=== PATIENT | female | born 1955 | race American Indian/Alaskan Native ===

== ENCOUNTER 2016-07-25 14:54 | Emergency (ER) | payer MEDICARE ==
[2016-07-25 15:20] LABS: Basophils % (Auto) 0.9 % (0.0-1.8); Eosinophils % (Auto) 2.1 % (0.0-4.3); Hematocrit 34.1 % (30.3-42.9); Hemoglobin 11.2 gm/dl (10.1-14.3); Mean Corpuscular HGB Conc 33 % (30-34); Mean Corpuscular Hemoglobin 29 pg (28-32); Mean Corpuscular Volume 88 fl (79-97); Platelet Count 244 K/mm3 (140-440); Red Blood Count 3.87 M/mm3 (3.65-5.03); Red Cell Distribution Width 16.8 % (13.2-15.2); White Blood Count 5.7 K/mm3 (4.5-11.0)
[2016-07-25 15:39] LABS: BUN/Creatinine Ratio 6.66; Calcium 10.8 mg/dL (8.4-10.2); Chloride 92.5 mmol/L (98-107)
[2016-07-25 16:36] VITALS: BP 153/79
--- NOTE | 2016-07-26 12:14 | Emergency Department Report ---
Entered by GRAY SEGURA, acting as scribe for ANGELINA CORADO NP. ED Recheck HPI - General Chief Complaint: Recheck/Abnormal Lab/Rx Stated Complaint: ABNORMAL LABS Time Seen by Provider: 07/25/16 15:47 Source: patient Mode of arrival: Ambulatory Limitations: No Limitations - History of Present Illness Initial Comments: 60 year old female with a PMHx of HTN and renal disease presents to ED c/o an elevated potassium level (6.8) that began this afternoon. Patient states that her blood was drawn and showed elevated potassium level at her supervisor bleach [employer]'s appointment for dialysis. Her doctor did not continue with her dialysis and referred her to the ED to get her labs cleared before continuing today. Her blood was drawn in triage and showed that her potassium levels had dropped to 6.0. She states that she "feels fine". Denies shortness of breath, nausea, numbness, tingling, chest pain, and leg cramping/pain. Reports going to dialysis every Monday, Monday, and Monday, but has not gone in two weeks before today. She is currently compliant with her HTN medications. Uses tobacco products daily and consumes EtOH. NKDA. 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 Symptoms Since Prior Visit: no new symptoms Context: other (patient's supervisor ble[employer] wants her blood results cleared to continue dialysis) Associated Symptoms: denies: fever, chills, chest pain, shortness of breath, nasuea, other (leg cramping/pain) - Related Data Allergies Allergy/AdvReac Type Severity Reaction Status Date / Time No Known Allergies Allergy Verified 07/25/16 15:04 ED Review of Systems Comment: All other systems reviewed and negative Constitutional: denies: chills, fever, other (tingling) Eyes: denies: eye pain, eye discharge, vision change ENT: denies: ear pain, throat pain Respiratory: denies: cough, shortness of breath, wheezing Cardiovascular: denies: chest pain, palpitations, dyspnea on exertion, orthopnea Endocrine: no symptoms reported Gastrointestinal: denies: nausea Genitourinary: denies: urgency, dysuria, discharge Musculoskeletal: denies: other (leg cramping/pain) Skin: denies: rash, lesions Neurological: denies: numbness Psychiatric: denies: anxiety, depression ED Past Medical Hx - Past Medical History Previous Medical History?: Yes Hx Hypertension: Yes Hx Renal Disease: Yes - Surgical History Past Surgical History?: Yes Additional Surgical History: - Social History Smoking Status: Current Every Day Smoker Substance Use Type: Alcohol ED Physical Exam - General Limitations: No Limitations General appearance: alert, in no apparent distress - Head Head exam: Present: atraumatic, normocephalic - Eye Eye exam: Present: normal appearance, PERRL, EOMI - ENT ENT exam: Present: normal exam, mucous membranes moist - Neck Neck exam: Present: normal inspection, full ROM. Absent: tenderness - Respiratory Respiratory exam: Present: normal lung sounds bilaterally. Absent: respiratory distress, wheezes, rales, rhonchi, stridor - Cardiovascular Cardiovascular Exam: Present: regular rate, normal rhythm - GI/Abdominal GI/Abdominal exam: Present: soft. Absent: distended - Extremities Exam Extremities exam: Present: normal inspection, full ROM - Back Exam Back exam: Present: normal inspection, full ROM - Neurological Exam Neurological exam: Present: alert, oriented X3 - Psychiatric Psychiatric exam: Present: normal affect, normal mood - Skin Skin exam: Present: warm, dry, intact. Absent: rash ED Course Vital Signs 07/25/16 07/25/16 15:00 16:29 Temperature 97.4 F L Pulse Rate 74 78 Respiratory 16 18 Rate Blood Pressure 158/72 Blood Pressure 153/79 [Right] O2 Sat by Pulse 100 100 Oximetry - Reevaluation(s) Reevaluation #1: 07/25/16 17:07 Patient stated that this feeling fine. Dr. Jj aware of patients labs and EKG. Patient is not seeming in toxic appearance or in any distress. She stated to me that if she did not know anything about her potassium she feels the "perfect". ED Recheck MDM - Medical Decision Making Ed course: This is a 60-year-old female that presents for abnormal lab value. Potassium in dialysis center was 6.8. 1- patient did not seem toxic appearance or in any distress. 2- Dr. Jj aware of the patient and labs. As well as EKG. 3- instruct the patient to continue dialysis. 4- in the time of discharge the patient has no further questions. 5- I instrcuted the patient to follow-up with her primary care doctor in 2-3 days. 6- instruct the patient to return to emergency room if any signs and symptoms of chest pain, shortness of breath, numbness or tingling sensation, calf pain. ED Disposition Clinical Impression: Laboratory examination Disposition: DISCHARGED TO HOME OR SELFCARE Is pt being admited?: No Does the pt Need Aspirin: No Condition: Stable Additional Instructions: Please follow-up with her primary care doctor in 2-3 days. Please continue dialysis. If any symptoms of shortness of breath, chest pain, numbness or tingling, or calf pain, report back to emergency room. Referrals: PRIMARY CARE,MD [Primary Care Provider] - 3-5 Days Forms: Work/School Release Form(ED) This documentation as recorded by the COLTON umaña JASMINE,accurately reflects the service I personally performed and the decisions made by ,ANGELINA CORADO, ENVELOPE STUFFER.
== END 2016-07-25 17:30 | disposition home or self-care (01) ==
LOC: ED 14:54
DX: Z13.89 Encounter for screening for other disorder (principal); I10 Essential (primary) hypertension; F17.200 Nicotine dependence, unspecified, uncomplicated
CPT/HCPCS: 36415; 80048; 85025; 93005; 93010; 99283

== ENCOUNTER 2016-11-04 12:10 | Emergency (ER) | payer MEDICARE ==
--- NOTE | 2016-11-04 13:14 | Emergency Department Report ---
ED Recheck HPI - General Chief Complaint: Recheck/Abnormal Lab/Rx Stated Complaint: LABWORK Time Seen by Provider: 11/04/16 13:07 Source: patient Mode of arrival: Ambulatory Limitations: No Limitations - History of Present Illness Initial Comments: 61-year-old female past medical history hypertension, ESRD on dialysis Monday presents with complaint of missing dialysis for one week. Patient states that due to transportation issues she did not follow-up with dialysis since last Monday approximately one week ago. Patient is awake alert and oriented 3 not in acute distress denies any chest pain palpitations shortness of breath lower extremity swelling. Patient denies any paresthesias or generalized weakness. States that she went to her dialysis center this morning but they sent her to the ER for a potassium and electrolyte check. On exam patient is sitting calmly on stretcher. Blood pressure is elevated systolic is 238 diastolic 100. Patient states that she took her daily losartan and nifedipine this morning. Patient has left sided upper extremity fistula or dialysis MD Complaint: abnormal lab Onset/Timin -: week(s) Description of Abnormal Result: Need for electrolyte check after missing one week of dialysis - Related Data Allergies Allergy/AdvReac Type Severity Reaction Status Date / Time No Known Allergies Allergy Verified 11/04/16 12:52 ED Review of Systems ROS: Stated complaint: LABWORK Other details as noted in HPI Comment: patient on dialysis Monday Constitutional: denies: chills, fever Eyes: denies: eye pain, eye discharge, vision change ENT: denies: ear pain, throat pain Respiratory: denies: cough, shortness of breath, wheezing Cardiovascular: denies: chest pain, palpitations Endocrine: no symptoms reported Gastrointestinal: denies: abdominal pain, nausea, diarrhea Genitourinary: denies: urgency, dysuria, discharge Musculoskeletal: denies: back pain, joint swelling, arthralgia Skin: denies: rash, lesions Neurological: denies: headache, weakness, paresthesias Psychiatric: denies: anxiety, depression Hematological/Lymphatic: denies: easy bleeding, easy bruising ED Past Medical Hx - Past Medical History Hx Hypertension: Yes Hx Renal Disease: Yes (MON-MON-MON) - Surgical History Additional Surgical History: X 3. TUBAL LIGATION. HYSTERECTOMY. PERMA CATH RIGHT CHEST AND REMOVAL. GRAFT LEFT ARM - Social History Smoking Status: Current Every Day Smoker Substance Use Type: None ED Physical Exam - General Limitations: No Limitations General appearance: alert, in no apparent distress - Head Head exam: Present: atraumatic, normocephalic - Eye Eye exam: Present: normal appearance, PERRL, EOMI - ENT ENT exam: Present: mucous membranes moist - Neck Neck exam: Present: normal inspection - Respiratory Respiratory exam: Present: normal lung sounds bilaterally. Absent: respiratory distress - Cardiovascular Cardiovascular Exam: Present: regular rate, normal rhythm. Absent: systolic murmur, diastolic murmur, rubs, gallop - GI/Abdominal GI/Abdominal exam: Present: soft, normal bowel sounds - Extremities Exam Extremities exam: Present: normal inspection - Back Exam Back exam: Present: normal inspection - Neurological Exam Neurological exam: Present: alert, oriented X3 - Psychiatric Psychiatric exam: Present: normal affect, normal mood - Skin Skin exam: Present: warm, dry, intact, normal color. Absent: rash ED Course Vital Signs 11/04/16 11/04/16 11/04/16 12:41 13:02 13:12 Temperature 97.6 F Pulse Rate 81 77 Respiratory 17 23 23 Rate Blood Pressure 228/94 O2 Sat by Pulse 100 100 Oximetry 11/04/16 11/04/16 13:15 13:30 Temperature Pulse Rate 75 79 Respiratory 14 16 Rate Blood Pressure 227/99 213/176 O2 Sat by Pulse Oximetry ED Recheck MDM - Medical Decision Making A/P: Need for hemodialysis 1-case discussed with Dr. Simon extension edger drywall hanger helper, I then reached out to pts outpt HD group, case d/w Dr. Vuong. As pts EKG is WNL, K+ is not markedly elevated and CXR does nto show CHF pt can recive outpt HD today. I informed Dr. Vuong that pts BP was in 220s systolic. As pt has nto recived HD in 1 week this is expected, pt deneis any palps, SOB, CP, blurry vision, nausea or vomiting. I called pts outpt HD center and discussed case w/ tree doctor Zeinab , I informed her that I would DC pt with strict instruction to report to [facility] HD center. Pt agreed she would report there after DC from the ED. 2-Case d/w Dr. Chang before discharge Critical care attestation.: If time is entered above; I have spent that time in minutes in the direct care of this critically ill patient, excluding procedure time. ED Disposition Clinical Impression: ESRD (end stage renal disease) Disposition: DC-01 TO HOME OR SELFCARE Is pt being admited?: No Does the pt Need Aspirin: No Condition: Stable Instructions: Chronic Kidney Disease (ED), End-Stage Kidney Disease (ED) Additional Instructions: Case discussed with Dr. Vuong, patient cleared to receive dialysis in outpatient center. Patient instructed to immediately report to dialysis center , I touched base with tree doctor Zeinab who stated that patient can come over immediately after discharge but must present discharge paperwork. [facility] dialysis center Referrals: PRIMARY CAREMD [Primary Care Provider] - 3-5 Days Time of Disposition: 14:52
[2016-11-04 13:31] LABS: BUN/Creatinine Ratio 6.46; Calcium 9.7 mg/dL (8.4-10.2); Chloride 92.9 mmol/L (98-107); Potassium 5.5 mmol/L (3.6-5.0)
[2016-11-04 13:36] LABS: Magnesium 3.2 mg/dL (1.7-2.3); Phosphorous 7.5 mg/dL (2.5-4.5)
--- NOTE | 2016-11-04 13:54 | XRay Report ---
Portable chest: Endstage renal disease; fluid overload. The lungs are clear. There is no vascular congestion. The heart is normal in size. No bone lesions noted. Impression: No significant pathology identified.
[2016-11-04 15:05] VITALS: BP 197/170
== END 2016-11-04 15:05 | disposition home or self-care (01) ==
LOC: ED 12:10
DX: I12.0 Hypertensive chronic kidney disease with stage 5 chronic kidney disease or end stage renal disease (principal); N18.6 End stage renal disease; F17.200 Nicotine dependence, unspecified, uncomplicated; Z99.2 Dependence on renal dialysis
CPT/HCPCS: 36415; 71010; 80048; 83735; 84100; 93005; 93010

== ENCOUNTER 2016-11-24 12:06 | Inpatient (IN) | payer MEDICARE ==
[2016-11-24 12:59] LABS: Hematocrit 32.6 % (30.3-42.9); Hemoglobin 10.6 gm/dl (10.1-14.3); Mean Corpuscular HGB Conc 33 % (30-34); Mean Corpuscular Hemoglobin 30 pg (28-32); Mean Corpuscular Volume 91 fl (79-97); Platelet Count 247 K/mm3 (140-440); Red Blood Count 3.57 M/mm3 (3.65-5.03); Red Cell Distribution Width 16.2 % (13.2-15.2); White Blood Count 6.8 K/mm3 (4.5-11.0)
[2016-11-24 13:00] LABS: BUN/Creatinine Ratio 8.24; Calcium 9.4 mg/dL (8.4-10.2); Potassium 4.9 mmol/L (3.6-5.0)
[2016-11-24] MEDS ORDERED: BABY ASPIRIN PO ONE (14:33)
--- NOTE | 2016-11-24 14:35 | Emergency Department Report ---
ED Chest Pain HPI - General Chief Complaint: Weakness Stated Complaint: DIALYSIS Time Seen by Provider: 11/24/16 14:06 Source: patient Mode of arrival: Ambulatory Limitations: No Limitations - History of Present Illness Initial Comments: This is a 61-year-old Afro-[place] female presents to the emergency department with multiple complaints under the umbrella of "I feel bad" after the patient has missed 4-5 sessions of dialysis. The patient usually goes on Monday/ Monday/Monday and has not been there for about 10 days because of personal issues at home. However now the patient complains of chest pain that radiates across her chest from right to left, chills, generalized weakness. She also has a history of hypertension. She has a surgical history of 3, tubal ligation, hysterectomy. She has not taken anything for symptoms prior to presentation. No recent travel or sick contacts at home. Her handmade tile artist is Dr. Ellis. - Related Data Home Medications Medication Instructions Recorded Confirmed Last Taken Aspirin [Adult Low Dose Aspirin EC] 81 mg PO DAILY 11/24/16 11/24/16 11/24/16 Carvedilol [Coreg] 12.5 mg PO BID 11/24/16 11/24/16 11/24/16 Losartan [Cozaar] 50 mg PO QDAY 11/24/16 11/24/16 11/21/16 NIFEdipine [Nifedipine ER] 60 mg PO DAILY 11/24/16 11/24/16 11/24/16 Vit B Cplx #11/FA/C/Biot/Zn Ox 1 each PO DAILY 11/24/16 11/24/16 11/21/16 [Dialyvite with Zinc Tablet] Allergies Allergy/AdvReac Type Severity Reaction Status Date / Time No Known Allergies Allergy Verified 11/04/16 12:52 Heart Score - HEART Score History: Slightly suspicious EKG: Non-specific Age: 45-65 Risk factors: 1-2 risk factors Troponin: < normal limit HEART Score: 3 - Critical Actions Critical Actions: 0-3 pts:0.9-1.7%risk of adverse cardiac event.Candidate for discharge ED Review of Systems ROS: Stated complaint: DIALYSIS Other details as noted in HPI Comment: All other systems reviewed and negative Constitutional: chills, weakness. denies: fever Eyes: denies: eye pain, eye discharge, vision change ENT: denies: ear pain, throat pain Respiratory: denies: cough, wheezing Cardiovascular: chest pain. denies: edema Gastrointestinal: nausea. denies: vomiting Genitourinary: denies: urgency, dysuria, discharge Musculoskeletal: denies: back pain, joint swelling Skin: denies: rash, lesions Neurological: denies: headache, numbness ED Past Medical Hx - Past Medical History Previous Medical History?: Yes Hx Hypertension: Yes Hx Renal Disease: Yes (MON-WED-MON) - Surgical History Past Surgical History?: Yes Additional Surgical History: X 3. TUBAL LIGATION. HYSTERECTOMY. PERMA CATH RIGHT CHEST AND REMOVAL. GRAFT LEFT ARM - Social History Smoking Status: Current Every Day Smoker Substance Use Type: Alcohol - Medications Home Medications: Home Medications Medication Instructions Recorded Confirmed Last Taken Type Aspirin [Adult Low Dose Aspirin EC] 81 mg PO DAILY 11/24/16 11/24/16 11/24/16 History Carvedilol [Coreg] 12.5 mg PO BID 11/24/16 11/24/16 11/24/16 History Losartan [Cozaar] 50 mg PO QDAY 11/24/16 11/24/16 11/21/16 History NIFEdipine [Nifedipine ER] 60 mg PO DAILY 11/24/16 11/24/16 11/24/16 History Vit B Cplx #11/FA/C/Biot/Zn Ox 1 each PO DAILY 11/24/16 11/24/16 11/21/16 History [Dialyvite with Zinc Tablet] ED Physical Exam - General Limitations: No Limitations - Other Other exam information: GENERAL: The patient is well-developed well-nourished. HEENT: Normocephalic. Atraumatic. Extraocular motions are intact. Patient has moist mucous membranes. Pupils equal reactive to light bilaterally. NECK: Supple. Trachea is midline. CHEST/LUNGS: Coarse breath sounds. No tachypnea or accessory muscle use. There is no respiratory distress noted. HEART/CARDIOVASCULAR: Regular. There is no tachycardia. There is no gallop rub or murmur. ABDOMEN: Abdomen is soft, nontender. Patient has normal bowel sounds. There is no abdominal distention. SKIN: Skin is warm and dry. NEURO: The patient is awake, alert, and oriented. The patient is cooperative. The patient has no focal neurologic deficits. The patient has normal speech. MUSCULOSKELETAL: There is no tenderness or deformity. There is no limitation range of motion. There is no evidence of acute injury. ED Course Vital Signs 11/24/16 11/24/16 11/24/16 12:07 14:13 14:14 Temperature 97.6 F Pulse Rate 88 83 79 Respiratory 18 25 H 16 Rate Blood Pressure 160/79 Blood Pressure [Right] O2 Sat by Pulse 100 Oximetry 11/24/16 11/24/16 11/24/16 14:16 14:18 14:20 Temperature 97.9 F Pulse Rate 77 83 84 Respiratory 16 16 17 Rate Blood Pressure Blood Pressure 180/72 [Right] O2 Sat by Pulse 100 Oximetry 11/24/16 11/24/16 11/24/16 14:22 14:24 14:26 Temperature Pulse Rate 74 79 83 Respiratory 15 12 15 Rate Blood Pressure 180/72 180/72 180/72 Blood Pressure [Right] O2 Sat by Pulse 100 100 100 Oximetry 11/24/16 11/24/16 11/24/16 14:28 14:30 14:32 Temperature Pulse Rate 79 80 88 Respiratory 12 17 20 Rate Blood Pressure 180/72 180/72 180/72 Blood Pressure [Right] O2 Sat by Pulse 100 100 100 Oximetry 11/24/16 11/24/16 11/24/16 14:34 14:36 14:38 Temperature Pulse Rate 81 83 80 Respiratory 16 13 15 Rate Blood Pressure 180/72 180/72 180/72 Blood Pressure [Right] O2 Sat by Pulse 100 100 100 Oximetry 11/24/16 11/24/16 11/24/16 14:40 14:42 14:44 Temperature Pulse Rate 79 84 79 Respiratory 15 15 10 L Rate Blood Pressure 180/72 180/72 180/72 Blood Pressure [Right] O2 Sat by Pulse 100 100 100 Oximetry 11/24/16 11/24/16 11/24/16 14:46 14:48 14:50 Temperature Pulse Rate 87 77 84 Respiratory 13 13 20 Rate Blood Pressure 180/72 180/72 180/72 Blood Pressure [Right] O2 Sat by Pulse 100 100 100 Oximetry 11/24/16 11/24/16 11/24/16 14:52 14:54 14:56 Temperature Pulse Rate 77 84 77 Respiratory 22 18 15 Rate Blood Pressure 180/72 180/72 180/72 Blood Pressure [Right] O2 Sat by Pulse 100 100 100 Oximetry 11/24/16 11/24/16 11/24/16 14:58 15:00 15:02 Temperature Pulse Rate 77 81 73 Respiratory 20 16 16 Rate Blood Pressure 180/72 169/73 169/73 Blood Pressure [Right] O2 Sat by Pulse 100 100 100 Oximetry 11/24/16 11/24/16 11/24/16 15:04 15:06 15:08 Temperature Pulse Rate 82 80 82 Respiratory 21 20 19 Rate Blood Pressure 169/73 169/73 169/73 Blood Pressure [Right] O2 Sat by Pulse 100 100 100 Oximetry 11/24/16 11/24/16 11/24/16 15:10 15:12 15:14 Temperature Pulse Rate 71 80 77 Respiratory 15 19 18 Rate Blood Pressure 169/73 169/73 169/73 Blood Pressure [Right] O2 Sat by Pulse 100 100 100 Oximetry 11/24/16 11/24/16 11/24/16 15:16 15:18 15:20 Temperature Pulse Rate 82 77 83 Respiratory 20 17 20 Rate Blood Pressure 169/73 169/73 169/73 Blood Pressure [Right] O2 Sat by Pulse 100 100 100 Oximetry 11/24/16 11/24/16 11/24/16 15:22 15:24 15:26 Temperature Pulse Rate 83 79 83 Respiratory 13 15 15 Rate Blood Pressure 169/73 169/73 169/73 Blood Pressure [Right] O2 Sat by Pulse 100 100 100 Oximetry 11/24/16 11/24/16 11/24/16 15:28 15:30 15:32 Temperature Pulse Rate 82 82 88 Respiratory 15 14 16 Rate Blood Pressure 169/73 169/73 169/73 Blood Pressure [Right] O2 Sat by Pulse 100 100 100 Oximetry 11/24/16 11/24/16 11/24/16 15:34 15:36 15:38 Temperature Pulse Rate 89 86 85 Respiratory 15 13 12 Rate Blood Pressure 169/73 169/73 169/73 Blood Pressure [Right] O2 Sat by Pulse 100 100 100 Oximetry 11/24/16 11/24/16 11/24/16 15:40 15:42 15:44 Temperature Pulse Rate 86 86 81 Respiratory 11 L 17 15 Rate Blood Pressure 169/73 169/73 169/73 Blood Pressure [Right] O2 Sat by Pulse 100 100 100 Oximetry 08/10/17 08/10/17 08/10/17 15:46 15:48 15:50 Temperature Pulse Rate 81 90 84 Respiratory 16 16 17 Rate Blood Pressure 169/73 169/73 169/73 Blood Pressure [Right] O2 Sat by Pulse 100 100 100 Oximetry 11/24/16 11/24/16 11/24/16 15:52 15:54 15:56 Temperature Pulse Rate 84 86 83 Respiratory 14 15 10 L Rate Blood Pressure 169/73 169/73 169/73 Blood Pressure [Right] O2 Sat by Pulse 100 100 100 Oximetry 11/24/16 11/24/16 11/24/16 15:58 16:00 16:02 Temperature Pulse Rate 83 84 85 Respiratory 17 16 14 Rate Blood Pressure 169/73 180/81 180/81 Blood Pressure [Right] O2 Sat by Pulse 100 99 100 Oximetry 11/24/16 11/24/16 11/24/16 16:04 16:06 16:08 Temperature Pulse Rate 86 80 83 Respiratory 16 19 12 Rate Blood Pressure 180/81 180/81 180/81 Blood Pressure [Right] O2 Sat by Pulse 100 100 100 Oximetry 11/24/16 11/24/16 11/24/16 16:10 16:12 16:14 Temperature Pulse Rate 86 87 87 Respiratory 18 13 12 Rate Blood Pressure 180/81 180/81 180/81 Blood Pressure [Right] O2 Sat by Pulse 100 100 Oximetry 11/24/16 11/24/16 16:28 16:31 Temperature 98.1 F Pulse Rate 76 80 Respiratory 16 Rate Blood Pressure 181/80 Blood Pressure 180/81 [Right] O2 Sat by Pulse 97 Oximetry - Consultations Consultation #1: 11/24/16 18:[address] Dowling, and she is aware of the patient's admission and lack of dialysis for the past 10 days and they're happy see the patient as a consult regarding dialysis. MUKUND score - Mukund Score Age > 65: (0) No Aspirin use within the Past 7 Days: (0) No 3 or more CAD Risk Factors: (0) No 2 or more Angina events in past 24 hrs: (1) Yes Known CAD with more than 50% Stenosis: (0) No Elevated Cardiac Markers: (0) No ST Deviation Greater than 0.5mm: (0) No MUKUND Score: 1 ED Medical Decision Making - Lab Data Result diagrams: 11/24/16 12:26 11/24/16 12:26 - EKG Data -: EKG Interpreted by Me EKG shows normal: sinus rhythm, axis, intervals, QRS complexes (LVH, Q waves in septal leads), ST-T waves Rate: normal - EKG Data When compared to previous EKG there are: previous EKG unavailable Interpretation: other (sinus rhythm, LVH, Q waves to the septal leads) - Radiology Data Radiology results: image reviewed interpreted by me: Chest x-ray does not show any obvious pneumonia or pleural effusion. - Medical Decision Making 61-year-old female who has not had dialysis in about 10 days presents with multiple different complaints including chest pain. EKG does not show any signs of ST elevation [place]. Chest x-ray is unremarkable thus far. First troponin negative. She'll be admitted to the hospital for further evaluation and possible dialysis. She has been accepted for admission by the hospitalist, Dr. Arambula. - Differential Diagnosis [place], pneumonia, CHF Critical Care Time: No Critical care attestation.: If time is entered above; I have spent that time in minutes in the direct care of this critically ill patient, excluding procedure time. ED Disposition Clinical Impression: ESRD on hemodialysis Chest pain Qualifiers: Chest pain type: unspecified Qualified Code(s): R07.9 - Chest pain, unspecified Hypertension Qualifiers: Hypertension type: renovascular hypertension Qualified Code(s): I15.0 - Renovascular hypertension Disposition: OP ADMIT IP TO THIS HOSP Is pt being admited?: Yes Condition: Stable Time of Disposition: 16:18
--- NOTE | 2016-11-24 14:57 | XRay Report ---
Single view chest: Compared to 11/04/16. History: Chest pain. Findings: Borderline cardiomegaly. Trachea is midline. No consolidation, pneumothorax or pleural effusion. Impression: No acute cardiopulmonary findings.
[2016-11-24] MEDS ORDERED: NORMODYNE IV ONE (16:19)
[2016-11-24] MEDS ORDERED: MORPHINE ONE (18:10)
[2016-11-24] MEDS ORDERED: MORPHINE IV ONE (18:16)
[2016-11-24] MEDS ORDERED: APRESOLINE IV ONE (19:22)
[2016-11-24] MEDS ORDERED: ZOFRAN ONE (20:22)
--- NOTE | 2016-11-24 20:52 | History and Physical Report ---
History of Present Illness Date of examination: 11/24/16 Date of admission: 11/24/16 16:18 Chief complaint: L sided chest pain for 1 day Missed HD for 10 days History of present illness: - History of Present Illness Initial Comments: Patient complains of chest pain that radiates across her chest from right to left, and generalized weakness. She also has a history of hypertension. She has a surgical history of 3, tubal ligation, hysterectomy. She has not taken anything for symptoms prior to presentation. No recent travel or sick contacts at home. Her nurse ob is Dr. Ellis. This is a 61-year-old Afro-[place]ij[place] female presents to the emergency department with multiple complaints .Has missed 4-5 sessions of dialysis. The patient usually goes on Monday/Monday/Monday and has not been there for about 10 days because of personal issues at home. Past Medical History Hx Hypertension: Yes Hx Renal Disease: Yes (MON-MON-MON) - Surgical History Past Surgical History?: Yes Additional Surgical History: X 3. TUBAL LIGATION. HYSTERECTOMY. PERMA CATH RIGHT CHEST AND REMOVAL. GRAFT LEFT ARM - Social History Smoking Status: Current Every Day Smoker Substance Use Type: Alcohol Fam HX Htn - Medications Home Medications: Home Medications Medication Instructions Recorded Confirmed Last Taken Type Aspirin [Adult Low Dose Aspirin EC] 81 mg PO DAILY 11/24/16 11/24/16 11/24/16 History Carvedilol [Coreg] 12.5 mg PO BID 11/24/16 11/24/16 11/24/16 History Losartan [Cozaar] 50 mg PO QDAY 11/24/16 11/24/16 11/21/16 History NIFEdipine [Nifedipine ER] 60 mg PO DAILY 11/24/16 11/24/16 11/24/16 History Vit B Cplx #11/FA/C/Biot/Zn Ox 1 each PO DAILY 11/24/16 11/24/16 11/21/16 History [Dialyvite with Zinc Tablet] - Related Data Home Medications Medication Instructions Recorded Confirmed Last Taken Aspirin [Adult Low Dose Aspirin EC] 81 mg PO DAILY 11/24/16 11/24/16 11/24/16 Carvedilol [Coreg] 12.5 mg PO BID 11/24/16 11/24/16 11/24/16 Losartan [Cozaar] 50 mg PO QDAY 11/24/16 11/24/16 11/21/16 NIFEdipine [Nifedipine ER] 60 mg PO DAILY 11/24/16 11/24/16 11/24/16 Vit B Cplx #11/FA/C/Biot/Zn Ox 1 each PO DAILY 11/24/16 11/24/16 11/21/16 [Dialyvite with Zinc Tablet] Allergies Allergy/AdvReac Type Severity Reaction Status Date / Time No Known Allergies Allergy Verified 11/04/16 12:52 ROS: Stated complaint: DIALYSIS Other details as noted in HPI Comment: All other systems reviewed and negative Constitutional: chills, weakness. denies: fever Eyes: denies: eye pain, eye discharge, vision change ENT: denies: ear pain, throat pain Respiratory: denies: cough, wheezing Cardiovascular: chest pain. denies: edema Gastrointestinal: nausea. denies: vomiting Genitourinary: denies: urgency, dysuria, discharge Musculoskeletal: denies: back pain, joint swelling Skin: denies: rash, lesions Neurological: denies: headache, numbness Medications and Allergies Allergies Allergy/AdvReac Type Severity Reaction Status Date / Time No Known Allergies Allergy Verified 11/04/16 12:52 Home Medications Medication Instructions Recorded Confirmed Last Taken Type Aspirin [Adult Low Dose Aspirin EC] 81 mg PO DAILY 11/24/16 11/24/16 11/24/16 History Carvedilol [Coreg] 12.5 mg PO BID 11/24/16 11/24/16 11/24/16 History Losartan [Cozaar] 50 mg PO QDAY 11/24/16 11/24/16 11/21/16 History NIFEdipine [Nifedipine ER] 60 mg PO DAILY 11/24/16 11/24/16 11/24/16 History Vit B Cplx #11/FA/C/Biot/Zn Ox 1 each PO DAILY 11/24/16 11/24/16 11/21/16 History [Dialyvite with Zinc Tablet] Active Meds: Active Medications Heparin Sodium (Porcine) (Heparin) 5,000 unit SUB-Q Q8HR FROY Exam - Constitutional Vitals: Temp Pulse Resp BP Pulse Ox 98.1 F 89 19 170/88 100 11/24/16 16:28 11/24/16 20:39 11/24/16 18:42 11/24/16 20:39 11/24/16 20:39 General appearance: Present: no acute distress, well-nourished - EENT Eyes: Present: PERRL ENT: hearing intact, clear oral mucosa - Neck Neck: Present: supple, normal ROM - Respiratory Respiratory effort: normal Respiratory: bilateral: CTA - Cardiovascular Heart Sounds: Present: S1 & S2. Absent: rub, click - Extremities Extremities: pulses symmetrical, No edema Peripheral Pulses: within normal limits - Abdominal General gastrointestinal: Present: soft, non-tender, non-distended, normal bowel sounds Female genitourinary: Present: normal - Integumentary Integumentary: Present: clear, warm, dry - Musculoskeletal Musculoskeletal: gait normal, strength equal bilaterally - Psychiatric Psychiatric: appropriate mood/affect, intact judgment & insight - Neurologic Neurologic: CNII-XII intact, moves all extremities Results - Labs CBC & Chem 7: 11/24/16 12:26 11/25/16 03:55 Labs: Laboratory Last Values WBC 6.8 K/mm3 (4.5-11.0) 11/24/16 12:26 RBC 3.57 M/mm3 (3.65-5.03) L 11/24/16 12:26 Hgb 10.6 gm/dl (10.1-14.3) 11/24/16 12:26 Hct 32.6 % (30.3-42.9) 11/24/16 12:26 MCV 91 fl (79-97) 11/24/16 12:26 MCH 30 pg (28-32) 11/24/16 12:26 MCHC 33 % (30-34) 11/24/16 12:26 RDW 16.2 % (13.2-15.2) H 11/24/16 12:26 Plt Count 247 K/mm3 (140-440) 11/24/16 12:26 Sodium 132 mmol/L (137-145) L 11/24/16 12:26 Potassium 4.9 mmol/L (3.6-5.0) 11/24/16 12:26 Chloride 90.0 mmol/L (98-107) L 11/24/16 12:26 Carbon Dioxide 18 mmol/L (22-30) L 11/24/16 12:26 Anion Gap 29 mmol/L 11/24/16 12:26 BUN 108 mg/dL (7-17) H 11/24/16 12:26 Creatinine 13.1 mg/dL (0.7-1.2) H 11/24/16 12:26 Estimated GFR 4 ml/min 11/24/16 12:26 BUN/Creatinine Ratio 8.24 % 11/24/16 12:26 Glucose 170 mg/dL (65-100) H 11/24/16 12:26 Calcium 9.4 mg/dL (8.4-10.2) 11/24/16 12:26 Troponin T 0.018 ng/mL (0.00-0.029) 11/24/16 20:00 Short CBC 11/24/16 Range/Units 12:26 WBC 6.8 (4.5-11.0) K/mm3 Hgb 10.6 (10.1-14.3) gm/dl Hct 32.6 (30.3-42.9) % Plt Count 247 (140-440) K/mm3 BMP 11/24/16 11/25/16 12:26 03:55 Sodium 132 L 138 Potassium 4.9 4.9 Chloride 90.0 L 95.7 L Carbon Dioxide 18 L 19 L BUN 108 H 118 H Creatinine 13.1 H 13.8 H Glucose 170 H 113 H Calcium 9.4 9.3 Cardiac Enzymes 11/24/16 11/24/16 11/24/16 Range/Units 12:26 17:55 20:00 Total Creatine Kinase (30-135) units/L CK-MB (CK-2) (0.0-4.0) ng/mL Troponin T 0.018 0.017 0.018 (0.00-0.029) ng/mL 11/24/16 11/25/16 Range/Units 21:16 03:55 Total Creatine Kinase 152 H 139 H (30-135) units/L CK-MB (CK-2) 2.3 2.2 (0.0-4.0) ng/mL Troponin T 0.022 0.021 (0.00-0.029) ng/mL Liver Function 11/25/16 Range/Units 03:55 Total Bilirubin 0.30 (0.1-1.2) mg/dL AST 9 (5-40) units/L ALT 10 (7-56) units/L Alkaline Phosphatase 46 (35-129) units/L Albumin 4.0 (3.9-5) g/dL - Imaging and Cardiology EKG: report reviewed Assessment and Plan Advance Directives: Yes (Full code) VTE prophylaxis?: Chemical Plan of care discussed with patient/family: Yes - Patient Problems (1) Chest pain Current Visit: Yes Status: Acute Qualifiers: Chest pain type: unspecified Ischemic chest pain type: I Qualified Code(s ): R07.9 - Chest pain, unspecified Plan to address problem: Chest pain r/o MIprotocol.Probably sec to volume overload.Serial CE's and Lexiscan (2) Hypertension Current Visit: Yes Status: Chronic Qualifiers: Hypertension type: essential hypertension Qualified Code(s): I10 - Essential (primary) hypertension Plan to address problem: Cont Losartan Nifedipine and Coreg (3) ESRD on hemodialysis Current Visit: Yes Status: Chronic Plan to address problem: Needs HD. Renal Dr Dowling consulted (4) Non-compliance with renal dialysis Current Visit: Yes Status: Chronic Plan to address problem: Patient counselled about dangers of missing HD (5) DVT prophylaxis Current Visit: Yes Status: Acute (6) DVT prophylaxis Current Visit: Yes Status: Acute Plan to address problem: On Heparin
[2016-11-24] MEDS ORDERED: MILK OF MAGNESIA PO PRN (20:54)
[2016-11-24] MEDS ORDERED: TYLENOL PO PRN (20:54)
[2016-11-24] MEDS ORDERED: DULCOLAX PR PRN (20:54)
[2016-11-24] MEDS ORDERED: DILAUDID IV PRN (20:54)
[2016-11-24] MEDS ORDERED: ZOFRAN IV PRN (20:54)
[2016-11-24] MEDS ORDERED: COZAAR PO SCH (21:00)
[2016-11-24 21:52] LABS: Creatine Kinase MB 2.3 ng/mL (0.0-4.0)
[2016-11-24] MEDS: COREG PO SCH (23:17)
[2016-11-24] MEDS: PROCARDIA XL PO SCH (23:17)
[2016-11-24] MEDS: PEPCID PO SCH (23:17)
[2016-11-24] MEDS: HEPARIN SUB-Q SCH (23:18)
[2016-11-25 04:37] LABS: Albumin/Globulin Ratio 1.2 %; Bilirubin,Total 0.3 mg/dL (0.1-1.2); Calcium 9.3 mg/dL (8.4-10.2); Chloride 95.7 mmol/L (98-107); Potassium 4.9 mmol/L (3.6-5.0); Total Protein 7.4 g/dL (6.3-8.2)
[2016-11-25 04:38] LABS: Creatine Kinase MB 2.2 ng/mL (0.0-4.0)
[2016-11-25 04:48] LABS: BUN/Creatinine Ratio 8.55
[2016-11-25] MEDS: HEPARIN SUB-Q SCH ×2 (06:36→16:02)
[2016-11-25] MEDS ORDERED: NACL 0.9% 100 ML IV PRN (08:27)
--- NOTE | 2016-11-25 08:27 | Consultation ---
History of Present Illness - Reason for Consult Consult date: 11/25/16 end stage renal disease - History of Present Illness The patient is a 61-year-old AAF with medical history significant for Hypertension and ESRD on hemodialysis (MWF) presented to the emergency department with multiple complaints including generalized bodyache, not feeling well and generalized weakness. Her Emergency Room Technician is Dr. Ellis. She missed the past 2 sessions of hemodialysis due to social issues. She was also complaining of chest pain that radiates across her chest from right to left. Past History Past Medical History: dialysis, ESRD, hypertension Medications and Allergies Allergies Allergy/AdvReac Type Severity Reaction Status Date / Time No Known Allergies Allergy Verified 11/04/16 12:52 Home Medications Medication Instructions Recorded Confirmed Last Taken Type Aspirin [Adult Low Dose Aspirin EC] 81 mg PO DAILY 11/24/16 11/24/16 11/24/16 History Carvedilol [Coreg] 12.5 mg PO BID 11/24/16 11/24/16 11/24/16 History Losartan [Cozaar] 50 mg PO QDAY 11/24/16 11/24/16 11/21/16 History NIFEdipine [Nifedipine ER] 60 mg PO DAILY 11/24/16 11/24/16 11/24/16 History Vit B Cplx #11/FA/C/Biot/Zn Ox 1 each PO DAILY 11/24/16 11/24/16 11/21/16 History [Dialyvite with Zinc Tablet] Active Meds: Active Medications Acetaminophen (Tylenol) 650 mg PO Q4H PRN PRN Reason: Pain MILD(1-3)/Fever >100.5/NOVAK Aspirin (Halfprin Ec) 81 mg PO DAILY FROY Bisacodyl (Dulcolax) 10 mg NC QDAY PRN PRN Reason: Constipation unrelieved by MOM Carvedilol (Coreg) 12.5 mg PO BID [facility] Last Admin: 11/24/16 23:17 Dose: 12.5 mg Famotidine (Pepcid) 10 mg PO DAILY [facility] Last Admin: 11/24/16 23:17 Dose: 10 mg Heparin Sodium (Porcine) (Heparin) 5,000 unit SUB-Q Q8HR [facility] Last Admin: 11/25/16 06:36 Dose: 5,000 unit Hydromorphone HCl (Dilaudid) 0.5 mg IV Q3H PRN PRN Reason: Pain , Severe (7-10) Losartan Potassium (Cozaar) 50 mg PO QDAY [facility] Last Admin: 11/24/16 23:17 Dose: 50 mg Magnesium Hydroxide (Milk Of Magnesia) 30 ml PO Q4H PRN PRN Reason: Constipation Nifedipine (Procardia Xl) 60 mg PO DAILY [facility] Last Admin: 11/24/16 23:17 Dose: 60 mg Ondansetron HCl (Zofran) 4 mg IV Q8H PRN PRN Reason: N/V unrelieved by Reglan Last Admin: 11/24/16 21:01 Dose: 4 mg Review of Systems Constitutional: chills, fatigue, weakness, malaise, no weight loss, no weight gain, no fever, no anorexia, no chronic pain Ears, nose, mouth and throat: no sinus pain, no epistaxis Breasts: deferred Cardiovascular: chest pain, high blood pressure, no orthopnea, no palpitations, no edema, no syncope, no lightheadedness, no shortness of breath, no dyspnea on exertion, no leg edema Respiratory: no cough, no home oxygen Gastrointestinal: no abdominal pain, no nausea, no vomiting, no diarrhea, no melena Genitourinary Female: no dysuria, no hematuria Rectal: no bleeding Musculoskeletal: muscle weakness, no hot joints Integumentary: no rash, no wounds Neurological: weakness, no paralysis, no seizures, no syncope, no convulsions, no change in mentation, no paralysis Psychiatric: no disorientation Hematologic/Lymphatic: no easy bleeding Exam - Vital Signs Vital signs: Vital Signs Temp Pulse Resp BP Pulse Ox 97.6 F 88 18 160/79 100 11/24/16 12:07 11/24/16 12:07 11/24/16 12:07 11/24/16 12:07 11/24/16 12:07 - General Appearance General appearance: well-developed, well-nourished, appears stated age, other ( no distress) EENT: ATNC, PERRL, mucous membranes moist, hearing intact, vision intact Neck: Present: neck supple Respiratory: Clear to Ascultation Heart: regular, S1S2, no murmurs Gastrointestinal: Present: normoactive bowel sounds. Absent: tenderness, distended Integumentary: no rash Neurologic: no focal deficit, no asterixis, alert and oriented x3, CN 3-12 intact Musculoskeletal: Present: other (left arm AVF, no edema) Psychiatric: mood/affect appropriate, cooperative Results - Lab Results 11/24/16 12:26 11/25/16 03:55 Most recent lab results Calcium 9.3 mg/dL (8.4-10.2) 11/25/16 03:55 Assessment and Plan - Patient Problems (1) ESRD on hemodialysis Status: Chronic Plan to address problem: Patient missed the past 2 sessions of hemodialysis. Hemodialysis today. (2) Hypertension Status: Chronic Qualifiers: Hypertension type: essential hypertension Qualified Code(s): I10 - Essential (primary) hypertension Plan to address problem: BP controlled. (3) Anemia of renal disease Status: Chronic Plan to address problem: Epogen.
--- NOTE | 2016-11-25 08:45 | Discharge Summary ---
Providers - Providers Date of Admission: 11/24/16 16:18 Attending physician: NI SEYMOUR MD 11/24/16 20:57 Consult to Physician [CONS] Routine Consulting Provider: VIDHYA DOWLING I Reason For Exam: ESRD on HD Primary care physician: ICE SKATER Hospitalization Condition: Stable Hospital course: Patient complains of chest pain that radiates across her chest from right to left, and generalized weakness. She also has a history of hypertension. She has a surgical history of 3, tubal ligation, hysterectomy. She has not taken anything for symptoms prior to presentation. No recent travel or sick contacts at home. Her branch coordinator is Dr. Ellis. This is a 61-year-old Afro-[place] female presents to the emergency department with multiple complaints .Has missed 4-5 sessions of dialysis. The patient usually goes on Monday/Monday/Monday and has not been there for about 10 days because of personal issues at home. (1) Chest pain Current Visit: Yes Status: Acute Qualifiers: Chest pain type: unspecified Ischemic chest pain type: I Qualified Code(s ): R07.9 - Chest pain, unspecified Plan to address problem: Chest pain r/o MIprotocol.Probably sec to volume overload.Serial CE's and Lexiscan (2) Hypertension Current Visit: Yes Status: Chronic Qualifiers: Hypertension type: essential hypertension Qualified Code(s): I10 - Essential (primary) hypertension Plan to address problem: Cont Losartan Nifedipine and Coreg (3) ESRD on hemodialysis Current Visit: Yes Status: Chronic Plan to address problem: Needs HD. Renal Dr Dowling consulted (4) Non-compliance with renal dialysis Current Visit: Yes Status: Chronic Plan to address problem: Patient counselled about dangers of missing HD (6) DVT prophylaxis Current Visit: Yes Status: Acute Plan to address problem: On Heparin Disposition: DC-01 TO HOME OR SELFCARE Time spent for discharge: 32 minutes Core Measure Documentation - Palliative Care Palliative Care/ Comfort Measures: Not Applicable - Core Measures Any of the following diagnoses?: none Exam - Constitutional Vitals: Temp Pulse Resp BP Pulse Ox 98.2 F 77 20 139/76 96 11/25/16 05:10 11/25/16 05:10 11/25/16 05:10 11/25/16 05:10 11/25/16 05:10 General appearance: Present: no acute distress, well-nourished - EENT Eyes: Present: PERRL ENT: hearing intact, clear oral mucosa - Neck Neck: Present: supple, normal ROM - Respiratory Respiratory effort: normal Respiratory: bilateral: CTA - Cardiovascular Heart Sounds: Present: S1 & S2. Absent: rub, click - Extremities Extremities: pulses symmetrical, No edema Peripheral Pulses: within normal limits - Abdominal General gastrointestinal: Present: soft, non-tender, non-distended, normal bowel sounds Female genitourinary: Present: normal - Integumentary Integumentary: Present: clear, warm, dry - Musculoskeletal Musculoskeletal: gait normal, strength equal bilaterally - Psychiatric Psychiatric: appropriate mood/affect, intact judgment & insight - Neurologic Neurologic: CNII-XII intact, moves all extremities Plan Follow up with: PRIMARY CARE, [Primary Care Provider] - 3-5 Days
[2016-11-25] MEDS ORDERED: LEXISCAN IV ONE ×2 (09:02→09:04)
[2016-11-25] MEDS ORDERED: HALFPRIN EC PO SCH (10:00)
[2016-11-25] MEDS ORDERED: NACL 0.9 (PRIMING MACHINE ONLY DIALYSIS) MC ONE (12:37)
--- NOTE | 2016-11-25 15:55 | Admit Criteria Form ---
Admission Criteria Documentation: CHEST PAIN Clinical Indications for Admission to Inpatient Care ([place]/check or initial the applicable condition/criteria) Admission is indicated for chest pain and ANY ONE of the following (1)(2)(3)(4)( 5)(6)(7): [ ]I. Angina with acute coronary syndrome (Also use Myocardial Infarction or Angina guideline) [ ]II. Hemodynamic instability [X]III. Angina needing acute intervention as indicated by ALL of the following( 11)(12): [ ]a) Unstable angina is present as indicated by angina that is ANY ONE of the following: [ ]i) New onset [ ]ii) Nocturnal [ ]iii) Prolonged at rest [ ]iv) Progressive [X]b) Angina warrants acute intervention as indicated by ANY ONE of the following: [ ]i) Recurrent angina (e.g, not responding as previously to treatment) [ ]ii) Angina at rest or with low-level activities despite initial medical therapy [ ]iii) New or presumably new ST-segment depression on ECG [ ]iv) Signs or symptoms of heart failure (eg, dyspnea, pulmonary edema) [ ]v) New or worsening mitral regurgitation [ ]vi) Hemodynamic instability [ ]vii) Dangerous arrhythmia (eg, sustained ventricular tachycardia) [ ]viii) History of percutaneous coronary intervention within 6 months [ ]ix) History of coronary artery bypass graft surgery []x) MUKUND risk score of 2 or greater[A] [ ]xi) History of Diabetes(14) [ ]xii) High-risk cardiac ischemia findings on noninvasive testing (e.g, echocardiogram, treadmill testing, nuclear scan) [X]xiii) Chronic renal insufficiency (ie, estimated GFR less than 60 mL/min/1.732m) [ ]xiv) Left ventricular ejection fraction less than 40% [ ]IV. Evidence of AL (eg, cardiac biomarkers positive, ST-segment elevation on ECG) also use Myocardial Infarction Criteria Form. [ ]V. Pulmonary edema [ ]III. Respiratory distress [ ]IV. Chest pain indicative of serious diagnosis other than coronary artery disease (e.g., aorticdissection) Extended stay beyond goal length of stay may be needed for(3)(4)(10)(45)(48) [ ]a) Unstable angina [ ]b) Continued suspicion of acute coronary syndrome with inability to complete needed cardiac evaluation (eg, patient clinically unable to undergo stress testing) [ ]c) Myocardial infarction [ ]d) Specific condition diagnosed after evaluation (eg, pulmonary embolism, aortic dissection)(49)(50)(51) The original [facility] content created by [facility] [employer] has been revised. The portions of the content which have been revised are identified through the use of italic text or in bold, and [facility] [employer] has neither reviewed nor approved the modified material. All other unmodified content is copyright [facility] [employer]. Please see references footnoted in the original [facility] [employer] edition 2017 Admission Criteria Met: Yes
[2016-11-25] MEDS: PEPCID PO SCH (16:03)
[2016-11-25] MEDS: PROCARDIA XL PO SCH (16:03)
[2016-11-25] MEDS: COREG PO SCH (16:03)
[2016-11-25 16:58] VITALS: BP 158/83
--- NOTE | 2016-11-25 22:53 | Treadmill Report ---
THALLIUM REPORT REASON FOR STUDY: Chest pain. IMAGING PROTOCOL: The patient received TC99m Tetrofosmin for rest and stress imaging. Imaging for all procedures was completed 30-90 minutes following the initial injection of Technetium 99m Tetrofosmin. SPECT imaging in the 180 degree arc was performed in the right anterior oblique projection. Computerized reconstruction of the images was performed for analysis. NUCLEAR IMAGING RESULTS: Normal left ventricular cavity size with no change from stress to rest. Distribution of radionuclide within the left ventricle revealed normal myocardial photon uptake with stress and rest imaging. Gated SPECT imaging revealed normal global LV systolic function with no significant wall motion abnormalities. The calculated left ventricular ejection fraction is 63%. IMPRESSION: Normal stress and rest myocardial perfusion imaging. Normal global left ventricular systolic function with no significant wall motion abnormalities. Ejection fraction 63%. No evidence of significant stress-induced ischemia or prior infarction. JOB# [id number] HAYDEE/HARSHAD PALMER
== END 2016-11-25 17:31 | disposition home or self-care (01) | DRG 640 ==
LOC: ED 12:06 → 4A 16:18
PROVIDERS: ADMIT Internal Medicine; ATTEND Internal Medicine
PROC: 5A1D60Z (ICD-10-PCS; principal; 2016-11-25)
DX: E87.70 Fluid overload, unspecified (principal); N18.6 End stage renal disease; I12.0 Hypertensive chronic kidney disease with stage 5 chronic kidney disease or end stage renal disease; F17.210 Nicotine dependence, cigarettes, uncomplicated; D63.1 Anemia in chronic kidney disease; Z98.51 Tubal ligation status; Z90.710 Acquired absence of both cervix and uterus; Z79.82 Long term (current) use of aspirin; Z79.899 Other long term (current) drug therapy; Z99.2 Dependence on renal dialysis; Z91.15 Patient's noncompliance with renal dialysis; Z71.89 Other specified counseling
CPT/HCPCS: 36415; 71010; 78452; 80048; 80053; 82550; 82553; 83036; 84484; 85027; 93005; 93010; 93017; 96374; 96375; A9502; J0360; J1170; J1644; J2270; J2405; J2785; J7030

== ENCOUNTER 2017-06-14 15:00 | Emergency (ER) | payer MEDICARE ==
[2017-06-14 15:08] VITALS: BP 156/75
[2017-06-14 15:42] LABS: BUN/Creatinine Ratio 5; Blood Urea Nitrogen 73 mg/dL (7-17); Calcium 8.7 mg/dL (8.4-10.2); Hemolysis Index 6
--- NOTE | 2017-06-14 16:24 | Emergency Department Report ---
ED General Adult HPI - General Chief complaint: Medical Clearance Stated complaint: MISSED DIALYSIS TX Time Seen by Provider: 06/14/17 15:48 Source: patient Mode of arrival: Ambulatory Limitations: No Limitations - History of Present Illness Initial comments: Patient is a 61-year-old female who is presenting for lab work. Patient states she missed dialysis 2 days ago and her last dialysis was one week ago today. Patient states she feels fine she missed her last dialysis because she just didn't feel like going. Patient denies any shortness of breath fevers chills nausea vomiting diarrhea chest pain at this time. - Related Data Home Medications Medication Instructions Recorded Confirmed Last Taken Aspirin [Adult Low Dose Aspirin EC] 81 mg PO DAILY 11/24/16 11/24/16 11/24/16 B Complex 11/Folic/C/Biot/Zinc 1 each PO DAILY 11/24/16 11/24/16 11/21/16 [Dialyvite with Zinc Tablet] Carvedilol [Coreg] 12.5 mg PO BID 11/24/16 11/24/16 11/24/16 Losartan [Cozaar] 50 mg PO QDAY 11/24/16 11/24/16 11/21/16 NIFEdipine [Nifedipine ER] 60 mg PO DAILY 11/24/16 11/24/16 11/24/16 Allergies Allergy/AdvReac Type Severity Reaction Status Date / Time No Known Allergies Allergy Verified 11/04/16 12:52 ED Review of Systems ROS: Stated complaint: MISSED DIALYSIS TX Other details as noted in HPI Comment: All other systems reviewed and negative ED Past Medical Hx - Past Medical History Hx Hypertension: Yes Hx Congestive Heart Failure: No Hx Diabetes: No Hx Renal Disease: Yes (MON-MON-MON) Hx Asthma: No Hx COPD: No - Surgical History Additional Surgical History: X 3. TUBAL LIGATION. HYSTERECTOMY. PERMA CATH RIGHT CHEST AND REMOVAL. GRAFT LEFT ARM - Social History Smoking Status: Current Every Day Smoker Substance Use Type: None - Medications Home Medications: Home Medications Medication Instructions Recorded Confirmed Last Taken Type Aspirin [Adult Low Dose Aspirin EC] 81 mg PO DAILY 11/24/16 11/24/16 11/24/16 History B Complex 11/Folic/C/Biot/Zinc 1 each PO DAILY 11/24/16 11/24/16 11/21/16 History [Dialyvite with Zinc Tablet] Carvedilol [Coreg] 12.5 mg PO BID 11/24/16 11/24/16 11/24/16 History Losartan [Cozaar] 50 mg PO QDAY 11/24/16 11/24/16 11/21/16 History NIFEdipine [Nifedipine ER] 60 mg PO DAILY 11/24/16 11/24/16 11/24/16 History ED Physical Exam - General Limitations: No Limitations General appearance: alert, in no apparent distress - Head Head exam: Present: atraumatic, normocephalic - Eye Eye exam: Present: normal appearance - ENT ENT exam: Present: mucous membranes moist - Neck Neck exam: Present: normal inspection - Respiratory Respiratory exam: Present: normal lung sounds bilaterally. Absent: respiratory distress - Cardiovascular Cardiovascular Exam: Present: regular rate, normal rhythm. Absent: systolic murmur, diastolic murmur, rubs, gallop - GI/Abdominal GI/Abdominal exam: Present: soft, normal bowel sounds - Extremities Exam Extremities exam: Present: normal inspection - Back Exam Back exam: Present: normal inspection - Neurological Exam Neurological exam: Present: alert, oriented X3 - Psychiatric Psychiatric exam: Present: normal affect, normal mood - Skin Skin exam: Present: warm, dry, intact, normal color. Absent: rash ED Course Vital Signs 06/14/17 15:05 Temperature 98.5 F Pulse Rate 83 Respiratory 16 Rate Blood Pressure 156/75 O2 Sat by Pulse 100 Oximetry ED Medical Decision Making - Lab Data Result diagrams: 06/14/17 15:17 - Medical Decision Making Patient's despite looking very well and stable does have abnormal labs. Her potassium is elevated she was technically acidotic as well. Patient has had end -stage renal disease for quite some time. I did speak with the patient's back line cook Dr. Whitlock and we discussed her lab findings. We both agree that the patient will receive Kayexalate can be discharged home for dialysis first thing in the morning. Critical care attestation.: If time is entered above; I have spent that time in minutes in the direct care of this critically ill patient, excluding procedure time. ED Disposition Clinical Impression: Missed dialysis, Hyperkalemia Disposition: DC-01 TO HOME OR SELFCARE Is pt being admited?: No Does the pt Need Aspirin: No Condition: Stable Referrals: PRIMARY CARE, [Primary Care Provider] - 3-5 Days
[2017-06-14] MEDS ORDERED: KIONEX PO ONE (16:26)
== END 2017-06-14 16:54 | disposition home or self-care (01) ==
LOC: ED 15:00
DX: E87.5 Hyperkalemia (principal); I12.0 Hypertensive chronic kidney disease with stage 5 chronic kidney disease or end stage renal disease; N18.6 End stage renal disease; F17.200 Nicotine dependence, unspecified, uncomplicated; Z99.2 Dependence on renal dialysis; Z91.15 Patient's noncompliance with renal dialysis; Z90.710 Acquired absence of both cervix and uterus; Z98.51 Tubal ligation status
CPT/HCPCS: 36415; 80048; 99283

== ENCOUNTER 2017-08-25 14:04 | Emergency (ER) | payer MEDICARE ==
[2017-08-25 14:12] VITALS: BP 170/83
[2017-08-25 14:53] LABS: Hematocrit 35.4 % (30.3-42.9); Hemoglobin 11.5 gm/dl (10.1-14.3); Mean Corpuscular HGB Conc 33 % (30-34); Mean Corpuscular Hemoglobin 30 pg (28-32); Mean Corpuscular Volume 93 fl (79-97); Platelet Count 247 K/mm3 (140-440); Red Blood Count 3.81 M/mm3 (3.65-5.03); Red Cell Distribution Width 17.7 % (13.2-15.2)
[2017-08-25 15:10] LABS: Calcium 9.4 mg/dL (8.4-10.2)
== END 2017-08-25 14:50 | disposition left against medical advice (07) ==
LOC: ED 14:04
DX: N18.6 End stage renal disease (principal); Z53.21 Procedure and treatment not carried out due to patient leaving prior to being seen by health care provider
CPT/HCPCS: 36415; 80053; 85027

== ENCOUNTER 2017-10-23 14:32 | Emergency (ER) | payer MEDICARE ==
[2017-10-23 15:45] LABS: Basophils % (Auto) 0.8 % (0.0-1.8); Eosinophils # (Auto) 0.2 K/mm3 (0.0-0.4); Eosinophils % (Auto) 3.6 % (0.0-4.3); Hematocrit 35.7 % (30.3-42.9); Hemoglobin 11.6 gm/dl (10.1-14.3); Lymphocytes # (Auto) 1.3 K/mm3 (1.2-5.4); Lymphocytes % (Auto) 24.9 % (13.4-35.0); Mean Corpuscular HGB Conc 33 % (30-34); Mean Corpuscular Hemoglobin 30 pg (28-32); Mean Corpuscular Volume 93 fl (79-97); Monocytes # (Auto) 0.3 K/mm3 (0.0-0.8); Monocytes % (Auto) 5.2 % (0.0-7.3); Platelet Count 251 K/mm3 (140-440); Red Blood Count 3.82 M/mm3 (3.65-5.03); Red Cell Distribution Width 15.1 % (13.2-15.2)
[2017-10-23 16:11] LABS: Calcium 9.8 mg/dL (8.4-10.2)
[2017-10-23] MEDS ORDERED: NORVASC PO ONE (21:48)
[2017-10-23] MEDS ORDERED: COZAAR PO ONE (21:48)
[2017-10-23] MEDS ORDERED: COREG PO ONE (21:48)
[2017-10-23] MEDS ORDERED: ATIVAN ONE (21:57)
[2017-10-23] MEDS ORDERED: ATIVAN PO ONE (21:58)
--- NOTE | 2017-10-23 22:12 | Emergency Department Report ---
ED Medical Clearance HPI - General Chief complaint: Medical Clearance Stated complaint: dialysis blood test Time Seen by Provider: 10/23/17 19:51 Source: patient Mode of arrival: Ambulatory - History of Present Illness Initial comments: Patient missed her last 3 dialysis sessions. This was due to life events that prevented her from going. She went to her dialysis center today and they would not dialyze her until she had screening blood work done. So, she came to the ER for evaluation. Denies chest pain, shortness of breath, fevers, belly pain. Patient has been compliant with her home medications. Home medications: Home Medications Medication Instructions Recorded Confirmed Last Taken Aspirin [Adult Low Dose Aspirin EC] 81 mg PO DAILY 11/24/16 11/24/16 11/24/16 B Complex 11/Folic/C/Biot/Zinc 1 each PO DAILY 11/24/16 11/24/16 11/21/16 [Dialyvite with Zinc Tablet] Carvedilol [Coreg] 12.5 mg PO BID 11/24/16 11/24/16 11/24/16 Losartan [Cozaar] 50 mg PO QDAY 11/24/16 11/24/16 11/21/16 NIFEdipine [Nifedipine ER] 60 mg PO DAILY 11/24/16 11/24/16 11/24/16 Allergies/Adverse reactions: Allergies Allergy/AdvReac Type Severity Reaction Status Date / Time No Known Allergies Allergy Verified 11/04/16 12:52 ED Review of Systems ROS: Stated complaint: dialysis blood test Other details as noted in HPI Comment: All other systems reviewed and negative ED Past Medical Hx - Past Medical History Hx Hypertension: Yes Hx Congestive Heart Failure: No Hx Diabetes: No Hx Renal Disease: Yes (MON-MON-MON) Hx Asthma: No Hx COPD: No - Surgical History Additional Surgical History: X 3. TUBAL LIGATION. HYSTERECTOMY. PERMA CATH RIGHT CHEST AND REMOVAL. GRAFT LEFT ARM - Social History Smoking Status: Current Every Day Smoker Substance Use Type: None - Medications Home Medications: Home Medications Medication Instructions Recorded Confirmed Last Taken Type Aspirin [Adult Low Dose Aspirin EC] 81 mg PO DAILY 11/24/16 11/24/16 11/24/16 History B Complex 11/Folic/C/Biot/Zinc 1 each PO DAILY 11/24/16 11/24/16 11/21/16 History [Dialyvite with Zinc Tablet] Carvedilol [Coreg] 12.5 mg PO BID 11/24/16 11/24/16 11/24/16 History Losartan [Cozaar] 50 mg PO QDAY 11/24/16 11/24/16 11/21/16 History NIFEdipine [Nifedipine ER] 60 mg PO DAILY 11/24/16 11/24/16 11/24/16 History ED Physical Exam - General Limitations: No Limitations General appearance: alert, in no apparent distress - Head Head exam: Present: atraumatic, normocephalic - Eye Eye exam: Present: normal appearance - ENT ENT exam: Present: mucous membranes moist - Neck Neck exam: Present: normal inspection - Respiratory Respiratory exam: Present: normal lung sounds bilaterally. Absent: respiratory distress - Cardiovascular Cardiovascular Exam: Present: regular rate, normal rhythm, other (LUE AVF with palpable thrill). Absent: systolic murmur, diastolic murmur, rubs, gallop - GI/Abdominal GI/Abdominal exam: Present: soft, normal bowel sounds. Absent: tenderness - Extremities Exam Extremities exam: Present: normal inspection - Back Exam Back exam: Present: normal inspection - Neurological Exam Neurological exam: Present: alert, oriented X3 - Psychiatric Psychiatric exam: Present: normal affect, normal mood - Skin Skin exam: Present: warm, dry, intact, normal color. Absent: rash ED Course Vital Signs 10/23/17 10/23/17 10/23/17 14:35 21:14 21:16 Temperature 98.4 F Pulse Rate 82 Respiratory 16 Rate Blood Pressure 196/94 227/109 227/109 Blood Pressure [Right] O2 Sat by Pulse 100 100 Oximetry 10/23/17 10/23/17 10/23/17 21:24 21:49 21:55 Temperature 98.4 F Pulse Rate 85 84 Respiratory 16 Rate Blood Pressure 238/110 238/110 Blood Pressure 227/109 [Right] O2 Sat by Pulse 100 Oximetry 10/23/17 10/23/17 22:00 22:30 Temperature Pulse Rate Respiratory Rate Blood Pressure 245/103 178/78 Blood Pressure [Right] O2 Sat by Pulse Oximetry ED Medical Decision Making - Lab Data Result diagrams: 10/23/17 15:10 10/23/17 15:10 - EKG Data -: EKG Interpreted by Id EKG shows normal: sinus rhythm, axis, intervals, QRS complexes, ST-T waves Rate: normal - EKG Data When compared to previous EKG there are: no significant change, previous EKG unavailable Interpretation: no acute changes - Medical Decision Making 62-year-old female with past medical history of hypertension, ESRD with dialysis Monday/Monday/Monday presents to the ER for medical clearance. Vital signs significant for hypertension with a systolic blood pressure in the low 200s. Screening lab work is unremarkable. Patient has a potassium of 5.2 and a creatinine of 16. This is consistent with the patient that needs dialysis , urgently but not emergently. I offered the patient admission to the hospital , but she felt comfortable going home and following up tomorrow at the dialysis center to get her dialysis. Given that her EKG shows no changes of hyperkalemia. I felt that this is appropriate. I gave the patient extra dose of her home blood pressure medication for her asymptomatic hypertension. Patient is cleared for discharge. - Differential Diagnosis electrolyte abnormality, hypertensive emergency ED Disposition Clinical Impression: Hypertension, ESRD on hemodialysis, Non-compliance with renal dialysis, Hyperkalemia Disposition: DC-01 TO HOME OR SELFCARE Is pt being admited?: No Does the pt Need Aspirin: No Condition: Stable Instructions: Chronic Kidney Disease (ED), Hypertension (ED) Additional Instructions: Your creatinine today is 16, potassium is 5.2 w/o EKG changes, Bicarb is 17. You are medically cleared to gets her dialysis tomorrow. Please do not miss the session. If anything should happen that concerns you, please return to the ER for reevaluation. Referrals: PRIMARY CARE, [Primary Care Provider] - 3-5 Days
[2017-10-23] MEDS ORDERED: APRESOLINE IV ONE (22:26)
[2017-10-23 22:54] VITALS: BP 178/78
== END 2017-10-23 23:02 | disposition home or self-care (01) ==
LOC: ED 14:32
DX: I12.0 Hypertensive chronic kidney disease with stage 5 chronic kidney disease or end stage renal disease (principal); N18.6 End stage renal disease; E87.5 Hyperkalemia; F17.200 Nicotine dependence, unspecified, uncomplicated; Z79.82 Long term (current) use of aspirin; Z91.15 Patient's noncompliance with renal dialysis; Z99.2 Dependence on renal dialysis
CPT/HCPCS: 36415; 80048; 85025; 93005; 93010; 99283

== ENCOUNTER 2018-12-24 15:20 | Emergency (ER) | payer MEDICARE ==
--- NOTE | 2018-12-24 15:46 | Emergency Department Report ---
Blank Doc - Documentation Documentation: 63-year-old female that missed 2 dialysis. Denies any symptoms. Was sent to ED for medical clearned to return to dialysis center. This initial assessment/diagnostic orders/clinical plan/treatment(s) is/are subject to change based on patient's health status, clinical progression and re- assessment by fellow clinical providers in the ED. Further treatment and workup at subsequent clinical providers discretion. Patient/guardians urged not to elope from the ED as their condition may be serious if not clinically assessed and managed. Initial orders include: 1- Patient sent to MAIN for further evaluation and treatment 2- labs
[2018-12-24 16:43] LABS: Calcium 9.9 mg/dL (8.4-10.2)
[2018-12-24 17:06] LABS: Basophils % (Auto) 0.9 % (0.0-1.8); Eosinophils # (Auto) 0.1 K/mm3 (0.0-0.4); Eosinophils % (Auto) 1.9 % (0.0-4.3); Hematocrit 39.4 % (30.3-42.9); Hemoglobin 12.9 gm/dl (10.1-14.3); Lymphocytes # (Auto) 0.8 K/mm3 (1.2-5.4); Lymphocytes % (Auto) 18.4 % (13.4-35.0); Mean Corpuscular HGB Conc 33 % (30-34); Mean Corpuscular Volume 93 fl (79-97); Monocytes # (Auto) 0.3 K/mm3 (0.0-0.8); Monocytes % (Auto) 6.4 % (0.0-7.3); Platelet Count 233 K/mm3 (140-440); Red Blood Count 4.26 M/mm3 (3.65-5.03); Red Cell Distribution Width 16.6 % (13.2-15.2)
--- NOTE | 2018-12-24 19:54 | Emergency Department Report ---
ED General Adult HPI - General Chief complaint: Medical Clearance Stated complaint: DIAYLSIS PATIENT/CHECK POTASSIUM Time Seen by Provider: 12/24/18 15:45 Source: patient Mode of arrival: Ambulatory Limitations: No Limitations - History of Present Illness Initial comments: Mrs. Zayas is a 63-year-old female with history of hypertension, end-stage renal disease on hemodialysis Monday who presents with need for dialysis. She needs her potassium checked in order to return to the [facility]. She missed Monday and Monday treatments. She had an family emergency. Her mother is elderly and required hospitalization. She has generalized malaise without localized pain. She "just doesn't feel good". . She was sent by dialysis staff to have potassium check. 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 Burnette -: Gradual Quality: other (generalized malaise) Consistency: constant Improves with: none Worsens with: none Associated Symptoms: denies other symptoms - Related Data Home Medications Medication Instructions Recorded Confirmed Last Taken Aspirin [Adult Low Dose Aspirin EC] 81 mg PO DAILY 11/24/16 08/21/18 11/24/16 NIFEdipine [Nifedipine ER] 60 mg PO BID 11/24/16 08/21/18 11/24/16 Carvedilol [Coreg] 25 mg PO BID 08/21/18 08/21/18 Unknown Cinacalcet HCl [Sensipar] 60 mg PO DAILY 08/21/18 08/21/18 Unknown Dialyvite Chewable Probiotic 3,000 mg PO DAILY 08/21/18 08/21/18 Unknown hydrALAZINE [Apresoline TAB] 100 mg PO TID 08/21/18 08/21/18 Unknown Previous Rx's Medication Instructions Recorded Last Taken Type levoFLOXacin [Levaquin] 250 mg PO QDAY #5 tablet 08/23/18 Unknown Rx Allergies Allergy/AdvReac Type Severity Reaction Status Date / Time No Known Allergies Allergy Verified 08/21/18 15:07 ED Review of Systems ROS: Stated complaint: DIAYLSIS PATIENT/CHECK POTASSIUM Other details as noted in HPI Comment: All other systems reviewed and negative Constitutional: malaise Cardiovascular: denies: chest pain Gastrointestinal: denies: abdominal pain, nausea Neurological: denies: headache ED Past Medical Hx - Past Medical History Previous Medical History?: Yes Hx Hypertension: Yes Hx Congestive Heart Failure: No Hx Diabetes: No Hx Renal Disease: Yes (MON-MON-MON) Hx Asthma: No Hx COPD: No - Surgical History Past Surgical History?: Yes Additional Surgical History: X 3. TUBAL LIGATION. HYSTERECTOMY. PERMA CATH RIGHT CHEST AND REMOVAL. GRAFT LEFT ARM - Social History Smoking Status: Current Every Day Smoker Substance Use Type: Alcohol, Marijuana - Medications Home Medications: Home Medications Medication Instructions Recorded Confirmed Last Taken Type Aspirin [Adult Low Dose Aspirin EC] 81 mg PO DAILY 11/24/16 08/21/18 11/24/16 History NIFEdipine [Nifedipine ER] 60 mg PO BID 11/24/16 08/21/18 11/24/16 History Carvedilol [Coreg] 25 mg PO BID 08/21/18 08/21/18 Unknown History Cinacalcet HCl [Sensipar] 60 mg PO DAILY 08/21/18 08/21/18 Unknown History Dialyvite Chewable Probiotic 3,000 mg PO DAILY 08/21/18 08/21/18 Unknown History hydrALAZINE [Apresoline TAB] 100 mg PO TID 08/21/18 08/21/18 Unknown History levoFLOXacin [Levaquin] 250 mg PO QDAY #5 tablet 08/23/18 Unknown Rx ED Physical Exam - General Limitations: No Limitations General appearance: alert, in no apparent distress - Head Head exam: Present: atraumatic, normocephalic - Eye Eye exam: Present: normal appearance - ENT ENT exam: Present: mucous membranes moist - Neck Neck exam: Present: normal inspection, full ROM - Respiratory Respiratory exam: Present: normal lung sounds bilaterally. Absent: respiratory distress, wheezes, rales, rhonchi - Cardiovascular Cardiovascular Exam: Present: regular rate, normal rhythm, normal heart sounds. Absent: systolic murmur, diastolic murmur, rubs, gallop - GI/Abdominal GI/Abdominal exam: Present: soft, normal bowel sounds. Absent: distended, tenderness, guarding, rebound - Extremities Exam Extremities exam: Present: normal inspection - Back Exam Back exam: Present: normal inspection - Neurological Exam Neurological exam: Present: alert, oriented X3 - Psychiatric Psychiatric exam: Present: normal affect, normal mood - Skin Skin exam: Present: warm, dry, intact, normal color. Absent: rash ED Course Vital Signs 12/24/18 16:29 Temperature 97.8 F Pulse Rate 71 Respiratory 18 Rate Blood Pressure 136/64 O2 Sat by Pulse 99 Oximetry ED Medical Decision Making - Lab Data Result diagrams: 12/24/18 15:51 12/24/18 15:51 - Medical Decision Making Ms. Zayas presents with need for dialysis. Potassium is normal. Mild metabolic acidosis due to missed dialysis which would explain generalized malaise. She does not have an acute emergent condition at this time which needs further evaluation or stabilization. She is discharged to have dialysis today or tomorrow. Critical care attestation.: If time is entered above; I have spent that time in minutes in the direct care of this critically ill patient, excluding procedure time. ED Disposition Clinical Impression: End stage renal disease on dialysis, Metabolic acidosis Disposition: DC-01 TO HOME OR SELFCARE Is pt being admited?: No Does the pt Need Aspirin: No Condition: Stable Additional Instructions: Your Potassium level is 4.7. You are cleared to have dialysis at your local center.
[2018-12-24 20:10] VITALS: BP 169/65
== END 2018-12-24 20:05 | disposition home or self-care (01) ==
LOC: ED 15:20
DX: E87.2 Acidosis (principal); F17.200 Nicotine dependence, unspecified, uncomplicated; F12.10 Cannabis abuse, uncomplicated; I12.0 Hypertensive chronic kidney disease with stage 5 chronic kidney disease or end stage renal disease; N18.6 End stage renal disease; Z99.2 Dependence on renal dialysis; Z98.51 Tubal ligation status; Z90.710 Acquired absence of both cervix and uterus; Z79.82 Long term (current) use of aspirin; Z79.899 Other long term (current) drug therapy
CPT/HCPCS: 36415; 80048; 85025

== ENCOUNTER 2019-05-08 16:17 | Observation (INO) | payer MEDICARE ==
--- NOTE | 2019-05-08 18:04 | Event Note ---
ED Screening Note Date of service: 05/08/19 Time: 17:48 ED Screening Note: 63 y o female presents with sob x 1 week PMH: renal failure, HTN PD at home This initial assessment/diagnostic orders/clinical plan/treatment(s) is/are subject to change based on patients health status, clinical progression and re- assessment by fellow clinical providers in the ED. Further treatment and workup at subsequent clinical providers discretion. Patient/guardian urged not to elope from the ED as their condition may be serious if not clinically assessed and managed. Initial orders include: labs, cxr
[2019-05-08 18:28] LABS: Eosinophils # (Auto) 0.1 K/mm3 (0.0-0.4); Eosinophils % (Auto) 1.9 % (0.0-4.3); Hematocrit 25.5 % (30.3-42.9); Hemoglobin 8.2 gm/dl (10.1-14.3); Lymphocytes # (Auto) 0.7 K/mm3 (1.2-5.4); Lymphocytes % (Auto) 14.9 % (13.4-35.0); Mean Corpuscular HGB Conc 32 % (30-34); Mean Corpuscular Volume 94 fl (79-97); Monocytes # (Auto) 0.4 K/mm3 (0.0-0.8); Monocytes % (Auto) 7.6 % (0.0-7.3); Platelet Count 220 K/mm3 (140-440); Red Blood Count 2.71 M/mm3 (3.65-5.03); Red Cell Distribution Width 16.4 % (13.2-15.2)
[2019-05-08 18:37] LABS: INR 1.2 (0.87-1.13)
[2019-05-08 18:38] LABS: Partial Thromboplastin Time 45.6 Sec. (24.2-36.6)
--- NOTE | 2019-05-08 18:38 | XRay Report ---
CHEST 2 VIEWS INDICATION / CLINICAL INFORMATION: Dyspnea. COMPARISON: 03/13/2018. FINDINGS: SUPPORT DEVICES: None. HEART / MEDIASTINUM: Moderately severe enlargement of the cardiopericardial silhouette is a new findi ng. Pulmonary vasculature is probably normal. LUNGS / PLEURA: There is minimal right basilar subsegmental atelectasis. No pneumothorax. ADDITIONAL FINDINGS: No significant additional findings. IMPRESSION: Interval development of moderately severe enlargement of the cardiopericardial silhouette . Differential diagnosis includes cardiomyopathy and pericardial effusion. Signer Name: Nelson Torres MD Signed: 05/08/2019 6:34 PM Workstation Name: [id number]
[2019-05-08 18:45] LABS: Creatine Kinase MB 3.3 ng/mL (0.0-4.0)
[2019-05-08 18:47] LABS: Calcium 9.2 mg/dL (8.4-10.2)
[2019-05-08 19:18] LABS: Chol/HDL Ratio 2.49 %
--- NOTE | 2019-05-08 23:10 | Emergency Department Report ---
HPI - General Chief Complaint: Fall Time Seen by Provider: 05/08/19 21:07 - HPI HPI: Hallway 25 The patient is a 63-year-old female presenting with chief complaint of shortness of breath and bilateral foot pain. The patient states for approximately 1.5 weeks is constant shortness of breath and wheezing. Patient missed a cough that is occasionally productive of yellow sputum. 2 days ago the patient states all walking her feet, portal and she fell hyperextending the toes on both of her feet. Patient complains of pain in her feet bilaterally since the fall. She went to an urgent care facility yesterday when x-ray was performed and they were concerned about a fracture of the second toe on the right foot. Patient states he never got confirmation there was a fracture there by the radiologist so they also came to the ED today to have that evaluated. Location: [See above] Duration: [See above] Quality: [See above] Severity: [See above] Timing: [See above] Context: [See above] Modifying factors: [See above] Associated signs and symptoms: [see above] ED Past Medical Hx - Past Medical History Previous Medical History?: Yes Hx Hypertension: Yes Hx Renal Disease: Yes (peritoneal dialysis) - Surgical History Past Surgical History?: Yes Additional Surgical History: X 3. TUBAL LIGATION. HYSTERECTOMY. PERMA CATH RIGHT CHEST AND REMOVAL. GRAFT LEFT ARM - Family History Family history: no significant - Social History Smoking Status: Current Every Day Smoker (1/2 pack per day) Substance Use Type: None (denies illicit drug use) - Medications Home Medications: Home Medications Medication Instructions Recorded Confirmed Last Taken Type Aspirin [Adult Low Dose Aspirin EC] 81 mg PO DAILY 11/24/16 08/21/18 11/24/16 History NIFEdipine [Nifedipine ER] 60 mg PO BID 11/24/16 08/21/18 11/24/16 History Cinacalcet HCl [Sensipar] 60 mg PO DAILY 08/21/18 08/21/18 Unknown History Dialyvite Chewable Probiotic 3,000 mg PO DAILY 08/21/18 08/21/18 Unknown History carvediloL [Coreg] 25 mg PO BID 08/21/18 08/21/18 Unknown History hydrALAZINE [Apresoline TAB] 100 mg PO TID 08/21/18 08/21/18 Unknown History levoFLOXacin [Levaquin] 250 mg PO QDAY #5 tablet 08/23/18 Unknown Rx ED Review of Systems ROS: Stated complaint: SOB, POSSIBLE BROKEN TOE Other details as noted in HPI Constitutional: no symptoms reported Eyes: denies: eye pain ENT: denies: throat pain Respiratory: cough, shortness of breath Cardiovascular: denies: chest pain Endocrine: no symptoms reported Gastrointestinal: denies: abdominal pain Genitourinary: denies: dysuria Musculoskeletal: arthralgia Physical Exam - Physical Exam Vital Signs: Vital Signs 05/08/19 05/08/19 16:38 22:57 Temperature 99.4 F Pulse Rate 88 80 Respiratory 16 18 Rate Blood Pressure 156/70 [Right] O2 Sat by Pulse 98 97 Oximetry Physical Exam: GENERAL: The patient is well-developed well-nourished female sitting on stretcher not appearing to be in acute distress HEENT: Normocephalic. Atraumatic. Extraocular motions are intact. Patient has moist mucous membranes. NECK: Supple. Trachea midline CHEST/LUNGS: Occasional faint expiratory wheeze. There is no respiratory distress noted. HEART/CARDIOVASCULAR: Regular. There is no tachycardia. Normal heart sounds. There is no gallop rub or murmur. ABDOMEN: Abdomen is soft, nontender. Patient has normal bowel sounds. There is no abdominal distention. SKIN: There is no rash. There is trace pitting edema left lower extremity . There is no diaphoresis. NEURO: The patient is awake, alert, and oriented. The patient is cooperative. The patient has normal speech MUSCULOSKELETAL: There is tenderness to palpation across the MTP joints of bilateral feet. Tenderness is greatest at the second toe of the right foot. ED Course Vital Signs 05/08/19 05/08/19 16:38 22:57 Temperature 99.4 F Pulse Rate 88 80 Respiratory 16 18 Rate Blood Pressure 156/70 [Right] O2 Sat by Pulse 98 97 Oximetry ED Medical Decision Making - Lab Data Result diagrams: 05/08/19 18:10 05/08/19 18:10 Laboratory Tests 05/08/19 05/08/19 05/08/19 18:10 18:10 18:10 WBC 4.8 RBC 2.71 L Hgb 8.2 L Hct 25.5 L MCV 94 MCH 30 MCHC 32 RDW 16.4 H Plt Count 220 Lymph % (Auto) 14.9 [place] % (Auto) 7.6 H Eos % (Auto) 1.9 Baso % (Auto) 1.0 Lymph # 0.7 L [place] # 0.4 Eos # 0.1 Baso # 0.0 Seg Neutrophils % 74.6 H Seg Neutrophils # 3.6 PT 15.4 H INR 1.20 H APTT 45.6 H VBG pH Sodium 134 L Potassium 5.0 Chloride 99.4 Carbon Dioxide 14 L Anion Gap 26 BUN 83 H Creatinine 12.0 H Estimated GFR 4 BUN/Creatinine Ratio 7 Glucose 172 H Calcium 9.2 Total Creatine Kinase 115 CK-MB (CK-2) 3.3 CK-MB (CK-2) Rel Index 2.8 Troponin T 0.042 H Triglycerides 72 Cholesterol 127 LDL Cholesterol Direct 65 HDL Cholesterol 51 Cholesterol/HDL Ratio 2.49 05/09/19 00:01 WBC RBC Hgb Hct MCV MCH MCHC RDW Plt Count Lymph % (Auto) [place] % (Auto) Eos % (Auto) Baso % (Auto) Lymph # [place] # Eos # Baso # Seg Neutrophils % Seg Neutrophils # PT INR APTT VBG pH 7.291 L Sodium Potassium Chloride Carbon Dioxide Anion Gap BUN Creatinine Estimated GFR BUN/Creatinine Ratio Glucose Calcium Total Creatine Kinase CK-MB (CK-2) CK-MB (CK-2) Rel Index Troponin T Triglycerides Cholesterol LDL Cholesterol Direct HDL Cholesterol Cholesterol/HDL Ratio - Radiology Data Radiology results: report reviewed (bilateral foot x-ray), image reviewed (bilateral foot x-ray) interpreted by me: Right foot [id number] lucency through the distal portion of second toe. Left foot x-ray-no acute fracture seen [facility] [address] [place] [address] XRay Report Signed Patient: RAMIRO MEREDITH MR#: [id number] : 1955 Acct:[id number] Age/Sex: 63 / F ADM Date: 05/08/19 Loc: ED Attending Dr: Ordering Physician: ELIER NUNES MD Date of Service: 05/08/19 Procedure(s): XR foot BILAT 2V Accession Number(s): [id number] cc: ELIER NUNES MD Fluoro Time In Minutes: AP AND LATERAL VIEWS OF THE FEET INDICATION: MCP pain after hyperextension of toes bilat. COMPARISON: No relevant prior imaging study available. FINDINGS: Right foot: No acute fracture or dislocation is seen. There is dorsal soft tissue swelling at the level of the metatarsals. Mild osteoarthrosis changes are noted. Left foot: No acute, displaced fracture or dislocation is seen. There are mild degenerative changes. There is mild dorsal soft tissue swelling in the forefoot. IMPRESSION: 1. No acute fracture or dislocation is seen. Signer Name: Leonides Torres MD Signed: 05/08/2019 11:27 PM Workstation Name: [id number] Transcribed By: DESEAN Dictated By: Leonides Torres MD Electronically Authenticated By: Leonides Torres MD Signed Date/Time: 05/08/192326 DD/ 25 TD/TT: - Differential Diagnosis bronchitis, toe fracture, foot contusion Critical care attestation.: If time is entered above; I have spent that time in minutes in the direct care of this critically ill patient, excluding procedure time. ED Disposition Clinical Impression: Shortness of breath, Cardiomegaly, Metabolic acidosis, Right foot strain, Strain of left foot Disposition: -09 OP ADMIT IP TO THIS HOSP Is pt being admited?: Yes Does the pt Need Aspirin: No Condition: Fair Referrals: CATHERINE CAMP MD [Primary Care Provider] - 3-5 Days Time of Disposition: 00:22 (hospitalist paged (Dr Bajwa))
--- NOTE | 2019-05-08 23:32 | XRay Report ---
AP AND LATERAL VIEWS OF THE FEET INDICATION: MCP pain after hyperextension of toes bilat. COMPARISON: No relevant prior imaging study available. FINDINGS: Right foot: No acute fracture or dislocation is seen. There is dorsal soft tissue swelling at the lev el of the metatarsals. Mild osteoarthrosis changes are noted. Left foot: No acute, displaced fracture or dislocation is seen. There are mild degenerative changes. There is mild dorsal soft tissue swelling in the forefoot. IMPRESSION: 1. No acute fracture or dislocation is seen. Signer Name: Leonides Torres MD Signed: 05/08/2019 11:27 PM Workstation Name: [id number]
[2019-05-09] MEDS ORDERED: SODIUM BICARB 8.4% 50 MEQ/50 ML SYRINGE IV ONE (00:35)
[2019-05-09] MEDS ORDERED: ACETAMINOPHEN 325 MG TAB PO PRN (01:08)
[2019-05-09] MEDS ORDERED: MAGNESIUM HYDROXIDE (MOM) ORAL LIQD UDC PO PRN (01:08)
[2019-05-09] MEDS ORDERED: ONDANSETRON 4 MG/2 ML INJ IV PRN (01:08)
--- NOTE | 2019-05-09 01:28 | History and Physical Report ---
History of Present Illness Date of examination: 05/09/19 Date of admission: 05/09/2019 Chief complaint: Cough and shortness of breath History of present illness: 53-year-old -[place] female with known history of end-stage renal disease on peritoneal dialysis presenting to the emergency room today complaining of cough and wheezing. Cough has been occasionally productive of some yellowish sputum . She denies any chest pain, no nausea vomiting, no headache or dizziness. Patient indicates that she fell a few days ago injuring her feet and was subsequently seen at an urgent care during which time there were concerns for possible fracture. She presents to the emergency room today to have of feet evaluated. Upon evaluation today x-ray did not reveal any obvious fractures however laboratory tests indicates she is in metabolic acidosis. Patient indicates that she has not been quite compliant with her peritoneal dialysis in the past few days secondary to a recent fall. Past History Past Medical History: COPD, ESRD (On peritoneal dialysis), hypertension Past Surgical History: , hysterectomy, Other (Permacath placement on right chest wall, left arm graft placement and removal) Social history: smoking (Smokes half a pack of cigarette daily) Family history: hypertension Medications and Allergies Allergies Allergy/AdvReac Type Severity Reaction Status Date / Time No Known Allergies Allergy Verified 08/21/18 15:07 Home Medications Medication Instructions Recorded Confirmed Last Taken Type Aspirin [Adult Low Dose Aspirin EC] 81 mg PO DAILY 11/24/16 08/21/18 11/24/16 History NIFEdipine [Nifedipine ER] 60 mg PO BID 11/24/16 08/21/18 11/24/16 History Cinacalcet HCl [Sensipar] 60 mg PO DAILY 08/21/18 08/21/18 Unknown History Dialyvite Chewable Probiotic 3,000 mg PO DAILY 08/21/18 08/21/18 Unknown History carvediloL [Coreg] 25 mg PO BID 08/21/18 08/21/18 Unknown History hydrALAZINE [Apresoline TAB] 100 mg PO TID 08/21/18 08/21/18 Unknown History Active Meds: Active Medications Acetaminophen (Tylenol) 650 mg PO Q4H PRN PRN Reason: Pain MILD(1-3)/Fever >100.5/NOVAK Albuterol/Ipratropium (Duoneb *Not For Prn Use*) 1 ampul IH Q6HRT [facility] Levofloxacin/Dextrose (Levaquin 750mg/150ml) 750 mg in 150 mls @ 100 mls/hr IV Q24HR [facility]; Protocol Magnesium Hydroxide (Milk Of Magnesia) 30 ml PO Q4H PRN PRN Reason: Constipation Morphine Sulfate (Morphine) 2 mg IV Q4H PRN PRN Reason: Pain, Moderate (4-6) Ondansetron HCl (Zofran) 4 mg IV Q8H PRN PRN Reason: Nausea And Vomiting Sodium Chloride (Sodium Chloride Flush Syringe 10 Ml) 10 ml IV BID FROY Sodium Chloride (Sodium Chloride Flush Syringe 10 Ml) 10 ml IV PRN PRN PRN Reason: LINE FLUSH Review of Systems Constitutional: no weight loss, no weight gain, no fever, no chills Cardiovascular: no chest pain, no palpitations Respiratory: shortness of breath, wheezing Gastrointestinal: no abdominal pain, no nausea, no vomiting Integumentary: no rash, no pruritis Neurological: no headaches, no change in mentation Exam - Constitutional Vitals: Temp Pulse Resp BP Pulse Ox 99.4 F 80 18 156/70 97 05/08/19 16:38 05/08/19 22:57 05/08/19 22:57 05/08/19 22:57 05/08/19 22:57 General appearance: Present: no acute distress - EENT Eyes: Present: PERRL, EOM intact ENT: hearing intact, clear oral mucosa, dentition normal - Neck Neck: Present: supple, normal ROM - Respiratory Respiratory effort: normal Respiratory: bilateral: wheezing - Cardiovascular Rhythm: regular Heart Sounds: Present: S1 & S2 - Extremities Extremities: no ischemia, pulses intact, No edema, Full ROM, abnormal (Right f oot dressing/soft cast in place) Peripheral Pulses: within normal limits - Abdominal General gastrointestinal: Present: soft, non-tender, non-distended - Integumentary Integumentary: Present: clear, warm, dry - Musculoskeletal Musculoskeletal: strength equal bilaterally - Psychiatric Psychiatric: appropriate mood/affect, intact judgment & insight - Neurologic Neurologic: CNII-XII intact, moves all extremities Results - Labs CBC & Chem 7: 05/08/19 18:10 05/08/19 18:10 Labs: Abnormal lab results 01/22/20 01/22/20 01/22/20 Range/Units 18:10 18:10 18:10 RBC 2.71 L (3.65-5.03) M/mm3 Hgb 8.2 L (10.1-14.3) gm/dl Hct 25.5 L (30.3-42.9) % RDW 16.4 H (13.2-15.2) % [place] % (Auto) 7.6 H (0.0-7.3) % Lymph # 0.7 L (1.2-5.4) K/mm3 Seg Neutrophils % 74.6 H (40.0-70.0) % PT 15.4 H (12.2-14.9) Sec. INR 1.20 H (0.87-1.13) APTT 45.6 H (24.2-36.6) Sec. VBG pH (7.320-7.420) Sodium 134 L (137-145) mmol/L Carbon Dioxide 14 L (22-30) mmol/L BUN 83 H (7-17) mg/dL Creatinine 12.0 H (0.7-1.2) mg/dL Glucose 172 H (65-100) mg/dL Troponin T 0.042 H (0.00-0.029) ng/mL 05/09/19 Range/Units 00:01 RBC (3.65-5.03) M/mm3 Hgb (10.1-14.3) gm/dl Hct (30.3-42.9) % RDW (13.2-15.2) % [place] % (Auto) (0.0-7.3) % Lymph # (1.2-5.4) K/mm3 Seg Neutrophils % (40.0-70.0) % PT (12.2-14.9) Sec. INR (0.87-1.13) APTT (24.2-36.6) Sec. VBG pH 7.291 L (7.320-7.420) Sodium (137-145) mmol/L Carbon Dioxide (22-30) mmol/L BUN (7-17) mg/dL Creatinine (0.7-1.2) mg/dL Glucose (65-100) mg/dL Troponin T (0.00-0.029) ng/mL Assessment and Plan - Patient Problems (1) Right foot strain Current Visit: Yes Status: Acute Plan to address problem: Patient placed on analgesic medication for pain relief. X-ray did not reveal any obvious fractures. (2) Metabolic acidosis Current Visit: Yes Status: Chronic Plan to address problem: Patient has not been able to do peritoneal dialysis promptly secondary to a recent fall and associated pain. (3) Anemia Current Visit: No Status: Acute Plan to address problem: Probably chronic we will monitor CBC. (4) ESRD on dialysis Current Visit: No Status: Chronic Plan to address problem: Patient on peritoneal dialysis. Will place consult to nephrology for evaluation and recommendation. (5) Hypertension Current Visit: No Status: Chronic Qualifiers: Hypertension type: essential hypertension Qualified Code(s): I10 - Essential (primary) hypertension Plan to address problem: Blood pressure stable. We will continue routine home medications once reconciled. (6) Bronchitis Current Visit: Yes Status: Acute Plan to address problem: Patient placed on empiric IV antibiotics. (7) DVT prophylaxis Current Visit: No Status: Acute Plan to address problem: Patient placed on subcutaneous heparin. (8) Full code status Current Visit: Yes Status: Acute
[2019-05-09] MEDS: MORPHINE 2 MG/1 ML INJ IV PRN ×4 (04:01→22:17)
[2019-05-09] MEDS ORDERED: ONDANSETRON 4 MG/2 ML INJ ONE (04:01)
[2019-05-09] MEDS ORDERED: MORPHINE 2 MG/1 ML INJ ONE (04:01)
[2019-05-09] MEDS: IPRATROPIUM/ALBUTEROL SULFATE 3 ML AMPUL.NEB IH SCH ×4 (05:18→20:37)
[2019-05-09] MEDS ORDERED: hydrALAZINE 20 MG/1 ML INJ IV PRN (05:41)
[2019-05-09] MEDS ORDERED: FUROSEMIDE 40 MG/4 ML INJ IV ONE (11:35)
--- NOTE | 2019-05-09 11:41 | Consultation ---
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 of breath following a recent fall reports has not been compliant with dialysis in the past few days reports good urine output appears of cough productive of phlegm denies any sick contacts reports significant history of cigarette smoking admits to wheezing denies any fevers at home prescription is 1.5 L of 2.5% dextrose with 4 exchanges daily is currently on [facility] peritoneal dialysis she began peritoneal dialysis in February Past History Past Medical History: COPD, ESRD (On peritoneal dialysis), hypertension Past Surgical History: , hysterectomy, Other (Permacath placement on right chest wall, left arm graft placement and removal) Social history: smoking (Smokes half a pack of cigarette daily) Family history: hypertension Medications and Allergies Allergies Allergy/AdvReac Type Severity Reaction Status Date / Time No Known Allergies Allergy Verified 08/21/18 15:07 Home Medications Medication Instructions Recorded Confirmed Last Taken Type Aspirin [Adult Low Dose Aspirin EC] 81 mg PO DAILY 11/24/16 05/09/19 05/08/19 History NIFEdipine [Nifedipine ER] 60 mg PO BID 11/24/16 05/09/19 05/08/19 History Cinacalcet HCl [Sensipar] 60 mg PO DAILY 08/21/18 05/09/19 05/08/19 History Dialyvite Chewable Probiotic 3,000 mg PO DAILY 08/21/18 05/09/19 05/08/19 History carvediloL [Coreg] 25 mg PO BID 08/21/18 05/09/19 05/08/19 History hydrALAZINE [Apresoline TAB] 100 mg PO TID 08/21/18 05/09/19 05/08/19 History Active Meds: Active Medications Acetaminophen (Tylenol) 650 mg PO Q4H PRN PRN Reason: Pain MILD(1-3)/Fever >100.5/[place]OVAK Albuterol/Ipratropium (Duoneb *Not For Prn Use*) 1 ampul IH Q6HRT [facility] Last Admin: 05/09/19 07:50 Dose: 1 ampul Documented by: Furosemide (Lasix) 80 mg IV QDAY [facility] Furosemide (Lasix) 60 mg IV ONCE ONE Stop: 05/09/19 11:36 Hydralazine HCl (Apresoline) 10 mg IV Q4HR PRN PRN Reason: Hypertension Last Admin: 05/09/19 06:18 Dose: 10 mg Documented by: Levofloxacin/Dextrose (Levaquin 250mg/50ml) 250 mg in 50 mls @ 50 mls/hr IV Q48HR [facility]; Protocol Stop: 05/18/19 10:59 Magnesium Hydroxide (Milk Of Magnesia) 30 ml PO Q4H PRN PRN Reason: Constipation Morphine Sulfate (Morphine) 2 mg IV Q4H PRN PRN Reason: Pain, Moderate (4-6) Last Admin: 05/09/19 10:05 Dose: 2 mg Documented by: Nicotine (Habitrol) 14 mg TD QDAY [facility] Ondansetron HCl (Zofran) 4 mg IV Q8H PRN PRN Reason: Nausea And Vomiting Last Admin: 05/09/19 04:01 Dose: 4 mg Documented by: Peritoneal Dialysis Solution (Dianeal Low Calcium W/2.5% Dextrose) 1,800 ml IP Q4HR [facility] Sodium Bicarbonate (Sodium Bicarbonate) 1,300 mg PO BID FROY Sodium Chloride (Sodium Chloride Flush Syringe 10 Ml) 10 ml IV BID FROY Sodium Chloride (Sodium Chloride Flush Syringe 10 Ml) 10 ml IV PRN PRN PRN Reason: LINE FLUSH Review of Systems Constitutional: no weight loss, no weight gain Ears, nose, mouth and throat: no deferred, no ear pain, no ear discharge Cardiovascular: no chest pain, no orthopnea, no palpitations Respiratory: cough with sputum Gastrointestinal: no abdominal pain, no nausea, no vomiting Musculoskeletal: no neck stiffness, no neck pain Integumentary: no deferred, no rash, no pruritis Neurological: no head injury, no transient paralysis Psychiatric: no anxiety, no memory loss Hematologic/Lymphatic: no easy bruising, no easy bleeding Exam - Vital Signs Vital signs: Vital Signs Temp Pulse Resp Pulse Ox 99.4 F 88 16 98 05/08/19 16:38 05/08/19 16:38 05/08/19 16:38 05/08/19 16:38 - General Appearance General appearance: well-developed, well-nourished EENT: ATNC, PERRL Neck: Present: neck supple Respiratory: Ronchi, Wheezes Heart: regular, S1S2 Gastrointestinal: Present: normal, normoactive bowel sounds, other (PERITOneal exit site is clean.) Integumentary: no rash Neurologic: alert and oriented x3, CN 3-12 intact Psychiatric: mood/affect appropriate Results - Lab Results 05/08/19 18:10 05/08/19 18:10 Most recent lab results Calcium 9.2 mg/dL (8.4-10.2) 05/08/19 18:10 Assessment and Plan - Patient Problems (1) Volume overload Current Visit: No Status: Acute Qualifiers: Hypervolemia type: unspecified Qualified Code(s): E87.70 - Fluid overload, unspecified Plan to address problem: volume overload secondary to missed dialysis We'll initiate peritoneal dialysis also will give diuretics (2) Anemia of renal disease Current Visit: No Status: Chronic Plan to address problem: Moderate anemia Hemoglobin is 8.2 g per DL We'll give epogen Etiologies secondary renal failure (3) ESRD on dialysis Current Visit: No Status: Chronic Plan to address problem: End-stage renal disease on peritoneal dialysis We'll initiate speaking weight is 1.8 L fill volume is 2.5% bags and cycles every 4 hours We'll also add diuretics (4) Metabolic acidosis Current Visit: Yes Status: Chronic Plan to address problem: Metabolic acidosis will initiate peritoneal dialysis Add sodium bicarbonate (5) Hypertension Current Visit: No Status: Chronic Qualifiers: Hypertension type: essential hypertension Qualified Code(s): I10 - Essential (primary) hypertension Plan to address problem: Hypertension uncontrolled We'll initiate medications
[2019-05-09] MEDS ORDERED: FUROSEMIDE 100 MG/10 ML INJ IV ONE (12:00)
[2019-05-09] MEDS: DIALYSATE LO CAL 2.5% SOLN 2000 ML IP SCH ×4 (12:00→22:09)
[2019-05-09] MEDS: NICOTINE 14 MG/24 HR PATCH TD SCH (13:53)
--- NOTE | 2019-05-09 16:33 | Consultation ---
History of Present Illness Consult date: 05/09/19 Requesting physician: LEONOR DEJESUS Reason for consult: dyspnea, cough History of present illness: 53-year-old -[place] female with known history of end-stage renal disease on peritoneal dialysis presenting to the emergency room today complaining of cough and wheezing. Cough has been occasionally productive of some yellowish sputum . She denies any chest pain, no nausea vomiting, no headache or dizziness. She smokes about 1/2 PPD. Has smoked for over 30 years Patient indicates that she fell a few days ago injuring her feet and was subsequently seen at an urgent care during which time there were concerns for possible fracture. She presents to the emergency room today to have of feet evaluated. Upon evaluation today x-ray did not reveal any obvious fractures however laboratory tests indicates she is in metabolic acidosis. Patient indicates that she has not been quite compliant with her peritoneal dialysis in the past few days secondary to a recent fall. I have been consulted for dyspnea and cough. Thank you fro the consult. Patient was seen and examined. Vitals, labs, medications, chart and imaging reviewed. She endorses a worsening shortness of breath with wheezing that has progressively been getting worse. She does not have a formal diagnosis of COPD and has never been evaluated for c hronic lung disease. 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 Review of Systems Constitutional: no weight loss, no weight gain Ears, nose, mouth and throat: no deferred, no ear pain, no ear discharge Cardiovascular: no chest pain, no orthopnea, no palpitations Respiratory: cough with sputum, wheezing Gastrointestinal: no abdominal pain, no nausea, no vomiting Musculoskeletal: no neck stiffness, no neck pain Integumentary: no deferred, no rash, no pruritis Neurological: no head injury, no transient paralysis Psychiatric: no anxiety, no memory loss Hematologic/Lymphatic: no easy bruising, no easy bleeding Past History Past Medical History: COPD, ESRD (On peritoneal dialysis), hypertension Past Surgical History: , hysterectomy, Other (Permacath placement on right chest wall, left arm graft placement and removal) Social history: smoking (Smokes half a pack of cigarette daily) Family history: hypertension Medications and Allergies Allergies Allergy/AdvReac Type Severity Reaction Status Date / Time No Known Allergies Allergy Verified 08/21/18 15:07 Home Medications Medication Instructions Recorded Confirmed Last Taken Type Aspirin [Adult Low Dose Aspirin EC] 81 mg PO DAILY 11/24/16 05/09/19 05/08/19 History NIFEdipine [Nifedipine ER] 60 mg PO BID 11/24/16 05/09/19 05/08/19 History Cinacalcet HCl [Sensipar] 60 mg PO DAILY 08/21/18 05/09/19 05/08/19 History Dialyvite Chewable Probiotic 3,000 mg PO DAILY 08/21/18 05/09/19 05/08/19 History carvediloL [Coreg] 25 mg PO BID 08/21/18 05/09/19 05/08/19 History hydrALAZINE [Apresoline TAB] 100 mg PO TID 08/21/18 05/09/19 05/08/19 History Active Meds: Active Medications Acetaminophen (Tylenol) 650 mg PO Q4H PRN PRN Reason: Pain MILD(1-3)/Fever >100.5/[place]OVAK Albuterol/Ipratropium (Duoneb *Not For Prn Use*) 1 ampul IH Q6HRT [facility] Last Admin: 05/09/19 13:58 Dose: 1 ampul Documented by: Furosemide (Lasix) 80 mg IV DAILY@0600 [facility] Hydralazine HCl (Apresoline) 10 mg IV Q4HR PRN PRN Reason: Hypertension Last Admin: 05/09/19 06:18 Dose: 10 mg Documented by: Levofloxacin/Dextrose (Levaquin 250mg/50ml) 250 mg in 50 mls @ 50 mls/hr IV Q48HR [facility]; Protocol Stop: 05/18/19 10:59 Magnesium Hydroxide (Milk Of Magnesia) 30 ml PO Q4H PRN PRN Reason: Constipation Morphine Sulfate (Morphine) 2 mg IV Q4H PRN PRN Reason: Pain, Moderate (4-6) Last Admin: 05/09/19 16:05 Dose: 2 mg Documented by: Nicotine (Habitrol) 14 mg TD QDAY [facility] Last Admin: 05/09/19 13:53 Dose: 14 mg Documented by: Ondansetron HCl (Zofran) 4 mg IV Q8H PRN PRN Reason: Nausea And Vomiting Last Admin: 05/09/19 04:01 Dose: 4 mg Documented by: Peritoneal Dialysis Solution (Dianeal Low Calcium W/2.5% Dextrose) 2,000 ml IP Q4HR [facility] Last Admin: 05/09/19 14:07 Dose: Not Given Documented by: Sodium Bicarbonate (Sodium Bicarbonate) 1,300 mg PO BID [facility] Sodium Chloride (Sodium Chloride Flush Syringe 10 Ml) 10 ml IV BID [facility]OY Sodium Chloride (Sodium Chloride Flush Syringe 10 Ml) 10 ml IV PRN PRN PRN Reason: LINE FLUSH Physical Examination Vital signs: Vital Signs Temp Pulse Resp Pulse Ox 99.4 F 88 16 98 05/08/19 16:38 05/08/19 16:38 05/08/19 16:38 05/08/19 16:38 Vitals reviewed General appearance: Present: no acute distress - EENT Eyes: Present: PERRL, EOM intact ENT: hearing intact, clear oral mucosa, dentition normal - Neck Neck: Present: supple, normal ROM - Respiratory Respiratory effort: normal, decreased AE bilaterally Respiratory: bilateral: wheezing - Cardiovascular Rhythm: regular Heart Sounds: Present: S1 & S2 - Extremities Extremities: no ischemia, pulses intact, No edema, Full ROM, abnormal (Right foot dressing/soft cast in place) Peripheral Pulses: within normal limits - Abdominal General gastrointestinal: Present: soft, non-tender, non-distended PD catheter in place - Integumentary Integumentary: Present: clear, warm, dry, LUExt graft site - Musculoskeletal Musculoskeletal: strength equal bilaterally - Psychiatric Psychiatric: appropriate mood/affect, intact judgment & insight - Neurologic Neurologic: CNII-XII intact, moves all extremities Results - Laboratory Findings CBC and BMP: 05/08/19 18:10 05/08/19 18:10 PT/INR, D-dimer PT 15.4 Sec. (12.2-14.9) H 05/08/19 18:10 INR 1.20 (0.87-1.13) H 05/08/19 18:10 Abnormal lab findings: Abnormal Labs 05/08/19 05/08/19 05/08/19 18:10 18:10 18:10 RBC 2.71 L Hgb 8.2 L Hct 25.5 L RDW 16.4 H [place] % (Auto) 7.6 H Lymph # 0.7 L Seg Neutrophils % 74.6 H PT 15.4 H INR 1.20 H APTT 45.6 H VBG pH Sodium 134 L Carbon Dioxide 14 L BUN 83 H Creatinine 12.0 H Glucose 172 H Troponin T 0.042 H 05/09/19 00:01 RBC Hgb Hct RDW [place] % (Auto) Lymph # Seg Neutrophils % PT INR APTT VBG pH 7.291 L Sodium Carbon Dioxide BUN Creatinine Glucose Troponin T - Diagnostic Findings Chest x-ray: image reviewed (Large cardiac sihlouette-globular , right basilar atelectasis) Assessment and Plan -Dyspnea- probable COPD -Tobacco use disorder/Nicotine dependence -Possible pericardial effusion/Cardiomyopathy- on CXR -ESRD on PD -Hyponatremia -Metaboic acidosis -ABG -Supplemental oxygen to keep O2 sats>90% -Transthoracic echocardiography r/o pericardial effusion/evaluate for pulmonary HTN -Smoking cessation counselling done at the bedside for 7 mins. Behavioral therapy counselling -Nicotine withdrawal precautions -Bronchodilators -VTE prophylaxis -Will need outpatient pulmonary follow up to evaluate pulmonary physiology with PFTs -Renal consult for PD -Analgesia CODE STATUS-FULL CODE Discussed care plan with the patient. Thank you for the consult. Please do not hesitate to call with any questions or concerns
[2019-05-09] MEDS ORDERED: SODIUM BICARBONATE 650 MG TAB PO SCH (22:00)
[2019-05-10] MEDS: DIALYSATE LO CAL 2.5% SOLN 2000 ML IP SCH ×4 (01:26→15:41)
[2019-05-10] MEDS: IPRATROPIUM/ALBUTEROL SULFATE 3 ML AMPUL.NEB IH SCH ×3 (02:55→14:10)
[2019-05-10] MEDS: MORPHINE 2 MG/1 ML INJ IV PRN ×2 (03:10→09:42)
[2019-05-10 06:00] LABS: Basophils % (Auto) 0.5 % (0.0-1.8); Eosinophils # (Auto) 0.1 K/mm3 (0.0-0.4); Eosinophils % (Auto) 2.2 % (0.0-4.3); Hematocrit 23.4 % (30.3-42.9); Hemoglobin 7.5 gm/dl (10.1-14.3); Lymphocytes # (Auto) 0.7 K/mm3 (1.2-5.4); Lymphocytes % (Auto) 13.1 % (13.4-35.0); Mean Corpuscular HGB Conc 32 % (30-34); Mean Corpuscular Volume 92 fl (79-97); Monocytes # (Auto) 0.4 K/mm3 (0.0-0.8); Platelet Count 200 K/mm3 (140-440); Red Blood Count 2.54 M/mm3 (3.65-5.03); Red Cell Distribution Width 15.6 % (13.2-15.2)
[2019-05-10] MEDS ORDERED: FUROSEMIDE 100 MG/10 ML INJ IV SCH (06:00)
[2019-05-10 06:02] LABS: INR 1.16 (0.87-1.13)
[2019-05-10 06:04] LABS: Partial Thromboplastin Time 44.7 Sec. (24.2-36.6)
[2019-05-10 06:18] LABS: Calcium 8.7 mg/dL (8.4-10.2)
[2019-05-10] MEDS: SODIUM BICARBONATE 650 MG TAB PO SCH ×2 (07:14→15:42)
--- NOTE | 2019-05-10 08:56 | Progress Note ---
Assessment and Plan Assessment and plan: 63-year-old woman with end-stage renal disease on peritoneal dialysis who presents to the hospital cough Reductive of yellow sputumand wheezing. She also reports falling a few days prior, and injuring her feet. X-ray of bilateral feet; no acute fracture or dislocation Chest x-ray; severe enlargement of cardio/she-cardio silhouettes Acute bronchitis steroids, antibiotics, nebs, pulmonology consults, aggressive chest PT -Repeat x-ray today Tobacco abuse/dependence Smoking cessation counseling performed for 10 minutes, nicotine patches when necessary Right foot strain X-ray negative for fractures. Pain medications as needed. ESRD on PD Continue PD, nephrology input appreciated Hypertension; continue BP meds DVT prophylaxis; heparin Hospitalist Physical - Constitutional Vitals: Temp Pulse Resp BP Pulse Ox 98.1 F 84 18 198/77 100 05/10/19 07:55 05/10/19 08:40 05/10/19 07:55 05/10/19 07:55 05/10/19 05:21 General appearance: Present: no acute distress MUKUND score - Mukund Score Age > 65: (0) No Aspirin use within the Past 7 Days: (0) No 3 or more CAD Risk Factors: (0) No 2 or more Angina events in past 24 hrs: (1) Yes Known CAD with more than 50% Stenosis: (0) No Elevated Cardiac Markers: (0) No ST Deviation Greater than 0.5mm: (0) No MUKUND Score: 1 Results - Labs CBC & Chem 7: 05/10/19 05:12 05/10/19 05:12 Labs: Laboratory Last Values WBC 5.4 K/mm3 (4.5-11.0) 05/10/19 05:12 RBC 2.54 M/mm3 (3.65-5.03) L 05/10/19 05:12 Hgb 7.5 gm/dl (10.1-14.3) L 05/10/19 05:12 Hct 23.4 % (30.3-42.9) L 05/10/19 05:12 MCV 92 fl (79-97) 05/10/19 05:12 MCH 29 pg (28-32) 05/10/19 05:12 MCHC 32 % (30-34) 05/10/19 05:12 RDW 15.6 % (13.2-15.2) H 05/10/19 05:12 Plt Count 200 K/mm3 (140-440) 05/10/19 05:12 Lymph % (Auto) 13.1 % (13.4-35.0) L 05/10/19 05:12 [place] % (Auto) 8.0 % (0.0-7.3) H 05/10/19 05:12 Eos % (Auto) 2.2 % (0.0-4.3) 05/10/19 05:12 Baso % (Auto) 0.5 % (0.0-1.8) 05/10/19 05:12 Lymph # 0.7 K/mm3 (1.2-5.4) L 05/10/19 05:12 [place] # 0.4 K/mm3 (0.0-0.8) 05/10/19 05:12 Eos # 0.1 K/mm3 (0.0-0.4) 05/10/19 05:12 Baso # 0.0 K/mm3 (0.0-0.1) 05/10/19 05:12 Seg Neutrophils % 76.2 % (40.0-70.0) H 05/10/19 05:12 Seg Neutrophils # 4.1 K/mm3 (1.8-7.7) 05/10/19 05:12 PT 15.0 Sec. (12.2-14.9) H 05/10/19 05:12 INR 1.16 (0.87-1.13) H 05/10/19 05:12 APTT 44.7 Sec. (24.2-36.6) H 05/10/19 05:12 VBG pH 7.291 (7.320-7.420) L 05/09/19 00:01 Sodium 136 mmol/L (137-145) L 05/10/19 05:12 Potassium 4.9 mmol/L (3.6-5.0) 05/10/19 05:12 Chloride 101.0 mmol/L (98-107) 05/10/19 05:12 Carbon Dioxide 16 mmol/L (22-30) L 05/10/19 05:12 Anion Gap 24 mmol/L 05/10/19 05:12 BUN 77 mg/dL (7-17) H 05/10/19 05:12 Creatinine 10.9 mg/dL (0.7-1.2) H 05/10/19 05:12 Estimated GFR 4 ml/min 05/10/19 05:12 BUN/Creatinine Ratio 7 % 05/10/19 05:12 Glucose 80 mg/dL (65-100) 05/10/19 05:12 Calcium 8.7 mg/dL (8.4-10.2) 05/10/19 05:12 Total Creatine Kinase 115 units/L (30-135) 05/08/19 18:10 CK-MB (CK-2) 3.3 ng/mL (0.0-4.0) 05/08/19 18:10 CK-MB (CK-2) Rel Index 2.8 (0-4) 05/08/19 18:10 Troponin T 0.042 ng/mL (0.00-0.029) H 05/08/19 18:10 Triglycerides 72 mg/dL (2-149) 05/08/19 18:10 Cholesterol 127 mg/dL (50-199) 05/08/19 18:10 LDL Cholesterol Direct 65 mg/dL (50-130) 05/08/19 18:10 HDL Cholesterol 51 mg/dL (40-59) 05/08/19 18:10 Cholesterol/HDL Ratio 2.49 % 05/08/19 18:10 Active Medications - Current Medications Current Medications: Generic Name Dose Route Start Last Admin Trade Name Freq PRN Reason Stop Dose Admin Acetaminophen 650 mg 05/09/19 01:08 05/10/19 03:11 Tylenol PO 650 mg Q4H PRN Administration Pain MILD(1-3)/Fever >100.5/NOVAK Albuterol/Ipratropium 1 ampul 05/09/19 02:00 05/10/19 02:55 Duoneb *Not For Prn Use* IH 1 ampul Q6HRT FROY Administration Furosemide 80 mg 05/10/19 06:00 05/10/19 07:14 Lasix IV 80 mg DAILY@0600 FROY Administration Hydralazine HCl 10 mg 05/09/19 05:41 05/09/19 06:18 Apresoline IV 10 mg Q4HR PRN Administration Hypertension Levofloxacin/Dextrose 250 mg in 50 mls @ 50 mls/hr 05/10/19 10:00 Levaquin 250mg/50ml IV 05/18/19 10:59 Q48HR [facility] Protocol Magnesium Hydroxide 30 ml 05/09/19 01:08 Milk Of Magnesia PO Q4H PRN Constipation Morphine Sulfate 2 mg 05/09/19 01:08 05/10/19 03:10 Morphine IV 2 mg Q4H PRN Administration Pain, Moderate (4-6) Nicotine 14 mg 05/09/19 12:00 05/09/19 13:53 Habitrol TD 14 mg QDAY FROY Administration Ondansetron HCl 4 mg 05/09/19 01:08 05/09/19 04:01 Zofran IV 4 mg Q8H PRN Administration Nausea And Vomiting Peritoneal Dialysis Solution 2,000 ml 05/09/19 11:30 05/10/19 07:15 Dianeal Low Calcium W/2.5% Dextrose IP 2,000 ml Q4HR FROY Administration Sodium Bicarbonate 1,300 mg 05/10/19 08:00 05/10/19 07:14 Sodium Bicarbonate PO 1,300 mg TID FROY Administration Sodium Chloride 10 ml 05/09/19 10:00 05/10/19 01:24 Sodium Chloride Flush Syringe 10 Ml IV Not Given BID FROY Sodium Chloride 10 ml 05/09/19 01:08 Sodium Chloride Flush Syringe 10 Ml IV PRN PRN LINE FLUSH Nutrition/Malnutrition Assess - Dietary Evaluation Nutrition/Malnutrition Findings: Nutrition Notes Start: 05/09/19 13:51 Freq: Status: Active Protocol: Document 05/09/19 13:51 (Rec: 05/09/19 14:10 [id number]) Co-Sign 05/09/19 13:51 Nutrition Notes Need for Assessment generated from: Low BMI Initial or Follow up Assessment Current Diagnosis CKD (stage V CKD),COPD, Hypertension Other Pertinent Diagnosis ESRD on PD Current Diet Renal Labs/Tests BUN 83 Cr 12 Na 134 Pertinent Medications Reviewed Height 5 ft 5 in Weight 47.627 kg Usual Body Weight 84 kg [place] Body Weight (kg) 56.81 BMI 17.4 Intake Prior to Admission Poor Weight change and time frame 43% weight loss in 1.5 years Weight Status Underweight Subjective/Other Information Screen for low BMI. Pt reports wt loss since ESRD diagnosis 1.5 years ago. Pt reports eating 25% of meals due to not liking hospital food. Pt reports fluxuating appetite. Burn Absent Trauma Absent GI Symptoms None Current % PO Poor (25-49%) Minimum of two criteria No Energy Intake (non-severe) <75% Estimated Energy Requirement >7 days #1 Nutrition Diagnosis Inadequate oral intake Etiology Decreased appetite As Evidenced by Signs and Symptoms Consuming 25% of meals and 43% weight loss in 1.5 years Is patient on ventilator? No Is Patient Ambulatory and/or Out of Bed Yes REE-([place]-[facility]. or-ambulatory/OOB) [ 1341.795 NUTR.MSJOOB] Kcal/Kg value to use for calculation 35 Approximate Energy Requirements Using 1667 kcal/Kg Calculation Used for Recommendations Kcal/kg Additional Notes Pro: 57-62 (1.2-1.3 g/kg) Nutrition Intervention Change Diet Order: Continue current Add Supplement/Snack (indicate name/kcal Nerpro Mixed Henry /protein ) Provides kCal: 425 Provides Protein (gm) 19 Goal #1 Meet at least 80% of needs via PO and ONS intakes Anticipated Discharge Needs: Renal, ONS PRN Follow-Up By: 05/13/19 Additional Comments FU for intakes
--- NOTE | 2019-05-10 09:27 | Discharge Summary ---
Providers - Providers Date of Admission: 05/09/19 03:18 Attending physician: NI SYEMOUR MD 05/09/19 01:17 Consult to Physician [CONS] Routine Comment: Consulting Provider: MARVA ROMAN Physician Instructions: Reason For Exam: ESRD ON PERITONEAL DIALYSIS,METABOLIC ACIDOSIS 05/09/19 10:55 Consult to Physician [CONS] Routine Comment: Consulting Provider: ROSEANNA MUIR Physician Instructions: Reason For Exam: bronchitis Primary care physician: CATHERINE CAMP MD Hospitalization Condition: Fair Hospital course: 63-year-old woman with end-stage renal disease on peritoneal dialysis who presents to the hospital cough Reductive of yellow sputumand wheezing. She also reports falling a few days prior, and injuring her feet. X-ray of bilateral feet; no acute fracture or dislocation Chest x-ray; severe enlargement of cardio/she-cardio silhouettes Acute bronchitis steroids, antibiotics, nebs, pulmonology consults, aggressive chest PT Patient improved. Outpatient pulmonology follow-up. She may have chronic bronchitis given many years of tobacco abuse. Tobacco abuse/dependence Smoking cessation counseling performed for 10 minutes, nicotine patches when necessary -Preventative health counseling performed for 17 minutes Right foot strain X-ray negative for fractures. Pain medications as needed. ESRD on PD Continue PD, nephrology input appreciated Hypertension; continue BP meds DVT prophylaxis; heparin Disposition: TO HOME OR SELFCARE Time spent for discharge: 35 minutes Core Measure Documentation - Palliative Care Palliative Care/ Comfort Measures: Not Applicable - Core Measures Any of the following diagnoses?: none Exam - Constitutional Vitals: Temp Pulse Resp BP Pulse Ox 98.1 F 84 18 198/77 100 05/10/19 07:55 05/10/19 08:40 05/10/19 07:55 05/10/19 07:55 05/10/19 05:21 Plan Follow up with: CATHERINE CAMP MD [Primary Care Provider] - 3-5 Days ROSEANNA MUIR MD [Staff Physician] - 7 Days Prescriptions: Cefdinir 300 mg PO BID #6 capsule Nicotine [Habitrol] 14 mg TD QDAY #30 patch Prednisone [predniSONE 10 mg (6-Day Pack, 21 Tabs)] 10 mg PO .TAPER #1 tab.ds.pk Albuterol INH(or & Nicu Only) [ProAir HFA Inhaler] 2 puff IH QID PRN #8.5 gram PRN Reason: Shortness Of Breath
[2019-05-10] MEDS: NICOTINE 14 MG/24 HR PATCH TD SCH (09:40)
[2019-05-10] MEDS ORDERED: NON-FORMULARY EACH (Cinacalcet Hcl [Sensipar] 60 MG) PO SCH (10:00)
[2019-05-10] MEDS ORDERED: methylPREDNISolone Sod Succinate 40 MG/1 ML INJ IV SCH (10:00)
[2019-05-10] MEDS ORDERED: FUROSEMIDE 20 MG/2 ML INJ IV SCH (10:00)
[2019-05-10] MEDS ORDERED: [UNRECOGNIZED DRUG - OTHER] PO SCH (10:00)
[2019-05-10] MEDS ORDERED: ASPIRIN EC 81 MG TAB PO SCH (12:00)
[2019-05-10] MEDS ORDERED: NIFEdipine XL 60 MG TAB PO SCH (12:00)
[2019-05-10] MEDS ORDERED: hydrALAZINE 100 MG TAB PO SCH (12:00)
[2019-05-10] MEDS ORDERED: carvediloL 25 MG TAB PO SCH (12:00)
[2019-05-10] MEDS ORDERED: CINACALCET 30 MG TAB PO SCH (12:00)
--- NOTE | 2019-05-10 14:47 | Progress Note ---
Assessment and Plan - Patient Problems (1) Volume overload Current Visit: No Status: Acute Qualifiers: Hypervolemia type: unspecified Qualified Code(s): E87.70 - Fluid overload, unspecified Plan to address problem: volume overload secondary to missed dialysis We'll initiate peritoneal dialysis also will give diuretics (2) Anemia of renal disease Current Visit: No Status: Chronic Plan to address problem: Moderate anemia Hemoglobin is 8.2 g per DL We'll give epogen Etiologies secondary renal failure (3) ESRD on dialysis Current Visit: No Status: Chronic Plan to address problem: End-stage renal disease on peritoneal dialysis We'll initiate speaking weight is 1.8 L fill volume is 2.5% bags and cycles every 4 hours We'll also add diuretics (4) Metabolic acidosis Current Visit: Yes Status: Chronic Plan to address problem: Metabolic acidosis will initiate peritoneal dialysis Add sodium bicarbonate (5) Hypertension Current Visit: No Status: Chronic Qualifiers: Hypertension type: essential hypertension Qualified Code(s): I10 - Essential (primary) hypertension Plan to address problem: Hypertension uncontrolled We'll initiate medications Add Losartan 50mg daily. Subjective Interval history: 53-year-old -[place] female with known history of end-stage renal disease on peritoneal dialysis presenting to the emergency room today complaining of cough and wheezing. Cough has been occasionally productive of some yellowish sputum . She denies any chest pain, no nausea vomiting, no headache or dizziness. She smokes about 1/2 PPD. Has smoked for over 30 years Patient indicates that she fell a few days ago injuring her feet and was subsequently seen at an urgent care during which time there were concerns for possible fracture. She presents to the emergency room today to have of feet ev aluated. Upon evaluation today x-ray did not reveal any obvious fractures however laboratory tests indicates she is in metabolic acidosis. Patient indicates that she has not been quite compliant with her peritoneal dialysis in the past few days secondary to a recent fall. Patient seen today Denies any orthopnea or PND. still with wheezing HAD PD overnight. Objective - Vital Signs Vital signs: Vital Signs - 12hr 05/10/19 05/10/19 05/10/19 03:05 05:21 07:55 Temperature 98.4 F 98.1 F Pulse Rate 90 Pulse Rate [ 91 H Anterior Bilateral Throughout] Respiratory 18 18 Rate Respiratory 20 Rate [Anterior Bilateral Throughout] Respiratory Rate [Back] Blood Pressure 182/85 198/77 O2 Sat by Pulse 100 Oximetry 05/10/19 05/10/19 05/10/19 08:40 09:42 09:48 Temperature Pulse Rate 84 Pulse Rate [ 91 H Anterior Bilateral Throughout] Respiratory 20 Rate Respiratory 20 Rate [Anterior Bilateral Throughout] Respiratory Rate [Back] Blood Pressure O2 Sat by Pulse Oximetry 05/10/19 05/10/19 05/10/19 10:00 10:12 11:59 Temperature Pulse Rate 90 Pulse Rate [ Anterior Bilateral Throughout] Respiratory 20 Rate Respiratory Rate [Anterior Bilateral Throughout] Respiratory 20 Rate [Back] Blood Pressure 186/86 O2 Sat by Pulse Oximetry 05/10/19 14:10 Temperature Pulse Rate Pulse Rate [ 84 Anterior Bilateral Throughout] Respiratory Rate Respiratory 18 Rate [Anterior Bilateral Throughout] Respiratory Rate [Back] Blood Pressure O2 Sat by Pulse Oximetry - General Appearance General appearance: well-developed, well-nourished EENT: ATNC, PERRL Neck: no JVD Respiratory: Present: Clear to Ascultation Cardiology: regular, S1S2 Gastrointestinal: normal, normoactive bowel sounds Integumentary: no rash Neurologic: alert and oriented x3, CN 3-12 intact Musculoskeletal: deferred Psychiatric: mood/affect appropriate - Lab 05/10/19 05:12 05/10/19 05:12 Most recent lab results Calcium 8.7 mg/dL (8.4-10.2) 05/10/19 05:12 - Imaging Chest x-ray: image reviewed (cxr with hyperinflated lung asher. ) Medications & Allergies - Medications Allergies/Adverse Reactions: Allergies No Known Allergies Allergy (Verified 08/21/18 15:07) Home Medications: Home Medications Medication Instructions Recorded Confirmed Last Taken Type Aspirin [Adult Low Dose Aspirin EC] 81 mg PO DAILY 11/24/16 05/09/19 05/08/19 History NIFEdipine [Nifedipine ER] 60 mg PO BID 11/24/16 05/09/19 05/08/19 History Cinacalcet HCl [Sensipar] 60 mg PO DAILY 08/21/18 05/09/19 05/08/19 History Dialyvite Chewable Probiotic 3,000 mg PO DAILY 08/21/18 05/09/19 05/08/19 History carvediloL [Coreg] 25 mg PO BID 08/21/18 05/09/19 05/08/19 History hydrALAZINE [Apresoline TAB] 100 mg PO TID 08/21/18 05/09/19 05/08/19 History Albuterol INH(or & Nicu Only) 2 puff IH QID PRN #8.5 gram 05/10/19 Unknown Rx [ProAir HFA Inhaler] Cefdinir 300 mg PO BID #6 capsule 05/10/19 Unknown Rx Nicotine [Habitrol] 14 mg TD QDAY #30 patch 05/10/19 Unknown Rx Prednisone [predniSONE 10 mg 10 mg PO .TAPER #1 tab.ds.pk 05/10/19 Unknown Rx (6-Day Pack, 21 Tabs)] Active Medications: Generic Name Dose Route Start Last Admin Trade Name Freq PRN Reason Stop Dose Admin Acetaminophen 650 mg 05/09/19 01:08 05/10/19 03:11 Tylenol PO 650 mg Q4H PRN Administration Pain MILD(1-3)/Fever >100.5/NOVAK Albuterol/Ipratropium 1 ampul 05/09/19 02:00 05/10/19 14:10 Duoneb *Not For Prn Use* IH 1 ampul Q6HRT FROY Administration Aspirin 81 mg 05/10/19 12:00 05/10/19 11:57 Halfprin Ec PO 81 mg DAILY FROY Administration Carvedilol 25 mg 05/10/19 12:00 05/10/19 11:59 Coreg PO 25 mg BID FROY Administration Cinacalcet 60 mg 05/10/19 12:00 05/10/19 11:58 Sensipar PO 60 mg QDAY FROY Administration Furosemide 80 mg 05/10/19 06:00 05/10/19 07:14 Lasix IV 80 mg DAILY@0600 FROY Administration Hydralazine HCl 10 mg 05/09/19 05:41 05/09/19 06:18 Apresoline IV 10 mg Q4HR PRN Administration Hypertension Hydralazine HCl 100 mg 05/10/19 12:00 05/10/19 11:59 Apresoline PO 100 mg TID FROY Administration Levofloxacin/Dextrose 250 mg in 50 mls @ 50 mls/hr 05/10/19 10:00 05/10/19 09:40 Levaquin 250mg/50ml IV 05/18/19 10:59 50 mls/hr Q48HR FROY Administration Protocol Magnesium Hydroxide 30 ml 05/09/19 01:08 Milk Of Magnesia PO Q4H PRN Constipation Methylprednisolone Sodium Succinate 40 mg 05/10/19 10:00 05/10/19 09:40 Solu-Medrol IV 40 mg Q12HR FROY Administration Morphine Sulfate 2 mg 05/09/19 01:08 05/10/19 09:42 Morphine IV 2 mg Q4H PRN Administration Pain, Moderate (4-6) Multivit/Ca Carb/B Cmplx/FA/Prenat 1 cap 05/11/19 10:00 Renal Caps PO QDAY FROY Nicotine 14 mg 05/09/19 12:00 05/10/19 09:40 Habitrol TD 14 mg QDAY FROY Administration Nifedipine 60 mg 05/10/19 12:00 05/10/19 11:58 Procardia Xl PO 60 mg BID FROY Administration Ondansetron HCl 4 mg 05/09/19 01:08 05/09/19 04:01 Zofran IV 4 mg Q8H PRN Administration Nausea And Vomiting Peritoneal Dialysis Solution 2,000 ml 05/09/19 11:30 05/10/19 10:00 Dianeal Low Calcium W/2.5% Dextrose IP 2,000 ml Q4HR FROY Administration Sodium Bicarbonate 1,300 mg 05/10/19 08:00 05/10/19 07:14 Sodium Bicarbonate PO 1,300 mg TID FROY Administration Sodium Chloride 10 ml 05/09/19 10:00 05/10/19 09:41 Sodium Chloride Flush Syringe 10 Ml IV 10 ml BID FROY Administration Sodium Chloride 10 ml 05/09/19 01:08 Sodium Chloride Flush Syringe 10 Ml IV PRN PRN LINE FLUSH
[2019-05-10] MEDS ORDERED: EPOETIN ALFA 10,000 UNIT/1 ML INJ SUB-Q SCH ×2 (15:00→18:00)
[2019-05-10] MEDS ORDERED: LOSARTAN 50 MG TAB PO SCH (16:00)
[2019-05-10 16:30] VITALS: BP 144/82
--- NOTE | 2019-05-10 17:49 | Event Note ---
Date: 05/10/19 called the patients daughter of Miss Les Melton, les Bo, following a call I received from boiler fitter about Ms Les Thorne echo showing pericardial effusion. She will reach her mother to return to the hospital Attending physician has also set up admit orders for direct admit Ms bo appreciative of the call and understands that his is Emergent.
[2019-05-11] MEDS ORDERED: FOLIC ACID/VIT B COMP W-C 1 MG (RENAL CAPS) PO SCH (10:00)
== END 2019-05-10 16:25 | disposition home or self-care (01) ==
LOC: ED 16:17 → INTOOBSV 05-09 03:18 → 4A 05-09 03:18
PROVIDERS: ADMIT Internal Medicine Geriatric Medicine; ATTEND Internal Medicine
DX: J44.1 Chronic obstructive pulmonary disease with (acute) exacerbation (principal); J20.9 Acute bronchitis, unspecified; J44.0 Chronic obstructive pulmonary disease with (acute) lower respiratory infection; S96.911A Strain of unspecified muscle and tendon at ankle and foot level, right foot, initial encounter; S96.912A Strain of unspecified muscle and tendon at ankle and foot level, left foot, initial encounter; E87.2 Acidosis; I12.0 Hypertensive chronic kidney disease with stage 5 chronic kidney disease or end stage renal disease; N18.6 End stage renal disease; D63.1 Anemia in chronic kidney disease; F17.210 Nicotine dependence, cigarettes, uncomplicated; I51.7 Cardiomegaly; E87.70 Fluid overload, unspecified; E87.1 Hypo-osmolality and hyponatremia; W19.XXXA Unspecified fall, initial encounter; Y93.89 Activity, other specified; Y92.89 Other specified places as the place of occurrence of the external cause; Z99.2 Dependence on renal dialysis; Z79.899 Other long term (current) drug therapy
CPT/HCPCS: 36415; 71046; 73620; 80048; 80061; 82550; 82553; 82805; 84484; 85025; 85610; 85730; 93306; 94640; 96365; 96366; 96375; 96376; 99284; 99285; 99406; G0378; J0360; J1940; J1956; J2270; J2405; J2920

== ENCOUNTER 2019-05-10 17:43 | Inpatient (IN) | payer MEDICARE ==
[2019-05-10] MEDS ORDERED: MORPHINE 2 MG/1 ML INJ IV PRN (17:57)
[2019-05-10] MEDS ORDERED: ONDANSETRON 4 MG/2 ML INJ IV PRN (17:57)
[2019-05-10] MEDS ORDERED: ACETAMINOPHEN 325 MG TAB PO PRN (17:57)
[2019-05-10] MEDS: CINACALCET 30 MG TAB PO SCH (21:17)
[2019-05-10] MEDS: IPRATROPIUM/ALBUTEROL SULFATE 3 ML AMPUL.NEB IH SCH (21:33)
[2019-05-10] MEDS: BUDESONIDE 0.5 MG/2 ML NEBU IH SCH (21:33)
[2019-05-10] MEDS: HEPARIN 5,000 UNIT/1 ML VIAL SUB-Q SCH (22:29)
[2019-05-10] MEDS: methylPREDNISolone Sod Succinate 40 MG/1 ML INJ IV SCH (22:29)
[2019-05-10] MEDS: NIFEdipine XL 60 MG TAB PO SCH (22:30)
[2019-05-10] MEDS: carvediloL 25 MG TAB PO SCH (22:30)
[2019-05-10] MEDS: hydrALAZINE 100 MG TAB PO SCH (22:31)
[2019-05-10] MEDS: oxyCODONE /ACETAMINOPHEN 5-325MG TAB PO PRN (23:29)
[2019-05-11] MEDS: IPRATROPIUM/ALBUTEROL SULFATE 3 ML AMPUL.NEB IH SCH ×4 (02:47→20:14)
[2019-05-11 05:29] LABS: Hematocrit 26.7 % (30.3-42.9); Hemoglobin 8.6 gm/dl (10.1-14.3); Mean Corpuscular HGB Conc 32 % (30-34); Mean Corpuscular Volume 93 fl (79-97); Platelet Count 219 K/mm3 (140-440); Red Blood Count 2.86 M/mm3 (3.65-5.03); Red Cell Distribution Width 16.3 % (13.2-15.2)
[2019-05-11 05:41] LABS: Calcium 8.6 mg/dL (8.4-10.2)
--- NOTE | 2019-05-11 06:47 | Event Note ---
Date: 05/10/19 Informed by outgoing hospitalist that patient was recalled at home to return to the hospital after being discharged for further evaluation. Patient was admitted a few days ago for possible bronchitis, sprain on the foot after a fall. Echocardiogram done today reveals pericardial effusion patient has been recalled for further evaluation. Patient was seen in her room lying comfortably in bed without any complaints. Vital signs were reviewed and stable. General appearance: Present: no acute distress - EENT Eyes: Present: PERRL, EOM intact ENT: hearing intact, clear oral mucosa, dentition normal - Neck Neck: Present: supple, normal ROM - Respiratory Respiratory effort: normal Respiratory: Decreased breath sounds in the bases - Cardiovascular Rhythm: regular Heart Sounds: Present: S1 & S2 - Extremities Extremities: no ischemia, pulses intact, No edema, Full ROM Peripheral Pulses: within normal limits - Abdominal General gastrointestinal: Present: soft, non-tender, non-distended - Integumentary Integumentary: Present: clear, warm, dry - Musculoskeletal Musculoskeletal: strength equal bilaterally - Psychiatric Psychiatric: appropriate mood/affect, intact judgment & insight - Neurologic Neurologic: CNII-XII intact, moves all extremities Assessment and plan 1. Pericardial effusion Patient will be evaluated by inverter and clipper and vascular surgeon 2. End-stage renal disease Patient on peritoneal dialysis 3. We will resume other routine home medications 4. Patient is full code
[2019-05-11] MEDS: HEPARIN 5,000 UNIT/1 ML VIAL SUB-Q SCH ×3 (06:59→21:11)
[2019-05-11 08:06] LABS: Monocytes % (Manual) 0 % (0.0-7.3); Total Cells Counted 100
[2019-05-11 08:07] LABS: Anisocytosis 1+; Basophils % (Manual) 0 % (0.0-1.8); Eosinophils % (Manual) 0 % (0.0-4.3); Platelet Estimate Consistent w Auto
[2019-05-11] MEDS: BUDESONIDE 0.5 MG/2 ML NEBU IH SCH ×2 (09:14→20:14)
[2019-05-11] MEDS ORDERED: [UNRECOGNIZED DRUG - OTHER] PO SCH (10:00)
--- NOTE | 2019-05-11 10:02 | Consultation ---
History of Present Illness Consult date: 05/11/19 Consult reason: shortness of breath History of present illness: 63-year-old woman with end-stage renal disease on peritoneal dialysis who presents to the hospital cough Reductive of yellow sputumand wheezing. She also reports falling a few days prior, and injuring her feet. She has been diagnosed with bronchitis. Echocardiogram revealed large circuferential pericardial effusion without tamponade physiology. Past History Past Medical History: COPD, hypertension, renal failure Past Surgical History: , hysterectomy Social history: no significant social history Family history: denies: CAD Medications and Allergies Allergies Allergy/AdvReac Type Severity Reaction Status Date / Time No Known Allergies Allergy Verified 08/21/18 15:07 Home Medications Medication Instructions Recorded Confirmed Last Taken Type Aspirin [Adult Low Dose Aspirin EC] 81 mg PO DAILY 11/24/16 05/10/19 05/08/19 History NIFEdipine [Nifedipine ER] 60 mg PO BID 11/24/16 05/10/19 05/08/19 History Cinacalcet HCl [Sensipar] 60 mg PO DAILY 08/21/18 05/10/19 05/08/19 History Dialyvite Chewable Probiotic 3,000 mg PO DAILY 08/21/18 05/10/19 05/08/19 Hi story carvediloL [Coreg] 25 mg PO BID 08/21/18 05/10/19 05/08/19 History hydrALAZINE [Apresoline TAB] 100 mg PO TID 08/21/18 05/10/19 05/08/19 History Acetaminophen/Codeine [Tylenol 1 tab PO Q6H PRN #14 tab 05/10/19 05/10/19 Unknown Rx /Codeine # 3 tab] Albuterol INH(or & Nicu Only) 2 puff IH QID PRN #8.5 gram 05/10/19 05/10/19 Unknown Rx [ProAir HFA Inhaler] Cefdinir 300 mg PO BID #6 capsule 05/10/19 05/10/19 Unknown Rx Nicotine [Habitrol] 14 mg TD QDAY #30 patch 05/10/19 05/10/19 Unknown Rx Prednisone [predniSONE 10 mg 10 mg PO .TAPER #1 tab.ds.pk 05/10/19 05/10/19 Unknown Rx (6-Day Pack, 21 Tabs)] Active Meds: Active Medications Acetaminophen (Tylenol) 650 mg PO Q4H PRN PRN Reason: Pain MILD(1-3)/Fever >100.5/NOVAK Albuterol/Ipratropium (Duoneb *Not For Prn Use*) 1 ampul IH Q6HRT [facility] Last Admin: 05/11/19 09:14 Dose: 1 ampul Documented by: Aspirin (Halfprin Ec) 81 mg PO DAILY [facility] Budesonide (Pulmicort) 0.5 mg IH Q12HRT [facility] Last Admin: 05/11/19 09:14 Dose: 0.5 mg Documented by: Carvedilol (Coreg) 25 mg PO BID@0800,1700 [facility] Last Admin: 05/10/19 22:30 Dose: 25 mg Documented by: Cinacalcet (Sensipar) 60 mg PO QDAY [facility] Last Admin: 05/10/19 21:17 Dose: Not Given Documented by: Heparin Sodium (Porcine) (Heparin) 5,000 unit SUB-Q Q8HR [facility] Last Admin: 05/11/19 06:59 Dose: 5,000 unit Documented by: Hydralazine HCl (Apresoline) 100 mg PO TID [facility] Last Admin: 05/10/19 22:31 Dose: 100 mg Documented by: Methylprednisolone Sodium Succinate (Solu-Medrol) 40 mg IV Q12HR [facility] Last Admin: 05/10/19 22:29 Dose: 40 mg Documented by: Miscellaneous Medication (Cefdinir [Cefdinir]) 300 mg PO BID [facility] Miscellaneous Medication (Dialyvite Chewable Probiotic) 3,000 mg PO DAILY [facility] Morphine Sulfate (Morphine) 2 mg IV Q4H PRN PRN Reason: Pain, Moderate (4-6) Nicotine (Habitrol) 14 mg TD QDAY [facility] Nifedipine (Procardia Xl) 60 mg PO BID [facility] Last Admin: 05/10/19 22:30 Dose: 60 mg Documented by: Ondansetron HCl (Zofran) 4 mg IV Q8H PRN PRN Reason: Nausea And Vomiting Oxycodone/Acetaminophen (Percocet 5/325) 1 tab PO Q6H PRN PRN Reason: Pain, Moderate (4-6) Last Admin: 05/10/19 23:29 Dose: 1 tab Documented by: Sodium Chloride (Sodium Chloride Flush Syringe 10 Ml) 10 ml IV BID [facility] Last Admin: 05/10/19 22:31 Dose: 10 ml Documented by: Sodium Chloride (Sodium Chloride Flush Syringe 10 Ml) 10 ml IV PRN PRN PRN Reason: LINE FLUSH Review of Systems All systems: negative (per hpi) Physical Examination Vital Signs Pulse Ox 100 05/10/19 20:30 General appearance: no acute distress Cardiac: Positive: Reg Rate and Rhythm Lungs: Positive: clear to auscultation Abdomen: Positive: Soft, Active Bowel Sounds Extremities: Present: +1 Edema Results 05/11/19 04:28 05/11/19 04:28 CBC 05/11/19 Range/Units 04:28 WBC 3.6 L (4.5-11.0) K/mm3 RBC 2.86 L (3.65-5.03) M/mm3 Hgb 8.6 L (10.1-14.3) gm/dl Hct 26.7 L (30.3-42.9) % Plt Count 219 (140-440) K/mm3 Comprehensive Metabolic Panel 05/11/19 Range/Units 04:28 Sodium 133 L (137-145) mmol/L Potassium 5.2 H (3.6-5.0) mmol/L Chloride 94.1 L (98-107) mmol/L Carbon Dioxide 18 L (22-30) mmol/L BUN 77 H (7-17) mg/dL Creatinine 10.6 H (0.7-1.2) mg/dL Glucose 167 H (65-100) mg/dL Calcium 8.6 (8.4-10.2) mg/dL Assessment and Plan 1. Large pericardial effusion without tamponade 2. ESRD on PD 3. Htn Recommend: 1. Continue to closely monitor. Will plan for pericardiocentesis on monday.
[2019-05-11] MEDS: carvediloL 25 MG TAB PO SCH ×2 (10:08→18:37)
[2019-05-11] MEDS: hydrALAZINE 100 MG TAB PO SCH ×3 (10:08→21:10)
[2019-05-11] MEDS: NIFEdipine XL 60 MG TAB PO SCH ×2 (10:09→21:10)
[2019-05-11] MEDS: ASPIRIN EC 81 MG TAB PO SCH (10:09)
[2019-05-11] MEDS: methylPREDNISolone Sod Succinate 40 MG/1 ML INJ IV SCH ×2 (10:09→21:11)
[2019-05-11] MEDS: CINACALCET 30 MG TAB PO SCH (10:09)
[2019-05-11] MEDS: NICOTINE 14 MG/24 HR PATCH TD SCH (10:09)
[2019-05-11] MEDS: FUROSEMIDE 40 MG/4 ML INJ IV SCH ×2 (11:40→18:38)
--- NOTE | 2019-05-11 13:08 | Event Note ---
Date: 05/11/19 Vascular surgery and VIR does not provide recommendations on pericardial issues/effusions. Pericardial issues/effusions/tamponade is managed by cardiology and when appropriate, cardiothoracic surgery. If there is a consult for an issues that vascular surgery and/or VIR can assist with, please contact us again.
--- NOTE | 2019-05-11 14:24 | History and Physical Report ---
History of Present Illness Date of admission: 05/10/19 20:29 Chief complaint: Was asked to return to hospital. History of present illness: 63-year-old woman who was recently in the hospital for acute bronchitis. She was discharged and asked to return to the hospital for abnormal echocardiogram. She states that the cough and shortness of breath is improving. She actually feels better, denies chest pain, denies orthopnea, denies pleurisy. Past History Past Medical History: COPD, hypertension, renal failure Past Surgical History: , hysterectomy Social history: no significant social history Family history: denies: CAD Medications and Allergies Allergies Allergy/AdvReac Type Severity Reaction Status Date / Time No Known Allergies Allergy Verified 08/21/18 15:07 Home Medications Medication Instructions Recorded Confirmed Last Taken Type Aspirin [Adult Low Dose Aspirin EC] 81 mg PO DAILY 11/24/16 05/10/19 05/08/19 History NIFEdipine [Nifedipine ER] 60 mg PO BID 11/24/16 05/10/19 05/08/19 History Cinacalcet HCl [Sensipar] 60 mg PO DAILY 08/21/18 05/10/19 05/08/19 History Dialyvite Chewable Probiotic 3,000 mg PO DAILY 08/21/18 05/10/19 05/08/19 History carvediloL [Coreg] 25 mg PO BID 08/21/18 05/10/19 05/08/19 History hydrALAZINE [Apresoline TAB] 100 mg PO TID 08/21/18 05/10/19 05/08/19 History Acetaminophen/Codeine [Tylenol 1 tab PO Q6H PRN #14 tab 05/10/19 05/10/19 Unknown Rx /Codeine # 3 tab] Albuterol INH(or & Nicu Only) 2 puff IH QID PRN #8.5 gram 05/10/19 05/10/19 Unknown Rx [ProAir HFA Inhaler] Cefdinir 300 mg PO BID #6 capsule 05/10/19 05/10/19 Unknown Rx Nicotine [Habitrol] 14 mg TD QDAY #30 patch 05/10/19 05/10/19 Unknown Rx Prednisone [predniSONE 10 mg 10 mg PO .TAPER #1 tab.ds.pk 05/10/19 05/10/19 Unknown Rx (6-Day Pack, 21 Tabs)] Active Meds: Active Medications Acetaminophen (Tylenol) 650 mg PO Q4H PRN PRN Reason: Pain MILD(1-3)/Fever >100.5/NOVAK Albuterol/Ipratropium (Duoneb *Not For Prn Use*) 1 ampul IH Q6HRT [facility] Last Admin: 05/11/19 13:41 Dose: 1 ampul Documented by: Aspirin (Halfprin Ec) 81 mg PO DAILY [facility] Last Admin: 05/11/19 10:09 Dose: 81 mg Documented by: Budesonide (Pulmicort) 0.5 mg IH Q12HRT [facility] Last Admin: 05/11/19 09:14 Dose: 0.5 mg Documented by: Carvedilol (Coreg) 25 mg PO BID@0800,1700 [facility] Last Admin: 05/11/19 10:08 Dose: 25 mg Documented by: Cinacalcet (Sensipar) 60 mg PO QDAY [facility] Last Admin: 05/11/19 10:09 Dose: 60 mg Documented by: Furosemide (Lasix) 80 mg IV 0600,1800 [facility] Last Admin: 05/11/19 11:40 Dose: 80 mg Documented by: Heparin Sodium (Porcine) (Heparin) 5,000 unit SUB-Q Q8HR [facility] Last Admin: 05/11/19 06:59 Dose: 5,000 unit Documented by: Hydralazine HCl (Apresoline) 100 mg PO TID [facility] Last Admin: 05/11/19 10:08 Dose: 100 mg Documented by: Methylprednisolone Sodium Succinate (Solu-Medrol) 40 mg IV Q12HR [facility] Last Admin: 05/11/19 10:09 Dose: 40 mg Documented by: Miscellaneous Medication (Cefdinir [Cefdinir]) 300 mg PO BID [facility] Miscellaneous Medication (Dialyvite Chewable Probiotic) 3,000 mg PO DAILY [facility] Morphine Sulfate (Morphine) 2 mg IV Q4H PRN PRN Reason: Pain, Moderate (4-6) Nicotine (Habitrol) 14 mg TD QDAY [facility] Last Admin: 05/11/19 10:09 Dose: 14 mg Documented by: Nifedipine (Procardia Xl) 60 mg PO BID [facility] Last Admin: 05/11/19 10:09 Dose: 60 mg Documented by: Ondansetron HCl (Zofran) 4 mg IV Q8H PRN PRN Reason: Nausea And Vomiting Oxycodone/Acetaminophen (Percocet 5/325) 1 tab PO Q6H PRN PRN Reason: Pain, Moderate (4-6) Last Admin: 05/10/19 23:29 Dose: 1 tab Documented by: Sodium Chloride (Sodium Chloride Flush Syringe 10 Ml) 10 ml IV BID [facility] Last Admin: 05/11/19 10:08 Dose: 10 ml Documented by: Sodium Chloride (Sodium Chloride Flush Syringe 10 Ml) 10 ml IV PRN PRN PRN Reason: LINE FLUSH Review of Systems All systems: negative Constitutional: no weight loss Ears, nose, mouth and throat: no ear pain Cardiovascular: no chest pain Respiratory: cough Gastrointestinal: no abdominal pain Rectal: no pain Musculoskeletal: no neck stiffness Integumentary: no rash Neurological: no head injury Psychiatric: no anxiety Endocrine: no cold intolerance Hematologic/Lymphatic: no easy bruising Allergic/Immunologic: no urticaria Exam - Constitutional Vitals: Temp Pulse Resp BP Pulse Ox 97.9 F 86 16 146/70 97 05/11/19 08:00 05/11/19 13:45 05/11/19 13:45 05/11/19 11:00 05/11/19 11:00 General appearance: Present: no acute distress, well-nourished - EENT Eyes: Present: PERRL ENT: hearing intact, clear oral mucosa - Neck Neck: Present: supple, normal ROM - Respiratory Respiratory effort: normal Respiratory: bilateral: CTA - Cardiovascular Heart Sounds: Present: S1 & S2. Absent: rub, click - Extremities Extremities: pulses symmetrical, No edema Peripheral Pulses: within normal limits - Abdominal General gastrointestinal: Present: soft, non-tender, non-distended, normal bowel sounds Female genitourinary: Present: normal - Integumentary Integumentary: Present: clear, warm, dry - Musculoskeletal Musculoskeletal: gait normal, strength equal bilaterally - Psychiatric Psychiatric: appropriate mood/affect, intact judgment & insight - Neurologic Neurologic: CNII-XII intact, moves all extremities PANCHO score - Pancho Score Age > 65: (0) No Aspirin use within the Past 7 Days: (0) No 3 or more CAD Risk Factors: (0) No 2 or more Angina events in past 24 hrs: (1) Yes Known CAD with more than 50% Stenosis: (0) No Elevated Cardiac Markers: (0) No ST Deviation Greater than 0.5mm: (0) No PANCHO Score: 1 Results - Labs CBC & Chem 7: 05/11/19 04:28 05/11/19 04:28 Labs: Laboratory Last Values WBC 3.6 K/mm3 (4.5-11.0) L 05/11/19 04:28 RBC 2.86 M/mm3 (3.65-5.03) L 05/11/19 04:28 Hgb 8.6 gm/dl (10.1-14.3) L 05/11/19 04:28 Hct 26.7 % (30.3-42.9) L 05/11/19 04:28 MCV 93 fl (79-97) 05/11/19 04:28 MCH 30 pg (28-32) 05/11/19 04:28 MCHC 32 % (30-34) 05/11/19 04:28 RDW 16.3 % (13.2-15.2) H 05/11/19 04:28 Plt Count 219 K/mm3 (140-440) 05/11/19 04:28 Add Manual Diff Complete 05/11/19 04:28 Total Counted 100 05/11/19 04:28 Seg Neutrophils % Take Out Waiter 05/11/19 04:28 Seg Neuts % (Manual) 94.0 % (40.0-70.0) H 05/11/19 04:28 Band Neutrophils % 0 % 05/11/19 04:28 Lymphocytes % (Manual) 6.0 % (13.4-35.0) L 05/11/19 04:28 Reactive Lymphs % (Man) 0 % 05/11/19 04:28 Monocytes % (Manual) 0 % (0.0-7.3) 05/11/19 04:28 Eosinophils % (Manual) 0 % (0.0-4.3) 05/11/19 04:28 Basophils % (Manual) 0 % (0.0-1.8) 05/11/19 04:28 Metamyelocytes % 0 % 05/11/19 04:28 Myelocytes % 0 % 05/11/19 04:28 Promyelocytes % 0 % 05/11/19 04:28 Blast Cells % 0 % 05/11/19 04:28 Nucleated RBC % Not Reportable 05/11/19 04:28 Seg Neutrophils # Man 3.4 K/mm3 (1.8-7.7) 05/11/19 04:28 Band Neutrophils # 0.0 K/mm3 05/11/19 04:28 Lymphocytes # (Manual) 0.2 K/mm3 (1.2-5.4) L 05/11/19 04:28 Abs React Lymphs (Man) 0.0 K/mm3 05/11/19 04:28 Monocytes # (Manual) 0.0 K/mm3 (0.0-0.8) 05/11/19 04:28 Eosinophils # (Manual) 0.0 K/mm3 (0.0-0.4) 05/11/19 04:28 Basophils # (Manual) 0.0 K/mm3 (0.0-0.1) 05/11/19 04:28 Metamyelocytes # 0.0 K/mm3 05/11/19 04:28 Myelocytes # 0.0 K/mm3 05/11/19 04:28 Promyelocytes # 0.0 K/mm3 05/11/19 04:28 Blast Cells # 0.0 K/mm3 05/11/19 04:28 WBC Morphology Not Reportable 05/11/19 04:28 Hypersegmented Neuts Not Reportable 05/11/19 04:28 Hyposegmented Neuts Not Reportable 05/11/19 04:28 Hypogranular Neuts Not Reportable 05/11/19 04:28 Smudge Cells Not Reportable 05/11/19 04:28 Toxic Granulation Not Reportable 05/11/19 04:28 Toxic Vacuolation Not Reportable 05/11/19 04:28 Dohle Bodies Not Reportable 05/11/19 04:28 Pelger-Huet Anomaly Not Reportable 05/11/19 04:28 Jomar Rods Not Reportable 05/11/19 04:28 Platelet Estimate Consistent w auto 05/11/19 04:28 Clumped Platelets Not Reportable 05/11/19 04:28 Plt Clumps, EDTA Not Reportable 05/11/19 04:28 Large Platelets Not Reportable 05/11/19 04:28 Giant Platelets Not Reportable 05/11/19 04:28 Platelet Satelliting Not Reportable 05/11/19 04:28 Plt Morphology Comment Not Reportable 05/11/19 04:28 RBC Morphology Not Reportable 05/11/19 04:28 Dimorphic RBCs Not Reportable 05/11/19 04:28 Polychromasia Not Reportable 05/11/19 04:28 Hypochromasia Not Reportable 05/11/19 04:28 Poikilocytosis Not Reportable 05/11/19 04:28 Anisocytosis 1+ 05/11/19 04:28 Microcytosis Not Reportable 05/11/19 04:28 Macrocytosis Not Reportable 05/11/19 04:28 Spherocytes Not Reportable 05/11/19 04:28 Pappenheimer Bodies Not Reportable 05/11/19 04:28 Sickle Cells Not Reportable 05/11/19 04:28 Target Cells Not Reportable 05/11/19 04:28 Tear Drop Cells Not Reportable 05/11/19 04:28 Ovalocytes Not Reportable 05/11/19 04:28 Helmet Cells Not Reportable 05/11/19 04:28 [place] Bodies Not Reportable 05/11/19 04:28 [place] Rings Not Reportable 05/11/19 04:28 [place] Cells Not Reportable 05/11/19 04:28 Bite Cells Not Reportable 05/11/19 04:28 Crenated Cell Not Reportable 05/11/19 04:28 Elliptocytes Not Reportable 05/11/19 04:28 Acanthocytes (Spur) Not Reportable 05/11/19 04:28 Rouleaux Not Reportable 05/11/19 04:28 Hemoglobin C Crystals Not Reportable 05/11/19 04:28 Schistocytes Not Reportable 05/11/19 04:28 Malaria parasites Not Reportable 05/11/19 04:28 Oral Bodies Not Reportable 05/11/19 04:28 Hem Pathologist Commnt No 05/11/19 04:28 Sodium 133 mmol/L (137-145) L 05/11/19 04:28 Potassium 5.2 mmol/L (3.6-5.0) H 05/11/19 04:28 Chloride 94.1 mmol/L (98-107) L 05/11/19 04:28 Carbon Dioxide 18 mmol/L (22-30) L 05/11/19 04:28 Anion Gap 26 mmol/L 05/11/19 04:28 BUN 77 mg/dL (7-17) H 05/11/19 04:28 Creatinine 10.6 mg/dL (0.7-1.2) H 05/11/19 04:28 Estimated GFR 4 ml/min 05/11/19 04:28 BUN/Creatinine Ratio 7 % 05/11/19 04:28 Glucose 167 mg/dL (65-100) H 05/11/19 04:28 Calcium 8.6 mg/dL (8.4-10.2) 05/11/19 04:28 Assessment and Plan Assessment and plan: 63-year-old woman with end-stage renal disease on peritoneal dialysis who was asked to return to hospital for abnormal echo. X-ray of bilateral feet; no acute fracture or dislocation Chest x-ray; severe enlargement of cardio/she-cardio silhouettes Moderate to large pericardial effusion IV diuretics, plan for pericardiocentesis on Monday, cardiology to perform Acute bronchitis steroids, antibiotics, nebs,, aggressive chest PT Patient improved. Outpatient pulmonology follow-up. She may have chronic bronchitis given many years of tobacco abuse. Tobacco abuse/dependence Smoking cessation counseling performed for 10 minutes, nicotine patches when necessary -Preventative health counseling performed for 17 minutes Right foot strain X-ray negative for fractures during previous admission. Pain medications as needed. ESRD on PD Continue PD, nephrology input appreciated Hypertension; continue BP meds DVT prophylaxis; heparin
[2019-05-11] MEDS: oxyCODONE /ACETAMINOPHEN 5-325MG TAB PO PRN (15:18)
--- NOTE | 2019-05-11 18:10 | Progress Note ---
Assessment and Plan Impression: * End stage renal disease on peritoneal dialysis - followed by Dr. Rodgers * Pericardial effusion - no tamponade physiology * Uremia * Hyperkalemia * Metabolic acidosis * Hyponatremia * Anemia secondary to ESRD * Secondary hyperparathyroidism Plan: * Patient reports that she has been on PD since October 2018. She states that she does manual exchanges at home - exchanges daily, appx 1.5L fill volume with 3- 4h dwell time. Mrs. Zayas states that she has not yet completed PD training which is unusual given that she reports being on PD since October. Given symptoms, dx of pericardial effusion and electrolyte abnormalities, patient is likely being under dialyzed. Patient states that she has not had a peritoneal equilibration test since starting PD in October. Will attempt to contact patient's PD RN, Steffanie ([phone]) for further clarification and insight re: patient's compliance * Note cardiology plans for pericardiocentesis on Monday * Will increase fill volume to 2liters. Dwell time 4 hours. 5 exchanges per day * Daily lytes * Start Na Bicarbonate * Epogen TIW prn * Renal diet * Dose medications for renal function * Strict I/O Subjective Date of service: 05/11/19 Interval history: Patient discharged yesterday but called to return to hospital as TTE notable for large circumferential pericardial effusion Patient denies SOB. Reports metallic taste, pruritus, loss of appetite and leg swelling. Objective - Vital Signs Vital signs: Vital Signs - 12hr 05/11/19 05/11/19 05/11/19 06:30 07:00 07:30 Temperature Pulse Rate 82 83 83 Pulse Rate [ Anterior Bilateral Throughout] Pulse Rate [ From Monitor] Respiratory Rate Respiratory Rate [Anterior Bilateral Throughout] Blood Pressure 148/71 142/68 144/74 O2 Sat by Pulse 94 98 96 Oximetry 05/11/19 05/11/19 05/11/19 08:00 08:30 09:00 Temperature 97.9 F Pulse Rate 88 81 83 Pulse Rate [ 85 80 Anterior Bilateral Throughout] Pulse Rate [ 85 From Monitor] Respiratory 18 Rate Respiratory 16 14 Rate [Anterior Bilateral Throughout] Blood Pressure 144/74 58/19 101/63 O2 Sat by Pulse 98 93 97 Oximetry 05/11/19 05/11/19 05/11/19 09:30 10:00 10:08 Temperature Pulse Rate 81 81 87 Pulse Rate [ Anterior Bilateral Throughout] Pulse Rate [ From Monitor] Respiratory Rate Respiratory Rate [Anterior Bilateral Throughout] Blood Pressure 149/74 150/69 150/69 O2 Sat by Pulse 100 94 Oximetry 05/11/19 05/11/19 05/11/19 10:30 11:00 11:30 Temperature Pulse Rate 82 83 84 Pulse Rate [ Anterior Bilateral Throughout] Pulse Rate [ From Monitor] Respiratory Rate Respiratory Rate [Anterior Bilateral Throughout] Blood Pressure 145/73 146/70 146/70 O2 Sat by Pulse 98 97 93 Oximetry 05/11/19 05/11/19 05/11/19 12:00 12:30 13:00 Temperature 98.1 F Pulse Rate 81 91 H 86 Pulse Rate [ Anterior Bilateral Throughout] Pulse Rate [ 80 From Monitor] Respiratory 18 Rate Respiratory Rate [Anterior Bilateral Throughout] Blood Pressure 108/74 108/74 108/74 O2 Sat by Pulse 94 Oximetry 05/11/19 05/11/19 05/11/19 13:30 13:45 14:00 Temperature Pulse Rate 81 79 Pulse Rate [ 86 Anterior Bilateral Throughout] Pulse Rate [ From Monitor] Respiratory Rate Respiratory 16 Rate [Anterior Bilateral Throughout] Blood Pressure 107/75 140/68 O2 Sat by Pulse Oximetry 05/11/19 05/11/19 05/11/19 14:30 15:00 15:18 Temperature Pulse Rate 79 82 Pulse Rate [ Anterior Bilateral Throughout] Pulse Rate [ From Monitor] Respiratory 16 Rate Respiratory Rate [Anterior Bilateral Throughout] Blood Pressure 147/71 159/80 O2 Sat by Pulse Oximetry 05/11/19 05/11/19 15:30 16:00 Temperature 98.3 F Pulse Rate 88 81 Pulse Rate [ Anterior Bilateral Throughout] Pulse Rate [ 86 From Monitor] Respiratory 18 Rate Respiratory Rate [Anterior Bilateral Throughout] Blood Pressure 159/80 160/73 O2 Sat by Pulse 100 Oximetry - General Appearance General appearance: well-developed EENT: ATNC Respiratory: Present: Clear to Ascultation Cardiology: regular, S1S2 Gastrointestinal: normal Integumentary: no rash, warm and dry Psychiatric: cooperative - Lab 05/11/19 04:28 05/11/19 04:28 Most recent lab results Calcium 8.6 mg/dL (8.4-10.2) 05/11/19 04:28 Medications & Allergies - Medications Allergies/Adverse Reactions: Allergies No Known Allergies Allergy (Verified 08/21/18 15:07) Home Medications: Home Medications Medication Instructions Recorded Confirmed Last Taken Type Aspirin [Adult Low Dose Aspirin EC] 81 mg PO DAILY 11/24/16 05/10/19 05/08/19 History NIFEdipine [Nifedipine ER] 60 mg PO BID 11/24/16 05/10/19 05/08/19 History Cinacalcet HCl [Sensipar] 60 mg PO DAILY 08/21/18 05/10/19 05/08/19 History Dialyvite Chewable Probiotic 3,000 mg PO DAILY 08/21/18 05/10/19 05/08/19 History carvediloL [Coreg] 25 mg PO BID 08/21/18 05/10/19 05/08/19 History hydrALAZINE [Apresoline TAB] 100 mg PO TID 08/21/18 05/10/19 05/08/19 History Acetaminophen/Codeine [Tylenol 1 tab PO Q6H PRN #14 tab 05/10/19 05/10/19 Unknown Rx /Codeine # 3 tab] Albuterol INH(or & Nicu Only) 2 puff IH QID PRN #8.5 gram 05/10/19 05/10/19 Unknown Rx [ProAir HFA Inhaler] Cefdinir 300 mg PO BID #6 capsule 05/10/19 05/10/19 Unknown Rx Nicotine [Habitrol] 14 mg TD QDAY #30 patch 05/10/19 05/10/19 Unknown Rx Prednisone [predniSONE 10 mg 10 mg PO .TAPER #1 tab.ds.pk 05/10/19 05/10/19 Unknown Rx (6-Day Pack, 21 Tabs)] Active Medications: Generic Name Dose Route Start Last Admin Trade Name Freq PRN Reason Stop Dose Admin Acetaminophen 650 mg 05/10/19 17:57 Tylenol PO Q4H PRN Pain MILD(1-3)/Fever >100.5/NOVAK Albuterol/Ipratropium 1 ampul 05/10/19 20:00 05/11/19 13:41 Duoneb *Not For Prn Use* IH 1 ampul Q6HRT [facility] Administration Aspirin 81 mg 05/11/19 10:00 05/11/19 10:09 Halfprin Ec PO 81 mg DAILY [facility] Administration Budesonide 0.5 mg 05/10/19 20:00 05/11/19 09:14 Pulmicort IH 0.5 mg Q12HRT [facility] Administration Carvedilol 25 mg 05/10/19 22:00 05/11/19 10:08 Coreg PO 25 mg BID@0800,1700 [facility] Administration Cinacalcet 60 mg 05/10/19 21:00 05/11/19 10:09 Sensipar PO 60 mg QDAY [facility] Administration Furosemide 80 mg 05/11/19 11:00 05/11/19 11:40 Lasix IV 80 mg 0600,1800 [facility] Administration Heparin Sodium (Porcine) 5,000 unit 05/10/19 22:00 05/11/19 15:13 Heparin SUB-Q 5,000 unit Q8HR [facility] Administration Hydralazine HCl 100 mg 05/10/19 20:00 05/11/19 15:13 Apresoline PO 100 mg TID [facility] Administration Methylprednisolone Sodium Succinate 40 mg 05/10/19 22:00 05/11/19 10:09 Solu-Medrol IV 40 mg Q12HR [facility] Administration Miscellaneous Medication 300 mg 05/10/19 22:00 Cefdinir [Cefdinir] PO BID [facility] Miscellaneous Medication 3,000 mg 05/11/19 10:00 Dialyvite Chewable Probiotic PO DAILY [facility] Morphine Sulfate 2 mg 05/10/19 17:57 Morphine IV Q4H PRN Pain, Moderate (4-6) Nicotine 14 mg 05/11/19 10:00 05/11/19 10:09 Habitrol TD 14 mg QDAY [facility] Administration Nifedipine 60 mg 05/10/19 22:00 05/11/19 10:09 Procardia Xl PO 60 mg BID [facility] Administration Ondansetron HCl 4 mg 05/10/19 17:57 Zofran IV Q8H PRN Nausea And Vomiting Oxycodone/Acetaminophen 1 tab 05/10/19 17:57 05/11/19 15:18 Percocet 5/325 PO 1 tab Q6H PRN Administration Pain, Moderate (4-6) Sodium Chloride 10 ml 05/10/19 22:00 05/11/19 10:08 Sodium Chloride Flush Syringe 10 Ml IV 10 ml BID [facility] Administration Sodium Chloride 10 ml 05/10/19 17:57 Sodium Chloride Flush Syringe 10 Ml IV PRN PRN LINE FLUSH
[2019-05-11] MEDS: SODIUM BICARBONATE 650 MG TAB PO SCH (21:10)
[2019-05-11] MEDS ORDERED: DIALYSATE LO CAL 2.5% SOLN 2000 ML IP SCH (22:00)
[2019-05-11] MEDS: DIALYSATE LO CAL 2.5% SOLN 2000 ML IP SCH (22:26)
[2019-05-12] MEDS: IPRATROPIUM/ALBUTEROL SULFATE 3 ML AMPUL.NEB IH SCH ×4 (03:48→19:09)
[2019-05-12] MEDS: DIALYSATE LO CAL 2.5% SOLN 2000 ML IP SCH ×5 (05:57→22:05)
[2019-05-12] MEDS: oxyCODONE /ACETAMINOPHEN 5-325MG TAB PO PRN ×2 (06:01→15:27)
[2019-05-12] MEDS: HEPARIN 5,000 UNIT/1 ML VIAL SUB-Q SCH ×3 (06:01→21:22)
[2019-05-12] MEDS: FUROSEMIDE 40 MG/4 ML INJ IV SCH ×2 (07:05→18:53)
[2019-05-12] MEDS: BUDESONIDE 0.5 MG/2 ML NEBU IH SCH ×2 (08:00→19:08)
[2019-05-12] MEDS: CINACALCET 30 MG TAB PO SCH (10:41)
[2019-05-12] MEDS: SODIUM BICARBONATE 650 MG TAB PO SCH ×3 (10:42→21:21)
[2019-05-12] MEDS: NIFEdipine XL 60 MG TAB PO SCH ×2 (10:42→21:21)
[2019-05-12] MEDS: carvediloL 25 MG TAB PO SCH ×2 (10:42→18:53)
[2019-05-12] MEDS: hydrALAZINE 100 MG TAB PO SCH ×3 (10:43→21:22)
[2019-05-12] MEDS: NICOTINE 14 MG/24 HR PATCH TD SCH (10:43)
[2019-05-12] MEDS: ASPIRIN EC 81 MG TAB PO SCH (10:48)
[2019-05-12] MEDS: methylPREDNISolone Sod Succinate 40 MG/1 ML INJ IV SCH ×2 (11:00→21:22)
--- NOTE | 2019-05-12 11:31 | Progress Note ---
Assessment and Plan 1. Large pericardial effusion without tamponade 2. ESRD on PD 3. Htn Recommend: 1. Continue to closely monitor. Will plan for pericardiocentesis on monday. Subjective Date of service: 05/12/19 Interval history: No cardiac complaints Objective Vital Signs Temp Pulse Pulse Pulse Resp Resp BP 05/12/19 08:02 80 16 05/12/19 07:36 99.8 F H 87 18 171/78 05/12/19 06:52 98.1 F 84 18 154/70 05/12/19 04:38 97.9 F 80 18 111/49 05/12/19 03:44 05/11/19 23:38 97.9 F 18 153/72 05/11/19 23:00 88 20 05/11/19 22:00 84 05/11/19 20:17 80 16 05/11/19 19:53 98.6 F 81 18 138/61 05/11/19 18:37 86 169/82 05/11/19 18:04 98.8 F 85 18 169/82 05/11/19 17:00 83 159/59 05/11/19 16:50 83 152/77 05/11/19 16:40 84 152/77 05/11/19 16:30 81 152/77 05/11/19 16:20 82 160/73 05/11/19 16:10 82 160/73 05/11/19 16:00 98.3 F 81 86 18 160/73 05/11/19 15:30 88 159/80 05/11/19 15:18 16 05/11/19 15:00 82 159/80 05/11/19 14:30 79 147/71 05/11/19 14:00 79 140/68 05/11/19 13:45 86 16 05/11/19 13:30 81 107/75 05/11/19 13:00 86 108/74 05/11/19 12:30 91 H 108/74 05/11/19 12:00 98.1 F 81 80 18 108/74 Pulse Ox 05/12/19 08:02 05/12/19 07:36 98 05/12/19 06:52 95 05/12/19 04:38 94 05/12/19 03:44 99 05/11/19 23:38 05/11/19 23:00 98 05/11/19 22:00 05/11/19 20:17 05/11/19 19:53 96 05/11/19 18:37 05/11/19 18:04 100 05/11/19 17:00 05/11/19 16:50 05/11/19 16:40 05/11/19 16:30 05/11/19 16:20 05/11/19 16:10 05/11/19 16:00 05/11/19 15:30 05/11/19 15:18 05/11/19 15:00 05/11/19 14:30 05/11/19 14:00 05/11/19 13:45 05/11/19 13:30 05/11/19 13:00 05/11/19 12:30 05/11/19 12:00 94 - Physical Examination Neck: Positive: neck supple Cardiac: Positive: Reg Rate and Rhythm Lungs: Positive: clear to auscultation Abdomen: Positive: Soft, Active Bowel Sounds Extremities: Present: +1 Edema
[2019-05-12] MEDS ORDERED: SODIUM CHLORIDE 0.9% 500 ML 500 ML IV SCH (12:00)
--- NOTE | 2019-05-12 14:19 | Progress Note ---
Assessment and Plan Assessment and plan: 63-year-old woman with end-stage renal disease on peritoneal dialysis who was asked to return to hospital for abnormal echo. X-ray of bilateral feet; no acute fracture or dislocation Chest x-ray; severe enlargement of cardio/she-cardio silhouettes Moderate to large pericardial effusion IV diuretics, plan for pericardiocentesis on Monday, cardiology to perform Acute bronchitis steroids, antibiotics, nebs,, aggressive chest PT Patient improved. Outpatient pulmonology follow-up. She may have chronic bronchitis given many years of tobacco abuse. Tobacco abuse/dependence Smoking cessation counseling performed for 10 minutes, nicotine patches when necessary -Preventative health counseling performed for 17 minutes Right foot strain X-ray negative for fractures during previous admission. Pain medications as needed. ESRD on PD, nonoliguric Hyperkalemia, uremia, hyponatremia, secondary hyperparathyroidism Continue PD, nephrology input appreciated Anemia of chronic disease; stable Hypertension; continue BP meds DVT prophylaxis; heparin History Interval history: Review of systems Constitutional: No fevers, no malaise, no joint pains CVS: No chest pain, no orthopnea, no pedal edema GI: No abdominal pain, no diarrhea, no vomiting, no constipation Respiratory: , Shortness of breath and wheezing is improved Hospitalist Physical - Physical exam Narrative exam: General.: Appears well, no distress, nontoxic HEENT: Moist mucous membranes, extraocular muscles intact, no lymphadenopathy Neck: supple Cardiac: S1-S2 heard Lungs: End expiratory wheeze Abdomen: soft , nontender, nondistended, bowel sounds positive Extremities: no edema clubbing or cyanosis Skin: no rash or lesions Neurologic: no gross focal deficits Psych: calm, and cooperative - Constitutional Vitals: Temp Pulse Resp BP Pulse Ox 97.9 F 84 16 146/69 94 05/12/19 11:50 05/12/19 13:22 05/12/19 13:22 05/12/19 11:50 05/12/19 11:50 General appearance: Present: no acute distress, well-nourished PANCHO score - Pancho Score Age > 65: (0) No Aspirin use within the Past 7 Days: (0) No 3 or more CAD Risk Factors: (0) No 2 or more Angina events in past 24 hrs: (1) Yes Known CAD with more than 50% Stenosis: (0) No Elevated Cardiac Markers: (0) No ST Deviation Greater than 0.5mm: (0) No PANCHO Score: 1 Results - Labs CBC & Chem 7: 05/11/19 04:28 05/11/19 04:28 Labs: Laboratory Last Values WBC 3.6 K/mm3 (4.5-11.0) L 05/11/19 04:28 RBC 2.86 M/mm3 (3.65-5.03) L 05/11/19 04:28 Hgb 8.6 gm/dl (10.1-14.3) L 05/11/19 04:28 Hct 26.7 % (30.3-42.9) L 05/11/19 04:28 MCV 93 fl (79-97) 05/11/19 04:28 MCH 30 pg (28-32) 05/11/19 04:28 MCHC 32 % (30-34) 05/11/19 04:28 RDW 16.3 % (13.2-15.2) H 05/11/19 04:28 Plt Count 219 K/mm3 (140-440) 05/11/19 04:28 Add Manual Diff Complete 05/11/19 04:28 Total Counted 100 05/11/19 04:28 Seg Neutrophils % [place] [employer] Operator 05/11/19 04:28 Seg Neuts % (Manual) 94.0 % (40.0-70.0) H 05/11/19 04:28 Band Neutrophils % 0 % 05/11/19 04:28 Lymphocytes % (Manual) 6.0 % (13.4-35.0) L 05/11/19 04:28 Reactive Lymphs % (Man) 0 % 05/11/19 04:28 Monocytes % (Manual) 0 % (0.0-7.3) 05/11/19 04:28 Eosinophils % (Manual) 0 % (0.0-4.3) 05/11/19 04:28 Basophils % (Manual) 0 % (0.0-1.8) 05/11/19 04:28 Metamyelocytes % 0 % 05/11/19 04:28 Myelocytes % 0 % 05/11/19 04:28 Promyelocytes % 0 % 05/11/19 04:28 Blast Cells % 0 % 05/11/19 04:28 Nucleated RBC % Not Reportable 05/11/19 04:28 Seg Neutrophils # Man 3.4 K/mm3 (1.8-7.7) 05/11/19 04:28 Band Neutrophils # 0.0 K/mm3 05/11/19 04:28 Lymphocytes # (Manual) 0.2 K/mm3 (1.2-5.4) L 05/11/19 04:28 Abs React Lymphs (Man) 0.0 K/mm3 05/11/19 04:28 Monocytes # (Manual) 0.0 K/mm3 (0.0-0.8) 05/11/19 04:28 Eosinophils # (Manual) 0.0 K/mm3 (0.0-0.4) 05/11/19 04:28 Basophils # (Manual) 0.0 K/mm3 (0.0-0.1) 05/11/19 04:28 Metamyelocytes # 0.0 K/mm3 05/11/19 04:28 Myelocytes # 0.0 K/mm3 05/11/19 04:28 Promyelocytes # 0.0 K/mm3 05/11/19 04:28 Blast Cells # 0.0 K/mm3 05/11/19 04:28 WBC Morphology Not Reportable 05/11/19 04:28 Hypersegmented Neuts Not Reportable 05/11/19 04:28 Hyposegmented Neuts Not Reportable 05/11/19 04:28 Hypogranular Neuts Not Reportable 05/11/19 04:28 Smudge Cells Not Reportable 05/11/19 04:28 Toxic Granulation Not Reportable 05/11/19 04:28 Toxic Vacuolation Not Reportable 05/11/19 04:28 Dohle Bodies Not Reportable 05/11/19 04:28 Pelger-Huet Anomaly Not Reportable 05/11/19 04:28 Jomar Rods Not Reportable 05/11/19 04:28 Platelet Estimate Consistent w auto 05/11/19 04:28 Clumped Platelets Not Reportable 05/11/19 04:28 Plt Clumps, EDTA Not Reportable 05/11/19 04:28 Large Platelets Not Reportable 05/11/19 04:28 Giant Platelets Not Reportable 05/11/19 04:28 Platelet Satelliting Not Reportable 05/11/19 04:28 Plt Morphology Comment Not Reportable 05/11/19 04:28 RBC Morphology Not Reportable 05/11/19 04:28 Dimorphic RBCs Not Reportable 05/11/19 04:28 Polychromasia Not Reportable 05/11/19 04:28 Hypochromasia Not Reportable 05/11/19 04:28 Poikilocytosis Not Reportable 05/11/19 04:28 Anisocytosis 1+ 05/11/19 04:28 Microcytosis Not Reportable 05/11/19 04:28 Macrocytosis Not Reportable 05/11/19 04:28 Spherocytes Not Reportable 05/11/19 04:28 Pappenheimer Bodies Not Reportable 05/11/19 04:28 Sickle Cells Not Reportable 05/11/19 04:28 Target Cells Not Reportable 05/11/19 04:28 Tear Drop Cells Not Reportable 05/11/19 04:28 Ovalocytes Not Reportable 05/11/19 04:28 Helmet Cells Not Reportable 05/11/19 04:28 [place] Bodies Not Reportable 05/11/19 04:28 [place] Rings Not Reportable 05/11/19 04:28 [place] Cells Not Reportable 05/11/19 04:28 Bite Cells Not Reportable 05/11/19 04:28 Crenated Cell Not Reportable 05/11/19 04:28 Elliptocytes Not Reportable 05/11/19 04:28 Acanthocytes (Spur) Not Reportable 05/11/19 04:28 Rouleaux Not Reportable 05/11/19 04:28 Hemoglobin C Crystals Not Reportable 05/11/19 04:28 Schistocytes Not Reportable 05/11/19 04:28 Malaria parasites Not Reportable 05/11/19 04:28 Oral Bodies Not Reportable 05/11/19 04:28 Hem Pathologist Commnt No 05/11/19 04:28 Sodium 133 mmol/L (137-145) L 05/11/19 04:28 Potassium 5.2 mmol/L (3.6-5.0) H 05/11/19 04:28 Chloride 94.1 mmol/L (98-107) L 05/11/19 04:28 Carbon Dioxide 18 mmol/L (22-30) L 05/11/19 04:28 Anion Gap 26 mmol/L 05/11/19 04:28 BUN 77 mg/dL (7-17) H 05/11/19 04:28 Creatinine 10.6 mg/dL (0.7-1.2) H 05/11/19 04:28 Estimated GFR 4 ml/min 05/11/19 04:28 BUN/Creatinine Ratio 7 % 05/11/19 04:28 Glucose 167 mg/dL (65-100) H 05/11/19 04:28 Calcium 8.6 mg/dL (8.4-10.2) 05/11/19 04:28 Active Medications - Current Medications Current Medications: Generic Name Dose Route Start Last Admin Trade Name Freq PRN Reason Stop Dose Admin Acetaminophen 650 mg 05/10/19 17:57 Tylenol PO Q4H PRN Pain MILD(1-3)/Fever >100.5/NOVAK Albuterol/Ipratropium 1 ampul 05/12/19 08:00 05/12/19 13:22 Duoneb *Not For Prn Use* IH 1 ampul TIDRT [facility]OY Administration Aspirin 81 mg 05/11/19 10:00 05/12/19 10:48 Halfprin Ec PO 81 mg DAILY [facility]OY Administration Budesonide 0.5 mg 05/10/19 20:00 05/12/19 08:00 Pulmicort IH 0.5 mg Q12HRT [facility]OY Administration Carvedilol 25 mg 05/10/19 22:00 05/12/19 10:42 Coreg PO 25 mg BID@0800,1700 [facility] Administration Cinacalcet 60 mg 05/10/19 21:00 05/12/19 10:41 Sensipar PO 60 mg QDAY [facility]OY Administration Epoetin Tirso 10,000 unit 05/12/19 10:00 Procrit SUB-Q QOD [facility] Furosemide 80 mg 05/11/19 11:00 05/12/19 07:05 Lasix IV 80 mg 0600,1800 [facility] Administration Heparin Sodium (Porcine) 5,000 unit 05/10/19 22:00 05/12/19 06:01 Heparin SUB-Q 5,000 unit Q8HR [facility] Administration Hydralazine HCl 100 mg 05/10/19 20:00 05/12/19 10:43 Apresoline PO 100 mg TID [facility]OY Administration Sodium Chloride 500 mls @ 50 mls/hr 05/12/19 12:00 Nacl 0.9% 500 Ml IV 05/12/19 21:59 DIRECT [facility] Methylprednisolone Sodium Succinate 40 mg 05/10/19 22:00 05/11/19 21:11 Solu-Medrol IV 40 mg Q12HR [facility] Administration Miscellaneous Medication 300 mg 05/10/19 22:00 Cefdinir [Cefdinir] PO BID [facility] Miscellaneous Medication 3,000 mg 05/11/19 10:00 Dialyvite Chewable Probiotic PO DAILY [facility] Morphine Sulfate 2 mg 05/10/19 17:57 Morphine IV Q4H PRN Pain, Moderate (4-6) Nicotine 14 mg 05/11/19 10:00 05/12/19 10:43 Habitrol TD 14 mg QDAY [facility] Administration Nifedipine 60 mg 05/10/19 22:00 05/12/19 10:42 Procardia Xl PO 60 mg BID [facility] Administration Ondansetron HCl 4 mg 05/10/19 17:57 Zofran IV Q8H PRN Nausea And Vomiting Oxycodone/Acetaminophen 1 tab 05/10/19 17:57 05/12/19 06:01 Percocet 5/325 PO 1 tab Q6H PRN Administration Pain, Moderate (4-6) Peritoneal Dialysis Solution 2,000 ml 05/11/19 22:00 05/12/19 10:41 Dianeal Low Calcium W/2.5% Dextrose IP 2,000 ml 5XD FROY Administration Sodium Bicarbonate 650 mg 05/11/19 20:00 05/12/19 10:42 Sodium Bicarbonate PO 650 mg TID FROY Administration Sodium Chloride 10 ml 05/10/19 22:00 05/11/19 21:11 Sodium Chloride Flush Syringe 10 Ml IV 10 ml BID [facility]OY Administration Sodium Chloride 10 ml 05/10/19 17:57 Sodium Chloride Flush Syringe 10 Ml IV PRN PRN LINE FLUSH
--- NOTE | 2019-05-12 15:42 | Progress Note ---
Assessment and Plan Impression: * End stage renal disease on peritoneal dialysis - followed by Dr. Rodgers * Pericardial effusion - no tamponade physiology * Uremia: loss of appetite, fatigue, uremic fetor * Hyperkalemia * Metabolic acidosis * Hyponatremia * Anemia secondary to ESRD * Secondary hyperparathyroidism Plan: * Continue CAPD - 2.5% dextrose, 5 exchanges daily, 4 hour dwell time, fill volume 2 liters * Note cardiology plans for pericardiocentesis on Monday * Daily lytes * Continue Na Bicarbonate * Epogen TIW prn * Renal diet * Dose medications for renal function * Strict I/O * Patient reports that she has been on PD since October 2018. She states that she does manual exchanges at home - 4 exchanges daily, appx 1.5L fill volume with 3-4h dwell time. Mrs. Zayas states that she has not yet completed PD training which is unusual given that she reports being on PD since October. Given symptoms, dx of pericardial effusion and electrolyte abnormalities, patient is likely being under dialyzed. Patient states that she has not had a peritoneal equilibration test since starting PD in October. Will attempt to contact patient's PD RN, Steffanie ([phone]) for further clarification and insight re: patient's compliance Subjective Date of service: 05/12/19 Interval history: Reports that she is feeling better. States leg swelling improved. Reports reflux. She denies chest pain. Objective - Vital Signs Vital signs: Vital Signs - 12hr 05/12/19 05/12/19 05/12/19 03:44 04:38 06:52 Temperature 97.9 F 98.1 F Pulse Rate 80 84 Pulse Rate [ Anterior Bilateral Throughout] Respiratory 18 18 Rate Respiratory Rate [Anterior Bilateral Throughout] Blood Pressure 111/49 154/70 O2 Sat by Pulse 99 94 95 Oximetry 05/12/19 05/12/19 05/12/19 07:36 08:02 11:50 Temperature 99.8 F H 97.9 F Pulse Rate 87 80 Pulse Rate [ 80 Anterior Bilateral Throughout] Respiratory 18 18 Rate Respiratory 16 Rate [Anterior Bilateral Throughout] Blood Pressure 171/78 146/69 O2 Sat by Pulse 98 94 Oximetry 05/12/19 13:22 Temperature Pulse Rate Pulse Rate [ 84 Anterior Bilateral Throughout] Respiratory Rate Respiratory 16 Rate [Anterior Bilateral Throughout] Blood Pressure O2 Sat by Pulse Oximetry - General Appearance General appearance: well-developed, well-nourished EENT: ATNC Respiratory: Present: Clear to Ascultation Cardiology: regular, S1S2 Gastrointestinal: normal, no tenderness, no distended Integumentary: no rash, warm and dry Neurologic: no focal deficit, alert and oriented x3 Psychiatric: cooperative - Lab 05/11/19 04:28 05/11/19 04:28 Most recent lab results Calcium 8.6 mg/dL (8.4-10.2) 05/11/19 04:28 Medications & Allergies - Medications Allergies/Adverse Reactions: Allergies No Known Allergies Allergy (Verified 08/21/18 15:07) Home Medications: Home Medications Medication Instructions Recorded Confirmed Last Taken Type Aspirin [Adult Low Dose Aspirin EC] 81 mg PO DAILY 11/24/16 05/10/19 05/08/19 History NIFEdipine [Nifedipine ER] 60 mg PO BID 11/24/16 05/10/19 05/08/19 History Cinacalcet HCl [Sensipar] 60 mg PO DAILY 08/21/18 05/10/19 05/08/19 History Dialyvite Chewable Probiotic 3,000 mg PO DAILY 08/21/18 05/10/19 05/08/19 History carvediloL [Coreg] 25 mg PO BID 08/21/18 05/10/19 05/08/19 History hydrALAZINE [Apresoline TAB] 100 mg PO TID 08/21/18 05/10/19 05/08/19 History Acetaminophen/Codeine [Tylenol 1 tab PO Q6H PRN #14 tab 05/10/19 05/10/19 Unknown Rx /Codeine # 3 tab] Albuterol INH(or & Nicu Only) 2 puff IH QID PRN #8.5 gram 05/10/19 05/10/19 Unk nown Rx [ProAir HFA Inhaler] Cefdinir 300 mg PO BID #6 capsule 05/10/19 05/10/19 Unknown Rx Nicotine [Habitrol] 14 mg TD QDAY #30 patch 05/10/19 05/10/19 Unknown Rx Prednisone [predniSONE 10 mg 10 mg PO .TAPER #1 tab.ds.pk 05/10/19 05/10/19 Unknown Rx (6-Day Pack, 21 Tabs)] Active Medications: Generic Name Dose Route Start Last Admin Trade Name Freq PRN Reason Stop Dose Admin Acetaminophen 650 mg 05/10/19 17:57 Tylenol PO Q4H PRN Pain MILD(1-3)/Fever >100.5/NOVAK Albuterol/Ipratropium 1 ampul 05/12/19 08:00 05/12/19 13:22 Duoneb *Not For Prn Use* IH 1 ampul TIDRT FROY Administration Aspirin 81 mg 05/11/19 10:00 05/12/19 10:48 Halfprin Ec PO 81 mg DAILY FROY Administration Budesonide 0.5 mg 05/10/19 20:00 05/12/19 08:00 Pulmicort IH 0.5 mg Q12HRT FROY Administration Carvedilol 25 mg 05/10/19 22:00 05/12/19 10:42 Coreg PO 25 mg BID@0800,1700 [facility] Administration Cinacalcet 60 mg 05/10/19 21:00 05/12/19 10:41 Sensipar PO 60 mg QDAY [facility] Administration Epoetin Tirso 10,000 unit 05/12/19 10:00 Procrit SUB-Q QOD [facility] Furosemide 80 mg 05/11/19 11:00 05/12/19 07:05 Lasix IV 80 mg 0600,1800 [facility] Administration Heparin Sodium (Porcine) 5,000 unit 05/10/19 22:00 05/12/19 06:01 Heparin SUB-Q 5,000 unit Q8HR [facility]OY Administration Hydralazine HCl 100 mg 05/10/19 20:00 05/12/19 10:43 Apresoline PO 100 mg TID FROY Administration Sodium Chloride 500 mls @ 50 mls/hr 05/12/19 12:00 Nacl 0.9% 500 Ml IV 05/12/19 21:59 DIRECT [facility] Methylprednisolone Sodium Succinate 40 mg 05/10/19 22:00 05/11/19 21:11 Solu-Medrol IV 40 mg Q12HR FROY Administration Miscellaneous Medication 300 mg 05/10/19 22:00 Cefdinir [Cefdinir] PO BID [facility] Miscellaneous Medication 3,000 mg 05/11/19 10:00 Dialyvite Chewable Probiotic PO DAILY [facility] Morphine Sulfate 2 mg 05/10/19 17:57 Morphine IV Q4H PRN Pain, Moderate (4-6) Nicotine 14 mg 05/11/19 10:00 05/12/19 10:43 Habitrol TD 14 mg QDAY [facility]OY Administration Nifedipine 60 mg 05/10/19 22:00 05/12/19 10:42 Procardia Xl PO 60 mg BID FROY Administration Ondansetron HCl 4 mg 05/10/19 17:57 Zofran IV Q8H PRN Nausea And Vomiting Oxycodone/Acetaminophen 1 tab 05/10/19 17:57 05/12/19 15:27 Percocet 5/325 PO 1 tab Q6H PRN Administration Pain, Moderate (4-6) Peritoneal Dialysis Solution 2,000 ml 05/11/19 22:00 05/12/19 10:41 Dianeal Low Calcium W/2.5% Dextrose IP 2,000 ml 5XD FROY Administration Sodium Bicarbonate 650 mg 05/11/19 20:00 05/12/19 15:27 Sodium Bicarbonate PO 650 mg TID FROY Administration Sodium Chloride 10 ml 05/10/19 22:00 05/11/19 21:11 Sodium Chloride Flush Syringe 10 Ml IV 10 ml BID [facility]OY Administration Sodium Chloride 10 ml 05/10/19 17:57 Sodium Chloride Flush Syringe 10 Ml IV PRN PRN LINE FLUSH
[2019-05-12 17:25] LABS: INR 1.06 (0.87-1.13); INR 1.11 (0.87-1.13)
[2019-05-12 17:26] LABS: Partial Thromboplastin Time 37.5 Sec. (24.2-36.6)
[2019-05-12] MEDS: PANTOPRAZOLE 40 MG TAB PO SCH (18:53)
[2019-05-12] MEDS: EPOETIN ALFA 10,000 UNIT/1 ML INJ SUB-Q SCH (21:24)
[2019-05-13] MEDS: HEPARIN 5,000 UNIT/1 ML VIAL SUB-Q SCH ×3 (05:20→21:09)
[2019-05-13] MEDS: FUROSEMIDE 40 MG/4 ML INJ IV SCH ×2 (05:21→17:05)
[2019-05-13] MEDS: DIALYSATE LO CAL 2.5% SOLN 2000 ML IP SCH ×4 (05:36→17:19)
[2019-05-13 08:17] LABS: Basophils % (Auto) 0.2 % (0.0-1.8); Hematocrit 24.5 % (30.3-42.9); Lymphocytes # (Auto) 0.3 K/mm3 (1.2-5.4); Lymphocytes % (Auto) 7.4 % (13.4-35.0); Mean Corpuscular HGB Conc 33 % (30-34); Mean Corpuscular Volume 90 fl (79-97); Monocytes # (Auto) 0.2 K/mm3 (0.0-0.8); Monocytes % (Auto) 4.8 % (0.0-7.3); Platelet Count 209 K/mm3 (140-440); Red Blood Count 2.72 M/mm3 (3.65-5.03)
[2019-05-13 08:33] LABS: Calcium 7.5 mg/dL (8.4-10.2)
[2019-05-13] MEDS: carvediloL 25 MG TAB PO SCH ×2 (09:01→17:05)
[2019-05-13] MEDS: hydrALAZINE 100 MG TAB PO SCH ×3 (09:01→21:08)
[2019-05-13] MEDS: PANTOPRAZOLE 40 MG TAB PO SCH (09:02)
[2019-05-13] MEDS: NIFEdipine XL 60 MG TAB PO SCH ×2 (09:02→21:08)
[2019-05-13] MEDS: CINACALCET 30 MG TAB PO SCH (09:02)
[2019-05-13] MEDS: ASPIRIN EC 81 MG TAB PO SCH (09:02)
[2019-05-13] MEDS: SODIUM BICARBONATE 650 MG TAB PO SCH ×3 (09:02→21:08)
[2019-05-13] MEDS: methylPREDNISolone Sod Succinate 40 MG/1 ML INJ IV SCH ×2 (09:07→21:08)
[2019-05-13] MEDS: BUDESONIDE 0.5 MG/2 ML NEBU IH SCH ×2 (09:37→20:19)
[2019-05-13] MEDS: IPRATROPIUM/ALBUTEROL SULFATE 3 ML AMPUL.NEB IH SCH ×3 (09:37→20:20)
[2019-05-13] MEDS ORDERED: SODIUM CHLORIDE 0.9% 500 ML 500 ML ONE (10:01)
[2019-05-13] MEDS ORDERED: SODIUM CHLORIDE IRRI 500 ML 500 ML IR ONE (10:01)
[2019-05-13] MEDS ORDERED: HEPARIN/NS 5000 UNIT/500ML 0 ML IR ONE (10:46)
[2019-05-13] MEDS: fentaNYL 100 MCG/2 ML INJ ONE ×2 (10:46→10:56)
[2019-05-13] MEDS: MIDAZOLAM 2 MG/2 ML INJ ONE ×2 (10:47→10:56)
[2019-05-13] MEDS: LIDOCAINE (2%) 20 MG/1 ML VIAL 20 ML MDV INFILTRATI ONE ×2 (10:47→11:06)
--- NOTE | 2019-05-13 11:18 | Progress Note ---
Assessment and Plan Impression: * End stage renal disease on peritoneal dialysis - followed by Dr. Rodgers * Pericardial effusion - no tamponade physiology * Uremia: loss of appetite, fatigue, uremic fetor * Hyperkalemia * Metabolic acidosis * Hyponatremia * Anemia secondary to ESRD * Secondary hyperparathyroidism Plan: * Continue CAPD - 2.5% dextrose, 5 exchanges daily, 4 hour dwell time, fill volume 2 liters * Note cardiology plans for pericardiocentesis on Monday * Daily lytes * Continue Na Bicarbonate * Epogen TIW prn * Renal diet * Dose medications for renal function * Strict I/O * Patient reports that she has been on PD since October 2018. She states that she does manual exchanges at home - 4 exchanges daily, appx 1.5L fill volume with 3-4h dwell time. Mrs. Zayas states that she has not yet completed PD training which is unusual given that she reports being on PD since October. Given symptoms, dx of pericardial effusion and electrolyte abnormalities, patient is likely being under dialyzed. Patient states that she has not had a peritoneal equilibration test since starting PD in October. patient's PD RN, Steffanie ([phone]), attempted to contact * would benefit from hemodialysis once effusion treated Subjective Date of service: 05/13/19 Principal diagnosis: esrd Interval history: resting well in bed today Objective - Exam Narrative Exam: General appearance: well-developed, well-nourished EENT: ATNC Respiratory: Present: Clear to Ascultation Cardiology: regular, S1S2 Gastrointestinal: normal, no tenderness, no distended Integumentary: no rash, warm and dry Neurologic: no focal deficit, alert and oriented x3 Psychiatric: cooperative - Vital Signs Vital signs: Vital Signs - 12hr 05/13/19 05/13/19 05/13/19 00:00 00:05 04:26 Temperature 98.1 F 98.3 F Pulse Rate 79 83 91 H Respiratory 21 20 Rate Blood Pressure 133/64 154/68 O2 Sat by Pulse 95 94 Oximetry 05/13/19 05/13/19 08:09 09:01 Temperature 98.4 F Pulse Rate 86 86 Respiratory 19 Rate Blood Pressure 144/64 144/64 O2 Sat by Pulse 96 Oximetry - Lab 05/13/19 06:53 05/13/19 06:53 Most recent lab results Calcium 7.5 mg/dL (8.4-10.2) L 05/13/19 06:53 Phosphorus 7.20 mg/dL (2.5-4.5) H 05/13/19 06:53 Magnesium 2.20 mg/dL (1.7-2.3) 05/13/19 06:53 Medications & Allergies - Medications Allergies/Adverse Reactions: Allergies No Known Allergies Allergy (Verified 08/21/18 15:07) Home Medications: Home Medications Medication Instructions Recorded Confirmed Last Taken Type Aspirin [Adult Low Dose Aspirin EC] 81 mg PO DAILY 11/24/16 05/10/19 05/08/19 History NIFEdipine [Nifedipine ER] 60 mg PO BID 11/24/16 05/10/19 05/08/19 History Cinacalcet HCl [Sensipar] 60 mg PO DAILY 08/21/18 05/10/19 05/08/19 History Dialyvite Chewable Probiotic 3,000 mg PO DAILY 08/21/18 05/10/19 05/08/19 History carvediloL [Coreg] 25 mg PO BID 08/21/18 05/10/19 05/08/19 History hydrALAZINE [Apresoline TAB] 100 mg PO TID 08/21/18 05/10/19 05/08/19 History Acetaminophen/Codeine [Tylenol 1 tab PO Q6H PRN #14 tab 05/10/19 05/10/19 Unknown Rx /Codeine # 3 tab] Albuterol INH(or & Nicu Only) 2 puff IH QID PRN #8.5 gram 05/10/19 05/10/19 Unknown Rx [ProAir HFA Inhaler] Cefdinir 300 mg PO BID #6 capsule 05/10/19 05/10/19 Unknown Rx Nicotine [Habitrol] 14 mg TD QDAY #30 patch 05/10/19 05/10/19 Unknown Rx Prednisone [predniSONE 10 mg 10 mg PO .TAPER #1 tab.ds.pk 05/10/19 05/10/19 Unknown Rx (6-Day Pack, 21 Tabs)] Active Medications: Generic Name Dose Route Start Last Admin Trade Name Freq PRN Reason Stop Dose Admin Acetaminophen 650 mg 05/10/19 17:57 Tylenol PO Q4H PRN Pain MILD(1-3)/Fever >100.5/NOVAK Albuterol/Ipratropium 1 ampul 05/12/19 08:00 05/13/19 09:37 Duoneb *Not For Prn Use* IH Not Given TIDRT [facility] Aspirin 81 mg 05/11/19 10:00 05/13/19 09:02 Halfprin Ec PO Not Given DAILY [facility] Budesonide 0.5 mg 05/10/19 20:00 05/13/19 09:37 Pulmicort IH Not Given Q12HRT [facility] Carvedilol 25 mg 05/10/19 22:00 05/13/19 09:01 Coreg PO Not Given BID@0800,1700 [facility] Cinacalcet 60 mg 05/10/19 21:00 05/13/19 09:02 Sensipar PO Not Given QDAY [facility] Epoetin Tirso 10,000 unit 05/12/19 10:00 05/12/19 21:24 Procrit SUB-Q 10,000 unit QOD [facility] Administration Furosemide 80 mg 05/11/19 11:00 05/13/19 05:21 Lasix IV 80 mg 0600,1800 [facility] Administration Heparin Sodium (Porcine) 5,000 unit 05/10/19 22:00 05/13/19 05:20 Heparin SUB-Q 5,000 unit Q8HR [facility] Administration Hydralazine HCl 100 mg 05/10/19 20:00 05/13/19 09:01 Apresoline PO Not Given TID [facility] Lactobacillus Rhamnosus 1 each 05/13/19 12:00 Culturelle PO DAILY [facility] Methylprednisolone Sodium Succinate 40 mg 05/10/19 22:00 05/13/19 09:07 Solu-Medrol IV Not Given Q12HR [facility] Miscellaneous Medication 300 mg 05/10/19 22:00 Cefdinir [Cefdinir] PO BID [facility] Morphine Sulfate 2 mg 05/10/19 17:57 Morphine IV Q4H PRN Pain, Moderate (4-6) Multivit/Ca Carb/B Cmplx/FA/Prenat 1 cap 05/13/19 12:00 Renal Caps PO QDAY [facility] Nicotine 14 mg 05/11/19 10:00 05/12/19 10:43 Habitrol TD 14 mg QDAY [facility] Administration Nifedipine 60 mg 05/10/19 22:00 05/13/19 09:02 Procardia Xl PO Not Given BID [facility] Ondansetron HCl 4 mg 05/10/19 17:57 Zofran IV Q8H PRN Nausea And Vomiting Oxycodone/Acetaminophen 1 tab 05/10/19 17:57 05/12/19 15:27 Percocet 5/325 PO 1 tab Q6H PRN Administration Pain, Moderate (4-6) Pantoprazole Sodium 40 mg 05/12/19 18:00 05/13/19 09:02 Protonix PO Not Given QDAY [facility] Peritoneal Dialysis Solution 2,000 ml 05/11/19 22:00 05/13/19 09:07 Dianeal Low Calcium W/2.5% Dextrose IP Not Given 5XD [facility] Sodium Bicarbonate 650 mg 05/11/19 20:00 05/13/19 09:02 Sodium Bicarbonate PO Not Given TID [facility] Sodium Chloride 10 ml 05/10/19 22:00 05/13/19 09:07 Sodium Chloride Flush Syringe 10 Ml IV Not Given BID [facility] Sodium Chloride 10 ml 05/10/19 17:57 Sodium Chloride Flush Syringe 10 Ml IV PRN PRN LINE FLUSH
--- NOTE | 2019-05-13 11:45 | Event Note ---
Date: 05/13/19 Performed successful pericardiocentesis, with removal of 1200 mL of hemorrhagic fluid. Post procedure echocardiogram shows no residual effusion. Procedure was well tolerated by the patient and there were no complications. The fluid has been sent for analysis of cell count, chemistries, bacteriology including AFB, virology and cytology.
--- NOTE | 2019-05-13 13:05 | Cardiac Catherization Report ---
PERICARDIOCENTESIS REPORT REASON FOR PROCEDURE: The patient is a 63-year-old woman who presented to the hospital with symptoms of shortness of breath. An echocardiogram revealed a large circumferential pericardial effusion. She was referred for needle pericardiocentesis. PROCEDURES: 1. Needle pericardiocentesis. 2. Sedation time start 1106 hours, end 1126 hours. DESCRIPTION OF PROCEDURE: The patient was prepped and draped in a sterile fashion after informed consent. The right subxiphoid area was anesthetized using local lidocaine. An arterial needle was then advanced into the pericardial space, followed by placement of a guidewire. We then transitioned a dilator, followed by a pericardial drainage catheter. Pericardiocentesis was then successful, we removed a total of 1200 mL of hemorrhagic fluid. ECHOCARDIOGRAPHY: Echocardiogram done before the procedure demonstrated a large circumferential pericardial effusion. Following removal of 1200 mL of fluid, there was no evident residual pericardial effusion on echocardiogram. The patient tolerated the procedure well and there were no complications. The catheter was removed. She was returned to the post-procedure unit in stable condition. CONCLUSION: Successful pericardiocentesis with removal of 1200 mL of hemorrhagic fluid. No residual pericardial effusion on echocardiogram post-procedure. The fluid will be sent for chemistries, cell count, virology, bacteriology and acid fast bacilli and cytology. JOB# [id number] CA/NTS
[2019-05-13] MEDS: NICOTINE 14 MG/24 HR PATCH TD SCH (13:35)
[2019-05-13] MEDS: FOLIC ACID/VIT B COMP W-C 1 MG (RENAL CAPS) PO SCH (13:36)
[2019-05-13] MEDS: oxyCODONE /ACETAMINOPHEN 5-325MG TAB PO PRN ×2 (14:23→21:08)
[2019-05-13 14:26] LABS: Total Cells Counted 100 /mm3
--- NOTE | 2019-05-13 14:32 | Progress Note ---
Assessment and Plan Assessment and plan: 63-year-old woman with end-stage renal disease on peritoneal dialysis who was asked to return to hospital for abnormal echo. X-ray of bilateral feet; no acute fracture or dislocation Chest x-ray; severe enlargement of cardio/she-cardio silhouettes Moderate to large pericardial effusion IV diuretics, sp pericardiocentesis 05/13, 1.2L drained, fluid eval pending Acute bronchitis steroids, antibiotics, nebs,, aggressive chest PT Patient improved. Outpatient pulmonology follow-up. She may have chronic bronchitis given many years of tobacco abuse. Tobacco abuse/dependence Smoking cessation counseling performed for 10 minutes, nicotine patches when necessary -Preventative health counseling performed for 17 minutes Right foot strain X-ray negative for fractures during previous admission. Pain medications as needed. ESRD on PD, nonoliguric Hyperkalemia, uremia, hyponatremia, secondary hyperparathyroidism Continue PD, nephrology input appreciated Anemia of chronic disease; stable Hypertension; continue BP meds DVT prophylaxis; heparin Dispo; home with home health when ok by cardiology History Interval history: Review of systems Constitutional: No fevers, no malaise, no joint pains CVS: No chest pain, no orthopnea, no pedal edema GI: No abdominal pain, no diarrhea, no vomiting, no constipation Respiratory: , Shortness of breath and wheezing is improved Hospitalist Physical - Physical exam Narrative exam: General.: Appears well, no distress, nontoxic HEENT: Moist mucous membranes, extraocular muscles intact, no lymphadenopathy Neck: supple Cardiac: S1-S2 heard Lungs: End expiratory wheeze Abdomen: soft , nontender, nondistended, bowel sounds positive Extremities: no edema clubbing or cyanosis Skin: no rash or lesions Neurologic: no gross focal deficits Psych: calm, and cooperative - Constitutional Vitals: Temp Pulse Resp BP Pulse Ox 98.9 F 88 19 128/61 94 05/13/19 14:15 05/13/19 14:15 05/13/19 14:15 05/13/19 14:15 05/13/19 14:15 General appearance: Present: no acute distress, well-nourished PANCHO score - Pancho Score Age > 65: (0) No Aspirin use within the Past 7 Days: (0) No 3 or more CAD Risk Factors: (0) No 2 or more Angina events in past 24 hrs: (1) Yes Known CAD with more than 50% Stenosis: (0) No Elevated Cardiac Markers: (0) No ST Deviation Greater than 0.5mm: (0) No PANCHO Score: 1 Results - Labs CBC & Chem 7: 05/13/19 06:53 05/13/19 06:53 Labs: Laboratory Last Values WBC 4.1 K/mm3 (4.5-11.0) L 05/13/19 06:53 RBC 2.72 M/mm3 (3.65-5.03) L 05/13/19 06:53 Hgb 8.0 gm/dl (10.1-14.3) L 05/13/19 06:53 Hct 24.5 % (30.3-42.9) L 05/13/19 06:53 MCV 90 fl (79-97) 05/13/19 06:53 MCH 29 pg (28-32) 05/13/19 06:53 MCHC 33 % (30-34) 05/13/19 06:53 RDW 15.0 % (13.2-15.2) 05/13/19 06:53 Plt Count 209 K/mm3 (140-440) 05/13/19 06:53 Lymph % (Auto) 7.4 % (13.4-35.0) L 05/13/19 06:53 [place] % (Auto) 4.8 % (0.0-7.3) 05/13/19 06:53 Eos % (Auto) 0.0 % (0.0-4.3) 05/13/19 06:53 Baso % (Auto) 0.2 % (0.0-1.8) 05/13/19 06:53 Lymph # 0.3 K/mm3 (1.2-5.4) L 05/13/19 06:53 [place] # 0.2 K/mm3 (0.0-0.8) 05/13/19 06:53 Eos # 0.0 K/mm3 (0.0-0.4) 05/13/19 06:53 Baso # 0.0 K/mm3 (0.0-0.1) 05/13/19 06:53 Add Manual Diff Complete 05/11/19 04:28 Total Counted 100 05/11/19 04:28 Seg Neutrophils % 87.6 % (40.0-70.0) H 01/27/20 06:53 Seg Neuts % (Manual) 94.0 % (40.0-70.0) H 05/11/19 04:28 Band Neutrophils % 0 % 05/11/19 04:28 Lymphocytes % (Manual) 6.0 % (13.4-35.0) L 05/11/19 04:28 Reactive Lymphs % (Man) 0 % 05/11/19 04:28 Monocytes % (Manual) 0 % (0.0-7.3) 05/11/19 04:28 Eosinophils % (Manual) 0 % (0.0-4.3) 05/11/19 04:28 Basophils % (Manual) 0 % (0.0-1.8) 05/11/19 04:28 Metamyelocytes % 0 % 05/11/19 04:28 Myelocytes % 0 % 05/11/19 04:28 Promyelocytes % 0 % 05/11/19 04:28 Blast Cells % 0 % 05/11/19 04:28 Nucleated RBC % Not Reportable 05/11/19 04:28 Seg Neutrophils # 3.6 K/mm3 (1.8-7.7) 05/13/19 06:53 Seg Neutrophils # Man 3.4 K/mm3 (1.8-7.7) 05/11/19 04:28 Band Neutrophils # 0.0 K/mm3 05/11/19 04:28 Lymphocytes # (Manual) 0.2 K/mm3 (1.2-5.4) L 05/11/19 04:28 Abs React Lymphs (Man) 0.0 K/mm3 05/11/19 04:28 Monocytes # (Manual) 0.0 K/mm3 (0.0-0.8) 05/11/19 04:28 Eosinophils # (Manual) 0.0 K/mm3 (0.0-0.4) 05/11/19 04:28 Basophils # (Manual) 0.0 K/mm3 (0.0-0.1) 05/11/19 04:28 Metamyelocytes # 0.0 K/mm3 05/11/19 04:28 Myelocytes # 0.0 K/mm3 05/11/19 04:28 Promyelocytes # 0.0 K/mm3 05/11/19 04:28 Blast Cells # 0.0 K/mm3 05/11/19 04:28 WBC Morphology Not Reportable 05/11/19 04:28 Hypersegmented Neuts Not Reportable 05/11/19 04:28 Hyposegmented Neuts Not Reportable 05/11/19 04:28 Hypogranular Neuts Not Reportable 05/11/19 04:28 Smudge Cells Not Reportable 05/11/19 04:28 Toxic Granulation Not Reportable 05/11/19 04:28 Toxic Vacuolation Not Reportable 05/11/19 04:28 Dohle Bodies Not Reportable 05/11/19 04:28 Pelger-Huet Anomaly Not Reportable 05/11/19 04:28 Jomar Rods Not Reportable 05/11/19 04:28 Platelet Estimate Consistent w auto 05/11/19 04:28 Clumped Platelets Not Reportable 05/11/19 04:28 Plt Clumps, EDTA Not Reportable 05/11/19 04:28 Large Platelets Not Reportable 05/11/19 04:28 Giant Platelets Not Reportable 05/11/19 04:28 Platelet Satelliting Not Reportable 05/11/19 04:28 Plt Morphology Comment Not Reportable 05/11/19 04:28 RBC Morphology Not Reportable 05/11/19 04:28 Dimorphic RBCs Not Reportable 05/11/19 04:28 Polychromasia Not Reportable 05/11/19 04:28 Hypochromasia Not Reportable 05/11/19 04:28 Poikilocytosis Not Reportable 05/11/19 04:28 Anisocytosis 1+ 05/11/19 04:28 Microcytosis Not Reportable 05/11/19 04:28 Macrocytosis Not Reportable 05/11/19 04:28 Spherocytes Not Reportable 05/11/19 04:28 Pappenheimer Bodies Not Reportable 05/11/19 04:28 Sickle Cells Not Reportable 05/11/19 04:28 Target Cells Not Reportable 05/11/19 04:28 Tear Drop Cells Not Reportable 05/11/19 04:28 Ovalocytes Not Reportable 05/11/19 04:28 Helmet Cells Not Reportable 05/11/19 04:28 Meléndez-[place] Bodies Not Reportable 05/11/19 04:28 [place] Rings Not Reportable 05/11/19 04:28 [place] Cells Not Reportable 05/11/19 04:28 Bite Cells Not Reportable 05/11/19 04:28 Crenated Cell Not Reportable 05/11/19 04:28 Elliptocytes Not Reportable 05/11/19 04:28 Acanthocytes (Spur) Not Reportable 05/11/19 04:28 Rouleaux Not Reportable 05/11/19 04:28 Hemoglobin C Crystals Not Reportable 05/11/19 04:28 Schistocytes Not Reportable 05/11/19 04:28 Malaria parasites Not Reportable 05/11/19 04:28 Oral Bodies Not Reportable 05/11/19 04:28 Hem Pathologist Commnt No 05/11/19 04:28 PT 13.9 Sec. (12.2-14.9) 05/12/19 16:16 PT 14.4 Sec. (12.2-14.9) 05/12/19 16:16 INR 1.06 (0.87-1.13) 05/12/19 16:16 INR 1.11 (0.87-1.13) 05/12/19 16:16 APTT 37.5 Sec. (24.2-36.6) H 05/12/19 16:16 Sodium 130 mmol/L (137-145) L 05/13/19 06:53 Potassium 4.9 mmol/L (3.6-5.0) 05/13/19 06:53 Chloride 91.0 mmol/L (98-107) L 05/13/19 06:53 Carbon Dioxide 18 mmol/L (22-30) L 05/13/19 06:53 Anion Gap 26 mmol/L 05/13/19 06:53 BUN 77 mg/dL (7-17) H 05/13/19 06:53 Creatinine 9.7 mg/dL (0.7-1.2) H 05/13/19 06:53 Estimated GFR 5 ml/min 05/13/19 06:53 BUN/Creatinine Ratio 8 % 05/13/19 06:53 Glucose 140 mg/dL (65-100) H 05/13/19 06:53 POC Glucose 142 (70-105) H 05/13/19 06:31 Calcium 7.5 mg/dL (8.4-10.2) L 05/13/19 06:53 Phosphorus 7.20 mg/dL (2.5-4.5) H 05/13/19 06:53 Magnesium 2.20 mg/dL (1.7-2.3) 05/13/19 06:53 Fluid Type Pericardial 05/13/19 11:30 Fluid Color Bloody 05/13/19 11:30 Fluid Appearance Bloody 05/13/19 11:30 Fluid WBC 95 /mm3 05/13/19 11:30 Fluid RBC 287839 /mm3 05/13/19 11:30 Fluid Seg Neutrophils 14.0 % 05/13/19 11:30 Fluid Lymphocytes 68.0 % 05/13/19 11:30 Fluid Reactive Lymphs 0 % 05/13/19 11:30 Fluid Monocytes 18.0 % 05/13/19 11:30 Fluid Eosinophils 0 % 05/13/19 11:30 Fluid Basophils 0 % 05/13/19 11:30 Active Medications - Current Medications Current Medications: Generic Name Dose Route Start Last Admin Trade Name Freq PRN Reason Stop Dose Admin Acetaminophen 650 mg 05/10/19 17:57 Tylenol PO Q4H PRN Pain MILD(1-3)/Fever >100.5/[place]OVAK Albuterol/Ipratropium 1 ampul 05/12/19 08:00 05/13/19 14:30 Duoneb *Not For Prn Use* IH 1 ampul TIDRT [facility] Administration Aspirin 81 mg 05/11/19 10:00 05/13/19 09:02 Halfprin Ec PO Not Given DAILY [facility] Budesonide 0.5 mg 05/10/19 20:00 05/13/19 09:37 Pulmicort IH Not Given Q12HRT [facility] Carvedilol 25 mg 05/10/19 22:00 05/13/19 09:01 Coreg PO Not Given BID@0800,1700 [facility] Cinacalcet 60 mg 05/10/19 21:00 05/13/19 09:02 Sensipar PO Not Given QDAY [facility] Epoetin Tirso 10,000 unit 05/12/19 10:00 05/12/19 21:24 Procrit SUB-Q 10,000 unit QOD [facility] Administration Furosemide 80 mg 05/11/19 11:00 05/13/19 05:21 Lasix IV 80 mg 0600,1800 [facility] Administration Heparin Sodium (Porcine) 5,000 unit 05/10/19 22:00 05/13/19 13:36 Heparin SUB-Q 5,000 unit Q8HR [facility] Administration Hydralazine HCl 100 mg 05/10/19 20:00 05/13/19 13:35 Apresoline PO 100 mg TID [facility] Administration Lactobacillus Rhamnosus 1 each 05/13/19 12:00 Culturelle PO DAILY [facility] Methylprednisolone Sodium Succinate 40 mg 05/10/19 22:00 05/13/19 09:07 Solu-Medrol IV Not Given Q12HR [facility] Miscellaneous Medication 300 mg 05/10/19 22:00 Cefdinir [Cefdinir] PO BID [facility] Morphine Sulfate 2 mg 05/10/19 17:57 Morphine IV Q4H PRN Pain, Moderate (4-6) Multivit/Ca Carb/B Cmplx/FA/Prenat 1 cap 05/13/19 12:00 05/13/19 13:36 Renal Caps PO 1 cap QDAY [facility] Administration Nicotine 14 mg 05/11/19 10:00 05/13/19 13:35 Habitrol TD 14 mg QDAY [facility] Administration Nifedipine 60 mg 05/10/19 22:00 05/13/19 09:02 Procardia Xl PO Not Given BID [facility] Ondansetron HCl 4 mg 05/10/19 17:57 Zofran IV Q8H PRN Nausea And Vomiting Oxycodone/Acetaminophen 1 tab 05/10/19 17:57 05/13/19 14:23 Percocet 5/325 PO 1 tab Q6H PRN Administration Pain, Moderate (4-6) Pantoprazole Sodium 40 mg 05/12/19 18:00 05/13/19 09:02 Protonix PO Not Given QDAY [facility] Peritoneal Dialysis Solution 2,000 ml 05/11/19 22:00 05/13/19 13:15 Dianeal Low Calcium W/2.5% Dextrose IP 2,000 ml 5XD [facility] Administration Sodium Bicarbonate 650 mg 05/11/19 20:00 05/13/19 13:36 Sodium Bicarbonate PO 650 mg TID [facility] Administration Sodium Chloride 10 ml 05/10/19 22:00 05/13/19 09:07 Sodium Chloride Flush Syringe 10 Ml IV Not Given BID [facility] Sodium Chloride 10 ml 05/10/19 17:57 Sodium Chloride Flush Syringe 10 Ml IV PRN PRN LINE FLUSH
[2019-05-14] MEDS: DIALYSATE LO CAL 2.5% SOLN 2000 ML IP SCH ×2 (02:56→06:41)
[2019-05-14 05:12] LABS: Hematocrit 28.1 % (30.3-42.9); Hemoglobin 9.1 gm/dl (10.1-14.3); Mean Corpuscular HGB Conc 32 % (30-34); Mean Corpuscular Volume 90 fl (79-97); Platelet Count 244 K/mm3 (140-440); Red Blood Count 3.11 M/mm3 (3.65-5.03); Red Cell Distribution Width 14.6 % (13.2-15.2)
[2019-05-14 05:26] LABS: Calcium 7.5 mg/dL (8.4-10.2)
[2019-05-14] MEDS ORDERED: FLEET ENEMA PR ONE (05:30)
[2019-05-14 06:21] LABS: Eosinophils % (Manual) 0 % (0.0-4.3); Total Cells Counted 100
[2019-05-14 06:22] LABS: Anisocytosis 1+; Macrocytosis 1+; Platelet Estimate Consistent w Auto
[2019-05-14] MEDS: HEPARIN 5,000 UNIT/1 ML VIAL SUB-Q SCH ×3 (06:41→21:58)
[2019-05-14] MEDS: FUROSEMIDE 40 MG/4 ML INJ IV SCH ×2 (06:41→19:07)
[2019-05-14] MEDS: BUDESONIDE 0.5 MG/2 ML NEBU IH SCH ×2 (09:17→21:14)
[2019-05-14] MEDS: IPRATROPIUM/ALBUTEROL SULFATE 3 ML AMPUL.NEB IH SCH ×3 (09:17→21:14)
--- NOTE | 2019-05-14 10:16 | Progress Note ---
Assessment and Plan Large pericardial effusion without tamponade s/p pericardiocentesis; 1200 ml fluid removed ESRD on PD Htn We will repeat a limited echocardiogram today for reassessment post pericardiocentesis. Subjective Date of service: 05/14/19 Principal diagnosis: esrd Interval history: Patient is 1 day status post pericardiocentesis. For follow up echocardiogram today. Objective Vital Signs Temp Pulse Pulse Resp Resp BP Pulse Ox 05/14/19 07:32 99.6 F 86 18 137/56 97 05/14/19 03:44 98.2 F 91 H 18 157/73 97 05/13/19 23:55 98.9 F 85 18 133/55 94 05/13/19 22:00 88 05/13/19 21:08 20 05/13/19 20:00 92 H 13 05/13/19 19:18 98.8 F 88 18 134/61 95 05/13/19 17:05 88 128/61 05/13/19 16:40 99.1 F 87 19 128/62 96 05/13/19 14:31 83 18 05/13/19 14:15 98.9 F 88 19 128/61 94 - Physical Examination General: No Apparent Distress HEENT: Positive: PERRL Neck: Positive: neck supple Cardiac: Positive: Reg Rate and Rhythm Lungs: Positive: Decreased Breath Sounds Neuro: Positive: Grossly Intact Abdomen: Positive: Soft, Active Bowel Sounds - Labs and Meds CBC 05/14/19 Range/Units 04:01 WBC 7.7 (4.5-11.0) K/mm3 RBC 3.11 L (3.65-5.03) M/mm3 Hgb 9.1 L (10.1-14.3) gm/dl Hct 28.1 L (30.3-42.9) % Plt Count 244 (140-440) K/mm3 Comprehensive Metabolic Panel 05/14/19 Range/Units 04:01 Sodium 130 L (137-145) mmol/L Potassium 4.9 (3.6-5.0) mmol/L Chloride 90.9 L (98-107) mmol/L Carbon Dioxide 20 L (22-30) mmol/L BUN 81 H (7-17) mg/dL Creatinine 9.7 H (0.7-1.2) mg/dL Glucose 190 H (65-100) mg/dL Calcium 7.5 L (8.4-10.2) mg/dL
[2019-05-14] MEDS: FOLIC ACID/VIT B COMP W-C 1 MG (RENAL CAPS) PO SCH (10:35)
[2019-05-14] MEDS: hydrALAZINE 100 MG TAB PO SCH ×3 (10:35→21:57)
[2019-05-14] MEDS: oxyCODONE /ACETAMINOPHEN 5-325MG TAB PO PRN ×2 (10:35→19:04)
[2019-05-14] MEDS: ASPIRIN EC 81 MG TAB PO SCH (10:35)
[2019-05-14] MEDS: NIFEdipine XL 60 MG TAB PO SCH ×2 (10:35→21:57)
[2019-05-14] MEDS: CINACALCET 30 MG TAB PO SCH (10:35)
[2019-05-14] MEDS: SODIUM BICARBONATE 650 MG TAB PO SCH ×3 (10:35→21:57)
[2019-05-14] MEDS: methylPREDNISolone Sod Succinate 40 MG/1 ML INJ IV SCH ×2 (10:36→21:57)
[2019-05-14] MEDS: PANTOPRAZOLE 40 MG TAB PO SCH (10:36)
[2019-05-14] MEDS: carvediloL 25 MG TAB PO SCH ×2 (10:36→18:27)
[2019-05-14] MEDS: NICOTINE 14 MG/24 HR PATCH TD SCH (10:36)
--- NOTE | 2019-05-14 10:43 | Progress Note ---
Assessment and Plan Impression: * End stage renal disease on peritoneal dialysis - followed by Dr. Rodgers * Pericardial effusion - no tamponade physiology * Uremia: loss of appetite, fatigue, uremic fetor * Hyperkalemia * Metabolic acidosis * Hyponatremia * Anemia secondary to ESRD * Secondary hyperparathyroidism Plan: * Continue CAPD - 2.5% dextrose, 5 exchanges daily, 4 hour dwell time, fill volume 2 liters * s/p pericardiocentesis on Monday * Daily lytes * Continue Na Bicarbonate * Epogen TIW prn * Renal diet * Dose medications for renal function * Strict I/O * Patient reports that she has been on PD since October 2018. She states that she does manual exchanges at home - 4 exchanges daily, appx 1.5L fill volume with 3-4h dwell time. Mrs. Zayas states that she has not yet completed PD training which is unusual given that she reports being on PD since October. Given symptoms, dx of pericardial effusion and electrolyte abnormalities, patient is likely being under dialyzed. Patient states that she has not had a peritoneal equilibration test since starting PD in October. patient's PD RN, Steffanie ([phone]), attempted to contact * would benefit from hemodialysis once effusion treated, plan to start hd today and daily until uremia resolves * add lacutulose * may need outpatient hd placement Subjective Date of service: 05/14/19 Principal diagnosis: esrd Interval history: resting well in bed today Objective - Exam Narrative Exam: General appearance: well-developed, well-nourished EENT: ATNC Respiratory: Present: Clear to Ascultation Cardiology: regular, S1S2 Gastrointestinal: normal, no tenderness, no distended Integumentary: no rash, warm and dry Neurologic: no focal deficit, alert and oriented x3 Psychiatric: cooperative - Vital Signs Vital signs: Vital Signs - 12hr 05/13/19 05/14/19 05/14/19 23:55 03:44 07:32 Temperature 98.9 F 98.2 F 99.6 F Pulse Rate 85 91 H 86 Respiratory 18 18 18 Rate Blood Pressure 133/55 157/73 137/56 O2 Sat by Pulse 94 97 97 Oximetry 05/14/19 10:36 Temperature Pulse Rate 86 Respiratory Rate Blood Pressure 137/56 O2 Sat by Pulse Oximetry - Lab 05/14/19 04:01 05/14/19 04:01 Most recent lab results Calcium 7.5 mg/dL (8.4-10.2) L 05/14/19 04:01 Phosphorus 7.20 mg/dL (2.5-4.5) H 05/13/19 06:53 Magnesium 2.20 mg/dL (1.7-2.3) 05/13/19 06:53 Medications & Allergies - Medications Allergies/Adverse Reactions: Allergies No Known Allergies Allergy (Verified 08/21/18 15:07) Home Medications: Home Medications Medication Instructions Recorded Confirmed Last Taken Type Aspirin [Adult Low Dose Aspirin EC] 81 mg PO DAILY 11/24/16 05/10/19 05/08/19 History NIFEdipine [Nifedipine ER] 60 mg PO BID 11/24/16 05/10/19 05/08/19 History Cinacalcet HCl [Sensipar] 60 mg PO DAILY 08/21/18 05/10/19 05/08/19 History Dialyvite Chewable Probiotic 3,000 mg PO DAILY 08/21/18 05/10/19 05/08/19 History carvediloL [Coreg] 25 mg PO BID 08/21/18 05/10/19 05/08/19 History hydrALAZINE [Apresoline TAB] 100 mg PO TID 08/21/18 05/10/19 05/08/19 History Acetaminophen/Codeine [Tylenol 1 tab PO Q6H PRN #14 tab 05/10/19 05/10/19 Unknown Rx /Codeine # 3 tab] Albuterol INH(or & Nicu Only) 2 puff IH QID PRN #8.5 gram 05/10/19 05/10/19 Unknown Rx [ProAir HFA Inhaler] Cefdinir 300 mg PO BID #6 capsule 05/10/19 05/10/19 Unknown Rx Nicotine [Habitrol] 14 mg TD QDAY #30 patch 05/10/19 05/10/19 Unknown Rx Prednisone [predniSONE 10 mg 10 mg PO .TAPER #1 tab.ds.pk 05/10/19 05/10/19 Unknown Rx (6-Day Pack, 21 Tabs)] Active Medications: Generic Name Dose Route Start Last Admin Trade Name Freq PRN Reason Stop Dose Admin Acetaminophen 650 mg 05/10/19 17:57 05/13/19 18:32 Tylenol PO 650 mg Q4H PRN Administration Pain MILD(1-3)/Fever >100.5/[place] Albuterol/Ipratropium 1 ampul 05/12/19 08:00 05/14/19 09:17 Duoneb *Not For Prn Use* IH Not Given TIDRT [facility] Aspirin 81 mg 05/11/19 10:00 05/14/19 10:35 Halfprin Ec PO 81 mg DAILY [facility] Administration Budesonide 0.5 mg 05/10/19 20:00 05/14/19 09:17 Pulmicort IH Not Given Q12HRT [facility] Carvedilol 25 mg 05/10/19 22:00 05/14/19 10:36 Coreg PO 25 mg BID@0800,1700 [facility] Administration Cinacalcet 60 mg 05/10/19 21:00 05/14/19 10:35 Sensipar PO 60 mg QDAY [facility] Administration Epoetin Tirso 10,000 unit 05/12/19 10:00 05/12/19 21:24 Procrit SUB-Q 10,000 unit QOD [facility] Administration Furosemide 80 mg 05/11/19 11:00 05/14/19 06:41 Lasix IV 80 mg 0600,1800 [facility] Administration Heparin Sodium (Porcine) 5,000 unit 05/10/19 22:00 05/14/19 06:41 Heparin SUB-Q 5,000 unit Q8HR [facility] Administration Hydralazine HCl 100 mg 05/10/19 20:00 05/14/19 10:35 Apresoline PO 100 mg TID [facility] Administration Lactobacillus Rhamnosus 1 each 05/13/19 12:00 Culturelle PO DAILY [facility] Methylprednisolone Sodium Succinate 40 mg 05/10/19 22:00 05/14/19 10:36 Solu-Medrol IV 40 mg Q12HR [facility] Administration Miscellaneous Medication 300 mg 05/10/19 22:00 Cefdinir [Cefdinir] PO BID [facility] Morphine Sulfate 2 mg 05/10/19 17:57 05/13/19 17:04 Morphine IV 2 mg Q4H PRN Administration Pain, Moderate (4-6) Multivit/Ca Carb/B Cmplx/FA/Prenat 1 cap 05/13/19 12:00 05/14/19 10:35 Renal Caps PO 1 cap QDAY [facility] Administration Nicotine 14 mg 05/11/19 10:00 05/14/19 10:36 Habitrol TD 14 mg QDAY [facility] Administration Nifedipine 60 mg 05/10/19 22:00 05/14/19 10:35 Procardia Xl PO 60 mg BID [facility] Administration Ondansetron HCl 4 mg 05/10/19 17:57 Zofran IV Q8H PRN Nausea And Vomiting Oxycodone/Acetaminophen 1 tab 05/10/19 17:57 05/14/19 10:35 Percocet 5/325 PO 1 tab Q6H PRN Administration Pain, Moderate (4-6) Pantoprazole Sodium 40 mg 05/12/19 18:00 05/14/19 10:36 Protonix PO 40 mg QDAY [facility] Administration Peritoneal Dialysis Solution 2,000 ml 05/11/19 22:00 05/14/19 06:41 Dianeal Low Calcium W/2.5% Dextrose IP Not Given 5XD [facility] Sodium Bicarbonate 650 mg 05/11/19 20:00 05/14/19 10:35 Sodium Bicarbonate PO 650 mg TID [facility] Administration Sodium Chloride 10 ml 05/10/19 22:00 05/14/19 10:36 Sodium Chloride Flush Syringe 10 Ml IV 10 ml BID [facility] Administration Sodium Chloride 10 ml 05/10/19 17:57 Sodium Chloride Flush Syringe 10 Ml IV PRN PRN LINE FLUSH
[2019-05-14] MEDS: EPOETIN ALFA 10,000 UNIT/1 ML INJ SUB-Q SCH (11:06)
[2019-05-14] MEDS: LACTOBACILLUS RHAMNOSUS GG 1 EACH CAP PO SCH ×2 (11:06→15:28)
[2019-05-14] MEDS ORDERED: ALBUMIN HUMAN 25% (25 GM/100 ML) INJ IV PRN (13:28)
[2019-05-14] MEDS ORDERED: SODIUM CHLORIDE 0.9% 100 ML IV PRN (13:28)
[2019-05-14 14:54] LABS: Hepatitis B Surface Antigen Non-Reactive (Negative); Hepatitis C Virus Antibody Non-Reactive (NonReactive)
[2019-05-14] MEDS: LACTULOSE 20 GM/30 ML ORAL LIQD PO SCH ×2 (15:29→21:57)
[2019-05-14] MEDS ORDERED: SODIUM CHLORIDE*PRIMING MACHINE ONLY FOR DIALYSIS MC ONE ×2 (15:52→17:36)
--- NOTE | 2019-05-14 18:34 | Progress Note ---
Assessment and Plan Assessment and plan: 63-year-old woman with end-stage renal disease on peritoneal dialysis who was asked to return to hospital for abnormal echo. Patient underwent pericardiocentesis on 05/13/2019, hemodialysis initiated --End-stage renal disease on peritoneal dialysis; Converted to hemodialysisn , HD per scheduled Nephrology following. If nephrology recommend hemodialysis Case management to set up outpatient HD chair time --Moderate to large pericardial effusion; Status post pericardiocentesis 05/13/2019 Hydromorphone of 1.2 L pericardial fluid Follow fluid analysis, cardiology following --Acute bronchitis; continues to have mild shortness of breath and cough bronchodilators and steroids and antibiotics Pulmonary evaluation if needed --Hypertension; moderate control Continue current antihypertensives and when necessary medications --Ongoing tobacco use; smoking cessation counseling Nicotine patch as needed --Preventive care counseling done spent 15 minutes --DVT prophylaxis; heparin, renal dose Monitor closely and adjust management as needed Disposition; nephrology recommendations For long-term hemodialysis , out patient HD scheduling per CM History Interval history: Patient is scheduled for hemodialysis today Tolerated well Vital signs reviewed Denies shortness of breath Denies chest pain Denies nausea vomiting Hospitalist Physical - Constitutional Vitals: Temp Pulse Resp BP Pulse Ox 97.9 F 89 18 140/71 97 05/14/19 15:15 05/14/19 17:15 05/14/19 15:15 05/14/19 17:15 05/14/19 11:11 General appearance: Present: no acute distress, well-nourished - EENT Eyes: Present: PERRL, EOM intact - Neck Neck: Present: supple, normal ROM - Respiratory Respiratory effort: normal Respiratory: bilateral: diminished, negative: rales, rhonchi, wheezing - Cardiovascular Rhythm: regular Heart Sounds: Present: S1 & S2 - Extremities Extremities: no ischemia, No edema - Abdominal General gastrointestinal: soft, non-tender, non-distended, normal bowel sounds - Integumentary Integumentary: Present: clear, warm - Psychiatric Psychiatric: appropriate mood/affect, cooperative - Neurologic Neurologic: CNII-XII intact, moves all extremities PANCHO score - Pancho Score Age > 65: (0) No Aspirin use within the Past 7 Days: (0) No 3 or more CAD Risk Factors: (0) No 2 or more Angina events in past 24 hrs: (1) Yes Known CAD with more than 50% Stenosis: (0) No Elevated Cardiac Markers: (0) No ST Deviation Greater than 0.5mm: (0) No PANCHO Score: 1 Results - Labs CBC & Chem 7: 05/14/19 04:01 05/14/19 04:01 Labs: Laboratory Last Values WBC 7.7 K/mm3 (4.5-11.0) 05/14/19 04:01 RBC 3.11 M/mm3 (3.65-5.03) L 05/14/19 04:01 Hgb 9.1 gm/dl (10.1-14.3) L 05/14/19 04:01 Hct 28.1 % (30.3-42.9) L 05/14/19 04:01 MCV 90 fl (79-97) 05/14/19 04:01 MCH 29 pg (28-32) 05/14/19 04:01 MCHC 32 % (30-34) 05/14/19 04:01 RDW 14.6 % (13.2-15.2) 05/14/19 04:01 Plt Count 244 K/mm3 (140-440) 05/14/19 04:01 Lymph % (Auto) 7.4 % (13.4-35.0) L 05/13/19 06:53 [place] % (Auto) 4.8 % (0.0-7.3) 05/13/19 06:53 Eos % (Auto) 0.0 % (0.0-4.3) 05/13/19 06:53 Baso % (Auto) 0.2 % (0.0-1.8) 05/13/19 06:53 Lymph # 0.3 K/mm3 (1.2-5.4) L 05/13/19 06:53 [place]ack[place]ord # 0.2 K/mm3 (0.0-0.8) 05/13/19 06:53 Eos # 0.0 K/mm3 (0.0-0.4) 05/13/19 06:53 Baso # 0.0 K/mm3 (0.0-0.1) 05/13/19 06:53 Add Manual Diff Complete 05/14/19 04:01 Total Counted 100 05/14/19 04:01 Seg Neutrophils % Hand Nailer 05/14/19 04:01 Seg Neuts % (Manual) 95.0 % (40.0-70.0) H 05/14/19 04:01 Band Neutrophils % 0 % 05/14/19 04:01 Lymphocytes % (Manual) 1.0 % (13.4-35.0) L 05/14/19 04:01 Reactive Lymphs % (Man) 0 % 05/14/19 04:01 Monocytes % (Manual) 3.0 % (0.0-7.3) 05/14/19 04:01 Eosinophils % (Manual) 0 % (0.0-4.3) 05/14/19 04:01 Basophils % (Manual) 1.0 % (0.0-1.8) 05/14/19 04:01 Metamyelocytes % 0 % 05/14/19 04:01 Myelocytes % 0 % 05/14/19 04:01 Promyelocytes % 0 % 05/14/19 04:01 Blast Cells % 0 % 05/14/19 04:01 Nucleated RBC % Not Reportable 05/14/19 04:01 Seg Neutrophils # 3.6 K/mm3 (1.8-7.7) 05/13/19 06:53 Seg Neutrophils # Man 7.3 K/mm3 (1.8-7.7) 05/14/19 04:01 Band Neutrophils # 0.0 K/mm3 05/14/19 04:01 Lymphocytes # (Manual) 0.1 K/mm3 (1.2-5.4) L 05/14/19 04:01 Abs React Lymphs (Man) 0.0 K/mm3 05/14/19 04:01 Monocytes # (Manual) 0.2 K/mm3 (0.0-0.8) 05/14/19 04:01 Eosinophils # (Manual) 0.0 K/mm3 (0.0-0.4) 05/14/19 04:01 Basophils # (Manual) 0.1 K/mm3 (0.0-0.1) 05/14/19 04:01 Metamyelocytes # 0.0 K/mm3 05/14/19 04:01 Myelocytes # 0.0 K/mm3 05/14/19 04:01 Promyelocytes # 0.0 K/mm3 05/14/19 04:01 Blast Cells # 0.0 K/mm3 05/14/19 04:01 WBC Morphology Not Reportable 05/14/19 04:01 Hypersegmented Neuts Not Reportable 05/14/19 04:01 Hyposegmented Neuts Not Reportable 05/14/19 04:01 Hypogranular Neuts Not Reportable 05/14/19 04:01 Smudge Cells Not Reportable 05/14/19 04:01 Toxic Granulation Not Reportable 05/14/19 04:01 Toxic Vacuolation Not Reportable 05/14/19 04:01 Dohle Bodies Not Reportable 05/14/19 04:01 Pelger-Huet Anomaly Not Reportable 05/14/19 04:01 Jomar Rods Not Reportable 05/14/19 04:01 Platelet Estimate Consistent w auto 05/14/19 04:01 Clumped Platelets Not Reportable 05/14/19 04:01 Plt Clumps, EDTA Not Reportable 05/14/19 04:01 Large Platelets Not Reportable 05/14/19 04:01 Giant Platelets Not Reportable 05/14/19 04:01 Platelet Satelliting Not Reportable 05/14/19 04:01 Plt Morphology Comment Not Reportable 05/14/19 04:01 RBC Morphology Not Reportable 05/14/19 04:01 Dimorphic RBCs Not Reportable 05/14/19 04:01 Polychromasia Not Reportable 05/14/19 04:01 Hypochromasia Not Reportable 05/14/19 04:01 Poikilocytosis Not Reportable 05/14/19 04:01 Anisocytosis 1+ 05/14/19 04:01 Microcytosis Not Reportable 05/14/19 04:01 Macrocytosis 1+ 05/14/19 04:01 Spherocytes Not Reportable 05/14/19 04:01 Pappenheimer Bodies Not Reportable 05/14/19 04:01 Sickle Cells Not Reportable 05/14/19 04:01 Target Cells Not Reportable 05/14/19 04:01 Tear Drop Cells Not Reportable 05/14/19 04:01 Ovalocytes Not Reportable 05/14/19 04:01 Helmet Cells Not Reportable 05/14/19 04:01 Meléndez-Hornell Bodies Not Reportable 05/14/19 04:01 [place] Rings Not Reportable 05/14/19 04:01 Cecil Cells Not Reportable 05/14/19 04:01 Bite Cells Not Reportable 05/14/19 04:01 Crenated Cell Not Reportable 05/14/19 04:01 Elliptocytes Not Reportable 05/14/19 04:01 Acanthocytes (Spur) Not Reportable 05/14/19 04:01 Rouleaux Not Reportable 05/14/19 04:01 Hemoglobin C Crystals Not Reportable 05/14/19 04:01 Schistocytes Not Reportable 05/14/19 04:01 Malaria parasites Not Reportable 05/14/19 04:01 Oral Bodies Not Reportable 05/14/19 04:01 Hem Pathologist Commnt No 05/14/19 04:01 PT 13.9 Sec. (12.2-14.9) 05/12/19 16:16 PT 14.4 Sec. (12.2-14.9) 05/12/19 16:16 INR 1.06 (0.87-1.13) 05/12/19 16:16 INR 1.11 (0.87-1.13) 05/12/19 16:16 APTT 37.5 Sec. (24.2-36.6) H 05/12/19 16:16 Sodium 130 mmol/L (137-145) L 05/14/19 04:01 Potassium 4.9 mmol/L (3.6-5.0) 05/14/19 04:01 Chloride 90.9 mmol/L (98-107) L 05/14/19 04:01 Carbon Dioxide 20 mmol/L (22-30) L 05/14/19 04:01 Anion Gap 24 mmol/L 05/14/19 04:01 BUN 81 mg/dL (7-17) H 05/14/19 04:01 Creatinine 9.7 mg/dL (0.7-1.2) H 05/14/19 04:01 Estimated GFR 5 ml/min 05/14/19 04:01 BUN/Creatinine Ratio 8 % 05/14/19 04:01 Glucose 190 mg/dL (65-100) H 05/14/19 04:01 POC Glucose 142 (70-105) H 05/13/19 06:31 Calcium 7.5 mg/dL (8.4-10.2) L 05/14/19 04:01 Phosphorus 7.20 mg/dL (2.5-4.5) H 05/13/19 06:53 Magnesium 2.20 mg/dL (1.7-2.3) 05/13/19 06:53 Fluid Type Pericardial 05/13/19 11:30 Fluid Color Bloody 05/13/19 11:30 Fluid Appearance Bloody 05/13/19 11:30 Fluid WBC 95 /mm3 05/13/19 11:30 Fluid RBC 863826 /mm3 05/13/19 11:30 Fluid Diff Comment 05/13/19 11:30 Fluid Seg Neutrophils 14.0 % 05/13/19 11:30 Fluid Lymphocytes 68.0 % 05/13/19 11:30 Fluid Reactive Lymphs 0 % 05/13/19 11:30 Fluid Monocytes 18.0 % 05/13/19 11:30 Fluid Eosinophils 0 % 05/13/19 11:30 Fluid Basophils 0 % 05/13/19 11:30 Hepatitis A IgM Ab Non-reactive (NonReactive) 05/14/19 13:48 Hep Bs Antigen Non-reactive (Negative) 05/14/19 13:48 Hep B Core IgM Ab Non-reactive (NonReactive) 05/14/19 13:48 Hepatitis C Antibody Non-reactive (NonReactive) 05/14/19 13:48 AFB Identification 05/13/19 11:30 Active Medications - Current Medications Current Medications: Generic Name Dose Route Start Last Admin Trade Name Freq PRN Reason Stop Dose Admin Acetaminophen 650 mg 05/10/19 17:57 05/13/19 18:32 Tylenol PO 650 mg Q4H PRN Administration Pain MILD(1-3)/Fever >100.5/NOVAK Albumin Human 25 gm 05/14/19 13:28 Alburx 25% (Albumin) IV DARSHAN PRN Hypotension Albuterol/Ipratropium 1 ampul 05/12/19 08:00 05/14/19 13:19 Duoneb *Not For Prn Use* IH 1 ampul TIDRT FROY Administration Aspirin 81 mg 05/11/19 10:00 05/14/19 10:35 Halfprin Ec PO 81 mg DAILY FROY Administration Budesonide 0.5 mg 05/10/19 20:00 05/14/19 09:17 Pulmicort IH Not Given Q12HRT FROY Carvedilol 25 mg 05/10/19 22:00 05/14/19 18:27 Coreg PO Not Given BID@0800,1700 [facility] Cinacalcet 60 mg 05/10/19 21:00 05/14/19 10:35 Sensipar PO 60 mg QDAY [facility] Administration Epoetin Tirso 10,000 unit 05/14/19 13:29 Procrit IV DARSHAN PRN hemodialysis Furosemide 80 mg 05/11/19 11:00 05/14/19 06:41 Lasix IV 80 mg 0600,1800 [facility] Administration Heparin Sodium (Porcine) 5,000 unit 05/10/19 22:00 05/14/19 15:29 Heparin SUB-Q Not Given Q8HR [facility] Hydralazine HCl 100 mg 05/10/19 20:00 05/14/19 15:29 Apresoline PO Not Given TID [facility] Sodium Chloride 100 mls @ 999 mls/hr 05/14/19 13:28 Nacl 0.9% IV DARSHAN PRN Hypotension Lactobacillus Rhamnosus 1 each 05/13/19 12:00 05/14/19 15:28 Culturelle PO Not Given DAILY [facility] Lactulose 20 gm 05/14/19 14:00 05/14/19 15:29 Cephulac PO Not Given BID [facility] Methylprednisolone Sodium Succinate 40 mg 05/10/19 22:00 05/14/19 10:36 Solu-Medrol IV 40 mg Q12HR [facility] Administration Miscellaneous Medication 300 mg 05/10/19 22:00 Cefdinir [Cefdinir] PO BID [facility] Morphine Sulfate 2 mg 05/10/19 17:57 05/13/19 17:04 Morphine IV 2 mg Q4H PRN Administration Pain, Moderate (4-6) Multivit/Ca Carb/B Cmplx/FA/Prenat 1 cap 05/13/19 12:00 05/14/19 10:35 Renal Caps PO 1 cap QDAY [facility] Administration Nicotine 14 mg 05/11/19 10:00 05/14/19 10:36 Habitrol TD 14 mg QDAY [facility] Administration Nifedipine 60 mg 05/10/19 22:00 05/14/19 10:35 Procardia Xl PO 60 mg BID [facility] Administration Ondansetron HCl 4 mg 05/10/19 17:57 Zofran IV Q8H PRN Nausea And Vomiting Oxycodone/Acetaminophen 1 tab 05/10/19 17:57 05/14/19 10:35 Percocet 5/325 PO 1 tab Q6H PRN Administration Pain, Moderate (4-6) Pantoprazole Sodium 40 mg 05/12/19 18:00 05/14/19 10:36 Protonix PO 40 mg QDAY FROY Administration Sodium Bicarbonate 650 mg 05/11/19 20:00 05/14/19 15:30 Sodium Bicarbonate PO Not Given TID FROY Sodium Chloride 10 ml 05/10/19 22:00 05/14/19 10:36 Sodium Chloride Flush Syringe 10 Ml IV 10 ml BID FROY Administration Sodium Chloride 10 ml 05/10/19 17:57 Sodium Chloride Flush Syringe 10 Ml IV PRN PRN LINE FLUSH
[2019-05-14] MEDS ORDERED: MAGNESIUM HYDROXIDE (MOM) ORAL LIQD UDC PO PRN (18:38)
[2019-05-14] MEDS ORDERED: MAGNESIUM HYDROXIDE (MOM) ORAL LIQD UDC PO NR (18:38)
[2019-05-15] MEDS: oxyCODONE /ACETAMINOPHEN 5-325MG TAB PO PRN ×3 (06:12→19:19)
[2019-05-15] MEDS: HEPARIN 5,000 UNIT/1 ML VIAL SUB-Q SCH ×3 (06:12→21:20)
[2019-05-15] MEDS: FUROSEMIDE 40 MG/4 ML INJ IV SCH ×2 (06:12→17:45)
[2019-05-15 06:47] LABS: Basophils % (Auto) 0.1 % (0.0-1.8); Hemoglobin 8.8 gm/dl (10.1-14.3); Lymphocytes # (Auto) 0.3 K/mm3 (1.2-5.4); Lymphocytes % (Auto) 4.3 % (13.4-35.0); Mean Corpuscular HGB Conc 33 % (30-34); Mean Corpuscular Volume 91 fl (79-97); Monocytes # (Auto) 0.4 K/mm3 (0.0-0.8); Monocytes % (Auto) 6.5 % (0.0-7.3); Platelet Count 229 K/mm3 (140-440); Red Blood Count 2.97 M/mm3 (3.65-5.03); Red Cell Distribution Width 14.9 % (13.2-15.2)
[2019-05-15 07:14] LABS: Calcium 7.6 mg/dL (8.4-10.2)
[2019-05-15] MEDS: IPRATROPIUM/ALBUTEROL SULFATE 3 ML AMPUL.NEB IH SCH ×3 (08:35→21:06)
[2019-05-15] MEDS: BUDESONIDE 0.5 MG/2 ML NEBU IH SCH ×2 (08:35→21:05)
[2019-05-15] MEDS: FOLIC ACID/VIT B COMP W-C 1 MG (RENAL CAPS) PO SCH (09:19)
[2019-05-15] MEDS: CINACALCET 30 MG TAB PO SCH (09:19)
[2019-05-15] MEDS: methylPREDNISolone Sod Succinate 40 MG/1 ML INJ IV SCH ×2 (09:20→21:20)
[2019-05-15] MEDS: ASPIRIN EC 81 MG TAB PO SCH (09:20)
[2019-05-15] MEDS: NICOTINE 14 MG/24 HR PATCH TD SCH (09:20)
[2019-05-15] MEDS: LACTOBACILLUS RHAMNOSUS GG 1 EACH CAP PO SCH (09:20)
[2019-05-15] MEDS: NIFEdipine XL 60 MG TAB PO SCH ×2 (09:20→21:19)
[2019-05-15] MEDS: SODIUM BICARBONATE 650 MG TAB PO SCH ×3 (09:20→21:19)
[2019-05-15] MEDS: carvediloL 25 MG TAB PO SCH ×2 (09:20→17:44)
[2019-05-15] MEDS: hydrALAZINE 100 MG TAB PO SCH ×3 (09:20→21:19)
[2019-05-15] MEDS: LACTULOSE 20 GM/30 ML ORAL LIQD PO SCH ×2 (09:20→21:19)
[2019-05-15] MEDS: PANTOPRAZOLE 40 MG TAB PO SCH (09:20)
[2019-05-15] MEDS: DIALYSATE LO CAL 2.5% SOLN 2000 ML IP SCH (10:17)
[2019-05-15] MEDS: CEFDINIR 300 MG PO SCH ×2 (10:17→10:18)
--- NOTE | 2019-05-15 10:33 | Progress Note ---
Assessment and Plan Impression: * End stage renal disease on peritoneal dialysis - followed by Dr. Rodgers * Pericardial effusion - no tamponade physiology * Uremia: loss of appetite, fatigue, uremic fetor * Hyperkalemia * Metabolic acidosis * Hyponatremia * Anemia secondary to ESRD * Secondary hyperparathyroidism Plan: * stop CAPD - plan on hemodialysis for 3 consecutive days then thrice weekly * s/p pericardiocentesis on Monday * Daily lytes * Continue Na Bicarbonate * Epogen TIW prn * Renal diet * Dose medications for renal function * Strict I/O * Patient reports that she has been on PD since October 2018. She states that she does manual exchanges at home - 4 exchanges daily, appx 1.5L fill volume with 3-4h dwell time. Mrs. Zayas states that she has not yet completed PD training which is unusual given that she reports being on PD since October. Given symptoms, dx of pericardial effusion and electrolyte abnormalities, patient is likely being under dialyzed. Patient states that she has not had a peritoneal equilibration test since starting PD in October. patient's PD RN, Steffanie ([phone]), attempted to contact * would benefit from hemodialysis once effusion treated, plan to start hd today and daily until uremia resolves * add lacutulose * will need outpatient hd placement Subjective Date of service: 05/15/19 Principal diagnosis: esrd Interval history: resting well in bed today Objective - Exam Narrative Exam: General appearance: well-developed, well-nourished EENT: ATNC Respiratory: Present: Clear to Ascultation Cardiology: regular, S1S2 Gastrointestinal: normal, no tenderness, no distended Integumentary: no rash, warm and dry Neurologic: no focal deficit, alert and oriented x3 Psychiatric: cooperative - Vital Signs Vital signs: Vital Signs - 12hr 05/14/19 05/15/19 05/15/19 22:59 03:46 05:54 Temperature 99.4 F 98.9 F 98.6 F Pulse Rate 89 82 84 Pulse Rate [ Anterior Bilateral Throughout] Respiratory 18 18 20 Rate Respiratory Rate [Anterior Bilateral Throughout] Blood Pressure 131/51 111/45 113/58 O2 Sat by Pulse 91 100 93 Oximetry 05/15/19 05/15/19 07:51 08:00 Temperature 100.0 F H Pulse Rate 82 Pulse Rate [ 81 Anterior Bilateral Throughout] Respiratory 18 Rate Respiratory 17 Rate [Anterior Bilateral Throughout] Blood Pressure 137/64 O2 Sat by Pulse 99 Oximetry - Lab 05/15/19 05:24 05/15/19 05:24 Most recent lab results Calcium 7.6 mg/dL (8.4-10.2) L 05/15/19 05:24 Phosphorus 7.20 mg/dL (2.5-4.5) H 05/13/19 06:53 Magnesium 2.20 mg/dL (1.7-2.3) 05/13/19 06:53 Medications & Allergies - Medications Allergies/Adverse Reactions: Allergies No Known Allergies Allergy (Verified 08/21/18 15:07) Home Medications: Home Medications Medication Instructions Recorded Confirmed Last Taken Type Aspirin [Adult Low Dose Aspirin EC] 81 mg PO DAILY 11/24/16 05/10/19 05/08/19 History NIFEdipine [Nifedipine ER] 60 mg PO BID 11/24/16 05/10/19 05/08/19 History Cinacalcet HCl [Sensipar] 60 mg PO DAILY 08/21/18 05/10/19 05/08/19 History Dialyvite Chewable Probiotic 3,000 mg PO DAILY 08/21/18 05/10/19 05/08/19 History carvediloL [Coreg] 25 mg PO BID 08/21/18 05/10/19 05/08/19 History hydrALAZINE [Apresoline TAB] 100 mg PO TID 08/21/18 05/10/19 05/08/19 History Acetaminophen/Codeine [Tylenol 1 tab PO Q6H PRN #14 tab 05/10/19 05/10/19 Unknown Rx /Codeine # 3 tab] Albuterol INH(or & Nicu Only) 2 puff IH QID PRN #8.5 gram 05/10/19 05/10/19 Unknown Rx [ProAir HFA Inhaler] Cefdinir 300 mg PO BID #6 capsule 05/10/19 05/10/19 Unknown Rx Nicotine [Habitrol] 14 mg TD QDAY #30 patch 05/10/19 05/10/19 Unknown Rx Prednisone [predniSONE 10 mg 10 mg PO .TAPER #1 tab.ds.pk 05/10/19 05/10/19 Unknown Rx (6-Day Pack, 21 Tabs)] Active Medications: Generic Name Dose Route Start Last Admin Trade Name Freq PRN Reason Stop Dose Admin Acetaminophen 650 mg 05/10/19 17:57 05/13/19 18:32 Tylenol PO 650 mg Q4H PRN Administration Pain MILD(1-3)/Fever >100.5/NOVAK Albumin Human 25 gm 05/14/19 13:28 Alburx 25% (Albumin) IV DARSHAN PRN Hypotension Albuterol/Ipratropium 1 ampul 05/12/19 08:00 05/15/19 08:35 Duoneb *Not For Prn Use* IH 1 ampul TIDRT FROY Administration Aspirin 81 mg 05/11/19 10:00 05/15/19 09:20 Halfprin Ec PO 81 mg DAILY FROY Administration Bisacodyl 10 mg 05/14/19 18:38 Dulcolax SD QDAY PRN Constipation Budesonide 0.5 mg 05/10/19 20:00 05/15/19 08:35 Pulmicort IH 0.5 mg Q12HRT FROY Administration Carvedilol 25 mg 05/10/19 22:00 05/15/19 09:20 Coreg PO 25 mg BID@0800,1700 FROY Administration Cephalexin 250 mg 05/15/19 10:00 Keflex PO 05/20/19 10:01 Q24HR FROY Cinacalcet 60 mg 05/10/19 21:00 05/15/19 09:19 Sensipar PO 60 mg QDAY [facility] Administration Epoetin Tirso 10,000 unit 05/14/19 13:29 Procrit IV DARSHAN PRN hemodialysis Furosemide 80 mg 05/11/19 11:00 05/15/19 06:12 Lasix IV 80 mg 0600,1800 [facility] Administration Heparin Sodium (Porcine) 5,000 unit 05/10/19 22:00 05/15/19 06:12 Heparin SUB-Q 5,000 unit Q8HR FROY Administration Hydralazine HCl 100 mg 05/10/19 20:00 05/15/19 09:20 Apresoline PO 100 mg TID FROY Administration Sodium Chloride 100 mls @ 999 mls/hr 05/14/19 13:28 Nacl 0.9% IV DARSHAN PRN Hypotension Lactobacillus Rhamnosus 1 each 05/13/19 12:00 05/15/19 09:20 Culturelle PO 1 each DAILY FROY Administration Lactulose 20 gm 05/14/19 14:00 05/15/19 09:20 Cephulac PO 20 gm BID FROY Administration Magnesium Hydroxide 30 ml 05/14/19 18:38 05/14/19 21:57 Milk Of Magnesia PO 30 ml QDAY PRN Administration Constipation Methylprednisolone Sodium Succinate 40 mg 05/10/19 22:00 05/15/19 09:20 Solu-Medrol IV 40 mg Q12HR [facility]OY Administration Morphine Sulfate 2 mg 05/10/19 17:57 05/13/19 17:04 Morphine IV 2 mg Q4H PRN Administration Pain, Moderate (4-6) Multivit/Ca Carb/B Cmplx/FA/Prenat 1 cap 05/13/19 12:00 05/15/19 09:19 Renal Caps PO 1 cap QDAY [facility] Administration Nicotine 14 mg 05/11/19 10:00 05/15/19 09:20 Habitrol TD 14 mg QDAY [facility] Administration Nifedipine 60 mg 05/10/19 22:00 05/15/19 09:20 Procardia Xl PO 60 mg BID FROY Administration Ondansetron HCl 4 mg 05/10/19 17:57 Zofran IV Q8H PRN Nausea And Vomiting Oxycodone/Acetaminophen 1 tab 05/10/19 17:57 05/15/19 06:12 Percocet 5/325 PO 1 tab Q6H PRN Administration Pain, Moderate (4-6) Pantoprazole Sodium 40 mg 05/12/19 18:00 05/15/19 09:20 Protonix PO 40 mg QDAY FROY Administration Sodium Bicarbonate 650 mg 05/11/19 20:00 05/15/19 09:20 Sodium Bicarbonate PO 650 mg TID FROY Administration Sodium Chloride 10 ml 05/10/19 22:00 05/15/19 09:21 Sodium Chloride Flush Syringe 10 Ml IV 10 ml BID FROY Administration Sodium Chloride 10 ml 05/10/19 17:57 Sodium Chloride Flush Syringe 10 Ml IV PRN PRN LINE FLUSH
--- NOTE | 2019-05-15 10:51 | Progress Note ---
Assessment and Plan Large pericardial effusion without tamponade s/p pericardiocentesis; 1200 ml fluid removed a repeat limited echocardiogram shows a small reaccumulation of the pericardial effusion. normal LVEF 55-60% ESRD -transitioned from PD to HD Htn Once discharged patient advised to follow up in our office within 1 week for a repeat echocardiogram. Stable cardiac calderón. Subjective Date of service: 05/15/19 Principal diagnosis: esrd Interval history: Patient has transitioned from peritoneal dialysis to hemodialysis. She denies shortness of breath. Objective Vital Signs Temp Pulse Pulse Resp Resp BP Pulse Ox 05/15/19 10:00 79 05/15/19 08:00 81 17 05/15/19 07:51 100.0 F H 82 18 137/64 99 05/15/19 05:54 98.6 F 84 20 113/58 93 05/15/19 03:46 98.9 F 82 18 111/45 100 05/14/19 22:59 99.4 F 89 18 131/51 91 05/14/19 22:00 96 H 05/14/19 21:21 90 16 05/14/19 21:10 98 H 16 05/14/19 19:13 98.0 F 90 18 138/56 93 05/14/19 18:30 98.2 F 90 18 152/75 05/14/19 17:45 90 156/70 05/14/19 17:30 92 H 156/72 05/14/19 17:15 89 140/71 05/14/19 17:00 92 H 171/70 05/14/19 16:45 92 H 168/78 05/14/19 16:30 93 H 175/79 05/14/19 16:15 88 168/70 05/14/19 16:00 88 168/72 05/14/19 15:45 89 160/73 05/14/19 15:30 91 H 196/91 05/14/19 15:15 97.9 F 92 H 18 160/78 05/14/19 13:19 94 H 16 05/14/19 11:11 97.9 F 89 18 184/72 97 - Physical Examination General: No Apparent Distress HEENT: Positive: PERRL Neck: Positive: neck supple Cardiac: Positive: Reg Rate and Rhythm Lungs: Positive: Decreased Breath Sounds Neuro: Positive: Grossly Intact Abdomen: Positive: Soft, Active Bowel Sounds - Labs and Meds CBC 05/15/19 Range/Units 05:24 WBC 6.1 (4.5-11.0) K/mm3 RBC 2.97 L (3.65-5.03) M/mm3 Hgb 8.8 L (10.1-14.3) gm/dl Hct 27.0 L (30.3-42.9) % Plt Count 229 (140-440) K/mm3 Lymph # 0.3 L (1.2-5.4) K/mm3 King # 0.4 (0.0-0.8) K/mm3 Eos # 0.0 (0.0-0.4) K/mm3 Baso # 0.0 (0.0-0.1) K/mm3 Comprehensive Metabolic Panel 05/15/19 Range/Units 05:24 Sodium 136 L (137-145) mmol/L Potassium 4.5 (3.6-5.0) mmol/L Chloride 93.8 L (98-107) mmol/L Carbon Dioxide 24 (22-30) mmol/L BUN 50 H (7-17) mg/dL Creatinine 6.7 H (0.7-1.2) mg/dL Glucose 209 H (65-100) mg/dL Calcium 7.6 L (8.4-10.2) mg/dL
[2019-05-15] MEDS: cephALEXin 250 MG CAP PO SCH (10:59)
[2019-05-15] MEDS: EPOETIN ALFA 10,000 UNIT/1 ML INJ IV PRN (16:35)
[2019-05-15] MEDS ORDERED: SODIUM CHLORIDE*PRIMING MACHINE ONLY FOR DIALYSIS MC ONE (17:02)
--- NOTE | 2019-05-15 20:13 | Progress Note ---
Assessment and Plan Assessment and plan: 63-year-old woman with end-stage renal disease on peritoneal dialysis who was asked to return to hospital for abnormal echo. Patient underwent pericardiocentesis on 05/13/2019, hemodialysis initiated, nephr ology and the patient want to continue hemodialysis Case management assisting to secure outpatient HD chair time --Moderate to large pericardial effusion; Status post pericardiocentesis 05/13/2019 Hydromorphone of 1.2 L pericardial fluid Symptoms significantly improved Cardiology cleared for discharge --End-stage renal disease on peritoneal dialysis; Converted to hemodialysisn , HD per scheduled Nephrology following. If nephrology recommend hemodialysis Case management to set up outpatient HD chair time --Acute bronchitis; continues to have mild shortness of breath and cough bronchodilators and steroids and antibiotics Symptoms resolved --Hypertension; moderate control Continue current antihypertensives and when necessary medications --Ongoing tobacco use; smoking cessation counseling Nicotine patch as needed --Preventive care counseling done spent 15 minutes --DVT prophylaxis; heparin, renal dose Monitor closely and adjust management as needed Disposition; nephrology recommendations For long-term hemodialysis , out patient HD scheduling per Plan of care reviewed with the patient and her nurse History Interval history: Patient seen and examined in dialysis unit Patient is receiving dialysis no new complaints Anxious to be discharged Denies chest pain Denies shortness of breath No nausea no vomiting Vital signs reviewed Hospitalist Physical - Constitutional Vitals: Temp Pulse Resp BP Pulse Ox 98.4 F 92 H 18 163/70 93 05/15/19 19:23 05/15/19 19:23 05/15/19 19:23 05/15/19 19:23 05/15/19 19:23 General appearance: Present: no acute distress, well-nourished - EENT Eyes: Present: PERRL, EOM intact - Neck Neck: Present: supple, normal ROM - Respiratory Respiratory effort: normal Respiratory: bilateral: diminished, negative: rales, rhonchi, wheezing - Cardiovascular Rhythm: regular Heart Sounds: Present: S1 & S2 - Extremities Extremities: no ischemia, No edema - Abdominal General gastrointestinal: soft, non-tender, non-distended, normal bowel sounds - Integumentary Integumentary: Present: clear, warm - Psychiatric Psychiatric: appropriate mood/affect, cooperative - Neurologic Neurologic: moves all extremities PANCHO score - Pancho Score Age > 65: (0) No Aspirin use within the Past 7 Days: (0) No 3 or more CAD Risk Factors: (0) No 2 or more Angina events in past 24 hrs: (1) Yes Known CAD with more than 50% Stenosis: (0) No Elevated Cardiac Markers: (0) No ST Deviation Greater than 0.5mm: (0) No PANCHO Score: 1 Results - Labs CBC & Chem 7: 05/15/19 05:24 05/15/19 05:24 Labs: Laboratory Last Values WBC 6.1 K/mm3 (4.5-11.0) 05/15/19 05:24 RBC 2.97 M/mm3 (3.65-5.03) L 05/15/19 05:24 Hgb 8.8 gm/dl (10.1-14.3) L 05/15/19 05:24 Hct 27.0 % (30.3-42.9) L 05/15/19 05:24 MCV 91 fl (79-97) 05/15/19 05:24 MCH 30 pg (28-32) 05/15/19 05:24 MCHC 33 % (30-34) 05/15/19 05:24 RDW 14.9 % (13.2-15.2) 05/15/19 05:24 Plt Count 229 K/mm3 (140-440) 05/15/19 05:24 Lymph % (Auto) 4.3 % (13.4-35.0) L 05/15/19 05:24 [place] % (Auto) 6.5 % (0.0-7.3) 05/15/19 05:24 Eos % (Auto) 0.0 % (0.0-4.3) 05/15/19 05:24 Baso % (Auto) 0.1 % (0.0-1.8) 05/15/19 05:24 Lymph # 0.3 K/mm3 (1.2-5.4) L 05/15/19 05:24 [place]ward # 0.4 K/mm3 (0.0-0.8) 05/15/19 05:24 Eos # 0.0 K/mm3 (0.0-0.4) 05/15/19 05:24 Baso # 0.0 K/mm3 (0.0-0.1) 05/15/19 05:24 Add Manual Diff Complete 05/14/19 04:01 Total Counted 100 05/14/19 04:01 Seg Neutrophils % 89.1 % (40.0-70.0) H 05/15/19 05:24 Seg Neuts % (Manual) 95.0 % (40.0-70.0) H 05/14/19 04:01 Band Neutrophils % 0 % 05/14/19 04:01 Lymphocytes % (Manual) 1.0 % (13.4-35.0) L 05/14/19 04:01 Reactive Lymphs % (Man) 0 % 05/14/19 04:01 Monocytes % (Manual) 3.0 % (0.0-7.3) 05/14/19 04:01 Eosinophils % (Manual) 0 % (0.0-4.3) 05/14/19 04:01 Basophils % (Manual) 1.0 % (0.0-1.8) 05/14/19 04:01 Metamyelocytes % 0 % 05/14/19 04:01 Myelocytes % 0 % 05/14/19 04:01 Promyelocytes % 0 % 05/14/19 04:01 Blast Cells % 0 % 05/14/19 04:01 Nucleated RBC % Not Reportable 05/14/19 04:01 Seg Neutrophils # 5.4 K/mm3 (1.8-7.7) 05/15/19 05:24 Seg Neutrophils # Man 7.3 K/mm3 (1.8-7.7) 05/14/19 04:01 Band Neutrophils # 0.0 K/mm3 05/14/19 04:01 Lymphocytes # (Manual) 0.1 K/mm3 (1.2-5.4) L 05/14/19 04:01 Abs React Lymphs (Man) 0.0 K/mm3 05/14/19 04:01 Monocytes # (Manual) 0.2 K/mm3 (0.0-0.8) 05/14/19 04:01 Eosinophils # (Manual) 0.0 K/mm3 (0.0-0.4) 05/14/19 04:01 Basophils # (Manual) 0.1 K/mm3 (0.0-0.1) 05/14/19 04:01 Metamyelocytes # 0.0 K/mm3 05/14/19 04:01 Myelocytes # 0.0 K/mm3 05/14/19 04:01 Promyelocytes # 0.0 K/mm3 05/14/19 04:01 Blast Cells # 0.0 K/mm3 05/14/19 04:01 WBC Morphology Not Reportable 05/14/19 04:01 Hypersegmented Neuts Not Reportable 05/14/19 04:01 Hyposegmented Neuts Not Reportable 05/14/19 04:01 Hypogranular Neuts Not Reportable 05/14/19 04:01 Smudge Cells Not Reportable 05/14/19 04:01 Toxic Granulation Not Reportable 05/14/19 04:01 Toxic Vacuolation Not Reportable 05/14/19 04:01 Dohle Bodies Not Reportable 05/14/19 04:01 Pelger-Huet Anomaly Not Reportable 05/14/19 04:01 Jomar Rods Not Reportable 05/14/19 04:01 Platelet Estimate Consistent w auto 05/14/19 04:01 Clumped Platelets Not Reportable 05/14/19 04:01 Plt Clumps, EDTA Not Reportable 05/14/19 04:01 Large Platelets Not Reportable 05/14/19 04:01 Giant Platelets Not Reportable 05/14/19 04:01 Platelet Satelliting Not Reportable 05/14/19 04:01 Plt Morphology Comment Not Reportable 05/14/19 04:01 RBC Morphology Not Reportable 05/14/19 04:01 Dimorphic RBCs Not Reportable 05/14/19 04:01 Polychromasia Not Reportable 05/14/19 04:01 Hypochromasia Not Reportable 05/14/19 04:01 Poikilocytosis Not Reportable 05/14/19 04:01 Anisocytosis 1+ 05/14/19 04:01 Microcytosis Not Reportable 05/14/19 04:01 Macrocytosis 1+ 05/14/19 04:01 Spherocytes Not Reportable 05/14/19 04:01 Pappenheimer Bodies Not Reportable 05/14/19 04:01 Sickle Cells Not Reportable 05/14/19 04:01 Target Cells Not Reportable 05/14/19 04:01 Tear Drop Cells Not Reportable 05/14/19 04:01 Ovalocytes Not Reportable 05/14/19 04:01 Helmet Cells Not Reportable 05/14/19 04:01 [place] Bodies Not Reportable 05/14/19 04:01 [place] Rings Not Reportable 05/14/19 04:01 Cecil Cells Not Reportable 05/14/19 04:01 Bite Cells Not Reportable 05/14/19 04:01 Crenated Cell Not Reportable 05/14/19 04:01 Elliptocytes Not Reportable 05/14/19 04:01 Acanthocytes (Spur) Not Reportable 05/14/19 04:01 Rouleaux Not Reportable 05/14/19 04:01 Hemoglobin C Crystals Not Reportable 05/14/19 04:01 Schistocytes Not Reportable 05/14/19 04:01 Malaria parasites Not Reportable 05/14/19 04:01 Oral Bodies Not Reportable 05/14/19 04:01 Hem Pathologist Commnt No 05/14/19 04:01 PT 13.9 Sec. (12.2-14.9) 05/12/19 16:16 PT 14.4 Sec. (12.2-14.9) 05/12/19 16:16 INR 1.06 (0.87-1.13) 05/12/19 16:16 INR 1.11 (0.87-1.13) 05/12/19 16:16 APTT 37.5 Sec. (24.2-36.6) H 05/12/19 16:16 Sodium 136 mmol/L (137-145) L 05/15/19 05:24 Potassium 4.5 mmol/L (3.6-5.0) 05/15/19 05:24 Chloride 93.8 mmol/L (98-107) L 05/15/19 05:24 Carbon Dioxide 24 mmol/L (22-30) 05/15/19 05:24 Anion Gap 23 mmol/L 05/15/19 05:24 BUN 50 mg/dL (7-17) H 05/15/19 05:24 Creatinine 6.7 mg/dL (0.7-1.2) H 05/15/19 05:24 Estimated GFR 8 ml/min 05/15/19 05:24 BUN/Creatinine Ratio 7 % 05/15/19 05:24 Glucose 209 mg/dL (65-100) H 05/15/19 05:24 POC Glucose 142 (70-105) H 05/13/19 06:31 Calcium 7.6 mg/dL (8.4-10.2) L 05/15/19 05:24 Phosphorus 7.20 mg/dL (2.5-4.5) H 05/13/19 06:53 Magnesium 2.20 mg/dL (1.7-2.3) 05/13/19 06:53 Fluid Type Pericardial 05/13/19 11:30 Fluid Color Bloody 05/13/19 11:30 Fluid Appearance Bloody 05/13/19 11:30 Fluid WBC 95 /mm3 05/13/19 11:30 Fluid RBC 314612 /mm3 05/13/19 11:30 Fluid Diff Comment 05/13/19 11:30 Fluid Seg Neutrophils 14.0 % 05/13/19 11:30 Fluid Lymphocytes 68.0 % 05/13/19 11:30 Fluid Reactive Lymphs 0 % 05/13/19 11:30 Fluid Monocytes 18.0 % 05/13/19 11:30 Fluid Eosinophils 0 % 05/13/19 11:30 Fluid Basophils 0 % 05/13/19 11:30 Hepatitis A IgM Ab Non-reactive (NonReactive) 05/14/19 13:48 Hep Bs Antigen Non-reactive (Negative) 05/14/19 13:48 Hep B Core IgM Ab Non-reactive (NonReactive) 05/14/19 13:48 Hepatitis C Antibody Non-reactive (NonReactive) 05/14/19 13:48 AFB Identification 05/13/19 11:30 Active Medications - Current Medications Current Medications: Generic Name Dose Route Start Last Admin Trade Name Freq PRN Reason Stop Dose Admin Acetaminophen 650 mg 05/10/19 17:57 05/13/19 18:32 Tylenol PO 650 mg Q4H PRN Administration Pain MILD(1-3)/Fever >100.5/NOVAK Albumin Human 25 gm 05/14/19 13:28 Alburx 25% (Albumin) IV DARSHAN PRN Hypotension Albuterol/Ipratropium 1 ampul 05/12/19 08:00 05/15/19 13:14 Duoneb *Not For Prn Use* IH 1 ampul TIDRT FROY Administration Aspirin 81 mg 05/11/19 10:00 05/15/19 09:20 Halfprin Ec PO 81 mg DAILY FROY Administration Bisacodyl 10 mg 05/14/19 18:38 Dulcolax [place] QDAY PRN Constipation Budesonide 0.5 mg 05/10/19 20:00 05/15/19 08:35 Pulmicort IH 0.5 mg Q12HRT FROY Administration Carvedilol 25 mg 05/10/19 22:00 05/15/19 17:44 Coreg PO 25 mg BID@0800,1700 FROY Administration Cephalexin 250 mg 05/15/19 10:00 05/15/19 10:59 Keflex PO 05/20/19 10:01 250 mg Q24HR FROY Administration Cinacalcet 60 mg 05/10/19 21:00 05/15/19 09:19 Sensipar PO 60 mg QDAY FROY Administration Epoetin Tirso 10,000 unit 05/14/19 13:29 05/15/19 16:35 Procrit IV 10,000 unit DARSHAN PRN Administration hemodialysis Furosemide 80 mg 05/11/19 11:00 05/15/19 17:45 Lasix IV 80 mg 0600,1800 FROY Administration Heparin Sodium (Porcine) 5,000 unit 05/10/19 22:00 05/15/19 17:45 Heparin SUB-Q 5,000 unit Q8HR FROY Administration Hydralazine HCl 100 mg 05/10/19 20:00 05/15/19 17:45 Apresoline PO 100 mg TID FROY Administration Sodium Chloride 100 mls @ 999 mls/hr 05/14/19 13:28 Nacl 0.9% IV DARSHAN PRN Hypotension Lactobacillus Rhamnosus 1 each 05/13/19 12:00 05/15/19 09:20 Culturelle PO 1 each DAILY FROY Administration Lactulose 20 gm 05/14/19 14:00 05/15/19 09:20 Cephulac PO 20 gm BID FROY Administration Magnesium Hydroxide 30 ml 05/14/19 18:38 05/14/19 21:57 Milk Of Magnesia PO 30 ml QDAY PRN Administration Constipation Methylprednisolone Sodium Succinate 40 mg 05/10/19 22:00 05/15/19 09:20 Solu-Medrol IV 40 mg Q12HR FROY Administration Morphine Sulfate 2 mg 05/10/19 17:57 05/13/19 17:04 Morphine IV 2 mg Q4H PRN Administration Pain, Moderate (4-6) Multivit/Ca Carb/B Cmplx/FA/Prenat 1 cap 05/13/19 12:00 05/15/19 09:19 Renal Caps PO 1 cap QDAY FROY Administration Nicotine 14 mg 05/11/19 10:00 05/15/19 09:20 Habitrol TD 14 mg QDAY FROY Administration Nifedipine 60 mg 05/10/19 22:00 05/15/19 09:20 Procardia Xl PO 60 mg BID FROY Administration Ondansetron HCl 4 mg 05/10/19 17:57 Zofran IV Q8H PRN Nausea And Vomiting Oxycodone/Acetaminophen 1 tab 05/10/19 17:57 05/15/19 19:19 Percocet 5/325 PO 1 tab Q6H PRN Administration Pain, Moderate (4-6) Pantoprazole Sodium 40 mg 05/12/19 18:00 05/15/19 09:20 Protonix PO 40 mg QDAY FROY Administration Sodium Bicarbonate 650 mg 05/11/19 20:00 05/15/19 17:44 Sodium Bicarbonate PO 650 mg TID FROY Administration Sodium Chloride 10 ml 05/10/19 22:00 05/15/19 09:21 Sodium Chloride Flush Syringe 10 Ml IV 10 ml BID FROY Administration Sodium Chloride 10 ml 05/10/19 17:57 Sodium Chloride Flush Syringe 10 Ml IV PRN PRN LINE FLUSH
[2019-05-16 05:33] LABS: Basophils % (Auto) 0.1 % (0.0-1.8); Hematocrit 26.9 % (30.3-42.9); Hemoglobin 8.7 gm/dl (10.1-14.3); Lymphocytes # (Auto) 0.3 K/mm3 (1.2-5.4); Lymphocytes % (Auto) 4.1 % (13.4-35.0); Mean Corpuscular HGB Conc 32 % (30-34); Mean Corpuscular Volume 91 fl (79-97); Monocytes # (Auto) 0.6 K/mm3 (0.0-0.8); Monocytes % (Auto) 8.5 % (0.0-7.3); Platelet Count 244 K/mm3 (140-440); Red Blood Count 2.95 M/mm3 (3.65-5.03); Red Cell Distribution Width 14.8 % (13.2-15.2)
[2019-05-16 05:47] LABS: Calcium 7.7 mg/dL (8.4-10.2)
[2019-05-16] MEDS: HEPARIN 5,000 UNIT/1 ML VIAL SUB-Q SCH ×3 (06:06→23:21)
[2019-05-16] MEDS: oxyCODONE /ACETAMINOPHEN 5-325MG TAB PO PRN ×3 (06:06→23:27)
[2019-05-16] MEDS: FUROSEMIDE 40 MG/4 ML INJ IV SCH ×2 (06:06→18:51)
--- NOTE | 2019-05-16 10:04 | Progress Note ---
Assessment and Plan Large pericardial effusion without tamponade s/p pericardiocentesis; 1200 ml fluid removed a repeat limited echocardiogram shows a small reaccumulation of the pericardial effusion. normal LVEF 55-60% ESRD -transitioned from PD to HD this admission Htn Anemia Stable cardiac calderón. Once discharged patient advised to follow up in our office within 1 week for a repeat echocardiogram. Subjective Date of service: 05/16/19 Principal diagnosis: esrd Interval history: Patient has no cardiac complaints. No events on telemetry monitoring. Objective Vital Signs Temp Pulse Pulse Resp Resp BP Pulse Ox 05/16/19 08:59 98.0 F 89 18 152/61 94 05/16/19 06:06 20 05/16/19 03:58 98.3 F 93 H 18 162/75 98 05/15/19 22:52 98.8 F 96 H 18 169/76 92 05/15/19 22:00 94 H 05/15/19 21:08 96 H 20 05/15/19 19:23 98.4 F 92 H 18 163/70 93 05/15/19 16:40 98.7 F 90 20 163/83 05/15/19 16:35 90 170/84 05/15/19 16:30 90 152/82 05/15/19 16:15 90 162/83 05/15/19 16:00 88 162/85 05/15/19 15:45 88 163/77 05/15/19 15:30 90 161/82 05/15/19 15:15 89 160/80 05/15/19 15:00 87 156/77 05/15/19 14:45 87 164/80 05/15/19 14:30 84 140/77 05/15/19 14:15 84 140/77 05/15/19 14:00 85 145/78 05/15/19 13:45 87 159/83 05/15/19 13:35 86 161/84 05/15/19 13:20 97.6 F 87 18 155/80 05/15/19 13:14 83 18 05/15/19 11:44 98.0 F 87 18 130/64 100 - Physical Examination General: No Apparent Distress HEENT: Positive: PERRL Neck: Positive: neck supple Cardiac: Positive: Reg Rate and Rhythm Lungs: Positive: Decreased Breath Sounds Neuro: Positive: Grossly Intact Abdomen: Positive: Soft, Active Bowel Sounds Extremities: Present: +1 Edema - Labs and Meds CBC 05/16/19 Range/Units 04:11 WBC 6.8 (4.5-11.0) K/mm3 RBC 2.95 L (3.65-5.03) M/mm3 Hgb 8.7 L (10.1-14.3) gm/dl Hct 26.9 L (30.3-42.9) % Plt Count 244 (140-440) K/mm3 Lymph # 0.3 L (1.2-5.4) K/mm3 Cherry # 0.6 (0.0-0.8) K/mm3 Eos # 0.0 (0.0-0.4) K/mm3 Baso # 0.0 (0.0-0.1) K/mm3 Comprehensive Metabolic Panel 05/16/19 Range/Units 04:11 Sodium 137 (137-145) mmol/L Potassium 4.4 (3.6-5.0) mmol/L Chloride 96.0 L (98-107) mmol/L Carbon Dioxide 28 (22-30) mmol/L BUN 25 H (7-17) mg/dL Creatinine 4.5 H (0.7-1.2) mg/dL Glucose 190 H (65-100) mg/dL Calcium 7.7 L (8.4-10.2) mg/dL
--- NOTE | 2019-05-16 10:27 | Progress Note ---
Assessment and Plan Impression: * End stage renal disease on peritoneal dialysis - followed by Dr. Rodgers * Pericardial effusion - no tamponade physiology * Uremia: loss of appetite, fatigue, uremic fetor * Hyperkalemia * Metabolic acidosis * Hyponatremia * Anemia secondary to ESRD * Secondary hyperparathyroidism Plan: * stopped CAPD - plan on hemodialysis for 3 consecutive days then thrice weekly * s/p pericardiocentesis on Monday * she has improved, continue solute clearance * Epogen TIW prn and Renal diet * added lacutulose * will need outpatient hd placement, plan on [facility] or [email or web address] Subjective Date of service: 05/16/19 Principal diagnosis: esrd Interval history: resting well in bed today Objective - Exam Narrative Exam: General appearance: well-developed, well-nourished EENT: ATNC Respiratory: Present: Clear to Ascultation Cardiology: regular, S1S2 Gastrointestinal: normal, no tenderness, no distended Integumentary: no rash, warm and dry Neurologic: no focal deficit, alert and oriented x3 Psychiatric: cooperative - Vital Signs Vital signs: Vital Signs - 12hr 05/15/19 05/16/19 05/16/19 22:52 03:58 06:06 Temperature 98.8 F 98.3 F Pulse Rate 96 H 93 H Respiratory 18 18 20 Rate Blood Pressure 169/76 162/75 O2 Sat by Pulse 92 98 Oximetry 05/16/19 08:59 Temperature 98.0 F Pulse Rate 89 Respiratory 18 Rate Blood Pressure 152/61 O2 Sat by Pulse 94 Oximetry - Lab 05/16/19 04:11 05/16/19 04:11 Most recent lab results Calcium 7.7 mg/dL (8.4-10.2) L 05/16/19 04:11 Phosphorus 7.20 mg/dL (2.5-4.5) H 05/13/19 06:53 Magnesium 2.20 mg/dL (1.7-2.3) 05/13/19 06:53 Medications & Allergies - Medications Allergies/Adverse Reactions: Allergies No Known Allergies Allergy (Verified 08/21/18 15:07) Home Medications: Home Medications Medication Instructions Recorded Confirmed Last Taken Type Aspirin [Adult Low Dose Aspirin EC] 81 mg PO DAILY 11/24/16 05/10/19 05/08/19 History NIFEdipine [Nifedipine ER] 60 mg PO BID 11/24/16 05/10/19 05/08/19 History Cinacalcet HCl [Sensipar] 60 mg PO DAILY 08/21/18 05/10/19 05/08/19 History Dialyvite Chewable Probiotic 3,000 mg PO DAILY 08/21/18 05/10/19 05/08/19 History carvediloL [Coreg] 25 mg PO BID 08/21/18 05/10/19 05/08/19 History hydrALAZINE [Apresoline TAB] 100 mg PO TID 08/21/18 05/10/19 05/08/19 History Acetaminophen/Codeine [Tylenol 1 tab PO Q6H PRN #14 tab 05/10/19 05/10/19 Unknown Rx /Codeine # 3 tab] Albuterol INH(or & Nicu Only) 2 puff IH QID PRN #8.5 gram 05/10/19 05/10/19 Unknown Rx [ProAir HFA Inhaler] Cefdinir 300 mg PO BID #6 capsule 05/10/19 05/10/19 Unknown Rx Nicotine [Habitrol] 14 mg TD QDAY #30 patch 05/10/19 05/10/19 Unknown Rx Prednisone [predniSONE 10 mg 10 mg PO .TAPER #1 tab.ds.pk 05/10/19 05/10/19 Unknown Rx (6-Day Pack, 21 Tabs)] Active Medications: Generic Name Dose Route Start Last Admin Trade Name Freq PRN Reason Stop Dose Admin Acetaminophen 650 mg 05/10/19 17:57 05/13/19 18:32 Tylenol PO 650 mg Q4H PRN Administration Pain MILD(1-3)/Fever >100.5/NOVAK Albumin Human 25 gm 05/14/19 13:28 Alburx 25% (Albumin) IV DARSHAN PRN Hypotension Albuterol/Ipratropium 1 ampul 05/12/19 08:00 05/15/19 21:06 Duoneb *Not For Prn Use* IH 1 ampul TIDRT FROY Administration Aspirin 81 mg 05/11/19 10:00 05/15/19 09:20 Halfprin Ec PO 81 mg DAILY FROY Administration Bisacodyl 10 mg 05/14/19 18:38 Dulcolax [place] QDAY PRN Constipation Budesonide 0.5 mg 05/10/19 20:00 05/15/19 21:05 Pulmicort IH 0.5 mg Q12HRT FROY Administration Carvedilol 25 mg 05/10/19 22:00 05/15/19 17:44 Coreg PO 25 mg BID@0800,1700 FROY Administration Cephalexin 250 mg 05/15/19 10:00 05/15/19 10:59 Keflex PO 05/20/19 10:01 250 mg Q24HR FROY Administration Cinacalcet 60 mg 05/10/19 21:00 05/15/19 09:19 Sensipar PO 60 mg QDAY FROY Administration Epoetin Tirso 10,000 unit 05/14/19 13:29 05/15/19 16:35 Procrit IV 10,000 unit DARSHAN PRN Administration hemodialysis Furosemide 80 mg 05/11/19 11:00 05/16/19 06:06 Lasix IV 80 mg 0600,1800 FROY Administration Heparin Sodium (Porcine) 5,000 unit 05/10/19 22:00 05/16/19 06:06 Heparin SUB-Q 5,000 unit Q8HR FROY Administration Hydralazine HCl 100 mg 05/10/19 20:00 05/15/19 21:19 Apresoline PO 100 mg TID FROY Administration Sodium Chloride 100 mls @ 999 mls/hr 05/14/19 13:28 Nacl 0.9% IV DARSHAN PRN Hypotension Lactobacillus Rhamnosus 1 each 05/13/19 12:00 05/15/19 09:20 Culturelle PO 1 each DAILY FROY Administration Lactulose 20 gm 05/14/19 14:00 05/15/19 21:19 Cephulac PO 20 gm BID FROY Administration Magnesium Hydroxide 30 ml 05/14/19 18:38 05/14/19 21:57 Milk Of Magnesia PO 30 ml QDAY PRN Administration Constipation Methylprednisolone Sodium Succinate 40 mg 05/10/19 22:00 05/15/19 21:20 Solu-Medrol IV 40 mg Q12HR FROY Administration Morphine Sulfate 2 mg 05/10/19 17:57 05/13/19 17:04 Morphine IV 2 mg Q4H PRN Administration Pain, Moderate (4-6) Multivit/Ca Carb/B Cmplx/FA/Prenat 1 cap 05/13/19 12:00 05/15/19 09:19 Renal Caps PO 1 cap QDAY RFOY Administration Nicotine 14 mg 05/11/19 10:00 05/15/19 09:20 Habitrol TD 14 mg QDAY FROY Administration Nifedipine 60 mg 05/10/19 22:00 05/15/19 21:19 Procardia Xl PO 60 mg BID FROY Administration Ondansetron HCl 4 mg 05/10/19 17:57 Zofran IV Q8H PRN Nausea And Vomiting Oxycodone/Acetaminophen 1 tab 05/10/19 17:57 05/16/19 06:06 Percocet 5/325 PO 1 tab Q6H PRN Administration Pain, Moderate (4-6) Pantoprazole Sodium 40 mg 05/12/19 18:00 05/15/19 09:20 Protonix PO 40 mg QDAY FROY Administration Sodium Bicarbonate 650 mg 05/11/19 20:00 05/15/19 21:19 Sodium Bicarbonate PO 650 mg TID FROY Administration Sodium Chloride 10 ml 05/10/19 22:00 05/15/19 21:20 Sodium Chloride Flush Syringe 10 Ml IV 10 ml BID FROY Administration Sodium Chloride 10 ml 05/10/19 17:57 Sodium Chloride Flush Syringe 10 Ml IV PRN PRN LINE FLUSH
[2019-05-16] MEDS: IPRATROPIUM/ALBUTEROL SULFATE 3 ML AMPUL.NEB IH SCH ×3 (10:33→21:25)
[2019-05-16] MEDS: BUDESONIDE 0.5 MG/2 ML NEBU IH SCH ×2 (10:34→21:26)
[2019-05-16] MEDS: CINACALCET 30 MG TAB PO SCH (11:59)
[2019-05-16] MEDS: FOLIC ACID/VIT B COMP W-C 1 MG (RENAL CAPS) PO SCH (11:59)
[2019-05-16] MEDS: NICOTINE 14 MG/24 HR PATCH TD SCH (11:59)
[2019-05-16] MEDS: NIFEdipine XL 60 MG TAB PO SCH ×2 (11:59→23:19)
[2019-05-16] MEDS: PANTOPRAZOLE 40 MG TAB PO SCH (12:00)
[2019-05-16] MEDS: methylPREDNISolone Sod Succinate 40 MG/1 ML INJ IV SCH ×2 (12:00→23:19)
[2019-05-16] MEDS: carvediloL 25 MG TAB PO SCH ×2 (12:00→18:51)
[2019-05-16] MEDS: ASPIRIN EC 81 MG TAB PO SCH (12:00)
[2019-05-16] MEDS: LACTULOSE 20 GM/30 ML ORAL LIQD PO SCH ×2 (12:00→23:28)
[2019-05-16] MEDS: hydrALAZINE 100 MG TAB PO SCH ×3 (12:00→23:19)
[2019-05-16] MEDS: cephALEXin 250 MG CAP PO SCH (12:01)
[2019-05-16] MEDS: SODIUM BICARBONATE 650 MG TAB PO SCH ×3 (12:10→23:37)
[2019-05-16] MEDS: LACTOBACILLUS RHAMNOSUS GG 1 EACH CAP PO SCH (12:11)
[2019-05-16] MEDS ORDERED: SODIUM CHLORIDE 0.9% 100 ML IV PRN ×2 (12:28→16:45)
[2019-05-16] MEDS ORDERED: SODIUM CHLORIDE*PRIMING MACHINE ONLY FOR DIALYSIS MC ONE ×2 (16:12→16:28)
--- NOTE | 2019-05-16 19:32 | Progress Note ---
Assessment and Plan Assessment and plan: 63-year-old woman with end-stage renal disease on peritoneal dialysis who was asked to return to hospital for abnormal echo. Patient underwent pericardiocentesis on 05/13/2019, hemodialysis initiated, nephr famy and the patient want to continue hemodialysis Case management assisting to secure outpatient HD chair time --Moderate to large pericardial effusion; Status post pericardiocentesis 05/13/2019 Hydromorphone of 1.2 L pericardial fluid Symptoms significantly improved Recommend follow-up echocardiogram prior to discharge --End-stage renal disease on peritoneal dialysis; Converted to hemodialysisn , HD per scheduled Nephrology following. If nephrology recommend hemodialysis Case management to set up outpatient HD chair time --Acute bronchitis; continues to have mild shortness of breath and cough bronchodilators and steroids and antibiotics Symptoms resolved --Hypertension; moderate control Continue current antihypertensives and when necessary medications --Ongoing tobacco use; smoking cessation counseling Nicotine patch as needed --Preventive care counseling done spent 15 minutes --DVT prophylaxis; heparin, renal dose Monitor closely and adjust management as needed Disposition; nephrology recommendations For long-term hemodialysis , out patient HD scheduling per Plan of care reviewed with the patient and her nurse History Interval history: Patient seen and examined Patient's chart and overnight events reviewed Patient feels slightly better Still has mild shortness of breath and cough Receiving hemodialysis per schedule Vital signs noted Hospitalist Physical - Constitutional Vitals: Temp Pulse Resp BP Pulse Ox 99.1 F 88 18 146/80 96 05/16/19 17:00 05/16/19 17:00 05/16/19 17:00 05/16/19 17:00 05/16/19 17:00 General appearance: Present: mild distress, well-nourished - EENT Eyes: Present: PERRL, EOM intact - Neck Neck: Present: supple, normal ROM - Respiratory Respiratory effort: normal Respiratory: bilateral: diminished, wheezing, negative: rales, rhonchi - Cardiovascular Rhythm: regular Heart Sounds: Present: S1 & S2 - Extremities Extremities: no ischemia, No edema - Abdominal General gastrointestinal: soft, non-tender, non-distended, normal bowel sounds - Integumentary Integumentary: Present: clear, warm - Psychiatric Psychiatric: appropriate mood/affect, cooperative - Neurologic Neurologic: moves all extremities PANCHO score - Pancho Score Age > 65: (0) No Aspirin use within the Past 7 Days: (0) No 3 or more CAD Risk Factors: (0) No 2 or more Angina events in past 24 hrs: (1) Yes Known CAD with more than 50% Stenosis: (0) No Elevated Cardiac Markers: (0) No ST Deviation Greater than 0.5mm: (0) No PANCHO Score: 1 Results - Labs CBC & Chem 7: 05/17/19 03:47 05/17/19 03:47 Labs: Laboratory Last Values WBC 6.8 K/mm3 (4.5-11.0) 05/16/19 04:11 RBC 2.95 M/mm3 (3.65-5.03) L 05/16/19 04:11 Hgb 8.7 gm/dl (10.1-14.3) L 05/16/19 04:11 Hct 26.9 % (30.3-42.9) L 05/16/19 04:11 MCV 91 fl (79-97) 05/16/19 04:11 MCH 29 pg (28-32) 05/16/19 04:11 MCHC 32 % (30-34) 05/16/19 04:11 RDW 14.8 % (13.2-15.2) 05/16/19 04:11 Plt Count 244 K/mm3 (140-440) 05/16/19 04:11 Lymph % (Auto) 4.1 % (13.4-35.0) L 05/16/19 04:11 [place] % (Auto) 8.5 % (0.0-7.3) H 05/16/19 04:11 Eos % (Auto) 0.0 % (0.0-4.3) 05/16/19 04:11 Baso % (Auto) 0.1 % (0.0-1.8) 05/16/19 04:11 Lymph # 0.3 K/mm3 (1.2-5.4) L 05/16/19 04:11 [place] # 0.6 K/mm3 (0.0-0.8) 05/16/19 04:11 Eos # 0.0 K/mm3 (0.0-0.4) 05/16/19 04:11 Baso # 0.0 K/mm3 (0.0-0.1) 05/16/19 04:11 Add Manual Diff Complete 05/14/19 04:01 Total Counted 100 05/14/19 04:01 Seg Neutrophils % 87.3 % (40.0-70.0) H 05/16/19 04:11 Seg Neuts % (Manual) 95.0 % (40.0-70.0) H 05/14/19 04:01 Band Neutrophils % 0 % 05/14/19 04:01 Lymphocytes % (Manual) 1.0 % (13.4-35.0) L 05/14/19 04:01 Reactive Lymphs % (Man) 0 % 05/14/19 04:01 Monocytes % (Manual) 3.0 % (0.0-7.3) 05/14/19 04:01 Eosinophils % (Manual) 0 % (0.0-4.3) 05/14/19 04:01 Basophils % (Manual) 1.0 % (0.0-1.8) 05/14/19 04:01 Metamyelocytes % 0 % 05/14/19 04:01 Myelocytes % 0 % 05/14/19 04:01 Promyelocytes % 0 % 05/14/19 04:01 Blast Cells % 0 % 05/14/19 04:01 Nucleated RBC % Not Reportable 05/14/19 04:01 Seg Neutrophils # 5.9 K/mm3 (1.8-7.7) 05/16/19 04:11 Seg Neutrophils # Man 7.3 K/mm3 (1.8-7.7) 05/14/19 04:01 Band Neutrophils # 0.0 K/mm3 05/14/19 04:01 Lymphocytes # (Manual) 0.1 K/mm3 (1.2-5.4) L 05/14/19 04:01 Abs React Lymphs (Man) 0.0 K/mm3 05/14/19 04:01 Monocytes # (Manual) 0.2 K/mm3 (0.0-0.8) 05/14/19 04:01 Eosinophils # (Manual) 0.0 K/mm3 (0.0-0.4) 05/14/19 04:01 Basophils # (Manual) 0.1 K/mm3 (0.0-0.1) 05/14/19 04:01 Metamyelocytes # 0.0 K/mm3 05/14/19 04:01 Myelocytes # 0.0 K/mm3 05/14/19 04:01 Promyelocytes # 0.0 K/mm3 05/14/19 04:01 Blast Cells # 0.0 K/mm3 05/14/19 04:01 WBC Morphology Not Reportable 05/14/19 04:01 Hypersegmented Neuts Not Reportable 05/14/19 04:01 Hyposegmented Neuts Not Reportable 05/14/19 04:01 Hypogranular Neuts Not Reportable 05/14/19 04:01 Smudge Cells Not Reportable 05/14/19 04:01 Toxic Granulation Not Reportable 05/14/19 04:01 Toxic Vacuolation Not Reportable 05/14/19 04:01 Dohle Bodies Not Reportable 05/14/19 04:01 Pelger-Huet Anomaly Not Reportable 05/14/19 04:01 Jomar Rods Not Reportable 05/14/19 04:01 Platelet Estimate Consistent w auto 05/14/19 04:01 Clumped Platelets Not Reportable 05/14/19 04:01 Plt Clumps, EDTA Not Reportable 05/14/19 04:01 Large Platelets Not Reportable 05/14/19 04:01 Giant Platelets Not Reportable 05/14/19 04:01 Platelet Satelliting Not Reportable 05/14/19 04:01 Plt Morphology Comment Not Reportable 05/14/19 04:01 RBC Morphology Not Reportable 05/14/19 04:01 Dimorphic RBCs Not Reportable 05/14/19 04:01 Polychromasia Not Reportable 05/14/19 04:01 Hypochromasia Not Reportable 05/14/19 04:01 Poikilocytosis Not Reportable 05/14/19 04:01 Anisocytosis 1+ 05/14/19 04:01 Microcytosis Not Reportable 05/14/19 04:01 Macrocytosis 1+ 05/14/19 04:01 Spherocytes Not Reportable 05/14/19 04:01 Pappenheimer Bodies Not Reportable 05/14/19 04:01 Sickle Cells Not Reportable 05/14/19 04:01 Target Cells Not Reportable 05/14/19 04:01 Tear Drop Cells Not Reportable 05/14/19 04:01 Ovalocytes Not Reportable 05/14/19 04:01 Helmet Cells Not Reportable 05/14/19 04:01 [place] Bodies Not Reportable 05/14/19 04:01 [place] Rings Not Reportable 05/14/19 04:01 [place] Cells Not Reportable 05/14/19 04:01 Bite Cells Not Reportable 05/14/19 04:01 Crenated Cell Not Reportable 05/14/19 04:01 Elliptocytes Not Reportable 05/14/19 04:01 Acanthocytes (Spur) Not Reportable 05/14/19 04:01 Rouleaux Not Reportable 05/14/19 04:01 Hemoglobin C Crystals Not Reportable 05/14/19 04:01 Schistocytes Not Reportable 05/14/19 04:01 Malaria parasites Not Reportable 05/14/19 04:01 Oral Bodies Not Reportable 05/14/19 04:01 Hem Pathologist Commnt No 05/14/19 04:01 PT 13.9 Sec. (12.2-14.9) 05/12/19 16:16 PT 14.4 Sec. (12.2-14.9) 05/12/19 16:16 INR 1.06 (0.87-1.13) 05/12/19 16:16 INR 1.11 (0.87-1.13) 05/12/19 16:16 APTT 37.5 Sec. (24.2-36.6) H 05/12/19 16:16 Sodium 137 mmol/L (137-145) 05/16/19 04:11 Potassium 4.4 mmol/L (3.6-5.0) 05/16/19 04:11 Chloride 96.0 mmol/L (98-107) L 05/16/19 04:11 Carbon Dioxide 28 mmol/L (22-30) 05/16/19 04:11 Anion Gap 17 mmol/L 05/16/19 04:11 BUN 25 mg/dL (7-17) H 05/16/19 04:11 Creatinine 4.5 mg/dL (0.7-1.2) H 05/16/19 04:11 Estimated GFR 12 ml/min 05/16/19 04:11 BUN/Creatinine Ratio 6 % 05/16/19 04:11 Glucose 190 mg/dL (65-100) H 05/16/19 04:11 POC Glucose 142 (70-105) H 05/13/19 06:31 Calcium 7.7 mg/dL (8.4-10.2) L 05/16/19 04:11 Phosphorus 7.20 mg/dL (2.5-4.5) H 05/13/19 06:53 Magnesium 2.20 mg/dL (1.7-2.3) 05/13/19 06:53 Fluid Type Pericardial 05/13/19 11:30 Fluid Color Bloody 05/13/19 11:30 Fluid Appearance Bloody 05/13/19 11:30 Fluid WBC 95 /mm3 05/13/19 11:30 Fluid RBC 282828 /mm3 05/13/19 11:30 Fluid Diff Comment 05/13/19 11:30 Fluid Seg Neutrophils 14.0 % 05/13/19 11:30 Fluid Lymphocytes 68.0 % 05/13/19 11:30 Fluid Reactive Lymphs 0 % 05/13/19 11:30 Fluid Monocytes 18.0 % 05/13/19 11:30 Fluid Eosinophils 0 % 05/13/19 11:30 Fluid Basophils 0 % 05/13/19 11:30 Hepatitis A IgM Ab Non-reactive (NonReactive) 05/14/19 13:48 Hep Bs Antigen Non-reactive (Negative) 05/14/19 13:48 Hep B Core IgM Ab Non-reactive (NonReactive) 05/14/19 13:48 Hepatitis C Antibody Non-reactive (NonReactive) 05/14/19 13:48 AFB Identification 05/13/19 11:30 Active Medications - Current Medications Current Medications: Generic Name Dose Route Start Last Admin Trade Name Freq PRN Reason Stop Dose Admin Acetaminophen 650 mg 05/10/19 17:57 05/13/19 18:32 Tylenol PO 650 mg Q4H PRN Administration Pain MILD(1-3)/Fever >100.5/NOVAK Albumin Human 25 gm 05/14/19 13:28 Alburx 25% (Albumin) IV DARSHAN PRN Hypotension Albuterol/Ipratropium 1 ampul 05/12/19 08:00 05/16/19 15:32 Duoneb *Not For Prn Use* IH Not Given TIDRT FROY Aspirin 81 mg 05/11/19 10:00 05/16/19 12:00 Halfprin Ec PO 81 mg DAILY FROY Administration Bisacodyl 10 mg 05/14/19 18:38 Dulcolax NE QDAY PRN Constipation Budesonide 0.5 mg 05/10/19 20:00 05/16/19 10:34 Pulmicort IH 0.5 mg Q12HRT FROY Administration Carvedilol 25 mg 05/10/19 22:00 05/16/19 18:51 Coreg PO 25 mg BID@0800,1700 FROY Administration Cephalexin 250 mg 05/15/19 10:00 05/16/19 12:01 Keflex PO 05/20/19 10:01 250 mg Q24HR FROY Administration Cinacalcet 60 mg 05/10/19 21:00 05/16/19 11:59 Sensipar PO 60 mg QDAY FROY Administration Epoetin Tirso 10,000 unit 05/14/19 13:29 05/15/19 16:35 Procrit IV 10,000 unit DARSHAN PRN Administration hemodialysis Furosemide 80 mg 05/11/19 11:00 05/16/19 18:51 Lasix IV 80 mg 0600,1800 FROY Administration Heparin Sodium (Porcine) 5,000 unit 05/10/19 22:00 05/16/19 18:44 Heparin SUB-Q Not Given Q8HR FROY Hydralazine HCl 100 mg 05/10/19 20:00 05/16/19 18:44 Apresoline PO Not Given TID FROY Sodium Chloride 100 mls @ 999 mls/hr 05/14/19 13:28 Nacl 0.9% IV DARSHAN PRN Hypotension Sodium Chloride 100 mls @ 999 mls/hr 05/16/19 12:28 Nacl 0.9% IV DARSHAN PRN Hypotension Sodium Chloride 100 mls @ 999 mls/hr 05/16/19 16:45 Nacl 0.9% IV DARSHAN PRN Hypotension Lactobacillus Rhamnosus 1 each 05/13/19 12:00 05/16/19 12:11 Culturelle PO 1 each DAILY FROY Administration Lactulose 20 gm 05/14/19 14:00 05/16/19 12:00 Cephulac PO 20 gm BID FROY Administration Magnesium Hydroxide 30 ml 05/14/19 18:38 05/14/19 21:57 Milk Of Magnesia PO 30 ml QDAY PRN Administration Constipation Methylprednisolone Sodium Succinate 40 mg 05/10/19 22:00 05/16/19 12:00 Solu-Medrol IV 40 mg Q12HR FROY Administration Morphine Sulfate 2 mg 05/10/19 17:57 05/13/19 17:04 Morphine IV 2 mg Q4H PRN Administration Pain, Moderate (4-6) Multivit/Ca Carb/B Cmplx/FA/Prenat 1 cap 05/13/19 12:00 05/16/19 11:59 Renal Caps PO 1 cap QDAY FROY Administration Nicotine 14 mg 05/11/19 10:00 05/16/19 11:59 Habitrol TD 14 mg QDAY FROY Administration Nifedipine 60 mg 05/10/19 22:00 05/16/19 11:59 Procardia Xl PO 60 mg BID FROY Administration Ondansetron HCl 4 mg 05/10/19 17:57 Zofran IV Q8H PRN Nausea And Vomiting Oxycodone/Acetaminophen 1 tab 05/10/19 17:57 05/16/19 12:56 Percocet 5/325 PO 1 tab Q6H PRN Administration Pain, Moderate (4-6) Pantoprazole Sodium 40 mg 05/12/19 18:00 05/16/19 12:00 Protonix PO 40 mg QDAY FROY Administration Sodium Bicarbonate 650 mg 05/11/19 20:00 05/16/19 18:45 Sodium Bicarbonate PO Not Given TID FROY Sodium Chloride 10 ml 05/10/19 22:00 05/16/19 12:01 Sodium Chloride Flush Syringe 10 Ml IV 10 ml BID FROY Administration Sodium Chloride 10 ml 05/10/19 17:57 Sodium Chloride Flush Syringe 10 Ml IV PRN PRN LINE FLUSH
[2019-05-17 05:09] LABS: Basophils % (Auto) 0.2 % (0.0-1.8); Lymphocytes # (Auto) 0.3 K/mm3 (1.2-5.4); Lymphocytes % (Auto) 5.3 % (13.4-35.0); Mean Corpuscular HGB Conc 32 % (30-34); Mean Corpuscular Volume 92 fl (79-97); Monocytes # (Auto) 0.4 K/mm3 (0.0-0.8); Monocytes % (Auto) 7.3 % (0.0-7.3); Platelet Count 271 K/mm3 (140-440); Red Blood Count 3.04 M/mm3 (3.65-5.03); Red Cell Distribution Width 15.1 % (13.2-15.2)
[2019-05-17 05:43] LABS: Calcium 7.7 mg/dL (8.4-10.2)
[2019-05-17] MEDS: FUROSEMIDE 40 MG/4 ML INJ IV SCH (06:19)
[2019-05-17] MEDS: HEPARIN 5,000 UNIT/1 ML VIAL SUB-Q SCH ×3 (06:20→21:09)
[2019-05-17] MEDS: IPRATROPIUM/ALBUTEROL SULFATE 3 ML AMPUL.NEB IH SCH ×3 (08:25→20:38)
[2019-05-17] MEDS: BUDESONIDE 0.5 MG/2 ML NEBU IH SCH ×2 (08:25→20:38)
[2019-05-17] MEDS: hydrALAZINE 100 MG TAB PO SCH ×3 (08:55→21:10)
[2019-05-17] MEDS: carvediloL 25 MG TAB PO SCH ×2 (08:55→18:26)
[2019-05-17] MEDS: SODIUM BICARBONATE 650 MG TAB PO SCH ×3 (08:59→21:13)
[2019-05-17] MEDS: oxyCODONE /ACETAMINOPHEN 5-325MG TAB PO PRN (08:59)
--- NOTE | 2019-05-17 10:06 | Progress Note ---
Assessment and Plan Large pericardial effusion without tamponade s/p pericardiocentesis 05/13/2019; 1200 ml fluid removed a repeat limited echocardiogram shows a small reaccumulation of the pericardial effusion. normal LVEF 55-60% ESRD -transitioned from PD to HD this admission Htn Anemia Subjective Date of service: 05/17/19 Principal diagnosis: esrd Interval history: Patient reports of shortness of breath, coughs and wheezing. For hemodialysis today. Objective Vital Signs Temp Pulse Pulse Resp Resp BP Pulse Ox 05/17/19 08:55 94 H 180/79 05/17/19 08:50 93 H 20 05/17/19 08:46 97.8 F 94 H 18 180/79 99 05/17/19 03:17 98.2 F 90 18 184/83 93 05/16/19 23:54 98.5 F 91 H 20 156/71 100 05/16/19 21:29 93 H 18 05/16/19 20:27 98.3 F 88 18 146/63 100 05/16/19 17:00 99.1 F 88 18 146/80 05/16/19 16:45 90 144/80 05/16/19 16:30 87 149/66 05/16/19 16:15 113 H 154/73 05/16/19 16:00 88 152/77 05/16/19 15:45 88 148/74 05/16/19 15:30 86 151/81 05/16/19 15:15 86 154/76 05/16/19 15:00 85 155/70 05/16/19 14:45 85 150/71 05/16/19 14:30 86 151/76 05/16/19 14:15 87 152/74 05/16/19 14:00 88 149/77 05/16/19 13:45 89 151/78 05/16/19 13:15 98.7 F 88 18 147/74 05/16/19 11:40 98.5 F 89 18 147/64 92 05/16/19 10:34 64 20 Pulse Ox 05/17/19 08:55 05/17/19 08:50 05/17/19 08:46 05/17/19 03:17 05/16/19 23:54 05/16/19 21:29 05/16/19 20:27 05/16/19 17:00 96 05/16/19 16:45 05/16/19 16:30 05/16/19 16:15 05/16/19 16:00 05/16/19 15:45 05/16/19 15:30 05/16/19 15:15 05/16/19 15:00 05/16/19 14:45 05/16/19 14:30 05/16/19 14:15 05/16/19 14:00 05/16/19 13:45 05/16/19 13:15 98 05/16/19 11:40 05/16/19 10:34 - Physical Examination General: No Apparent Distress HEENT: Positive: PERRL Neck: Positive: neck supple Cardiac: Positive: Reg Rate and Rhythm Lungs: Positive: Decreased Breath Sounds, Wheezes Neuro: Positive: Grossly Intact Abdomen: Positive: Soft, Active Bowel Sounds Extremities: Present: +1 Edema - Labs and Meds CBC 05/17/19 Range/Units 03:47 WBC 6.0 (4.5-11.0) K/mm3 RBC 3.04 L (3.65-5.03) M/mm3 Hgb 9.0 L (10.1-14.3) gm/dl Hct 28.0 L (30.3-42.9) % Plt Count 271 (140-440) K/mm3 Lymph # 0.3 L (1.2-5.4) K/mm3 [place] # 0.4 (0.0-0.8) K/mm3 Eos # 0.0 (0.0-0.4) K/mm3 Baso # 0.0 (0.0-0.1) K/mm3 Comprehensive Metabolic Panel 05/17/19 Range/Units 03:47 Sodium 138 (137-145) mmol/L Potassium 4.2 (3.6-5.0) mmol/L Chloride 95.6 L (98-107) mmol/L Carbon Dioxide 27 (22-30) mmol/L BUN 17 (7-17) mg/dL Creatinine 3.8 H (0.7-1.2) mg/dL Glucose 161 H (65-100) mg/dL Calcium 7.7 L (8.4-10.2) mg/dL
--- NOTE | 2019-05-17 11:01 | Progress Note ---
Assessment and Plan Impression: * End stage renal disease on peritoneal dialysis - followed by Dr. Rodgers * Pericardial effusion - no tamponade physiology * Uremia: loss of appetite, fatigue, uremic fetor * Hyperkalemia * Metabolic acidosis * Hyponatremia * Anemia secondary to ESRD * Secondary hyperparathyroidism Plan: * stopped CAPD - plan on hemodialysis for 3 consecutive days then thrice weekly * s/p pericardiocentesis on Monday * she has improved, continue solute clearance * Epogen TIW prn and Renal diet * added lacutulose * will need outpatient hd placement, plan on [facility] * can dc home after hd today Subjective Date of service: 05/17/19 Principal diagnosis: esrd Interval history: resting well in bed today Objective - Exam Narrative Exam: General appearance: well-developed, well-nourished EENT: ATNC Respiratory: Present: Clear to Ascultation Cardiology: regular, S1S2 Gastrointestinal: normal, no tenderness, no distended Integumentary: no rash, warm and dry Neurologic: no focal deficit, alert and oriented x3 Psychiatric: cooperative - Vital Signs Vital signs: Vital Signs - 12hr 05/16/19 05/17/19 05/17/19 23:54 03:17 08:46 Temperature 98.5 F 98.2 F 97.8 F Pulse Rate 91 H 90 94 H Pulse Rate [ Anterior Bilateral Throughout] Respiratory 20 18 18 Rate Respiratory Rate [Anterior Bilateral Throughout] Blood Pressure 156/71 184/83 180/79 O2 Sat by Pulse 100 93 99 Oximetry 05/17/19 05/17/19 08:50 08:55 Temperature Pulse Rate 94 H Pulse Rate [ 93 H Anterior Bilateral Throughout] Respiratory Rate Respiratory 20 Rate [Anterior Bilateral Throughout] Blood Pressure 180/79 O2 Sat by Pulse Oximetry - Lab 05/17/19 03:47 05/17/19 03:47 Most recent lab results Calcium 7.7 mg/dL (8.4-10.2) L 05/17/19 03:47 Phosphorus 7.20 mg/dL (2.5-4.5) H 05/13/19 06:53 Magnesium 2.20 mg/dL (1.7-2.3) 05/13/19 06:53 Medications & Allergies - Medications Allergies/Adverse Reactions: Allergies No Known Allergies Allergy (Verified 08/21/18 15:07) Home Medications: Home Medications Medication Instructions Recorded Confirmed Last Taken Type Aspirin [Adult Low Dose Aspirin EC] 81 mg PO DAILY 11/24/16 05/10/19 05/08/19 History NIFEdipine [Nifedipine ER] 60 mg PO BID 11/24/16 05/10/19 05/08/19 History Cinacalcet HCl [Sensipar] 60 mg PO DAILY 08/21/18 05/10/19 05/08/19 History Dialyvite Chewable Probiotic 3,000 mg PO DAILY 08/21/18 05/10/19 05/08/19 History carvediloL [Coreg] 25 mg PO BID 08/21/18 05/10/19 05/08/19 History hydrALAZINE [Apresoline TAB] 100 mg PO TID 08/21/18 05/10/19 05/08/19 History Acetaminophen/Codeine [Tylenol 1 tab PO Q6H PRN #14 tab 05/10/19 05/10/19 Unknown Rx /Codeine # 3 tab] Albuterol INH(or & Nicu Only) 2 puff IH QID PRN #8.5 gram 05/10/19 05/10/19 Unknown Rx [ProAir HFA Inhaler] Cefdinir 300 mg PO BID #6 capsule 05/10/19 05/10/19 Unknown Rx Nicotine [Habitrol] 14 mg TD QDAY #30 patch 05/10/19 05/10/19 Unknown Rx Prednisone [predniSONE 10 mg 10 mg PO .TAPER #1 tab.ds.pk 05/10/19 05/10/19 Unknown Rx (6-Day Pack, 21 Tabs)] Active Medications: Generic Name Dose Route Start Last Admin Trade Name Freq PRN Reason Stop Dose Admin Acetaminophen 650 mg 05/10/19 17:57 05/13/19 18:32 Tylenol PO 650 mg Q4H PRN Administration Pain MILD(1-3)/Fever >100.5/NOVAK Albumin Human 25 gm 05/14/19 13:28 Alburx 25% (Albumin) IV DARSHAN PRN Hypotension Albuterol/Ipratropium 1 ampul 05/12/19 08:00 05/17/19 08:25 Duoneb *Not For Prn Use* IH 1 ampul TIDRT FROY Administration Aspirin 81 mg 05/11/19 10:00 05/16/19 12:00 Halfprin Ec PO 81 mg DAILY FROY Administration Bisacodyl 10 mg 05/14/19 18:38 Dulcolax IN QDAY PRN Constipation Budesonide 0.5 mg 05/10/19 20:00 05/17/19 08:25 Pulmicort IH 0.5 mg Q12HRT FROY Administration Carvedilol 25 mg 05/10/19 22:00 05/17/19 08:55 Coreg PO 25 mg BID@0800,1700 FROY Administration Cephalexin 250 mg 05/15/19 10:00 05/16/19 12:01 Keflex PO 05/20/19 10:01 250 mg Q24HR FROY Administration Cinacalcet 60 mg 05/10/19 21:00 05/16/19 11:59 Sensipar PO 60 mg QDAY FROY Administration Epoetin Tirso 10,000 unit 05/14/19 13:29 05/15/19 16:35 Procrit IV 10,000 unit DARSHAN PRN Administration hemodialysis Furosemide 80 mg 05/11/19 11:00 05/17/19 06:19 Lasix IV 80 mg 0600,1800 FROY Administration Heparin Sodium (Porcine) 5,000 unit 05/10/19 22:00 05/17/19 06:20 Heparin SUB-Q 5,000 unit Q8HR FROY Administration Hydralazine HCl 100 mg 05/10/19 20:00 05/17/19 08:55 Apresoline PO 100 mg TID FROY Administration Sodium Chloride 100 mls @ 999 mls/hr 05/14/19 13:28 Nacl 0.9% IV DARSHAN PRN Hypotension Sodium Chloride 100 mls @ 999 mls/hr 05/16/19 12:28 Nacl 0.9% IV DARSHAN PRN Hypotension Sodium Chloride 100 mls @ 999 mls/hr 05/16/19 16:45 Nacl 0.9% IV DARSHAN PRN Hypotension Lactobacillus Rhamnosus 1 each 05/13/19 12:00 05/16/19 12:11 Culturelle PO 1 each DAILY FROY Administration Lactulose 20 gm 05/14/19 14:00 05/16/19 23:28 Cephulac PO 20 gm BID FROY Administration Magnesium Hydroxide 30 ml 05/14/19 18:38 05/14/19 21:57 Milk Of Magnesia PO 30 ml QDAY PRN Administration Constipation Methylprednisolone Sodium Succinate 40 mg 05/10/19 22:00 05/16/19 23:19 Solu-Medrol IV 40 mg Q12HR FROY Administration Morphine Sulfate 2 mg 05/10/19 17:57 05/13/19 17:04 Morphine IV 2 mg Q4H PRN Administration Pain, Moderate (4-6) Multivit/Ca Carb/B Cmplx/FA/Prenat 1 cap 05/13/19 12:00 05/16/19 11:59 Renal Caps PO 1 cap QDAY FROY Administration Nicotine 14 mg 05/11/19 10:00 05/16/19 11:59 Habitrol TD 14 mg QDAY FROY Administration Nifedipine 60 mg 05/10/19 22:00 05/16/19 23:19 Procardia Xl PO 60 mg BID FROY Administration Ondansetron HCl 4 mg 05/10/19 17:57 Zofran IV Q8H PRN Nausea And Vomiting Oxycodone/Acetaminophen 1 tab 05/10/19 17:57 05/17/19 08:59 Percocet 5/325 PO 1 tab Q6H PRN Administration Pain, Moderate (4-6) Pantoprazole Sodium 40 mg 05/12/19 18:00 05/16/19 12:00 Protonix PO 40 mg QDAY FROY Administration Sodium Bicarbonate 650 mg 05/11/19 20:00 05/17/19 08:59 Sodium Bicarbonate PO 650 mg TID FROY Administration Sodium Chloride 10 ml 05/10/19 22:00 05/16/19 23:32 Sodium Chloride Flush Syringe 10 Ml IV 10 ml BID FROY Administration Sodium Chloride 10 ml 05/10/19 17:57 Sodium Chloride Flush Syringe 10 Ml IV PRN PRN LINE FLUSH
[2019-05-17] MEDS: EPOETIN ALFA 10,000 UNIT/1 ML INJ IV PRN (11:21)
[2019-05-17] MEDS: FOLIC ACID/VIT B COMP W-C 1 MG (RENAL CAPS) PO SCH (15:10)
[2019-05-17] MEDS: NIFEdipine XL 60 MG TAB PO SCH ×2 (15:10→21:10)
[2019-05-17] MEDS: NICOTINE 14 MG/24 HR PATCH TD SCH (15:10)
[2019-05-17] MEDS: CINACALCET 30 MG TAB PO SCH (15:10)
[2019-05-17] MEDS: ASPIRIN EC 81 MG TAB PO SCH (15:11)
[2019-05-17] MEDS: cephALEXin 250 MG CAP PO SCH (15:11)
[2019-05-17] MEDS: PANTOPRAZOLE 40 MG TAB PO SCH (15:11)
[2019-05-17] MEDS: LACTOBACILLUS RHAMNOSUS GG 1 EACH CAP PO SCH (15:12)
[2019-05-17] MEDS: methylPREDNISolone Sod Succinate 40 MG/1 ML INJ IV SCH (15:12)
[2019-05-17] MEDS: LACTULOSE 20 GM/30 ML ORAL LIQD PO SCH ×2 (15:12→21:09)
--- NOTE | 2019-05-17 15:53 | Progress Note ---
Assessment and Plan Assessment and plan: 63-year-old woman with end-stage renal disease on peritoneal dialysis who was asked to return to hospital for abnormal echo. Patient underwent pericardiocentesis on 05/13/2019, hemodialysis initiated, nephr famy and the patient want to continue hemodialysis Case management assisting to secure outpatient HD chair time, patient continues to have severe wheezing and congestion and cough Shortness of breath, in mild distress --Acute bronchitis/acute exacerbation of COPD/chronic tobacco use continues to have wheezing, cough and congestion On IV diuretics, continue nebulizers, IV steroids bronchodilators and steroids and antibiotics The chest x-ray tomorrow if no improvement Pulmonary consult --Moderate to large pericardial effusion; Status post pericardiocentesis 05/13/2019 Hydromorphone of 1.2 L pericardial fluid Symptoms significantly improved Follow-up echocardiogram; small circumferential pericardial effusion, EF 50-55% --End-stage renal disease on peritoneal dialysis; Converted to hemodialysisn , HD per scheduled Nephrology following. If nephrology recommend hemodialysis Case management to set up outpatient HD chair time --Hypertension; moderate control Continue current antihypertensives and when necessary medications --Ongoing tobacco use; smoking cessation counseling Nicotine patch as needed --Preventive care counseling done spent 15 minutes --DVT prophylaxis; heparin, renal dose Monitor closely and adjust management as needed Disposition; outpatient HD changed is secured Patient has acute on chronic respiratory failure, acute bronchitis Consult pulmonary if no improvement Discharge when medically stable Plan of care reviewed with the patient and her nurse History Interval history: Patient seen and examined , consultations recommendations, medications reviewed Patient received hemodialysis today Continues to have severe wheezing, shortness of breath, congestion and cough Patient has history of bronchitis/COPD/ongoing chronic tobacco use In mild distress Vital signs noted Hospitalist Physical - Constitutional Vitals: Temp Pulse Resp BP Pulse Ox 98.5 F 94 H 20 181/83 98 05/17/19 13:15 05/17/19 15:32 05/17/19 15:32 05/17/19 13:15 05/17/19 13:15 General appearance: Present: mild distress, well-nourished, other (shortness of breath) - EENT Eyes: Present: PERRL, EOM intact - Neck Neck: Present: supple, normal ROM - Respiratory Respiratory effort: normal Respiratory: bilateral: diminished, wheezing (diffuse), negative: rales, rhonchi - Cardiovascular Rhythm: regular Heart Sounds: Present: S1 & S2 - Extremities Extremities: no ischemia, No edema - Abdominal General gastrointestinal: soft, non-tender, non-distended, normal bowel sounds - Integumentary Integumentary: Present: clear, warm - Psychiatric Psychiatric: appropriate mood/affect, other (anxious) - Neurologic Neurologic: moves all extremities PANCHO score - Pancho Score Age > 65: (0) No Aspirin use within the Past 7 Days: (0) No 3 or more CAD Risk Factors: (0) No 2 or more Angina events in past 24 hrs: (1) Yes Known CAD with more than 50% Stenosis: (0) No Elevated Cardiac Markers: (0) No ST Deviation Greater than 0.5mm: (0) No PANCHO Score: 1 Results - Labs CBC & Chem 7: 05/17/19 03:47 05/17/19 03:47 Labs: Laboratory Last Values WBC 6.0 K/mm3 (4.5-11.0) 05/17/19 03:47 RBC 3.04 M/mm3 (3.65-5.03) L 05/17/19 03:47 Hgb 9.0 gm/dl (10.1-14.3) L 05/17/19 03:47 Hct 28.0 % (30.3-42.9) L 05/17/19 03:47 MCV 92 fl (79-97) 05/17/19 03:47 MCH 30 pg (28-32) 05/17/19 03:47 MCHC 32 % (30-34) 05/17/19 03:47 RDW 15.1 % (13.2-15.2) 05/17/19 03:47 Plt Count 271 K/mm3 (140-440) 05/17/19 03:47 Lymph % (Auto) 5.3 % (13.4-35.0) L 05/17/19 03:47 [place] % (Auto) 7.3 % (0.0-7.3) 05/17/19 03:47 Eos % (Auto) 0.0 % (0.0-4.3) 05/17/19 03:47 Baso % (Auto) 0.2 % (0.0-1.8) 05/17/19 03:47 Lymph # 0.3 K/mm3 (1.2-5.4) L 05/17/19 03:47 [place] # 0.4 K/mm3 (0.0-0.8) 05/17/19 03:47 Eos # 0.0 K/mm3 (0.0-0.4) 05/17/19 03:47 Baso # 0.0 K/mm3 (0.0-0.1) 05/17/19 03:47 Add Manual Diff Complete 05/14/19 04:01 Total Counted 100 05/14/19 04:01 Seg Neutrophils % 87.2 % (40.0-70.0) H 05/17/19 03:47 Seg Neuts % (Manual) 95.0 % (40.0-70.0) H 05/14/19 04:01 Band Neutrophils % 0 % 05/14/19 04:01 Lymphocytes % (Manual) 1.0 % (13.4-35.0) L 05/14/19 04:01 Reactive Lymphs % (Man) 0 % 05/14/19 04:01 Monocytes % (Manual) 3.0 % (0.0-7.3) 05/14/19 04:01 Eosinophils % (Manual) 0 % (0.0-4.3) 05/14/19 04:01 Basophils % (Manual) 1.0 % (0.0-1.8) 05/14/19 04:01 Metamyelocytes % 0 % 05/14/19 04:01 Myelocytes % 0 % 05/14/19 04:01 Promyelocytes % 0 % 05/14/19 04:01 Blast Cells % 0 % 05/14/19 04:01 Nucleated RBC % Not Reportable 05/14/19 04:01 Seg Neutrophils # 5.2 K/mm3 (1.8-7.7) 05/17/19 03:47 Seg Neutrophils # Man 7.3 K/mm3 (1.8-7.7) 05/14/19 04:01 Band Neutrophils # 0.0 K/mm3 05/14/19 04:01 Lymphocytes # (Manual) 0.1 K/mm3 (1.2-5.4) L 05/14/19 04:01 Abs React Lymphs (Man) 0.0 K/mm3 05/14/19 04:01 Monocytes # (Manual) 0.2 K/mm3 (0.0-0.8) 05/14/19 04:01 Eosinophils # (Manual) 0.0 K/mm3 (0.0-0.4) 05/14/19 04:01 Basophils # (Manual) 0.1 K/mm3 (0.0-0.1) 05/14/19 04:01 Metamyelocytes # 0.0 K/mm3 05/14/19 04:01 Myelocytes # 0.0 K/mm3 05/14/19 04:01 Promyelocytes # 0.0 K/mm3 05/14/19 04:01 Blast Cells # 0.0 K/mm3 05/14/19 04:01 WBC Morphology Not Reportable 05/14/19 04:01 Hypersegmented Neuts Not Reportable 05/14/19 04:01 Hyposegmented Neuts Not Reportable 05/14/19 04:01 Hypogranular Neuts Not Reportable 05/14/19 04:01 Smudge Cells Not Reportable 05/14/19 04:01 Toxic Granulation Not Reportable 05/14/19 04:01 Toxic Vacuolation Not Reportable 05/14/19 04:01 Dohle Bodies Not Reportable 05/14/19 04:01 Pelger-Huet Anomaly Not Reportable 05/14/19 04:01 Jomar Rods Not Reportable 05/14/19 04:01 Platelet Estimate Consistent w auto 05/14/19 04:01 Clumped Platelets Not Reportable 05/14/19 04:01 Plt Clumps, EDTA Not Reportable 05/14/19 04:01 Large Platelets Not Reportable 05/14/19 04:01 Giant Platelets Not Reportable 05/14/19 04:01 Platelet Satelliting Not Reportable 05/14/19 04:01 Plt Morphology Comment Not Reportable 05/14/19 04:01 RBC Morphology Not Reportable 05/14/19 04:01 Dimorphic RBCs Not Reportable 05/14/19 04:01 Polychromasia Not Reportable 05/14/19 04:01 Hypochromasia Not Reportable 05/14/19 04:01 Poikilocytosis Not Reportable 05/14/19 04:01 Anisocytosis 1+ 05/14/19 04:01 Microcytosis Not Reportable 05/14/19 04:01 Macrocytosis 1+ 05/14/19 04:01 Spherocytes Not Reportable 05/14/19 04:01 Pappenheimer Bodies Not Reportable 05/14/19 04:01 Sickle Cells Not Reportable 05/14/19 04:01 Target Cells Not Reportable 05/14/19 04:01 Tear Drop Cells Not Reportable 05/14/19 04:01 Ovalocytes Not Reportable 05/14/19 04:01 Helmet Cells Not Reportable 05/14/19 04:01 Meléndez-Artemus Bodies Not Reportable 05/14/19 04:01 Paisley Rings Not Reportable 05/14/19 04:01 Cecil Cells Not Reportable 05/14/19 04:01 Bite Cells Not Reportable 05/14/19 04:01 Crenated Cell Not Reportable 05/14/19 04:01 Elliptocytes Not Reportable 05/14/19 04:01 Acanthocytes (Spur) Not Reportable 05/14/19 04:01 Rouleaux Not Reportable 05/14/19 04:01 Hemoglobin C Crystals Not Reportable 05/14/19 04:01 Schistocytes Not Reportable 05/14/19 04:01 Malaria parasites Not Reportable 05/14/19 04:01 Oral Bodies Not Reportable 05/14/19 04:01 Hem Pathologist Commnt No 05/14/19 04:01 PT 13.9 Sec. (12.2-14.9) 05/12/19 16:16 PT 14.4 Sec. (12.2-14.9) 05/12/19 16:16 INR 1.06 (0.87-1.13) 05/12/19 16:16 INR 1.11 (0.87-1.13) 05/12/19 16:16 APTT 37.5 Sec. (24.2-36.6) H 05/12/19 16:16 Sodium 138 mmol/L (137-145) 05/17/19 03:47 Potassium 4.2 mmol/L (3.6-5.0) 05/17/19 03:47 Chloride 95.6 mmol/L (98-107) L 05/17/19 03:47 Carbon Dioxide 27 mmol/L (22-30) 05/17/19 03:47 Anion Gap 20 mmol/L 05/17/19 03:47 BUN 17 mg/dL (7-17) 05/17/19 03:47 Creatinine 3.8 mg/dL (0.7-1.2) H 05/17/19 03:47 Estimated GFR 15 ml/min 05/17/19 03:47 BUN/Creatinine Ratio 4 % 05/17/19 03:47 Glucose 161 mg/dL (65-100) H 05/17/19 03:47 POC Glucose 142 (70-105) H 05/13/19 06:31 Calcium 7.7 mg/dL (8.4-10.2) L 05/17/19 03:47 Phosphorus 7.20 mg/dL (2.5-4.5) H 05/13/19 06:53 Magnesium 2.20 mg/dL (1.7-2.3) 05/13/19 06:53 Fluid Type Pericardial 05/13/19 11:30 Fluid Color Bloody 05/13/19 11:30 Fluid Appearance Bloody 05/13/19 11:30 Fluid WBC 95 /mm3 05/13/19 11:30 Fluid RBC 642766 /mm3 05/13/19 11:30 Fluid Diff Comment 05/13/19 11:30 Fluid Seg Neutrophils 14.0 % 05/13/19 11:30 Fluid Lymphocytes 68.0 % 05/13/19 11:30 Fluid Reactive Lymphs 0 % 05/13/19 11:30 Fluid Monocytes 18.0 % 05/13/19 11:30 Fluid Eosinophils 0 % 05/13/19 11:30 Fluid Basophils 0 % 05/13/19 11:30 Hepatitis A IgM Ab Non-reactive (NonReactive) 05/14/19 13:48 Hep Bs Antigen Non-reactive (Negative) 05/14/19 13:48 Hep B Core IgM Ab Non-reactive (NonReactive) 05/14/19 13:48 Hepatitis C Antibody Non-reactive (NonReactive) 05/14/19 13:48 AFB Identification 05/13/19 11:30 Active Medications - Current Medications Current Medications: Generic Name Dose Route Start Last Admin Trade Name Freq PRN Reason Stop Dose Admin Acetaminophen 650 mg 05/10/19 17:57 05/13/19 18:32 Tylenol PO 650 mg Q4H PRN Administration Pain MILD(1-3)/Fever >100.5/NOVAK Albumin Human 25 gm 05/14/19 13:28 Alburx 25% (Albumin) IV DARSHAN PRN Hypotension Albuterol/Ipratropium 1 ampul 05/12/19 08:00 05/17/19 15:13 Duoneb *Not For Prn Use* IH 1 ampul TIDRT FROY Administration Aspirin 81 mg 05/11/19 10:00 05/17/19 15:11 Halfprin Ec PO 81 mg DAILY FROY Administration Bisacodyl 10 mg 05/14/19 18:38 Dulcolax NM QDAY PRN Constipation Budesonide 0.5 mg 05/10/19 20:00 05/17/19 08:25 Pulmicort IH 0.5 mg Q12HRT FROY Administration Carvedilol 25 mg 05/10/19 22:00 05/17/19 08:55 Coreg PO 25 mg BID@0800,1700 FROY Administration Cephalexin 250 mg 05/15/19 10:00 05/17/19 15:11 Keflex PO 05/20/19 10:01 250 mg Q24HR FROY Administration Cinacalcet 60 mg 05/10/19 21:00 05/17/19 15:10 Sensipar PO 60 mg QDAY FROY Administration Epoetin Tirso 10,000 unit 05/14/19 13:29 05/17/19 11:21 Procrit IV 10,000 unit DARSHAN PRN Administration hemodialysis Furosemide 40 mg 05/17/19 18:00 Lasix PO 0600,1800 [facility] Heparin Sodium (Porcine) 5,000 unit 05/10/19 22:00 05/17/19 15:15 Heparin SUB-Q 5,000 unit Q8HR FROY Administration Hydralazine HCl 100 mg 05/10/19 20:00 05/17/19 15:11 Apresoline PO 100 mg TID FROY Administration Sodium Chloride 100 mls @ 999 mls/hr 05/16/19 16:45 Nacl 0.9% IV DARSHAN PRN Hypotension Lactobacillus Rhamnosus 1 each 05/13/19 12:00 05/17/19 15:12 Culturelle PO 1 each DAILY FROY Administration Lactulose 20 gm 05/14/19 14:00 05/17/19 15:12 Cephulac PO 20 gm BID FROY Administration Magnesium Hydroxide 30 ml 05/14/19 18:38 05/14/19 21:57 Milk Of Magnesia PO 30 ml QDAY PRN Administration Constipation Methylprednisolone Sodium Succinate 40 mg 05/10/19 22:00 05/17/19 15:12 Solu-Medrol IV 40 mg Q12HR FROY Administration Morphine Sulfate 2 mg 05/10/19 17:57 05/13/19 17:04 Morphine IV 2 mg Q4H PRN Administration Pain, Moderate (4-6) Multivit/Ca Carb/B Cmplx/FA/Prenat 1 cap 05/13/19 12:00 05/17/19 15:10 Renal Caps PO 1 cap QDAY FROY Administration Nicotine 14 mg 05/11/19 10:00 05/17/19 15:10 Habitrol TD 14 mg QDAY FROY Administration Nifedipine 60 mg 05/10/19 22:00 05/17/19 15:10 Procardia Xl PO 60 mg BID FROY Administration Ondansetron HCl 4 mg 05/10/19 17:57 Zofran IV Q8H PRN Nausea And Vomiting Oxycodone/Acetaminophen 1 tab 05/10/19 17:57 05/17/19 08:59 Percocet 5/325 PO 1 tab Q6H PRN Administration Pain, Moderate (4-6) Pantoprazole Sodium 40 mg 05/12/19 18:00 05/17/19 15:11 Protonix PO 40 mg QDAY FROY Administration Sodium Bicarbonate 650 mg 05/11/19 20:00 05/17/19 15:11 Sodium Bicarbonate PO 650 mg TID FROY Administration Sodium Chloride 10 ml 05/10/19 22:00 05/16/19 23:32 Sodium Chloride Flush Syringe 10 Ml IV 10 ml BID FROY Administration Sodium Chloride 10 ml 05/10/19 17:57 Sodium Chloride Flush Syringe 10 Ml IV PRN PRN LINE FLUSH
[2019-05-17] MEDS ORDERED: FUROSEMIDE 40 MG TAB PO SCH (18:00)
[2019-05-17] MEDS ORDERED: FUROSEMIDE 40 MG/4 ML INJ IV NR (18:41)
[2019-05-17] MEDS ORDERED: LORATADINE/PSEUDOEPHEDRINE 10-240 MG TAB 24HR PO NR (19:00)
[2019-05-17] MEDS ORDERED: methylPREDNISolone Sod Succinate 40 MG/1 ML INJ IV SCH (19:00)
[2019-05-17] MEDS: guaiFENesin DM 200/20 MG ORAL LIQD 10 ML PO PRN (19:54)
[2019-05-17] MEDS: methylPREDNISolone Sod Succinate 125 MG/2 ML INJ IV SCH (21:09)
[2019-05-17] MEDS: ZOLPIDEM 5 MG TAB PO PRN (21:11)
[2019-05-18 04:56] LABS: Hematocrit 28.5 % (30.3-42.9); Hemoglobin 9.1 gm/dl (10.1-14.3); Mean Corpuscular HGB Conc 32 % (30-34); Mean Corpuscular Volume 92 fl (79-97); Platelet Count 272 K/mm3 (140-440); Red Blood Count 3.09 M/mm3 (3.65-5.03); Red Cell Distribution Width 15.1 % (13.2-15.2)
[2019-05-18 05:14] LABS: Calcium 7.6 mg/dL (8.4-10.2)
[2019-05-18] MEDS: HEPARIN 5,000 UNIT/1 ML VIAL SUB-Q SCH ×3 (05:41→21:09)
[2019-05-18] MEDS: FUROSEMIDE 40 MG TAB PO SCH ×2 (05:41→17:16)
[2019-05-18] MEDS: methylPREDNISolone Sod Succinate 125 MG/2 ML INJ IV SCH ×3 (05:42→21:10)
[2019-05-18] MEDS: guaiFENesin DM 200/20 MG ORAL LIQD 10 ML PO PRN ×3 (06:40→21:09)
[2019-05-18 07:00] LABS: Basophils % (Manual) 0 % (0.0-1.8); Eosinophils % (Manual) 0 % (0.0-4.3); Total Cells Counted 100
[2019-05-18 07:02] LABS: Anisocytosis Few; Platelet Estimate Consistent w Auto
[2019-05-18] MEDS: hydrALAZINE 100 MG TAB PO SCH ×3 (07:46→21:10)
[2019-05-18] MEDS: carvediloL 25 MG TAB PO SCH ×2 (07:46→17:16)
[2019-05-18] MEDS: SODIUM BICARBONATE 650 MG TAB PO SCH ×3 (07:46→21:10)
[2019-05-18] MEDS: BUDESONIDE 0.5 MG/2 ML NEBU IH SCH ×2 (08:17→21:23)
[2019-05-18] MEDS: IPRATROPIUM/ALBUTEROL SULFATE 3 ML AMPUL.NEB IH SCH ×3 (08:17→21:23)
--- NOTE | 2019-05-18 08:32 | XRay Report ---
CHEST 1 VIEW INDICATION / CLINICAL INFORMATION: shortness breath/bronchitis. COMPARISON: None available. FINDINGS: SUPPORT DEVICES: None. HEART / MEDIASTINUM: No significant abnormality. LUNGS / PLEURA: No significant pulmonary or pleural abnormality. No pneumothorax. ADDITIONAL FINDINGS: No significant additional findings. IMPRESSION: 1. No acute findings. Signer Name: El Hardwick MD Signed: 05/18/2019 8:28 AM Workstation Name: [id number]
--- NOTE | 2019-05-18 08:38 | Progress Note ---
Assessment and Plan Assessment and plan: 63-year-old woman with end-stage renal disease on peritoneal dialysis who was asked to return to hospital for abnormal echo. Patient underwent pericardiocentesis on 05/13/2019, hemodialysis initiated, nephr ology and the patient want to continue hemodialysis Case management assisting to secure outpatient HD chair time, patient continues to have severe wheezing and congestion and cough Shortness of breath, in mild distress --Acute bronchitis/?acute exacerbation of COPD/chronic tobacco use continues to have wheezing, cough and congestion On IV diuretics, continue nebulizers, IV steroids bronchodilators and steroids inhalation steroids chest x-ray ,Pulmonary consult --Moderate to large pericardial effusion; Status post pericardiocentesis 05/13/2019 removed 1.2 L pericardial fluid Symptoms significantly improved Follow-up echocardiogram; small circumferential pericardial effusion, EF 50-55% --End-stage renal disease on peritoneal dialysis; Converted to hemodialysisn , HD per scheduled Nephrology cleared for discharge Case management has set up outpatient HD chair time --Hypertension; moderate control Continue current antihypertensives and when necessary medications --Ongoing tobacco use; smoking cessation counseling Nicotine patch as needed --Preventive care counseling done spent 15 minutes --DVT prophylaxis; heparin, renal dose Monitor closely and adjust management as needed Disposition; outpatient HD chair is secured Patient has acute on chronic respiratory failure, acute bronchitis Consulted pulmonary Discharge when medically stable Plan of care reviewed with the patient and her nurse History Interval history: Patient seen and examined medical records reviewed Patient complaints of shortness of breath release O2 sats 96% room air . Patient denies chest pain or palpitations Mild distress and anxious Vital signs reviewed Hospitalist Physical - Constitutional Vitals: Temp Pulse Resp BP Pulse Ox 98.2 F 89 20 169/80 98 05/18/19 06:26 05/18/19 07:46 05/18/19 08:12 05/18/19 07:46 05/18/19 06:26 General appearance: Present: mild distress, well-nourished - EENT Eyes: Present: PERRL, EOM intact - Neck Neck: Present: supple, normal ROM - Respiratory Respiratory effort: normal Respiratory: bilateral: diminished, wheezing, negative: rales, rhonchi - Cardiovascular Rhythm: regular Heart Sounds: Present: S1 & S2 - Extremities Extremities: no ischemia, No edema - Abdominal General gastrointestinal: soft, non-tender, non-distended - Integumentary Integumentary: Present: clear, warm - Psychiatric Psychiatric: appropriate mood/affect, cooperative - Neurologic Neurologic: moves all extremities PANCHO score - Pancho Score Age > 65: (0) No Aspirin use within the Past 7 Days: (0) No 3 or more CAD Risk Factors: (0) No 2 or more Angina events in past 24 hrs: (1) Yes Known CAD with more than 50% Stenosis: (0) No Elevated Cardiac Markers: (0) No ST Deviation Greater than 0.5mm: (0) No PANCHO Score: 1 Results - Labs CBC & Chem 7: 05/18/19 04:23 05/18/19 04:23 Labs: Laboratory Last Values WBC 8.4 K/mm3 (4.5-11.0) 05/18/19 04:23 RBC 3.09 M/mm3 (3.65-5.03) L 05/18/19 04:23 Hgb 9.1 gm/dl (10.1-14.3) L 05/18/19 04:23 Hct 28.5 % (30.3-42.9) L 05/18/19 04:23 MCV 92 fl (79-97) 05/18/19 04:23 MCH 30 pg (28-32) 05/18/19 04:23 MCHC 32 % (30-34) 05/18/19 04:23 RDW 15.1 % (13.2-15.2) 05/18/19 04:23 Plt Count 272 K/mm3 (140-440) 05/18/19 04:23 Lymph % (Auto) 5.3 % (13.4-35.0) L 05/17/19 03:47 [place] % (Auto) 7.3 % (0.0-7.3) 05/17/19 03:47 Eos % (Auto) 0.0 % (0.0-4.3) 05/17/19 03:47 Baso % (Auto) 0.2 % (0.0-1.8) 05/17/19 03:47 Lymph # 0.3 K/mm3 (1.2-5.4) L 05/17/19 03:47 [place] # 0.4 K/mm3 (0.0-0.8) 05/17/19 03:47 Eos # 0.0 K/mm3 (0.0-0.4) 05/17/19 03:47 Baso # 0.0 K/mm3 (0.0-0.1) 05/17/19 03:47 Add Manual Diff Complete 05/18/19 04:23 Total Counted 100 05/18/19 04:23 Seg Neutrophils % 87.2 % (40.0-70.0) H 05/17/19 03:47 Seg Neuts % (Manual) 87.0 % (40.0-70.0) H 05/18/19 04:23 Band Neutrophils % 0 % 05/18/19 04:23 Lymphocytes % (Manual) 8.0 % (13.4-35.0) L 05/18/19 04:23 Reactive Lymphs % (Man) 0 % 05/18/19 04:23 Monocytes % (Manual) 5.0 % (0.0-7.3) 05/18/19 04:23 Eosinophils % (Manual) 0 % (0.0-4.3) 05/18/19 04:23 Basophils % (Manual) 0 % (0.0-1.8) 05/18/19 04:23 Metamyelocytes % 0 % 05/18/19 04:23 Myelocytes % 0 % 05/18/19 04:23 Promyelocytes % 0 % 05/18/19 04:23 Blast Cells % 0 % 05/18/19 04:23 Nucleated RBC % 6.0 % (0.0-0.9) H 05/18/19 04:23 Seg Neutrophils # 5.2 K/mm3 (1.8-7.7) 05/17/19 03:47 Seg Neutrophils # Man 7.3 K/mm3 (1.8-7.7) 05/18/19 04:23 Band Neutrophils # 0.0 K/mm3 05/18/19 04:23 Lymphocytes # (Manual) 0.7 K/mm3 (1.2-5.4) L 05/18/19 04:23 Abs React Lymphs (Man) 0.0 K/mm3 05/18/19 04:23 Monocytes # (Manual) 0.4 K/mm3 (0.0-0.8) 05/18/19 04:23 Eosinophils # (Manual) 0.0 K/mm3 (0.0-0.4) 05/18/19 04:23 Basophils # (Manual) 0.0 K/mm3 (0.0-0.1) 05/18/19 04:23 Metamyelocytes # 0.0 K/mm3 05/18/19 04:23 Myelocytes # 0.0 K/mm3 05/18/19 04:23 Promyelocytes # 0.0 K/mm3 05/18/19 04:23 Blast Cells # 0.0 K/mm3 05/18/19 04:23 WBC Morphology Not Reportable 05/18/19 04:23 Hypersegmented Neuts Not Reportable 05/18/19 04:23 Hyposegmented Neuts Not Reportable 05/18/19 04:23 Hypogranular Neuts Not Reportable 05/18/19 04:23 Smudge Cells Not Reportable 05/18/19 04:23 Toxic Granulation Not Reportable 05/18/19 04:23 Toxic Vacuolation Not Reportable 05/18/19 04:23 Dohle Bodies Not Reportable 05/18/19 04:23 Pelger-Huet Anomaly Not Reportable 05/18/19 04:23 Jomar Rods Not Reportable 05/18/19 04:23 Platelet Estimate Consistent w auto 05/18/19 04:23 Clumped Platelets Not Reportable 05/18/19 04:23 Plt Clumps, EDTA Not Reportable 05/18/19 04:23 Large Platelets Not Reportable 05/18/19 04:23 Giant Platelets Not Reportable 05/18/19 04:23 Platelet Satelliting Not Reportable 05/18/19 04:23 Plt Morphology Comment Not Reportable 05/18/19 04:23 RBC Morphology Not Reportable 05/18/19 04:23 Dimorphic RBCs Not Reportable 05/18/19 04:23 Polychromasia Not Reportable 05/18/19 04:23 Hypochromasia Not Reportable 05/18/19 04:23 Poikilocytosis Not Reportable 05/18/19 04:23 Anisocytosis Few 05/18/19 04:23 Microcytosis Not Reportable 05/18/19 04:23 Macrocytosis Not Reportable 05/18/19 04:23 Spherocytes Not Reportable 05/18/19 04:23 Pappenheimer Bodies Not Reportable 05/18/19 04:23 Sickle Cells Not Reportable 05/18/19 04:23 Target Cells Not Reportable 05/18/19 04:23 Tear Drop Cells Not Reportable 05/18/19 04:23 Ovalocytes Not Reportable 05/18/19 04:23 Helmet Cells Not Reportable 05/18/19 04:23 [place] Bodies Not Reportable 05/18/19 04:23 [place] Rings Not Reportable 05/18/19 04:23 [place] Cells Not Reportable 05/18/19 04:23 Bite Cells Not Reportable 05/18/19 04:23 Crenated Cell Not Reportable 05/18/19 04:23 Elliptocytes Not Reportable 05/18/19 04:23 Acanthocytes (Spur) Not Reportable 05/18/19 04:23 Rouleaux Not Reportable 05/18/19 04:23 Hemoglobin C Crystals Not Reportable 05/18/19 04:23 Schistocytes Not Reportable 05/18/19 04:23 Malaria parasites Not Reportable 05/18/19 04:23 Oral Bodies Not Reportable 05/18/19 04:23 Hem Pathologist Commnt No 05/18/19 04:23 PT 13.9 Sec. (12.2-14.9) 05/12/19 16:16 PT 14.4 Sec. (12.2-14.9) 05/12/19 16:16 INR 1.06 (0.87-1.13) 05/12/19 16:16 INR 1.11 (0.87-1.13) 05/12/19 16:16 APTT 37.5 Sec. (24.2-36.6) H 05/12/19 16:16 Sodium 137 mmol/L (137-145) 05/18/19 04:23 Potassium 4.1 mmol/L (3.6-5.0) 05/18/19 04:23 Chloride 95.2 mmol/L (98-107) L 05/18/19 04:23 Carbon Dioxide 29 mmol/L (22-30) 05/18/19 04:23 Anion Gap 17 mmol/L 05/18/19 04:23 BUN 17 mg/dL (7-17) 05/18/19 04:23 Creatinine 3.5 mg/dL (0.7-1.2) H 05/18/19 04:23 Estimated GFR 16 ml/min 02/01/20 04:23 BUN/Creatinine Ratio 5 % 05/18/19 04:23 Glucose 163 mg/dL (65-100) H 05/18/19 04:23 POC Glucose 142 (70-105) H 05/13/19 06:31 Calcium 7.6 mg/dL (8.4-10.2) L 05/18/19 04:23 Phosphorus 7.20 mg/dL (2.5-4.5) H 05/13/19 06:53 Magnesium 2.20 mg/dL (1.7-2.3) 05/13/19 06:53 Fluid Type Pericardial 05/13/19 11:30 Fluid Color Bloody 05/13/19 11:30 Fluid Appearance Bloody 05/13/19 11:30 Fluid WBC 95 /mm3 05/13/19 11:30 Fluid RBC 161065 /mm3 05/13/19 11:30 Fluid Diff Comment 05/13/19 11:30 Fluid Seg Neutrophils 14.0 % 05/13/19 11:30 Fluid Lymphocytes 68.0 % 05/13/19 11:30 Fluid Reactive Lymphs 0 % 05/13/19 11:30 Fluid Monocytes 18.0 % 05/13/19 11:30 Fluid Eosinophils 0 % 05/13/19 11:30 Fluid Basophils 0 % 05/13/19 11:30 Hepatitis A IgM Ab Non-reactive (NonReactive) 05/14/19 13:48 Hep Bs Antigen Non-reactive (Negative) 05/14/19 13:48 Hep B Core IgM Ab Non-reactive (NonReactive) 05/14/19 13:48 Hepatitis C Antibody Non-reactive (NonReactive) 05/14/19 13:48 AFB Identification 05/13/19 11:30 Active Medications - Current Medications Current Medications: Generic Name Dose Route Start Last Admin Trade Name Freq PRN Reason Stop Dose Admin Acetaminophen 650 mg 05/10/19 17:57 05/13/19 18:32 Tylenol PO 650 mg Q4H PRN Administration Pain MILD(1-3)/Fever >100.5/NOVAK Albumin Human 25 gm 05/14/19 13:28 Alburx 25% (Albumin) IV DARSHAN PRN Hypotension Albuterol/Ipratropium 1 ampul 05/12/19 08:00 05/18/19 08:17 Duoneb *Not For Prn Use* IH 1 ampul TIDRT FROY Administration Aspirin 81 mg 05/11/19 10:00 05/17/19 15:11 Halfprin Ec PO 81 mg DAILY FROY Administration Bisacodyl 10 mg 05/14/19 18:38 Dulcolax NM QDAY PRN Constipation Budesonide 0.5 mg 05/10/19 20:00 05/18/19 08:17 Pulmicort IH 0.5 mg Q12HRT FROY Administration Carvedilol 25 mg 05/10/19 22:00 05/18/19 07:46 Coreg PO 25 mg BID@0800,1700 FROY Administration Cephalexin 250 mg 05/15/19 10:00 05/17/19 15:11 Keflex PO 05/20/19 10:01 250 mg Q24HR FROY Administration Cinacalcet 60 mg 05/10/19 21:00 05/17/19 15:10 Sensipar PO 60 mg QDAY FROY Administration Epoetin Tirso 10,000 unit 05/14/19 13:29 05/17/19 11:21 Procrit IV 10,000 unit DARSHAN PRN Administration hemodialysis Furosemide 80 mg 05/18/19 06:00 05/18/19 05:41 Lasix PO 80 mg 0600,1800 FROY Administration Guaifenesin 10 ml 05/17/19 18:13 05/18/19 06:40 Guaifenesin Dm Syrup PO 10 ml Q4H PRN Administration Cough Heparin Sodium (Porcine) 5,000 unit 05/10/19 22:00 05/18/19 05:41 Heparin SUB-Q 5,000 unit Q8HR FROY Administration Hydralazine HCl 100 mg 05/10/19 20:00 05/18/19 07:46 Apresoline PO 100 mg TID FROY Administration Sodium Chloride 100 mls @ 999 mls/hr 05/16/19 16:45 Nacl 0.9% IV DARSHAN PRN Hypotension Lactobacillus Rhamnosus 1 each 05/13/19 12:00 05/17/19 15:12 Culturelle PO 1 each DAILY FROY Administration Lactulose 20 gm 05/14/19 14:00 05/17/19 21:09 Cephulac PO Not Given BID FROY Loratadine/Pseudoephedrine Sulfate 1 each 05/18/19 10:00 Claritin-D 24hr PO Q24HR FROY Magnesium Hydroxide 30 ml 05/14/19 18:38 05/14/19 21:57 Milk Of Magnesia PO 30 ml QDAY PRN Administration Constipation Methylprednisolone Sodium Succinate 60 mg 05/17/19 20:00 05/18/19 05:42 Solu-Medrol IV 60 mg Q8HR FROY Administration Morphine Sulfate 2 mg 05/10/19 17:57 05/13/19 17:04 Morphine IV 2 mg Q4H PRN Administration Pain, Moderate (4-6) Multivit/Ca Carb/B Cmplx/FA/Prenat 1 cap 05/13/19 12:00 05/17/19 15:10 Renal Caps PO 1 cap QDAY FROY Administration Nicotine 14 mg 05/11/19 10:00 05/17/19 15:10 Habitrol TD 14 mg QDAY FROY Administration Nifedipine 60 mg 05/10/19 22:00 05/17/19 21:10 Procardia Xl PO 60 mg BID FROY Administration Ondansetron HCl 4 mg 05/10/19 17:57 Zofran IV Q8H PRN Nausea And Vomiting Oxycodone/Acetaminophen 1 tab 05/10/19 17:57 05/17/19 08:59 Percocet 5/325 PO 1 tab Q6H PRN Administration Pain, Moderate (4-6) Pantoprazole Sodium 40 mg 05/12/19 18:00 05/17/19 15:11 Protonix PO 40 mg QDAY FROY Administration Sodium Bicarbonate 650 mg 05/11/19 20:00 05/18/19 07:46 Sodium Bicarbonate PO 650 mg TID FROY Administration Sodium Chloride 10 ml 05/10/19 22:00 05/17/19 22:00 Sodium Chloride Flush Syringe 10 Ml IV 10 ml BID FROY Administration Sodium Chloride 10 ml 05/10/19 17:57 Sodium Chloride Flush Syringe 10 Ml IV PRN PRN LINE FLUSH Zolpidem Tartrate 5 mg 05/17/19 18:13 05/17/19 21:11 Ambien PO 5 mg QHS PRN Administration Sleep
[2019-05-18] MEDS: ASPIRIN EC 81 MG TAB PO SCH (09:47)
[2019-05-18] MEDS: CINACALCET 30 MG TAB PO SCH (09:48)
[2019-05-18] MEDS: NICOTINE 14 MG/24 HR PATCH TD SCH (09:48)
[2019-05-18] MEDS: cephALEXin 250 MG CAP PO SCH (09:48)
[2019-05-18] MEDS: NIFEdipine XL 60 MG TAB PO SCH ×2 (09:48→21:10)
[2019-05-18] MEDS: FOLIC ACID/VIT B COMP W-C 1 MG (RENAL CAPS) PO SCH (09:48)
[2019-05-18] MEDS: PANTOPRAZOLE 40 MG TAB PO SCH (09:48)
[2019-05-18] MEDS: LORATADINE/PSEUDOEPHEDRINE 10-240 MG TAB 24HR PO SCH (09:49)
[2019-05-18] MEDS: LACTOBACILLUS RHAMNOSUS GG 1 EACH CAP PO SCH (10:02)
[2019-05-18] MEDS: LACTULOSE 20 GM/30 ML ORAL LIQD PO SCH ×2 (10:03→21:10)
--- NOTE | 2019-05-18 12:49 | Progress Note ---
Assessment and Plan Impression: * End stage renal disease * Pericardial effusion s/p pericaridal window - no tamponade physiology * Uremia * Hyperkalemia * Metabolic acidosis * Hyponatremia * Anemia secondary to ESRD * Secondary hyperparathyroidism Plan: * stopped CAPD - now on HD q MWF * s/p pericardiocentesis on Monday * she has improved, continue solute clearance * Epogen TIW prn and Renal diet * added lacutulose * confirmed hd placement, Abdullahi hale MW * can dc home Subjective Date of service: 05/18/19 Principal diagnosis: esrd Interval history: resting well in bed today Objective - Exam Narrative Exam: General appearance: well-developed, well-nourished EENT: ATNC Respiratory: Present: Clear to Ascultation Cardiology: regular, S1S2 Gastrointestinal: normal, no tenderness, no distended Integumentary: no rash, warm and dry Neurologic: no focal deficit, alert and oriented x3 Psychiatric: cooperative - Vital Signs Vital signs: Vital Signs - 12hr 05/18/19 05/18/19 05/18/19 06:26 07:46 08:12 Temperature 98.2 F Pulse Rate 89 89 Pulse Rate [ Anterior Bilateral Throughout] Respiratory 18 20 Rate Respiratory Rate [Anterior Bilateral Throughout] Blood Pressure 169/80 169/80 O2 Sat by Pulse 98 Oximetry 05/18/19 08:35 Temperature Pulse Rate Pulse Rate [ 85 Anterior Bilateral Throughout] Respiratory Rate Respiratory 20 Rate [Anterior Bilateral Throughout] Blood Pressure O2 Sat by Pulse Oximetry - Lab 05/18/19 04:23 05/18/19 04:23 Most recent lab results Calcium 7.6 mg/dL (8.4-10.2) L 05/18/19 04:23 Phosphorus 7.20 mg/dL (2.5-4.5) H 05/13/19 06:53 Magnesium 2.20 mg/dL (1.7-2.3) 05/13/19 06:53 Medications & Allergies - Medications Allergies/Adverse Reactions: Allergies No Known Allergies Allergy (Verified 08/21/18 15:07) Home Medications: Home Medications Medication Instructions Recorded Confirmed Last Taken Type Aspirin [Adult Low Dose Aspirin EC] 81 mg PO DAILY 11/24/16 05/10/19 05/08/19 History NIFEdipine [Nifedipine ER] 60 mg PO BID 11/24/16 05/10/19 05/08/19 History Cinacalcet HCl [Sensipar] 60 mg PO DAILY 08/21/18 05/10/19 05/08/19 History Dialyvite Chewable Probiotic 3,000 mg PO DAILY 08/21/18 05/10/19 05/08/19 History carvediloL [Coreg] 25 mg PO BID 08/21/18 05/10/19 05/08/19 History hydrALAZINE [Apresoline TAB] 100 mg PO TID 08/21/18 05/10/19 05/08/19 History Acetaminophen/Codeine [Tylenol 1 tab PO Q6H PRN #14 tab 05/10/19 05/10/19 Unknown Rx /Codeine # 3 tab] Albuterol INH(or & Nicu Only) 2 puff IH QID PRN #8.5 gram 05/10/19 05/10/19 Unknown Rx [ProAir HFA Inhaler] Cefdinir 300 mg PO BID #6 capsule 05/10/19 05/10/19 Unknown Rx Nicotine [Habitrol] 14 mg TD QDAY #30 patch 05/10/19 05/10/19 Unknown Rx Prednisone [predniSONE 10 mg 10 mg PO .TAPER #1 tab.ds.pk 05/10/19 05/10/19 Unknown Rx (6-Day Pack, 21 Tabs)] Active Medications: Generic Name Dose Route Start Last Admin Trade Name Freq PRN Reason Stop Dose Admin Acetaminophen 650 mg 05/10/19 17:57 05/13/19 18:32 Tylenol PO 650 mg Q4H PRN Administration Pain MILD(1-3)/Fever >100.5/[place]OVAK Albumin Human 25 gm 05/14/19 13:28 Alburx 25% (Albumin) IV DARSHAN PRN Hypotension Albuterol/Ipratropium 1 ampul 05/12/19 08:00 05/18/19 08:17 Duoneb *Not For Prn Use* IH 1 ampul TIDRT FROY Administration Aspirin 81 mg 05/11/19 10:00 05/18/19 09:47 Halfprin Ec PO 81 mg DAILY FROY Administration Bisacodyl 10 mg 05/14/19 18:38 Dulcolax RI QDAY PRN Constipation Budesonide 0.5 mg 05/10/19 20:00 05/18/19 08:17 Pulmicort IH 0.5 mg Q12HRT FROY Administration Carvedilol 25 mg 05/10/19 22:00 05/18/19 07:46 Coreg PO 25 mg BID@0800,1700 FROY Administration Cephalexin 250 mg 05/15/19 10:00 05/18/19 09:48 Keflex PO 05/20/19 10:01 250 mg Q24HR FROY Administration Cinacalcet 60 mg 05/10/19 21:00 05/18/19 09:48 Sensipar PO 60 mg QDAY FROY Administration Epoetin Tirso 10,000 unit 05/14/19 13:29 05/17/19 11:21 Procrit IV 10,000 unit DARSHAN PRN Administration hemodialysis Furosemide 80 mg 05/18/19 06:00 05/18/19 05:41 Lasix PO 80 mg 0600,1800 FROY Administration Guaifenesin 10 ml 05/17/19 18:13 05/18/19 06:40 Guaifenesin Dm Syrup PO 10 ml Q4H PRN Administration Cough Heparin Sodium (Porcine) 5,000 unit 05/10/19 22:00 05/18/19 05:41 Heparin SUB-Q 5,000 unit Q8HR FROY Administration Hydralazine HCl 100 mg 05/10/19 20:00 05/18/19 07:46 Apresoline PO 100 mg TID FROY Administration Sodium Chloride 100 mls @ 999 mls/hr 05/16/19 16:45 Nacl 0.9% IV DARSHAN PRN Hypotension Lactobacillus Rhamnosus 1 each 05/13/19 12:00 05/18/19 10:02 Culturelle PO 1 each DAILY FROY Administration Lactulose 20 gm 05/14/19 14:00 05/18/19 10:03 Cephulac PO Not Given BID FROY Loratadine/Pseudoephedrine Sulfate 1 each 05/18/19 10:00 05/18/19 09:49 Claritin-D 24hr PO 1 each Q24HR FROY Administration Magnesium Hydroxide 30 ml 05/14/19 18:38 05/14/19 21:57 Milk Of Magnesia PO 30 ml QDAY PRN Administration Constipation Methylprednisolone Sodium Succinate 60 mg 05/17/19 20:00 05/18/19 05:42 Solu-Medrol IV 60 mg Q8HR FROY Administration Morphine Sulfate 2 mg 05/10/19 17:57 05/13/19 17:04 Morphine IV 2 mg Q4H PRN Administration Pain, Moderate (4-6) Multivit/Ca Carb/B Cmplx/FA/Prenat 1 cap 05/13/19 12:00 05/18/19 09:48 Renal Caps PO 1 cap QDAY FROY Administration Nicotine 14 mg 05/11/19 10:00 05/18/19 09:48 Habitrol TD 14 mg QDAY FROY Administration Nifedipine 60 mg 05/10/19 22:00 05/18/19 09:48 Procardia Xl PO 60 mg BID FROY Administration Ondansetron HCl 4 mg 05/10/19 17:57 Zofran IV Q8H PRN Nausea And Vomiting Oxycodone/Acetaminophen 1 tab 05/10/19 17:57 05/17/19 08:59 Percocet 5/325 PO 1 tab Q6H PRN Administration Pain, Moderate (4-6) Pantoprazole Sodium 40 mg 05/12/19 18:00 05/18/19 09:48 Protonix PO 40 mg QDAY FROY Administration Sodium Bicarbonate 650 mg 05/11/19 20:00 05/18/19 07:46 Sodium Bicarbonate PO 650 mg TID FROY Administration Sodium Chloride 10 ml 05/10/19 22:00 05/18/19 09:49 Sodium Chloride Flush Syringe 10 Ml IV 10 ml BID FROY Administration Sodium Chloride 10 ml 05/10/19 17:57 Sodium Chloride Flush Syringe 10 Ml IV PRN PRN LINE FLUSH Zolpidem Tartrate 5 mg 05/17/19 18:13 05/17/19 21:11 Ambien PO 5 mg QHS PRN Administration Sleep
[2019-05-18] MEDS: LOSARTAN 50 MG TAB PO SCH (13:45)
[2019-05-18] MEDS: oxyCODONE /ACETAMINOPHEN 5-325MG TAB PO PRN (14:28)
--- NOTE | 2019-05-18 15:26 | Consultation ---
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 thanks for the consult ... we will follow along Past History Past Medical History: COPD, hypertension, renal failure Past Surgical History: , hysterectomy Social history: no significant social history Family history: denies: CAD Medications and Allergies Allergies Allergy/AdvReac Type Severity Reaction Status Date / Time No Known Allergies Allergy Verified 08/21/18 15:07 Home Medications Medication Instructions Recorded Confirmed Last Taken Type Aspirin [Adult Low Dose Aspirin EC] 81 mg PO DAILY 11/24/16 05/10/19 05/08/19 History NIFEdipine [Nifedipine ER] 60 mg PO BID 11/24/16 05/10/19 05/08/19 History Cinacalcet HCl [Sensipar] 60 mg PO DAILY 08/21/18 05/10/19 05/08/19 History Dialyvite Chewable Probiotic 3,000 mg PO DAILY 08/21/18 05/10/19 05/08/19 History carvediloL [Coreg] 25 mg PO BID 08/21/18 05/10/19 05/08/19 History hydrALAZINE [Apresoline TAB] 100 mg PO TID 08/21/18 05/10/19 05/08/19 History Acetaminophen/Codeine [Tylenol 1 tab PO Q6H PRN #14 tab 05/10/19 05/10/19 Unknown Rx /Codeine # 3 tab] Albuterol INH(or & Nicu Only) 2 puff IH QID PRN #8.5 gram 05/10/19 05/10/19 Unknown Rx [ProAir HFA Inhaler] Cefdinir 300 mg PO BID #6 capsule 05/10/19 05/10/19 Unknown Rx Nicotine [Habitrol] 14 mg TD QDAY #30 patch 05/10/19 05/10/19 Unknown Rx Prednisone [predniSONE 10 mg 10 mg PO .TAPER #1 tab.ds.pk 05/10/19 05/10/19 Unknown Rx (6-Day Pack, 21 Tabs)] Active Meds: Active Medications Acetaminophen (Tylenol) 650 mg PO Q4H PRN PRN Reason: Pain MILD(1-3)/Fever >100.5/NOVAK Last Admin: 05/13/19 18:32 Dose: 650 mg Documented by: Albumin Human (Alburx 25% (Albumin)) 25 gm IV DARSHAN PRN PRN Reason: Hypotension Albuterol/Ipratropium (Duoneb *Not For Prn Use*) 1 ampul IH TIDRT [facility] Last Admin: 05/18/19 15:03 Dose: 1 ampul Documented by: Aspirin (Halfprin Ec) 81 mg PO DAILY [facility] Last Admin: 05/18/19 09:47 Dose: 81 mg Documented by: Bisacodyl (Dulcolax) 10 mg NC QDAY PRN PRN Reason: Constipation Budesonide (Pulmicort) 0.5 mg IH Q12HRT [facility] Last Admin: 05/18/19 08:17 Dose: 0.5 mg Documented by: Carvedilol (Coreg) 25 mg PO BID@0800,1700 [facility] Last Admin: 05/18/19 07:46 Dose: 25 mg Documented by: Cephalexin (Keflex) 250 mg PO Q24HR [facility] Stop: 05/20/19 10:01 Last Admin: 05/18/19 09:48 Dose: 250 mg Documented by: Cinacalcet (Sensipar) 60 mg PO QDAY [facility] Last Admin: 05/18/19 09:48 Dose: 60 mg Documented by: Epoetin Tirso (Procrit) 10,000 unit IV DARSHAN PRN PRN Reason: hemodialysis Last Admin: 05/17/19 11:21 Dose: 10,000 unit Documented by: Furosemide (Lasix) 80 mg PO 0600,1800 [facility] Last Admin: 05/18/19 05:41 Dose: 80 mg Documented by: Guaifenesin (Guaifenesin Dm Syrup) 10 ml PO Q4H PRN PRN Reason: Cough Last Admin: 05/18/19 14:28 Dose: 10 ml Documented by: Heparin Sodium (Porcine) (Heparin) 5,000 unit SUB-Q Q8HR [facility] Last Admin: 05/18/19 13:45 Dose: 5,000 unit Documented by: Hydralazine HCl (Apresoline) 100 mg PO TID [facility] Last Admin: 05/18/19 13:45 Dose: 100 mg Documented by: Sodium Chloride (Nacl 0.9%) 100 mls @ 999 mls/hr IV DARSHAN PRN PRN Reason: Hypotension Lactobacillus Rhamnosus (Culturelle) 1 each PO DAILY [facility] Last Admin: 05/18/19 10:02 Dose: 1 each Documented by: Lactulose (Cephulac) 20 gm PO BID [facility] Last Admin: 05/18/19 10:03 Dose: Not Given Documented by: Loratadine/Pseudoephedrine Sulfate (Claritin-D 24hr) 1 each PO Q24HR [facility] Last Admin: 05/18/19 09:49 Dose: 1 each Documented by: Losartan Potassium (Cozaar) 50 mg PO QDAY [facility] Last Admin: 05/18/19 13:45 Dose: 50 mg Documented by: Methylprednisolone Sodium Succinate (Solu-Medrol) 60 mg IV Q8HR [facility] Last Admin: 05/18/19 14:24 Dose: 60 mg Documented by: Morphine Sulfate (Morphine) 2 mg IV Q4H PRN PRN Reason: Pain, Moderate (4-6) Last Admin: 05/13/19 17:04 Dose: 2 mg Documented by: Multivit/Ca Carb/B Cmplx/FA/Prenat (Renal Caps) 1 cap PO QDAY [facility] Last Admin: 05/18/19 09:48 Dose: 1 cap Documented by: Nicotine (Habitrol) 14 mg TD QDAY [facility] Last Admin: 05/18/19 09:48 Dose: 14 mg Documented by: Nifedipine (Procardia Xl) 60 mg PO BID [facility] Last Admin: 05/18/19 09:48 Dose: 60 mg Documented by: Ondansetron HCl (Zofran) 4 mg IV Q8H PRN PRN Reason: Nausea And Vomiting Oxycodone/Acetaminophen (Percocet 5/325) 1 tab PO Q6H PRN PRN Reason: Pain, Moderate (4-6) Last Admin: 05/18/19 14:28 Dose: 1 tab Documented by: Pantoprazole Sodium (Protonix) 40 mg PO QDAY [facility] Last Admin: 05/18/19 09:48 Dose: 40 mg Documented by: Sodium Bicarbonate (Sodium Bicarbonate) 650 mg PO TID [facility] Last Admin: 05/18/19 13:45 Dose: 650 mg Documented by: Sodium Chloride (Sodium Chloride Flush Syringe 10 Ml) 10 ml IV BID [facility] Last Admin: 05/18/19 09:49 Dose: 10 ml Documented by: Sodium Chloride (Sodium Chloride Flush Syringe 10 Ml) 10 ml IV PRN PRN PRN Reason: LINE FLUSH Zolpidem Tartrate (Ambien) 5 mg PO QHS PRN PRN Reason: Sleep Last Admin: 05/17/19 21:11 Dose: 5 mg Documented by: Physical Examination Vital signs: Vital Signs Pulse Ox 100 05/10/19 20:30 Results - Laboratory Findings CBC and BMP: 05/19/19 04:45 05/19/19 04:45 PT/INR, D-dimer PT 13.9 Sec. (12.2-14.9) 05/12/19 16:16 PT 14.4 Sec. (12.2-14.9) 05/12/19 16:16 INR 1.06 (0.87-1.13) 05/12/19 16:16 INR 1.11 (0.87-1.13) 05/12/19 16:16 Abnormal lab findings: Abnormal Labs 05/11/19 05/11/19 05/12/19 04:28 04:28 16:16 WBC 3.6 L RBC 2.86 L Hgb 8.6 L Hct 26.7 L RDW 16.3 H Lymph % (Auto) [place] % (Auto) Lymph # Seg Neutrophils % Seg Neuts % (Manual) 94.0 H Lymphocytes % (Manual) 6.0 L Nucleated RBC % Lymphocytes # (Manual) 0.2 L APTT 37.5 H Sodium 133 L Potassium 5.2 H Chloride 94.1 L Carbon Dioxide 18 L BUN 77 H Creatinine 10.6 H Glucose 167 H POC Glucose Calcium Phosphorus 05/13/19 05/13/19 05/13/19 06:31 06:53 06:53 WBC 4.1 L RBC 2.72 L Hgb 8.0 L Hct 24.5 L RDW Lymph % (Auto) 7.4 L [place] % (Auto) Lymph # 0.3 L Seg Neutrophils % 87.6 H Seg Neuts % (Manual) Lymphocytes % (Manual) Nucleated RBC % Lymphocytes # (Manual) APTT Sodium 130 L Potassium Chloride 91.0 L Carbon Dioxide 18 L BUN 77 H Creatinine 9.7 H Glucose 140 H POC Glucose 142 H Calcium 7.5 L Phosphorus 7.20 H 05/14/19 05/14/19 05/15/19 04:01 04:01 05:24 WBC RBC 3.11 L 2.97 L Hgb 9.1 L 8.8 L Hct 28.1 L 27.0 L RDW Lymph % (Auto) 4.3 L [place] % (Auto) Lymph # 0.3 L Seg Neutrophils % 89.1 H Seg Neuts % (Manual) 95.0 H Lymphocytes % (Manual) 1.0 L Nucleated RBC % Lymphocytes # (Manual) 0.1 L APTT Sodium 130 L Potassium Chloride 90.9 L Carbon Dioxide 20 L BUN 81 H Creatinine 9.7 H Glucose 190 H POC Glucose Calcium 7.5 L Phosphorus 05/15/19 05/16/19 05/16/19 05:24 04:11 04:11 WBC RBC 2.95 L Hgb 8.7 L Hct 26.9 L RDW Lymph % (Auto) 4.1 L [place] % (Auto) 8.5 H Lymph # 0.3 L Seg Neutrophils % 87.3 H Seg Neuts % (Manual) Lymphocytes % (Manual) Nucleated RBC % Lymphocytes # (Manual) APTT Sodium 136 L Potassium Chloride 93.8 L 96.0 L Carbon Dioxide BUN 50 H 25 H Creatinine 6.7 H 4.5 H Glucose 209 H 190 H POC Glucose Calcium 7.6 L 7.7 L Phosphorus 05/17/19 05/17/19 05/18/19 03:47 03:47 04:23 WBC RBC 3.04 L 3.09 L Hgb 9.0 L 9.1 L Hct 28.0 L 28.5 L RDW Lymph % (Auto) 5.3 L [place] % (Auto) Lymph # 0.3 L Seg Neutrophils % 87.2 H Seg Neuts % (Manual) 87.0 H Lymphocytes % (Manual) 8.0 L Nucleated RBC % 6.0 H Lymphocytes # (Manual) 0.7 L APTT Sodium Potassium Chloride 95.6 L Carbon Dioxide BUN Creatinine 3.8 H Glucose 161 H POC Glucose Calcium 7.7 L Phosphorus 05/18/19 04:23 WBC RBC Hgb Hct RDW Lymph % (Auto) [place] % (Auto) Lymph # Seg Neutrophils % Seg Neuts % (Manual) Lymphocytes % (Manual) Nucleated RBC % Lymphocytes # (Manual) APTT Sodium Potassium Chloride 95.2 L Carbon Dioxide BUN Creatinine 3.5 H Glucose 163 H POC Glucose Calcium 7.6 L Phosphorus
[2019-05-18] MEDS: ZOLPIDEM 5 MG TAB PO PRN (21:10)
[2019-05-19] MEDS: FUROSEMIDE 40 MG TAB PO SCH ×2 (05:32→17:49)
[2019-05-19] MEDS: methylPREDNISolone Sod Succinate 125 MG/2 ML INJ IV SCH (05:32)
[2019-05-19] MEDS: HEPARIN 5,000 UNIT/1 ML VIAL SUB-Q SCH ×3 (05:32→22:00)
[2019-05-19] MEDS: oxyCODONE /ACETAMINOPHEN 5-325MG TAB PO PRN (05:34)
[2019-05-19] MEDS: guaiFENesin DM 200/20 MG ORAL LIQD 10 ML PO PRN ×2 (05:35→21:43)
[2019-05-19 06:25] LABS: Hematocrit 28.7 % (30.3-42.9); Hemoglobin 9.4 gm/dl (10.1-14.3); Mean Corpuscular HGB Conc 33 % (30-34); Mean Corpuscular Volume 92 fl (79-97); Platelet Count 268 K/mm3 (140-440); Red Blood Count 3.11 M/mm3 (3.65-5.03); Red Cell Distribution Width 15.2 % (13.2-15.2)
[2019-05-19 06:35] LABS: Calcium 7.3 mg/dL (8.4-10.2)
[2019-05-19 07:43] LABS: Anisocytosis Few; Basophils % (Manual) 0 % (0.0-1.8); Eosinophils % (Manual) 0 % (0.0-4.3); Platelet Estimate Consistent w Auto; Total Cells Counted 100
[2019-05-19] MEDS: IPRATROPIUM/ALBUTEROL SULFATE 3 ML AMPUL.NEB IH SCH ×3 (10:25→20:16)
[2019-05-19] MEDS: BUDESONIDE 0.5 MG/2 ML NEBU IH SCH ×2 (10:25→20:16)
--- NOTE | 2019-05-19 10:34 | Progress Note ---
Assessment and Plan Impression: * End stage renal disease * Pericardial effusion s/p pericaridal window - no tamponade physiology * Uremia * Hyperkalemia * Metabolic acidosis * Hyponatremia * Anemia secondary to ESRD * Secondary hyperparathyroidism Plan: * stopped CAPD - now on HD q MWF * s/p pericardiocentesis on Monday * had friction rub and pericarditis from uremia, symptoms likely due to pericarditis and recovery from uremic pericardial effusion * she has improved, continue solute clearance * will add po prednisone for inflammation due to pericarditis, avoid nsaids post pericardiocentesis * Epogen TIW prn and Renal diet * added lacutulose * confirmed hd placement, Abdullahi hale MW * can dc home from renal standpoint Subjective Date of service: 05/19/19 Principal diagnosis: esrd Interval history: resting well in bed today Objective - Exam Narrative Exam: General appearance: well-developed, well-nourished EENT: ATNC Respiratory: Present: Clear to Ascultation Cardiology: regular, S1S2 Gastrointestinal: normal, no tenderness, no distended Integumentary: no rash, warm and dry Neurologic: no focal deficit, alert and oriented x3 Psychiatric: cooperative - Vital Signs Vital signs: Vital Signs - 12hr 05/18/19 05/19/19 05/19/19 23:56 03:52 08:45 Temperature 98.1 F 97.6 F Pulse Rate 84 83 82 Pulse Rate [ Anterior Bilateral Throughout] Respiratory 18 18 Rate Respiratory Rate [Anterior Bilateral Throughout] Blood Pressure 189/80 164/78 O2 Sat by Pulse 91 98 Oximetry 05/19/19 10:25 Temperature Pulse Rate Pulse Rate [ 84 Anterior Bilateral Throughout] Respiratory Rate Respiratory 18 Rate [Anterior Bilateral Throughout] Blood Pressure O2 Sat by Pulse Oximetry - Lab 05/19/19 04:45 05/19/19 04:45 Most recent lab results Calcium 7.3 mg/dL (8.4-10.2) L 05/19/19 04:45 Phosphorus 7.20 mg/dL (2.5-4.5) H 05/13/19 06:53 Magnesium 2.20 mg/dL (1.7-2.3) 05/13/19 06:53 Medications & Allergies - Medications Allergies/Adverse Reactions: Allergies No Known Allergies Allergy (Verified 08/21/18 15:07) Home Medications: Home Medications Medication Instructions Recorded Confirmed Last Taken Type Aspirin [Adult Low Dose Aspirin EC] 81 mg PO DAILY 11/24/16 05/10/19 05/08/19 History NIFEdipine [Nifedipine ER] 60 mg PO BID 11/24/16 05/10/19 05/08/19 History Cinacalcet HCl [Sensipar] 60 mg PO DAILY 08/21/18 05/10/19 05/08/19 History Dialyvite Chewable Probiotic 3,000 mg PO DAILY 08/21/18 05/10/19 05/08/19 History carvediloL [Coreg] 25 mg PO BID 08/21/18 05/10/19 05/08/19 History hydrALAZINE [Apresoline TAB] 100 mg PO TID 08/21/18 05/10/19 05/08/19 History Acetaminophen/Codeine [Tylenol 1 tab PO Q6H PRN #14 tab 05/10/19 05/10/19 Unknown Rx /Codeine # 3 tab] Albuterol INH(or & Nicu Only) 2 puff IH QID PRN #8.5 gram 05/10/19 05/10/19 Unknown Rx [ProAir HFA Inhaler] Cefdinir 300 mg PO BID #6 capsule 05/10/19 05/10/19 Unknown Rx Nicotine [Habitrol] 14 mg TD QDAY #30 patch 05/10/19 05/10/19 Unknown Rx Prednisone [predniSONE 10 mg 10 mg PO .TAPER #1 tab.ds.pk 05/10/19 05/10/19 Unknown Rx (6-Day Pack, 21 Tabs)] Active Medications: Generic Name Dose Route Start Last Admin Trade Name Freq PRN Reason Stop Dose Admin Acetaminophen 650 mg 05/10/19 17:57 05/13/19 18:32 Tylenol PO 650 mg Q4H PRN Administration Pain MILD(1-3)/Fever >100.5/NOVAK Albumin Human 25 gm 05/14/19 13:28 Alburx 25% (Albumin) IV DARSHAN PRN Hypotension Albuterol/Ipratropium 1 ampul 05/12/19 08:00 05/19/19 10:25 Duoneb *Not For Prn Use* IH 1 ampul TIDRT [facility] Administration Aspirin 81 mg 05/11/19 10:00 05/18/19 09:47 Halfprin Ec PO 81 mg DAILY [facility] Administration Bisacodyl 10 mg 05/14/19 18:38 Dulcolax [place] QDAY PRN Constipation Budesonide 0.5 mg 05/10/19 20:00 05/19/19 10:25 Pulmicort IH 0.5 mg Q12HRT [facility] Administration Carvedilol 25 mg 05/10/19 22:00 05/18/19 17:16 Coreg PO 25 mg BID@0800,1700 [facility] Administration Cephalexin 250 mg 05/15/19 10:00 05/18/19 09:48 Keflex PO 05/20/19 10:01 250 mg Q24HR [facility] Administration Cinacalcet 60 mg 05/10/19 21:00 05/18/19 09:48 Sensipar PO 60 mg QDAY [facility] Administration Epoetin Tirso 10,000 unit 05/14/19 13:29 05/17/19 11:21 Procrit IV 10,000 unit DARSHAN PRN Administration hemodialysis Furosemide 80 mg 05/18/19 06:00 05/19/19 05:32 Lasix PO 80 mg 0600,1800 [facility] Administration Guaifenesin 10 ml 05/17/19 18:13 05/19/19 05:35 Guaifenesin Dm Syrup PO 10 ml Q4H PRN Administration Cough Heparin Sodium (Porcine) 5,000 unit 05/10/19 22:00 05/19/19 05:32 Heparin SUB-Q 5,000 unit Q8HR [facility] Administration Hydralazine HCl 100 mg 05/10/19 20:00 05/18/19 21:10 Apresoline PO 100 mg TID [facility] Administration Sodium Chloride 100 mls @ 999 mls/hr 05/16/19 16:45 Nacl 0.9% IV DARSHAN PRN Hypotension Lactobacillus Rhamnosus 1 each 05/13/19 12:00 05/18/19 10:02 Culturelle PO 1 each DAILY [facility] Administration Lactulose 20 gm 05/14/19 14:00 05/18/19 21:10 Cephulac PO Not Given BID [facility] Loratadine/Pseudoephedrine Sulfate 1 each 05/18/19 10:00 05/18/19 09:49 Claritin-D 24hr PO 1 each Q24HR [facility] Administration Losartan Potassium 50 mg 05/18/19 13:00 05/18/19 13:45 Cozaar PO 50 mg QDAY [facility] Administration Methylprednisolone Sodium Succinate 60 mg 05/17/19 20:00 05/19/19 05:32 Solu-Medrol IV 60 mg Q8HR [facility] Administration Morphine Sulfate 2 mg 05/10/19 17:57 05/13/19 17:04 Morphine IV 2 mg Q4H PRN Administration Pain, Moderate (4-6) Multivit/Ca Carb/B Cmplx/FA/Prenat 1 cap 05/13/19 12:00 05/18/19 09:48 Renal Caps PO 1 cap QDAY [facility] Administration Nicotine 14 mg 05/11/19 10:00 05/18/19 09:48 Habitrol TD 14 mg QDAY [facility] Administration Nifedipine 60 mg 05/10/19 22:00 05/18/19 21:10 Procardia Xl PO 60 mg BID [facility] Administration Ondansetron HCl 4 mg 05/10/19 17:57 Zofran IV Q8H PRN Nausea And Vomiting Oxycodone/Acetaminophen 1 tab 05/10/19 17:57 05/19/19 05:34 Percocet 5/325 PO 1 tab Q6H PRN Administration Pain, Moderate (4-6) Pantoprazole Sodium 40 mg 05/12/19 18:00 05/18/19 09:48 Protonix PO 40 mg QDAY [facility] Administration Sodium Bicarbonate 650 mg 05/11/19 20:00 05/18/19 21:10 Sodium Bicarbonate PO 650 mg TID [facility] Administration Sodium Chloride 10 ml 05/10/19 22:00 05/18/19 21:11 Sodium Chloride Flush Syringe 10 Ml IV 10 ml BID [facility] Administration Sodium Chloride 10 ml 05/10/19 17:57 Sodium Chloride Flush Syringe 10 Ml IV PRN PRN LINE FLUSH Zolpidem Tartrate 5 mg 05/17/19 18:13 05/18/19 21:10 Ambien PO 5 mg QHS PRN Administration Sleep
[2019-05-19] MEDS: SODIUM BICARBONATE 650 MG TAB PO SCH ×3 (10:35→21:43)
[2019-05-19] MEDS: carvediloL 25 MG TAB PO SCH ×2 (10:35→17:49)
[2019-05-19] MEDS: hydrALAZINE 100 MG TAB PO SCH ×3 (10:35→21:43)
[2019-05-19] MEDS: CINACALCET 30 MG TAB PO SCH (10:36)
[2019-05-19] MEDS: FOLIC ACID/VIT B COMP W-C 1 MG (RENAL CAPS) PO SCH (10:36)
[2019-05-19] MEDS: NIFEdipine XL 60 MG TAB PO SCH ×2 (10:36→21:43)
[2019-05-19] MEDS: LOSARTAN 50 MG TAB PO SCH (10:36)
[2019-05-19] MEDS: PANTOPRAZOLE 40 MG TAB PO SCH (10:37)
[2019-05-19] MEDS: ASPIRIN EC 81 MG TAB PO SCH (10:37)
[2019-05-19] MEDS: cephALEXin 250 MG CAP PO SCH (10:37)
[2019-05-19] MEDS: LACTOBACILLUS RHAMNOSUS GG 1 EACH CAP PO SCH (10:37)
[2019-05-19] MEDS: NICOTINE 14 MG/24 HR PATCH TD SCH (10:37)
[2019-05-19] MEDS: LACTULOSE 20 GM/30 ML ORAL LIQD PO SCH ×2 (10:38→22:00)
--- NOTE | 2019-05-19 10:51 | Progress Note ---
Assessment and Plan Assessment and plan: 63-year-old woman with end-stage renal disease on peritoneal dialysis who was asked to return to hospital for abnormal echo with cardial effusion Patient underwent pericardiocentesis on 05/13/2019, hemodialysis initiated, nephrology and the patient want to continue hemodialysis Case management assisting to secure outpatient HD chair time, patient continues to have severe wheezing and congestion and cough Pulmonary following --Acute bronchitis/?acute exacerbation of COPD/chronic tobacco use Mild Improvement in wheezing, cough and congestion On IV diuretics, nebulizers, IV steroids bronchodilators and steroids inhalation steroids chest x-ray ,Pulmonary following --Moderate to large pericardial effusion; Status post pericardiocentesis 05/13/2019 removed 1.2 L pericardial fluid, Symptoms improved Follow-up echocardiogram; small circumferential pericardial effusion, EF 50-55% --End-stage renal disease on peritoneal dialysis; Converted to hemodialysisn , HD per scheduled Nephrology cleared , outpatient HD chair secured --Hypertension; moderate control Continue current antihypertensives and when necessary medications --Ongoing tobacco use; smoking cessation counseling, Nicotine patch as needed --Preventive care counseling done spent 15 minutes --DVT prophylaxis; heparin, renal dose Monitor closely and adjust management as needed Disposition; outpatient HD chair is secured Evaluation for home oxygen, discharged a.m. if stable And cleared by pulmonary Plan of care reviewed with the patient and her nurse Disposition ;Possible discharge tomorrow if stable History Interval history: Patient seen and examined in her room this morning Overnight events gnosis notes medications reviewed Patient feels slightly better still has some wheezing and shortness of breath Pulmonary following Patient denies chest pain or palpitation Vital signs reviewed Hospitalist Physical - Constitutional Vitals: Temp Pulse Resp BP Pulse Ox 97.6 F 80 18 197/90 97 05/19/19 03:52 05/19/19 10:35 05/19/19 10:25 05/19/19 09:13 05/19/19 09:13 General appearance: Present: mild distress, well-nourished - EENT Eyes: Present: PERRL, EOM intact - Neck Neck: Present: supple, normal ROM - Respiratory Respiratory effort: normal Respiratory: bilateral: diminished, wheezing, negative: rales, rhonchi - Cardiovascular Rhythm: regular Heart Sounds: Present: S1 & S2 - Extremities Extremities: no ischemia, No edema - Abdominal General gastrointestinal: soft, non-tender, non-distended, normal bowel sounds - Integumentary Integumentary: Present: clear, warm - Psychiatric Psychiatric: appropriate mood/affect, cooperative - Neurologic Neurologic: CNII-XII intact, moves all extremities PANCHO score - Pancho Score Age > 65: (0) No Aspirin use within the Past 7 Days: (0) No 3 or more CAD Risk Factors: (0) No 2 or more Angina events in past 24 hrs: (1) Yes Known CAD with more than 50% Stenosis: (0) No Elevated Cardiac Markers: (0) No ST Deviation Greater than 0.5mm: (0) No PANCHO Score: 1 Results - Labs CBC & Chem 7: 05/19/19 04:45 05/19/19 04:45 Labs: Laboratory Last Values WBC 7.0 K/mm3 (4.5-11.0) 05/19/19 04:45 RBC 3.11 M/mm3 (3.65-5.03) L 05/19/19 04:45 Hgb 9.4 gm/dl (10.1-14.3) L 05/19/19 04:45 Hct 28.7 % (30.3-42.9) L 05/19/19 04:45 MCV 92 fl (79-97) 05/19/19 04:45 MCH 30 pg (28-32) 05/19/19 04:45 MCHC 33 % (30-34) 05/19/19 04:45 RDW 15.2 % (13.2-15.2) 05/19/19 04:45 Plt Count 268 K/mm3 (140-440) 05/19/19 04:45 Lymph % (Auto) 5.3 % (13.4-35.0) L 05/17/19 03:47 [place] % (Auto) 7.3 % (0.0-7.3) 05/17/19 03:47 Eos % (Auto) 0.0 % (0.0-4.3) 05/17/19 03:47 Baso % (Auto) 0.2 % (0.0-1.8) 05/17/19 03:47 Lymph # 0.3 K/mm3 (1.2-5.4) L 05/17/19 03:47 [place] # 0.4 K/mm3 (0.0-0.8) 05/17/19 03:47 Eos # 0.0 K/mm3 (0.0-0.4) 05/17/19 03:47 Baso # 0.0 K/mm3 (0.0-0.1) 05/17/19 03:47 Add Manual Diff Complete 05/19/19 04:45 Total Counted 100 05/19/19 04:45 Seg Neutrophils % 87.2 % (40.0-70.0) H 05/17/19 03:47 Seg Neuts % (Manual) 86.0 % (40.0-70.0) H 05/19/19 04:45 Band Neutrophils % 0 % 05/19/19 04:45 Lymphocytes % (Manual) 9.0 % (13.4-35.0) L 05/19/19 04:45 Reactive Lymphs % (Man) 0 % 05/19/19 04:45 Monocytes % (Manual) 4.0 % (0.0-7.3) 05/19/19 04:45 Eosinophils % (Manual) 0 % (0.0-4.3) 05/19/19 04:45 Basophils % (Manual) 0 % (0.0-1.8) 05/19/19 04:45 Metamyelocytes % 1.0 % 05/19/19 04:45 Myelocytes % 0 % 05/19/19 04:45 Promyelocytes % 0 % 05/19/19 04:45 Blast Cells % 0 % 05/19/19 04:45 Nucleated RBC % 10.0 % (0.0-0.9) H 05/19/19 04:45 Seg Neutrophils # 5.2 K/mm3 (1.8-7.7) 05/17/19 03:47 Seg Neutrophils # Man 0.0 K/mm3 (1.8-7.7) L 05/19/19 04:45 Band Neutrophils # 0.0 K/mm3 05/19/19 04:45 Lymphocytes # (Manual) 0.0 K/mm3 (1.2-5.4) L 05/19/19 04:45 Abs React Lymphs (Man) 0.0 K/mm3 05/19/19 04:45 Monocytes # (Manual) 0.0 K/mm3 (0.0-0.8) 05/19/19 04:45 Eosinophils # (Manual) 0.0 K/mm3 (0.0-0.4) 05/19/19 04:45 Basophils # (Manual) 0.0 K/mm3 (0.0-0.1) 05/19/19 04:45 Metamyelocytes # 0.0 K/mm3 05/19/19 04:45 Myelocytes # 0.0 K/mm3 05/19/19 04:45 Promyelocytes # 0.0 K/mm3 05/19/19 04:45 Blast Cells # 0.0 K/mm3 05/19/19 04:45 WBC Morphology Not Reportable 05/19/19 04:45 Hypersegmented Neuts Not Reportable 05/19/19 04:45 Hyposegmented Neuts Not Reportable 05/19/19 04:45 Hypogranular Neuts Not Reportable 05/19/19 04:45 Smudge Cells Not Reportable 05/19/19 04:45 Toxic Granulation Not Reportable 05/19/19 04:45 Toxic Vacuolation Not Reportable 05/19/19 04:45 Dohle Bodies Not Reportable 05/19/19 04:45 Pelger-Huet Anomaly Not Reportable 05/19/19 04:45 Jomar Rods Not Reportable 05/19/19 04:45 Platelet Estimate Consistent w auto 05/19/19 04:45 Clumped Platelets Not Reportable 05/19/19 04:45 Plt Clumps, EDTA Not Reportable 05/19/19 04:45 Large Platelets Not Reportable 05/19/19 04:45 Giant Platelets Not Reportable 05/19/19 04:45 Platelet Satelliting Not Reportable 05/19/19 04:45 Plt Morphology Comment Not Reportable 05/19/19 04:45 RBC Morphology Not Reportable 05/19/19 04:45 Dimorphic RBCs Not Reportable 05/19/19 04:45 Polychromasia Not Reportable 05/19/19 04:45 Hypochromasia Not Reportable 05/19/19 04:45 Poikilocytosis Not Reportable 05/19/19 04:45 Anisocytosis Few 05/19/19 04:45 Microcytosis Not Reportable 05/19/19 04:45 Macrocytosis Not Reportable 05/19/19 04:45 Spherocytes Not Reportable 05/19/19 04:45 Pappenheimer Bodies Not Reportable 05/19/19 04:45 Sickle Cells Not Reportable 05/19/19 04:45 Target Cells Not Reportable 05/19/19 04:45 Tear Drop Cells Not Reportable 05/19/19 04:45 Ovalocytes Not Reportable 05/19/19 04:45 Helmet Cells Not Reportable 05/19/19 04:45 [place] Bodies Not Reportable 05/19/19 04:45 [place] Rings Not Reportable 05/19/19 04:45 [place] Cells Not Reportable 05/19/19 04:45 Bite Cells Not Reportable 05/19/19 04:45 Crenated Cell Not Reportable 05/19/19 04:45 Elliptocytes Not Reportable 05/19/19 04:45 Acanthocytes (Spur) Not Reportable 05/19/19 04:45 Rouleaux Not Reportable 05/19/19 04:45 Hemoglobin C Crystals Not Reportable 05/19/19 04:45 Schistocytes Not Reportable 05/19/19 04:45 Malaria parasites Not Reportable 05/19/19 04:45 Oral Bodies Not Reportable 05/19/19 04:45 Hem Pathologist Commnt No 05/19/19 04:45 PT 13.9 Sec. (12.2-14.9) 05/12/19 16:16 PT 14.4 Sec. (12.2-14.9) 05/12/19 16:16 INR 1.06 (0.87-1.13) 05/12/19 16:16 INR 1.11 (0.87-1.13) 05/12/19 16:16 APTT 37.5 Sec. (24.2-36.6) H 05/12/19 16:16 Sodium 132 mmol/L (137-145) L 05/19/19 04:45 Potassium 4.4 mmol/L (3.6-5.0) 05/19/19 04:45 Chloride 90.6 mmol/L (98-107) L 05/19/19 04:45 Carbon Dioxide 28 mmol/L (22-30) 05/19/19 04:45 Anion Gap 18 mmol/L 05/19/19 04:45 BUN 30 mg/dL (7-17) H 05/19/19 04:45 Creatinine 4.9 mg/dL (0.7-1.2) H 05/19/19 04:45 Estimated GFR 11 ml/min 05/19/19 04:45 BUN/Creatinine Ratio 6 % 05/19/19 04:45 Glucose 185 mg/dL (65-100) H 05/19/19 04:45 POC Glucose 142 (70-105) H 05/13/19 06:31 Calcium 7.3 mg/dL (8.4-10.2) L 05/19/19 04:45 Phosphorus 7.20 mg/dL (2.5-4.5) H 05/13/19 06:53 Magnesium 2.20 mg/dL (1.7-2.3) 05/13/19 06:53 Fluid Type Pericardial 05/13/19 11:30 Fluid Color Bloody 05/13/19 11:30 Fluid Appearance Bloody 05/13/19 11:30 Fluid WBC 95 /mm3 05/13/19 11:30 Fluid RBC 287483 /mm3 05/13/19 11:30 Fluid Diff Comment 05/13/19 11:30 Fluid Seg Neutrophils 14.0 % 05/13/19 11:30 Fluid Lymphocytes 68.0 % 05/13/19 11:30 Fluid Reactive Lymphs 0 % 05/13/19 11:30 Fluid Monocytes 18.0 % 05/13/19 11:30 Fluid Eosinophils 0 % 05/13/19 11:30 Fluid Basophils 0 % 05/13/19 11:30 Hepatitis A IgM Ab Non-reactive (NonReactive) 05/14/19 13:48 Hep Bs Antigen Non-reactive (Negative) 05/14/19 13:48 Hep B Core IgM Ab Non-reactive (NonReactive) 05/14/19 13:48 Hepatitis C Antibody Non-reactive (NonReactive) 05/14/19 13:48 AFB Identification 05/13/19 11:30 Active Medications - Current Medications Current Medications: Generic Name Dose Route Start Last Admin Trade Name Freq PRN Reason Stop Dose Admin Acetaminophen 650 mg 05/10/19 17:57 05/13/19 18:32 Tylenol PO 650 mg Q4H PRN Administration Pain MILD(1-3)/Fever >100.5/NOVAK Albumin Human 25 gm 05/14/19 13:28 Alburx 25% (Albumin) IV DARSHAN PRN Hypotension Albuterol/Ipratropium 1 ampul 05/12/19 08:00 05/19/19 10:25 Duoneb *Not For Prn Use* IH 1 ampul TIDRT FROY Administration Aspirin 81 mg 05/11/19 10:00 05/19/19 10:37 Halfprin Ec PO 81 mg DAILY FROY Administration Bisacodyl 10 mg 05/14/19 18:38 Dulcolax [place] QDAY PRN Constipation Budesonide 0.5 mg 05/10/19 20:00 05/19/19 10:25 Pulmicort IH 0.5 mg Q12HRT FROY Administration Carvedilol 25 mg 05/10/19 22:00 05/19/19 10:35 Coreg PO 25 mg BID@0800,1700 FROY Administration Cephalexin 250 mg 05/15/19 10:00 05/19/19 10:37 Keflex PO 05/20/19 10:01 250 mg Q24HR RFOY Administration Cinacalcet 60 mg 05/10/19 21:00 05/19/19 10:36 Sensipar PO 60 mg QDAY FROY Administration Epoetin Tirso 10,000 unit 05/14/19 13:29 05/17/19 11:21 Procrit IV 10,000 unit DARSHAN PRN Administration hemodialysis Furosemide 80 mg 05/18/19 06:00 05/19/19 05:32 Lasix PO 80 mg 0600,1800 FROY Administration Guaifenesin 10 ml 05/17/19 18:13 05/19/19 05:35 Guaifenesin Dm Syrup PO 10 ml Q4H PRN Administration Cough Heparin Sodium (Porcine) 5,000 unit 05/10/19 22:00 05/19/19 05:32 Heparin SUB-Q 5,000 unit Q8HR FROY Administration Hydralazine HCl 100 mg 05/10/19 20:00 05/19/19 10:35 Apresoline PO 100 mg TID FROY Administration Sodium Chloride 100 mls @ 999 mls/hr 05/16/19 16:45 Nacl 0.9% IV DARSHAN PRN Hypotension Lactobacillus Rhamnosus 1 each 05/13/19 12:00 05/19/19 10:37 Culturelle PO 1 each DAILY FROY Administration Lactulose 20 gm 05/14/19 14:00 05/19/19 10:38 Cephulac PO 20 gm BID FROY Administration Loratadine/Pseudoephedrine Sulfate 1 each 05/18/19 10:00 05/18/19 09:49 Claritin-D 24hr PO 1 each Q24HR FROY Administration Losartan Potassium 50 mg 05/18/19 13:00 05/19/19 10:36 Cozaar PO 50 mg QDAY FROY Administration Methylprednisolone Sodium Succinate 60 mg 05/17/19 20:00 05/19/19 05:32 Solu-Medrol IV 60 mg Q8HR FROY Administration Morphine Sulfate 2 mg 05/10/19 17:57 05/13/19 17:04 Morphine IV 2 mg Q4H PRN Administration Pain, Moderate (4-6) Multivit/Ca Carb/B Cmplx/FA/Prenat 1 cap 05/13/19 12:00 05/19/19 10:36 Renal Caps PO 1 cap QDAY FROY Administration Nicotine 14 mg 05/11/19 10:00 05/19/19 10:37 Habitrol TD 14 mg QDAY FROY Administration Nifedipine 60 mg 05/10/19 22:00 05/19/19 10:36 Procardia Xl PO 60 mg BID FROY Administration Ondansetron HCl 4 mg 05/10/19 17:57 Zofran IV Q8H PRN Nausea And Vomiting Oxycodone/Acetaminophen 1 tab 05/10/19 17:57 05/19/19 05:34 Percocet 5/325 PO 1 tab Q6H PRN Administration Pain, Moderate (4-6) Pantoprazole Sodium 40 mg 05/12/19 18:00 05/19/19 10:37 Protonix PO 40 mg QDAY FROY Administration Prednisone 10 mg 05/19/19 11:00 Deltasone PO QDAY FROY Sodium Bicarbonate 650 mg 05/11/19 20:00 05/19/19 10:35 Sodium Bicarbonate PO 650 mg TID FROY Administration Sodium Chloride 10 ml 05/10/19 22:00 05/18/19 21:11 Sodium Chloride Flush Syringe 10 Ml IV 10 ml BID FROY Administration Sodium Chloride 10 ml 05/10/19 17:57 Sodium Chloride Flush Syringe 10 Ml IV PRN PRN LINE FLUSH Zolpidem Tartrate 5 mg 05/17/19 18:13 05/18/19 21:10 Ambien PO 5 mg QHS PRN Administration Sleep
[2019-05-19] MEDS ORDERED: predniSONE 10 MG TAB PO SCH ×2 (11:00→14:01)
[2019-05-19] MEDS ORDERED: predniSONE 10 MG TAB PO STA ×2 (14:00→17:30)
--- NOTE | 2019-05-19 14:02 | Progress Note ---
Assessment and Plan Acute respiratory distress. Likely chronic obstructive lung disease with acute exacerbation. Pericardial effusion, status post drainage. Tobacco use disorder. End-stage renal disease, now on hemodialysis. Anemia that is normocytic. Hypocalcemia. Adult failure to thrive. - prn supplemental oxygen as needed to keep O2 sat's > 90% - continue bronchodilators with pulmonary hygiene per RT - continue systemic steroids with slow taper - consider inhaled corticosteroids - optimize cardiac status re: Pericadial effusions s/p pericardicentesis - diuresis per nephrology - continue HD/UF for toxin and volume clearance - complete empiric antibiotics - accuchecks with SSI for target BG < 180 mg/dl - PT/OT as tolerated - mobility protocols for pressure ulcer prophylaxis - GI & VTE prophylaxis - tobacco abstinence strongly counseled at bedside - Flu & Pneumovax addressed per protocol - outpatient pulmonary clinic f/up for PFT's and chronic disease management ... re-evaluate in am & prn Subjective Date of service: 05/19/19 Principal diagnosis: Ac resp distress; Likely chronic AE-COPD; Pericardial effusion s/p centesis Interval history: Patient is seen today for: Acute respiratory distress; Likely chronic obstructive lung disease with acute exacerbation; Pericardial effusion, status post drainage; Tobacco use disorder; End-stage renal disease, now on hemodialysis. Seen and examined at bedside; 24hour events reviewed; nursing and respiratory care staff consulted; no adverse overnight events reported to me; resting peacefully in bed; less SOB; no active wheezing; refused ABG yesterday but will allow today; denies acute chest pain Objective Vital Signs - 12hr 05/19/19 05/19/19 05/19/19 03:52 08:45 09:13 Temperature 97.6 F Pulse Rate 83 82 80 Pulse Rate [ Anterior Bilateral Throughout] Respiratory 18 Rate Respiratory Rate [Anterior Bilateral Throughout] Blood Pressure 164/78 197/90 O2 Sat by Pulse 98 97 Oximetry 05/19/19 05/19/19 10:25 10:35 Temperature Pulse Rate 80 Pulse Rate [ 84 Anterior Bilateral Throughout] Respiratory Rate Respiratory 18 Rate [Anterior Bilateral Throughout] Blood Pressure O2 Sat by Pulse Oximetry Constitutional: other (elderly looking AAF, nomocephalic with mildly increased respiratory effort at rest) Eyes: non-icteric ENT: oropharynx moist, other (mallampati 2) Neck: supple, no lymphadenopathy, no JVD Effort: mildly labored Ascultation: Bilateral: diminished breath sounds, rhonchi, other (prolonged exp phase) Percussion: Bilateral: not dull Cardiovascular: regular rate and rhythm Gastrointestinal: normoactive bowel sounds, soft, non-tender, non-distended Integumentary: normal Extremities: no cyanosis, no edema, pulses normal, no ischemia or petechiae Neurologic: normal mental status, non-focal exam, pupils equal and round, CN II- XII normal, motor strength normal and Psychiatric: mood appropriate, affect normal CBC and BMP: 05/20/19 04:33 05/20/19 04:33 ABG, PT/INR, D-dimer: PT/INR, D-dimer PT 13.9 Sec. (12.2-14.9) 05/12/19 16:16 PT 14.4 Sec. (12.2-14.9) 05/12/19 16:16 INR 1.06 (0.87-1.13) 05/12/19 16:16 INR 1.11 (0.87-1.13) 05/12/19 16:16 Abnormal lab findings: Abnormal Labs 05/11/19 05/11/19 05/12/19 04:28 04:28 16:16 WBC 3.6 L RBC 2.86 L Hgb 8.6 L Hct 26.7 L RDW 16.3 H Lymph % (Auto) [place] % (Auto) Lymph # Seg Neutrophils % Seg Neuts % (Manual) 94.0 H Lymphocytes % (Manual) 6.0 L Nucleated RBC % Seg Neutrophils # Man Lymphocytes # (Manual) 0.2 L APTT 37.5 H Sodium 133 L Potassium 5.2 H Chloride 94.1 L Carbon Dioxide 18 L BUN 77 H Creatinine 10.6 H Glucose 167 H POC Glucose Calcium Phosphorus 05/13/19 05/13/19 05/13/19 06:31 06:53 06:53 WBC 4.1 L RBC 2.72 L Hgb 8.0 L Hct 24.5 L RDW Lymph % (Auto) 7.4 L [place] % (Auto) Lymph # 0.3 L Seg Neutrophils % 87.6 H Seg Neuts % (Manual) Lymphocytes % (Manual) Nucleated RBC % Seg Neutrophils # Man Lymphocytes # (Manual) APTT Sodium 130 L Potassium Chloride 91.0 L Carbon Dioxide 18 L BUN 77 H Creatinine 9.7 H Glucose 140 H POC Glucose 142 H Calcium 7.5 L Phosphorus 7.20 H 05/14/19 05/14/19 05/15/19 04:01 04:01 05:24 WBC RBC 3.11 L 2.97 L Hgb 9.1 L 8.8 L Hct 28.1 L 27.0 L RDW Lymph % (Auto) 4.3 L [place] % (Auto) Lymph # 0.3 L Seg Neutrophils % 89.1 H Seg Neuts % (Manual) 95.0 H Lymphocytes % (Manual) 1.0 L Nucleated RBC % Seg Neutrophils # Man Lymphocytes # (Manual) 0.1 L APTT Sodium 130 L Potassium Chloride 90.9 L Carbon Dioxide 20 L BUN 81 H Creatinine 9.7 H Glucose 190 H POC Glucose Calcium 7.5 L Phosphorus 05/15/19 05/16/19 05/16/19 05:24 04:11 04:11 WBC RBC 2.95 L Hgb 8.7 L Hct 26.9 L RDW Lymph % (Auto) 4.1 L [place] % (Auto) 8.5 H Lymph # 0.3 L Seg Neutrophils % 87.3 H Seg Neuts % (Manual) Lymphocytes % (Manual) Nucleated RBC % Seg Neutrophils # Man Lymphocytes # (Manual) APTT Sodium 136 L Potassium Chloride 93.8 L 96.0 L Carbon Dioxide BUN 50 H 25 H Creatinine 6.7 H 4.5 H Glucose 209 H 190 H POC Glucose Calcium 7.6 L 7.7 L Phosphorus 05/17/19 05/17/19 05/18/19 03:47 03:47 04:23 WBC RBC 3.04 L 3.09 L Hgb 9.0 L 9.1 L Hct 28.0 L 28.5 L RDW Lymph % (Auto) 5.3 L [place] % (Auto) Lymph # 0.3 L Seg Neutrophils % 87.2 H Seg Neuts % (Manual) 87.0 H Lymphocytes % (Manual) 8.0 L Nucleated RBC % 6.0 H Seg Neutrophils # Man Lymphocytes # (Manual) 0.7 L APTT Sodium Potassium Chloride 95.6 L Carbon Dioxide BUN Creatinine 3.8 H Glucose 161 H POC Glucose Calcium 7.7 L Phosphorus 05/18/19 05/19/19 05/19/19 04:23 04:45 04:45 WBC RBC 3.11 L Hgb 9.4 L Hct 28.7 L RDW Lymph % (Auto) [place] % (Auto) Lymph # Seg Neutrophils % Seg Neuts % (Manual) 86.0 H Lymphocytes % (Manual) 9.0 L Nucleated RBC % 10.0 H Seg Neutrophils # Man 0.0 L Lymphocytes # (Manual) 0.0 L APTT Sodium 132 L Potassium Chloride 95.2 L 90.6 L Carbon Dioxide BUN 30 H Creatinine 3.5 H 4.9 H Glucose 163 H 185 H POC Glucose Calcium 7.6 L 7.3 L Phosphorus Allied health notes reviewed: nursing
[2019-05-19 17:43] LABS: ABG Base Excess 4.6 mmol/L (-2.0-3.0); ABG HCO3 27.9 mmol/L (20.0-26.0); ABG Methemoglobin 0.4 % (0.0-1.5); ABG Oxygen Saturation 97.1 % (95.0-99.0); ABG PCO2 36.2 mm Hg; ABG PH 7.505 pH Units (7.350-7.450); ABG PO2 69.5 mm Hg (80.0-90.0)
--- NOTE | 2019-05-19 20:58 | Consultation ---
CONSULTING PHYSICIAN: Dr. Bowers. REASON FOR CONSULTATION: Shortness of breath, acute bronchitis. CHIEF COMPLAINT AND HISTORY OF PRESENT ILLNESS: The patient is a 63-year-old -Turkish female with past medical history significant for a diagnosis of end-stage renal disease, on peritoneal dialysis, who initially presented to the hospital complaining of a cough productive of yellowish phlegm, wheezing. She reported falling a few days before the presentation as well as injuring her feet. She was diagnosed with bronchitis. An echocardiogram was done. She was discharged home, seems like she was recalled to the hospital after a 2D echocardiogram that had been done showed a large pericardial effusion. The 2D echocardiogram at that time did not show any evidence of tamponade physiology. She was admitted on 05/13/2019. She had a pericardiocentesis; 1200 mL of hemorrhagic fluid was removed from the pericardial space. She reports marked improvement in her shortness of breath after the procedure. She has remained in the hospital since. However, she continued to have wheezing, cough, congestion despite diuretics and nebulizers. Pulmonary is asked to assist with management. When I stopped by to see her, she was resting in bed, admitted to persistent wheezing, admitted to persistent dyspnea on exertion. She denies any known history of chronic obstructive lung disease. She gives a history that really is consistent with definitely 10+ pack years, probably as much as 20+ pack years. She still smokes about 1/3rd of a pack a day prior to admission. She denied any hemoptysis. She denies any new lumps, bumps, or swellings on her body. She denies any new onset focal weakness. This really is as much of the history of presentation as I have. PAST MEDICAL HISTORY: End-stage renal disease, on peritoneal dialysis; hypertension. PAST SURGICAL HISTORY: She has had a hysterectomy. She has had a cystoscopy, colonoscopy, and bilateral tubal ligations. MEDICATIONS: She was on at the time I stopped by to see were reviewed. Pertinent medications included the following: She was on Tylenol 650 mg p.o. q. 4 hours p.r.n. mild pain or fevers, DuoNeb nebulizer treatments nebulized t.i.d., aspirin 81 mg p.o. daily, Pulmicort 0.5 mg nebulized q.12 hours, carvedilol 25 mg p.o. b.i.d., Keflex 250 mg p.o. daily scheduled, Sensipar 60 mg p.o. daily, Procrit 10,000 units IV p.r.n. with dialysis, Lasix 80 mg p.o. b.i.d., guaifenesin 10 mL p.o. q. 4 hours p.r.n. cough, heparin sodium 5000 units subQ q. 8 hours, hydralazine 100 mg p.o. t.i.d., lactobacillus 1 tablet p.o. daily, lactulose 20 grams p.o. b.i.d., Claritin-D 24 hour 1 tablet p.o. daily, losartan 50 mg p.o. daily, Solu-Medrol 60 mg IV q. 8 hours, morphine 2 mg IV q. 4 hours p.r.n. moderate pain. vitamin one caplet daily, Habitrol 14 mg transdermally daily, Procardia-XL 60 mg p.o. b.i.d., Percocet 5/325 one tablet p.o. q. 6 hours p.r.n. moderate pain, Protonix 40 mg p.o. daily, Ambien 5 mg p.o. at bedtime p.r.n. insomnia. ALLERGIES: No known drug allergies. DIET: Thin, bordering on being cachectic. Denies any acute weight loss or gain in the preceding few weeks to months. FAMILY AND SOCIAL HISTORY: Lives in the community, 20+ pack year tobacco smoking history, continues to smoke. Denies alcohol or illicit drug use or abuse. Family history, otherwise, noncontributory. REVIEW OF SYSTEMS: No loss of consciousness. No new onset seizures. No new onset focal weakness. She denied gross hematochezia or melena. She denies gross hematuria or dysuria. No hematemesis. No hemoptysis. She had expectoration of yellowish phlegm. No chest pain or palpitations. Denies polydipsia or polyuria. Denies heat or cold intolerance. Complete 13-system review of systems obtained. Pertinent positives and/or negatives as in body of history above, otherwise noncontributory. PHYSICAL EXAMINATION: VITAL SIGNS: At presentation in the Emergency Room, she was afebrile, temperature 97.5 degrees Fahrenheit, pulse 81, respiratory rate 20, blood pressure 107/75, O2 sats 100%, inspired oxygen concentration at that time was not recorded. When I stopped by to see her, O2 sats were 98% that was on room air. She has been afebrile through this admission mostly. GENERAL: She is an elderly looking thin -Turkish female, normocephalic, atraumatic, talking to me with full sentences, but with mildly increased respiratory effort at rest. HEAD, EYES, EARS, NOSE AND THROAT: She was anicteric, no conjunctival erythema. Oropharynx was moist. Mallampati #2 oropharynx. No gross jugular venous distention, no thyromegaly. NECK: Grossly, there were no palpable lymph nodes in the supraclavicular or submandibular lymph node chains. No thyromegaly. There may have been some parotid gland swelling/perhaps a thyroid lobe, particularly in the left submandibular area. LUNGS: Auscultation of both lung asher significant for diminished bilateral breath sounds, prolonged expiratory phase and expiratory wheezing. HEART: Heart sounds 1 and 2 are heard. They were regular in rate and rhythm at time of my evaluation without overt rubs or murmurs. ABDOMEN: Soft, flat. Bowel sounds are positive, nontender, no palpable hepatosplenomegaly. EXTREMITIES: Without overt digital clubbing, no cyanosis, no pedal edema. Pedal pulses were 2+ bilaterally. NEUROLOGIC: Pupils are equal, round, about 4 mm, reactive to light. Extraocular muscle movements were intact. She moves all 4 extremities spontaneously. SKIN: Normal turgor in the areas evaluated without overt cellulitis or rash. PSYCHIATRIC: Her mood was normal. Affect was appropriate. Judgment and insight were intact. LABORATORY DATA: From my review are as follows: Admission white cell count 3600, hemoglobin 8.6, hematocrit 26.7, platelet count 219. No band forms on the manual differential. INR 1.06. Serum sodium was 133, potassium 5.2, chloride 94, bicarbonate 18, BUN 77, creatinine 10.6, glucose was 167. Pericardial fluid was bloody, lymphocyte predominant. AFB smears were negative. Cytology negative for malignant cells. Her white count is now 8400 with hemoglobin 9.1. Pericardial fluid culture, no growth after 4 days. Most recent echocardiogram limited views yesterday on 05/17/2019 showed a normal ejection fraction, small circumferential pericardial effusion without tamponade. Chest x-ray was done. I have reviewed the chest x-ray. I have also reviewed the radiologist's interpretation. While there are no acute findings, there is obvious evidence of hyperinflation, flattening of the right hemidiaphragm, increased interstitial markings bilaterally and gross cardiomegaly. Compared with an x-ray from 05/08/2019, the cardiovascular silhouette is reduced, but there was still evidence of hyperinflation, in particular the lateral films show flattening of the hemidiaphragm. ASSESSMENT: 1. Acute respiratory distress. 2. Likely chronic obstructive lung disease with acute exacerbation. 3. Pericardial effusion, status post drainage. 4. Tobacco use disorder. 5. End-stage renal disease, now on hemodialysis. 6. Anemia that is normocytic. 7. Hypocalcemia. 8. Adult failure to thrive. I have strongly counseled tobacco abstinence. I explained to her that she is now dealing with multiple comorbidities, all of them could be traced partially to tobacco abuse. She has agreed to stay off cigarettes and she will be seen in followup in pulmonary clinic and offered all the aids adjuncts to assist with tobacco abstinence. She will need full pulmonary function testing. The overall picture is consistent with an acute exacerbation of COPD. We do agree with systemic steroids. We agree with short-acting bronchodilators. I will go ahead and add long-acting bronchodilators. At this point, I will not be pushing empiric antibiotic therapy for community-acquired pneumonia. She is appropriately on GI prophylaxis as well as DVT prophylaxis. Flu and pneumonia vaccination will be addressed per protocol. Thank you very much for the consult. We will follow along and make further recommendations as picture progresses/becomes clearer. JOB# [id number] ANUSHA/HARSHAD PALMER
[2019-05-19] MEDS: ZOLPIDEM 5 MG TAB PO PRN (21:43)
[2019-05-20 05:04] LABS: Hematocrit 30.2 % (30.3-42.9); Hemoglobin 9.7 gm/dl (10.1-14.3); Mean Corpuscular HGB Conc 32 % (30-34); Mean Corpuscular Volume 92 fl (79-97); Platelet Count 264 K/mm3 (140-440); Red Blood Count 3.28 M/mm3 (3.65-5.03); Red Cell Distribution Width 15.9 % (13.2-15.2)
[2019-05-20 05:28] LABS: Calcium 7.2 mg/dL (8.4-10.2)
[2019-05-20 06:01] LABS: Band Neutrophils # (Manual) 0.2 K/mm3; Basophils % (Manual) 0 % (0.0-1.8); Eosinophils % (Manual) 0 % (0.0-4.3); Total Cells Counted 100
[2019-05-20 06:02] LABS: Anisocytosis Few; Platelet Estimate Consistent w Auto; Schistocytes Few
[2019-05-20] MEDS: LORATADINE/PSEUDOEPHEDRINE 10-240 MG TAB 24HR PO SCH ×3 (08:23→15:56)
[2019-05-20] MEDS: FUROSEMIDE 40 MG TAB PO SCH ×2 (08:25→15:54)
[2019-05-20] MEDS: hydrALAZINE 100 MG TAB PO SCH ×3 (08:25→22:36)
[2019-05-20] MEDS: HEPARIN 5,000 UNIT/1 ML VIAL SUB-Q SCH ×3 (08:25→22:33)
[2019-05-20] MEDS: IPRATROPIUM/ALBUTEROL SULFATE 3 ML AMPUL.NEB IH SCH ×3 (09:40→20:36)
[2019-05-20] MEDS: BUDESONIDE 0.5 MG/2 ML NEBU IH SCH ×2 (09:40→20:36)
[2019-05-20 10:52] LABS: LDH,Body Fluid 854; Total Protein,Body Fluid 4.3 (15.0-45.0)
[2019-05-20] MEDS: carvediloL 25 MG TAB PO SCH ×2 (10:55→15:56)
[2019-05-20] MEDS: PANTOPRAZOLE 40 MG TAB PO SCH ×2 (10:55→15:58)
[2019-05-20] MEDS: SODIUM BICARBONATE 650 MG TAB PO SCH ×3 (10:55→22:33)
[2019-05-20] MEDS: LACTULOSE 20 GM/30 ML ORAL LIQD PO SCH ×3 (10:56→22:33)
[2019-05-20] MEDS: LOSARTAN 50 MG TAB PO SCH ×2 (10:56→15:55)
[2019-05-20] MEDS: predniSONE 20 MG TAB PO SCH ×2 (10:56→15:57)
[2019-05-20] MEDS: LACTOBACILLUS RHAMNOSUS GG 1 EACH CAP PO SCH ×2 (10:56→15:56)
[2019-05-20] MEDS: FOLIC ACID/VIT B COMP W-C 1 MG (RENAL CAPS) PO SCH ×2 (10:57→15:58)
[2019-05-20] MEDS: NICOTINE 14 MG/24 HR PATCH TD SCH ×2 (10:57→15:58)
[2019-05-20] MEDS: cephALEXin 250 MG CAP PO SCH (10:57)
[2019-05-20] MEDS: ASPIRIN EC 81 MG TAB PO SCH ×2 (10:57→15:58)
[2019-05-20] MEDS: NIFEdipine XL 60 MG TAB PO SCH ×3 (10:57→22:33)
[2019-05-20] MEDS: CINACALCET 30 MG TAB PO SCH ×2 (10:58→15:54)
[2019-05-20] MEDS ORDERED: SODIUM CHLORIDE 0.9% 100 ML IV PRN (11:23)
--- NOTE | 2019-05-20 13:32 | Progress Note ---
Assessment and Plan Pt alert and awake. Pt states she is breathing better. No complaints of chest pain, shortness of breath, or cough. History of smoking 1 pack for twenty years. Counseled to stop smoking. O2 saturation 94% room air. Pt has low grade fever. No leukocytosis. No acute respiratory distress Pt can go home from a pulmonary point of view. Recommend pulmonary follow-up as an outpatient in 1-2 weeks. - Patient Problems (1) Shortness of breath Current Visit: No Status: Acute Plan to address problem: Pt improved, currently on room air O2 saturation 94% Recommend PFTs as an outpatient Continue bronchodilators (2) ESRD on dialysis Current Visit: No Status: Chronic Plan to address problem: Management as per nephrology (3) Hypertension Current Visit: No Status: Chronic Qualifiers: Hypertension type: essential hypertension Qualified Code(s): I10 - Essential (primary) hypertension Plan to address problem: Management as per primary care Subjective Date of service: 05/20/19 Principal diagnosis: esrd Interval history: Pt alert and awake. Pt states she is breathing better. No complaints of chest pain, shortness of breath, or cough. History of smoking 1 pack for twenty years. Counseled to stop smoking. O2 saturation 94% room air. Pt has low grade fever. No leukocytosis. No acute respiratory distress. Pt can go home from a pulmonary point of view. Recommend pulmonary follow-up as an outpatient in 1-2 weeks. Objective Vital Signs - 12hr 05/20/19 05/20/19 05/20/19 06:02 07:28 09:41 Temperature 98.0 F 99.4 F Pulse Rate 80 82 Pulse Rate [ 84 Anterior Bilateral Throughout] Respiratory 18 18 Rate Respiratory 18 Rate [Anterior Bilateral Throughout] Blood Pressure 162/75 147/73 O2 Sat by Pulse 99 94 Oximetry 05/20/19 05/20/19 05/20/19 10:24 10:45 11:00 Temperature 98.0 F Pulse Rate 81 81 82 Pulse Rate [ Anterior Bilateral Throughout] Respiratory 16 Rate Respiratory Rate [Anterior Bilateral Throughout] Blood Pressure 155/80 154/80 166/84 O2 Sat by Pulse Oximetry 05/20/19 05/20/19 05/20/19 11:15 11:30 11:45 Temperature Pulse Rate 82 83 83 Pulse Rate [ Anterior Bilateral Throughout] Respiratory Rate Respiratory Rate [Anterior Bilateral Throughout] Blood Pressure 154/77 145/75 148/75 O2 Sat by Pulse Oximetry 05/20/19 05/20/19 12:00 12:15 Temperature Pulse Rate 83 85 Pulse Rate [ Anterior Bilateral Throughout] Respiratory Rate Respiratory Rate [Anterior Bilateral Throughout] Blood Pressure 144/75 147/79 O2 Sat by Pulse Oximetry Constitutional: no acute distress, alert Eyes: non-icteric ENT: oropharynx moist Neck: supple, no lymphadenopathy Effort: normal Ascultation: Bilateral: diminished breath sounds Cardiovascular: regular rate and rhythm Gastrointestinal: normoactive bowel sounds, soft, non-distended Integumentary: normal Extremities: no cyanosis, no edema Neurologic: normal mental status, non-focal exam Psychiatric: mood appropriate CBC and BMP: 05/20/19 04:33 05/20/19 04:33 ABG, PT/INR, D-dimer: ABG ABG pH 7.505 pH Units (7.350-7.450) H 05/19/19 17:31 ABG pCO2 36.2 mm Hg 05/19/19 17:31 ABG pO2 69.5 mm Hg (80.0-90.0) L 05/19/19 17:31 ABG O2 Saturation 97.1 % (95.0-99.0) 05/19/19 17:31 PT/INR, D-dimer PT 13.9 Sec. (12.2-14.9) 05/12/19 16:16 PT 14.4 Sec. (12.2-14.9) 05/12/19 16:16 INR 1.06 (0.87-1.13) 05/12/19 16:16 INR 1.11 (0.87-1.13) 05/12/19 16:16 Abnormal lab findings: Abnormal Labs 05/11/19 05/11/19 05/12/19 04:28 04:28 16:16 WBC 3.6 L RBC 2.86 L Hgb 8.6 L Hct 26.7 L RDW 16.3 H Lymph % (Auto) Lyon % (Auto) Lymph # Seg Neutrophils % Seg Neuts % (Manual) 94.0 H Lymphocytes % (Manual) 6.0 L Nucleated RBC % Seg Neutrophils # Man Lymphocytes # (Manual) 0.2 L APTT 37.5 H ABG pH ABG pO2 ABG HCO3 ABG Base Excess ABG Hemoglobin Sodium 133 L Potassium 5.2 H Chloride 94.1 L Carbon Dioxide 18 L BUN 77 H Creatinine 10.6 H Glucose 167 H POC Glucose Calcium Phosphorus Fluid Glucose Fluid Total Protein 05/13/19 05/13/19 05/13/19 06:31 06:53 06:53 WBC 4.1 L RBC 2.72 L Hgb 8.0 L Hct 24.5 L RDW Lymph % (Auto) 7.4 L Lyon % (Auto) Lymph # 0.3 L Seg Neutrophils % 87.6 H Seg Neuts % (Manual) Lymphocytes % (Manual) Nucleated RBC % Seg Neutrophils # Man Lymphocytes # (Manual) APTT ABG pH ABG pO2 ABG HCO3 ABG Base Excess ABG Hemoglobin Sodium 130 L Potassium Chloride 91.0 L Carbon Dioxide 18 L BUN 77 H Creatinine 9.7 H Glucose 140 H POC Glucose 142 H Calcium 7.5 L Phosphorus 7.20 H Fluid Glucose Fluid Total Protein 05/13/19 05/14/19 05/14/19 11:30 04:01 04:01 WBC RBC 3.11 L Hgb 9.1 L Hct 28.1 L RDW Lymph % (Auto) Lyon % (Auto) Lymph # Seg Neutrophils % Seg Neuts % (Manual) 95.0 H Lymphocytes % (Manual) 1.0 L Nucleated RBC % Seg Neutrophils # Man Lymphocytes # (Manual) 0.1 L APTT ABG pH ABG pO2 ABG HCO3 ABG Base Excess ABG Hemoglobin Sodium 130 L Potassium Chloride 90.9 L Carbon Dioxide 20 L BUN 81 H Creatinine 9.7 H Glucose 190 H POC Glucose Calcium 7.5 L Phosphorus Fluid Glucose 149 H Fluid Total Protein 4.3 L 05/15/19 05/15/19 05/16/19 05:24 05:24 04:11 WBC RBC 2.97 L 2.95 L Hgb 8.8 L 8.7 L Hct 27.0 L 26.9 L RDW Lymph % (Auto) 4.3 L 4.1 L Lyon % (Auto) 8.5 H Lymph # 0.3 L 0.3 L Seg Neutrophils % 89.1 H 87.3 H Seg Neuts % (Manual) Lymphocytes % (Manual) Nucleated RBC % Seg Neutrophils # Man Lymphocytes # (Manual) APTT ABG pH ABG pO2 ABG HCO3 ABG Base Excess ABG Hemoglobin Sodium 136 L Potassium Chloride 93.8 L Carbon Dioxide BUN 50 H Creatinine 6.7 H Glucose 209 H POC Glucose Calcium 7.6 L Phosphorus Fluid Glucose Fluid Total Protein 05/16/19 05/17/19 05/17/19 04:11 03:47 03:47 WBC RBC 3.04 L Hgb 9.0 L Hct 28.0 L RDW Lymph % (Auto) 5.3 L Lyon % (Auto) Lymph # 0.3 L Seg Neutrophils % 87.2 H Seg Neuts % (Manual) Lymphocytes % (Manual) Nucleated RBC % Seg Neutrophils # Man Lymphocytes # (Manual) APTT ABG pH ABG pO2 ABG HCO3 ABG Base Excess ABG Hemoglobin Sodium Potassium Chloride 96.0 L 95.6 L Carbon Dioxide BUN 25 H Creatinine 4.5 H 3.8 H Glucose 190 H 161 H POC Glucose Calcium 7.7 L 7.7 L Phosphorus Fluid Glucose Fluid Total Protein 05/18/19 05/18/19 05/19/19 04:23 04:23 04:45 WBC RBC 3.09 L 3.11 L Hgb 9.1 L 9.4 L Hct 28.5 L 28.7 L RDW Lymph % (Auto) Lyon % (Auto) Lymph # Seg Neutrophils % Seg Neuts % (Manual) 87.0 H 86.0 H Lymphocytes % (Manual) 8.0 L 9.0 L Nucleated RBC % 6.0 H 10.0 H Seg Neutrophils # Man 0.0 L Lymphocytes # (Manual) 0.7 L 0.0 L APTT ABG pH ABG pO2 ABG HCO3 ABG Base Excess ABG Hemoglobin Sodium Potassium Chloride 95.2 L Carbon Dioxide BUN Creatinine 3.5 H Glucose 163 H POC Glucose Calcium 7.6 L Phosphorus Fluid Glucose Fluid Total Protein 05/19/19 05/19/19 05/20/19 04:45 17:31 04:33 WBC RBC 3.28 L Hgb 9.7 L Hct 30.2 L RDW 15.9 H Lymph % (Auto) Lyon % (Auto) Lymph # Seg Neutrophils % Seg Neuts % (Manual) 88.0 H Lymphocytes % (Manual) 7.0 L Nucleated RBC % 5.0 H Seg Neutrophils # Man Lymphocytes # (Manual) 0.4 L APTT ABG pH 7.505 H ABG pO2 69.5 L ABG HCO3 27.9 H ABG Base Excess 4.6 H ABG Hemoglobin 9.6 L Sodium 132 L Potassium Chloride 90.6 L Carbon Dioxide BUN 30 H Creatinine 4.9 H Glucose 185 H POC Glucose Calcium 7.3 L Phosphorus Fluid Glucose Fluid Total Protein 05/20/19 04:33 WBC RBC Hgb Hct RDW Lymph % (Auto) Lyon % (Auto) Lymph # Seg Neutrophils % Seg Neuts % (Manual) Lymphocytes % (Manual) Nucleated RBC % Seg Neutrophils # Man Lymphocytes # (Manual) APTT ABG pH ABG pO2 ABG HCO3 ABG Base Excess ABG Hemoglobin Sodium 132 L Potassium Chloride 88.8 L Carbon Dioxide BUN 41 H Creatinine 6.0 H Glucose 200 H POC Glucose Calcium 7.2 L Phosphorus Fluid Glucose Fluid Total Protein Chest x-ray: report reviewed (No acute findings), image reviewed
--- NOTE | 2019-05-20 17:11 | Progress Note ---
Assessment and Plan - Patient Problems (1) Anemia Current Visit: No Status: Acute Plan to address problem: Anemia : Hb: 9.6g/dl monitor CBC (2) Pericardial effusion Current Visit: No Status: Acute Plan to address problem: pericardial effusion hemorrhagic likely uremic Patient was non compliant with PD Will plan for aggressive HD. (3) ESRD on dialysis Current Visit: No Status: Chronic Plan to address problem: ESRD on hemodialysis social work to assist with placement at [facility] , patient currently has a 6:30 start time. HD today patient to start outpatient tomorrow if a chair time can be found. emphasized to medical social consultant patient needs a chair time that she can agree to! (4) Hypertension Current Visit: No Status: Chronic Qualifiers: Hypertension type: essential hypertension Qualified Code(s): I10 - Essential (primary) hypertension Subjective Principal diagnosis: Ac resp distress; Likely chronic AE-COPD; Pericardial effusion s/p centesis Interval history: 63 year old with medical history signficnat for HTN , ESRD admitted with pericardial effusion presumed uremic pericarditis Patient seen today s/p pericardial window Discussed with medical social consultant patient needs outpatient hemodialysis unit chair time that she can go to attempted to call [facility] myself, staff promised to call medical social consultant . Will plan for dialysis again today. Discussed possible need to remove PD catheter however she tells me previous veterinary nurse was planning to start her on PD outpatient later. Objective - Vital Signs Vital signs: Vital Signs - 12hr 05/20/19 05/20/19 05/20/19 06:02 07:28 09:41 Temperature 98.0 F 99.4 F Pulse Rate 80 82 Pulse Rate [ 84 Anterior Bilateral Throughout] Respiratory 18 18 Rate Respiratory 18 Rate [Anterior Bilateral Throughout] Blood Pressure 162/75 147/73 O2 Sat by Pulse 99 94 Oximetry 05/20/19 05/20/19 05/20/19 10:00 10:24 10:45 Temperature 98.0 F Pulse Rate 81 81 81 Pulse Rate [ Anterior Bilateral Throughout] Respiratory 16 Rate Respiratory Rate [Anterior Bilateral Throughout] Blood Pressure 155/80 154/80 O2 Sat by Pulse Oximetry 05/20/19 05/20/19 05/20/19 11:00 11:15 11:30 Temperature Pulse Rate 82 82 83 Pulse Rate [ Anterior Bilateral Throughout] Respiratory Rate Respiratory Rate [Anterior Bilateral Throughout] Blood Pressure 166/84 154/77 145/75 O2 Sat by Pulse Oximetry 05/20/19 05/20/19 05/20/19 11:45 12:00 12:15 Temperature Pulse Rate 83 83 85 Pulse Rate [ Anterior Bilateral Throughout] Respiratory Rate Respiratory Rate [Anterior Bilateral Throughout] Blood Pressure 148/75 144/75 147/79 O2 Sat by Pulse Oximetry 05/20/19 05/20/19 05/20/19 12:30 12:45 13:00 Temperature Pulse Rate 83 83 83 Pulse Rate [ Anterior Bilateral Throughout] Respiratory Rate Respiratory Rate [Anterior Bilateral Throughout] Blood Pressure 153/75 147/63 144/54 O2 Sat by Pulse Oximetry 05/20/19 05/20/19 05/20/19 13:15 13:30 13:45 Temperature Pulse Rate 81 81 83 Pulse Rate [ Anterior Bilateral Throughout] Respiratory Rate Respiratory Rate [Anterior Bilateral Throughout] Blood Pressure 142/68 151/71 153/71 O2 Sat by Pulse Oximetry 05/20/19 05/20/19 14:00 16:04 Temperature 98.2 F Pulse Rate 82 Pulse Rate [ 83 Anterior Bilateral Throughout] Respiratory 18 Rate Respiratory 15 Rate [Anterior Bilateral Throughout] Blood Pressure 144/74 O2 Sat by Pulse Oximetry - General Appearance General appearance: well-developed, well-nourished EENT: ATNC, PERRL Neck: no JVD Respiratory: Present: Clear to Ascultation Cardiology: regular, S1S2 Gastrointestinal: normal, normoactive bowel sounds Integumentary: no rash Neurologic: no focal deficit, alert and oriented x3, CN 3-12 intact Musculoskeletal: deferred - Lab 05/20/19 04:33 05/20/19 04:33 Most recent lab results ABG pH 7.505 pH Units (7.350-7.450) H 05/19/19 17:31 ABG pCO2 36.2 mm Hg 05/19/19 17:31 ABG pO2 69.5 mm Hg (80.0-90.0) L 05/19/19 17:31 ABG HCO3 27.9 mmol/L (20.0-26.0) H 05/19/19 17:31 ABG O2 Saturation 97.1 % (95.0-99.0) 05/19/19 17:31 Calcium 7.2 mg/dL (8.4-10.2) L 05/20/19 04:33 Phosphorus 7.20 mg/dL (2.5-4.5) H 05/13/19 06:53 Magnesium 2.20 mg/dL (1.7-2.3) 05/13/19 06:53 - Imaging Chest x-ray: image reviewed (i reviewed CXR with cardiomegaly. ) Medications & Allergies - Medications Allergies/Adverse Reactions: Allergies No Known Allergies Allergy (Verified 08/21/18 15:07) Home Medications: Home Medications Medication Instructions Recorded Confirmed Last Taken Type Aspirin [Adult Low Dose Aspirin EC] 81 mg PO DAILY 11/24/16 05/10/19 05/08/19 History NIFEdipine [Nifedipine ER] 60 mg PO BID 11/24/16 05/10/19 05/08/19 History Cinacalcet HCl [Sensipar] 60 mg PO DAILY 08/21/18 05/10/19 05/08/19 History Dialyvite Chewable Probiotic 3,000 mg PO DAILY 08/21/18 05/10/19 05/08/19 History carvediloL [Coreg] 25 mg PO BID 08/21/18 05/10/19 05/08/19 History hydrALAZINE [Apresoline TAB] 100 mg PO TID 08/21/18 05/10/19 05/08/19 History Acetaminophen/Codeine [Tylenol 1 tab PO Q6H PRN #14 tab 05/10/19 05/10/19 Unknown Rx /Codeine # 3 tab] Albuterol INH(or & Nicu Only) 2 puff IH QID PRN #8.5 gram 05/10/19 05/10/19 Unknown Rx [ProAir HFA Inhaler] Cefdinir 300 mg PO BID #6 capsule 05/10/19 05/10/19 Unknown Rx Nicotine [Habitrol] 14 mg TD QDAY #30 patch 05/10/19 05/10/19 Unknown Rx Prednisone [predniSONE 10 mg 10 mg PO .TAPER #1 tab.ds.pk 05/10/19 05/10/19 Unknown Rx (6-Day Pack, 21 Tabs)] Active Medications: Generic Name Dose Route Start Last Admin Trade Name Freq PRN Reason Stop Dose Admin Acetaminophen 650 mg 05/10/19 17:57 05/13/19 18:32 Tylenol PO 650 mg Q4H PRN Administration Pain MILD(1-3)/Fever >100.5/NOVAK Albumin Human 25 gm 05/14/19 13:28 Alburx 25% (Albumin) IV DARSHAN PRN Hypotension Albuterol/Ipratropium 1 ampul 05/12/19 08:00 05/20/19 16:07 Duoneb *Not For Prn Use* IH 1 ampul TIDRT FROY Administration Aspirin 81 mg 05/11/19 10:00 05/20/19 15:58 Halfprin Ec PO 81 mg DAILY FROY Administration Bisacodyl 10 mg 05/14/19 18:38 Dulcolax [place] QDAY PRN Constipation Budesonide 0.5 mg 05/10/19 20:00 05/20/19 09:40 Pulmicort IH 0.5 mg Q12HRT FROY Administration Carvedilol 25 mg 05/10/19 22:00 05/20/19 15:56 Coreg PO 25 mg BID@0800,1700 FROY Administration Cinacalcet 60 mg 05/10/19 21:00 05/20/19 15:54 Sensipar PO 60 mg QDAY FROY Administration Epoetin Tirso 10,000 unit 05/14/19 13:29 05/17/19 11:21 Procrit IV 10,000 unit DARSHAN PRN Administration hemodialysis Furosemide 80 mg 05/18/19 06:00 05/20/19 15:54 Lasix PO 80 mg 0600,1800 FROY Administration Guaifenesin 10 ml 05/17/19 18:13 05/19/19 21:43 Guaifenesin Dm Syrup PO 10 ml Q4H PRN Administration Cough Heparin Sodium (Porcine) 5,000 unit 05/10/19 22:00 05/20/19 08:25 Heparin SUB-Q 5,000 unit Q8HR FROY Administration Hydralazine HCl 100 mg 05/10/19 20:00 05/20/19 15:55 Apresoline PO 100 mg TID FROY Administration Sodium Chloride 100 mls @ 999 mls/hr 05/20/19 11:23 Nacl 0.9% IV DARSHAN PRN Hypotension Lactobacillus Rhamnosus 1 each 05/13/19 12:00 05/20/19 15:56 Culturelle PO 1 each DAILY FROY Administration Lactulose 20 gm 05/14/19 14:00 05/20/19 10:56 Cephulac PO Not Given BID FROY Loratadine/Pseudoephedrine Sulfate 1 each 05/18/19 10:00 05/20/19 15:56 Claritin-D 24hr PO 1 each Q24HR FROY Administration Losartan Potassium 50 mg 05/18/19 13:00 05/20/19 15:55 Cozaar PO 50 mg QDAY FROY Administration Morphine Sulfate 2 mg 05/10/19 17:57 05/13/19 17:04 Morphine IV 2 mg Q4H PRN Administration Pain, Moderate (4-6) Multivit/Ca Carb/B Cmplx/FA/Prenat 1 cap 05/13/19 12:00 05/20/19 15:58 Renal Caps PO 1 cap QDAY FROY Administration Nicotine 14 mg 05/11/19 10:00 05/20/19 15:58 Habitrol TD 14 mg QDAY FROY Administration Nifedipine 60 mg 05/10/19 22:00 05/20/19 15:54 Procardia Xl PO 60 mg BID FROY Administration Ondansetron HCl 4 mg 05/10/19 17:57 Zofran IV Q8H PRN Nausea And Vomiting Oxycodone/Acetaminophen 1 tab 05/10/19 17:57 05/19/19 05:34 Percocet 5/325 PO 1 tab Q6H PRN Administration Pain, Moderate (4-6) Pantoprazole Sodium 40 mg 05/12/19 18:00 05/20/19 15:58 Protonix PO 40 mg QDAY FROY Administration Prednisone 40 mg 05/20/19 10:00 05/20/19 15:57 Deltasone PO 40 mg QDAY FROY Administration Sodium Bicarbonate 650 mg 05/11/19 20:00 05/20/19 15:54 Sodium Bicarbonate PO 650 mg TID FROY Administration Sodium Chloride 10 ml 05/10/19 22:00 05/20/19 08:23 Sodium Chloride Flush Syringe 10 Ml IV Not Given BID FROY Sodium Chloride 10 ml 05/10/19 17:57 Sodium Chloride Flush Syringe 10 Ml IV PRN PRN LINE FLUSH Zolpidem Tartrate 5 mg 05/17/19 18:13 05/19/19 21:43 Ambien PO 5 mg QHS PRN Administration Sleep
--- NOTE | 2019-05-20 19:00 | Progress Note ---
Assessment and Plan Assessment and plan: --End-stage renal disease on peritoneal dialysis; Converted to hemodialysisn , HD per scheduled Nephrology cleared , outpatient HD chair secured Patient is not comfortable with the timing of network operations center engineer Once the different schedule at different time Case management processing --Acute bronchitis/?acute exacerbation of COPD/chronic tobacco use Mild Improvement in wheezing, cough and congestion On IV diuretics, nebulizers, IV steroids bronchodilators and steroids inhalation steroids Evaluation for home oxygen prior to discharge Pulmonary following --Moderate to large pericardial effusion; Status post pericardiocentesis 05/13/2019 removed 1.2 L pericardial fluid, Symptoms improved Follow-up echocardiogram; small circumferential pericardial effusion, EF 50-55% --Hypertension; moderate control Continue current antihypertensives and when necessary medications --Ongoing tobacco use; smoking cessation counseling, Nicotine patch as needed --Preventive care counseling done spent 15 minutes --DVT prophylaxis; heparin, renal dose Monitor closely and adjust management as needed Disposition; outpatient HD chair is secured Evaluation for home oxygen, discharged a.m. if stable And cleared by pulmonary Plan of care reviewed with the patient and her nurse Disposition ; patient is stable for discharge. Case management processing HD chair scheduling History Interval history: Patient seen and examined in dialysis unit Patient's chart and medications reviewed Still has some congestion and cough Vital signs noted Hospitalist Physical - Constitutional Vitals: Temp Pulse Resp BP Pulse Ox 99.0 F 83 15 150/63 94 05/20/19 16:00 05/20/19 16:04 05/20/19 16:04 05/20/19 16:00 05/20/19 16:00 General appearance: Present: no acute distress, well-nourished - EENT Eyes: Present: PERRL, EOM intact - Neck Neck: Present: supple, normal ROM - Respiratory Respiratory effort: normal Respiratory: bilateral: diminished, negative: rales, rhonchi, wheezing - Cardiovascular Rhythm: regular Heart Sounds: Present: S1 & S2 - Extremities Extremities: no ischemia, No edema - Abdominal General gastrointestinal: soft, non-tender, non-distended, normal bowel sounds - Integumentary Integumentary: Present: clear, warm - Psychiatric Psychiatric: appropriate mood/affect, cooperative - Neurologic Neurologic: CNII-XII intact, moves all extremities PANCHO score - Pancho Score Age > 65: (0) No Aspirin use within the Past 7 Days: (0) No 3 or more CAD Risk Factors: (0) No 2 or more Angina events in past 24 hrs: (1) Yes Known CAD with more than 50% Stenosis: (0) No Elevated Cardiac Markers: (0) No ST Deviation Greater than 0.5mm: (0) No PANCHO Score: 1 Results - Labs CBC & Chem 7: 05/20/19 04:33 05/20/19 04:33 Labs: Laboratory Last Values WBC 6.4 K/mm3 (4.5-11.0) 05/20/19 04:33 RBC 3.28 M/mm3 (3.65-5.03) L 05/20/19 04:33 Hgb 9.7 gm/dl (10.1-14.3) L 05/20/19 04:33 Hct 30.2 % (30.3-42.9) L 05/20/19 04:33 MCV 92 fl (79-97) 05/20/19 04:33 MCH 30 pg (28-32) 05/20/19 04:33 MCHC 32 % (30-34) 05/20/19 04:33 RDW 15.9 % (13.2-15.2) H 05/20/19 04:33 Plt Count 264 K/mm3 (140-440) 05/20/19 04:33 Lymph % (Auto) 5.3 % (13.4-35.0) L 05/17/19 03:47 Liberty % (Auto) 7.3 % (0.0-7.3) 05/17/19 03:47 Eos % (Auto) 0.0 % (0.0-4.3) 05/17/19 03:47 Baso % (Auto) 0.2 % (0.0-1.8) 05/17/19 03:47 Lymph # 0.3 K/mm3 (1.2-5.4) L 05/17/19 03:47 Liberty # 0.4 K/mm3 (0.0-0.8) 05/17/19 03:47 Eos # 0.0 K/mm3 (0.0-0.4) 05/17/19 03:47 Baso # 0.0 K/mm3 (0.0-0.1) 05/17/19 03:47 Add Manual Diff Complete 05/20/19 04:33 Total Counted 100 05/20/19 04:33 Seg Neutrophils % 87.2 % (40.0-70.0) H 05/17/19 03:47 Seg Neuts % (Manual) 88.0 % (40.0-70.0) H 05/20/19 04:33 Band Neutrophils % 3.0 % 05/20/19 04:33 Lymphocytes % (Manual) 7.0 % (13.4-35.0) L 05/20/19 04:33 Reactive Lymphs % (Man) 0 % 05/20/19 04:33 Monocytes % (Manual) 2.0 % (0.0-7.3) 05/20/19 04:33 Eosinophils % (Manual) 0 % (0.0-4.3) 05/20/19 04:33 Basophils % (Manual) 0 % (0.0-1.8) 05/20/19 04:33 Metamyelocytes % 0 % 05/20/19 04:33 Myelocytes % 0 % 05/20/19 04:33 Promyelocytes % 0 % 05/20/19 04:33 Blast Cells % 0 % 05/20/19 04:33 Nucleated RBC % 5.0 % (0.0-0.9) H 05/20/19 04:33 Seg Neutrophils # 5.2 K/mm3 (1.8-7.7) 05/17/19 03:47 Seg Neutrophils # Man 5.6 K/mm3 (1.8-7.7) 05/20/19 04:33 Band Neutrophils # 0.2 K/mm3 05/20/19 04:33 Lymphocytes # (Manual) 0.4 K/mm3 (1.2-5.4) L 05/20/19 04:33 Abs React Lymphs (Man) 0.0 K/mm3 05/20/19 04:33 Monocytes # (Manual) 0.1 K/mm3 (0.0-0.8) 05/20/19 04:33 Eosinophils # (Manual) 0.0 K/mm3 (0.0-0.4) 05/20/19 04:33 Basophils # (Manual) 0.0 K/mm3 (0.0-0.1) 05/20/19 04:33 Metamyelocytes # 0.0 K/mm3 05/20/19 04:33 Myelocytes # 0.0 K/mm3 05/20/19 04:33 Promyelocytes # 0.0 K/mm3 05/20/19 04:33 Blast Cells # 0.0 K/mm3 05/20/19 04:33 WBC Morphology Not Reportable 05/20/19 04:33 Hypersegmented Neuts Not Reportable 05/20/19 04:33 Hyposegmented Neuts Not Reportable 05/20/19 04:33 Hypogranular Neuts Not Reportable 05/20/19 04:33 Smudge Cells Not Reportable 05/20/19 04:33 Toxic Granulation Not Reportable 05/20/19 04:33 Toxic Vacuolation Not Reportable 05/20/19 04:33 Dohle Bodies Not Reportable 05/20/19 04:33 Pelger-Huet Anomaly Not Reportable 05/20/19 04:33 Jomar Rods Not Reportable 05/20/19 04:33 Platelet Estimate Consistent w auto 05/20/19 04:33 Clumped Platelets Not Reportable 05/20/19 04:33 Plt Clumps, EDTA Not Reportable 05/20/19 04:33 Large Platelets Not Reportable 05/20/19 04:33 Giant Platelets Not Reportable 05/20/19 04:33 Platelet Satelliting Not Reportable 05/20/19 04:33 Plt Morphology Comment Not Reportable 05/20/19 04:33 RBC Morphology Not Reportable 05/20/19 04:33 Dimorphic RBCs Not Reportable 05/20/19 04:33 Polychromasia Not Reportable 05/20/19 04:33 Hypochromasia Not Reportable 05/20/19 04:33 Poikilocytosis Not Reportable 05/20/19 04:33 Anisocytosis Few 05/20/19 04:33 Microcytosis Not Reportable 05/20/19 04:33 Macrocytosis Not Reportable 05/20/19 04:33 Spherocytes Not Reportable 05/20/19 04:33 Pappenheimer Bodies Not Reportable 05/20/19 04:33 Sickle Cells Not Reportable 05/20/19 04:33 Target Cells Not Reportable 05/20/19 04:33 Tear Drop Cells Not Reportable 05/20/19 04:33 Ovalocytes Not Reportable 05/20/19 04:33 Helmet Cells Not Reportable 05/20/19 04:33 Meléndez-Lightstreet Bodies Not Reportable 05/20/19 04:33 Barry Rings Not Reportable 05/20/19 04:33 Cecil Cells Not Reportable 05/20/19 04:33 Bite Cells Not Reportable 05/20/19 04:33 Crenated Cell Not Reportable 05/20/19 04:33 Elliptocytes Not Reportable 05/20/19 04:33 Acanthocytes (Spur) Not Reportable 05/20/19 04:33 Rouleaux Not Reportable 05/20/19 04:33 Hemoglobin C Crystals Not Reportable 05/20/19 04:33 Schistocytes Few 05/20/19 04:33 Malaria parasites Not Reportable 05/20/19 04:33 Oral Bodies Not Reportable 05/20/19 04:33 Hem Pathologist Commnt No 05/20/19 04:33 PT 13.9 Sec. (12.2-14.9) 05/12/19 16:16 PT 14.4 Sec. (12.2-14.9) 05/12/19 16:16 INR 1.06 (0.87-1.13) 05/12/19 16:16 INR 1.11 (0.87-1.13) 05/12/19 16:16 APTT 37.5 Sec. (24.2-36.6) H 05/12/19 16:16 ABG pH 7.505 pH Units (7.350-7.450) H 05/19/19 17:31 ABG pCO2 36.2 mm Hg 05/19/19 17:31 ABG pO2 69.5 mm Hg (80.0-90.0) L 05/19/19 17:31 ABG HCO3 27.9 mmol/L (20.0-26.0) H 05/19/19 17:31 ABG O2 Saturation 97.1 % (95.0-99.0) 05/19/19 17:31 ABG O2 Content 12.9 (0.0-44) 05/19/19 17:31 ABG Base Excess 4.6 mmol/L (-2.0-3.0) H 05/19/19 17:31 ABG Hemoglobin 9.6 gm/dl (12.0-16.0) L 05/19/19 17:31 ABG Carboxyhemoglobin 1.7 % (0.0-5.0) 05/19/19 17:31 ABG Methemoglobin 0.4 % (0.0-1.5) 05/19/19 17:31 Oxyhemoglobin 95.0 % (95.0-99.0) 05/19/19 17:31 FiO2 21 % 05/19/19 17:31 Sodium 132 mmol/L (137-145) L 05/20/19 04:33 Potassium 4.8 mmol/L (3.6-5.0) 05/20/19 04:33 Chloride 88.8 mmol/L (98-107) L 05/20/19 04:33 Carbon Dioxide 23 mmol/L (22-30) 05/20/19 04:33 Anion Gap 25 mmol/L 05/20/19 04:33 BUN 41 mg/dL (7-17) H 05/20/19 04:33 Creatinine 6.0 mg/dL (0.7-1.2) H 05/20/19 04:33 Estimated GFR 9 ml/min 05/20/19 04:33 BUN/Creatinine Ratio 7 % 05/20/19 04:33 Glucose 200 mg/dL (65-100) H 05/20/19 04:33 POC Glucose 142 (70-105) H 05/13/19 06:31 Calcium 7.2 mg/dL (8.4-10.2) L 05/20/19 04:33 Phosphorus 7.20 mg/dL (2.5-4.5) H 05/13/19 06:53 Magnesium 2.20 mg/dL (1.7-2.3) 05/13/19 06:53 Fluid Type Pericardial 05/13/19 11:30 Fluid Color Bloody 05/13/19 11:30 Fluid Appearance Bloody 05/13/19 11:30 Fluid WBC 95 /mm3 05/13/19 11:30 Fluid RBC 906492 /mm3 05/13/19 11:30 Fluid Diff Comment 05/13/19 11:30 Fluid Seg Neutrophils 14.0 % 05/13/19 11:30 Fluid Lymphocytes 68.0 % 05/13/19 11:30 Fluid Reactive Lymphs 0 % 05/13/19 11:30 Fluid Monocytes 18.0 % 05/13/19 11:30 Fluid Eosinophils 0 % 05/13/19 11:30 Fluid Basophils 0 % 05/13/19 11:30 Fluid Glucose 149 mg/dL (40-70) H 05/13/19 11:30 Fluid Total Protein 4.3 (15.0-45.0) L 05/13/19 11:30 Fluid LDH 854 05/13/19 11:30 Hepatitis A IgM Ab Non-reactive (NonReactive) 05/14/19 13:48 Hep Bs Antigen Non-reactive (Negative) 05/14/19 13:48 Hep B Core IgM Ab Non-reactive (NonReactive) 05/14/19 13:48 Hepatitis C Antibody Non-reactive (NonReactive) 05/14/19 13:48 AFB Identification 05/13/19 11:30 Active Medications - Current Medications Current Medications: Generic Name Dose Route Start Last Admin Trade Name Freq PRN Reason Stop Dose Admin Acetaminophen 650 mg 05/10/19 17:57 05/13/19 18:32 Tylenol PO 650 mg Q4H PRN Administration Pain MILD(1-3)/Fever >100.5/NOVAK Albumin Human 25 gm 05/14/19 13:28 Alburx 25% (Albumin) IV DARSHAN PRN Hypotension Albuterol/Ipratropium 1 ampul 05/12/19 08:00 05/20/19 16:07 Duoneb *Not For Prn Use* IH 1 ampul TIDRT FROY Administration Aspirin 81 mg 05/11/19 10:00 05/20/19 15:58 Halfprin Ec PO 81 mg DAILY FROY Administration Bisacodyl 10 mg 05/14/19 18:38 Dulcolax [place] QDAY PRN Constipation Budesonide 0.5 mg 05/10/19 20:00 05/20/19 09:40 Pulmicort IH 0.5 mg Q12HRT FROY Administration Carvedilol 25 mg 05/10/19 22:00 05/20/19 15:56 Coreg PO 25 mg BID@0800,1700 FROY Administration Cinacalcet 60 mg 05/10/19 21:00 05/20/19 15:54 Sensipar PO 60 mg QDAY FROY Administration Epoetin Tirso 10,000 unit 05/14/19 13:29 05/17/19 11:21 Procrit IV 10,000 unit DARSHAN PRN Administration hemodialysis Furosemide 80 mg 05/18/19 06:00 05/20/19 15:54 Lasix PO 80 mg 0600,1800 FROY Administration Guaifenesin 10 ml 05/17/19 18:13 05/19/19 21:43 Guaifenesin Dm Syrup PO 10 ml Q4H PRN Administration Cough Heparin Sodium (Porcine) 5,000 unit 05/10/19 22:00 05/20/19 08:25 Heparin SUB-Q 5,000 unit Q8HR FROY Administration Hydralazine HCl 100 mg 05/10/19 20:00 05/20/19 15:55 Apresoline PO 100 mg TID FROY Administration Sodium Chloride 100 mls @ 999 mls/hr 05/20/19 11:23 Nacl 0.9% IV DARSHAN PRN Hypotension Lactobacillus Rhamnosus 1 each 05/13/19 12:00 05/20/19 15:56 Culturelle PO 1 each DAILY FROY Administration Lactulose 20 gm 05/14/19 14:00 05/20/19 10:56 Cephulac PO Not Given BID FROY Loratadine/Pseudoephedrine Sulfate 1 each 05/18/19 10:00 05/20/19 15:56 Claritin-D 24hr PO 1 each Q24HR FROY Administration Losartan Potassium 50 mg 05/18/19 13:00 05/20/19 15:55 Cozaar PO 50 mg QDAY FROY Administration Morphine Sulfate 2 mg 05/10/19 17:57 05/13/19 17:04 Morphine IV 2 mg Q4H PRN Administration Pain, Moderate (4-6) Multivit/Ca Carb/B Cmplx/FA/Prenat 1 cap 05/13/19 12:00 05/20/19 15:58 Renal Caps PO 1 cap QDAY FROY Administration Nicotine 14 mg 05/11/19 10:00 05/20/19 15:58 Habitrol TD 14 mg QDAY FROY Administration Nifedipine 60 mg 05/10/19 22:00 05/20/19 15:54 Procardia Xl PO 60 mg BID FROY Administration Ondansetron HCl 4 mg 05/10/19 17:57 Zofran IV Q8H PRN Nausea And Vomiting Oxycodone/Acetaminophen 1 tab 05/10/19 17:57 05/19/19 05:34 Percocet 5/325 PO 1 tab Q6H PRN Administration Pain, Moderate (4-6) Pantoprazole Sodium 40 mg 05/12/19 18:00 05/20/19 15:58 Protonix PO 40 mg QDAY FROY Administration Prednisone 40 mg 05/20/19 10:00 05/20/19 15:57 Deltasone PO 40 mg QDAY FROY Administration Sodium Bicarbonate 650 mg 05/11/19 20:00 05/20/19 15:54 Sodium Bicarbonate PO 650 mg TID FROY Administration Sodium Chloride 10 ml 05/10/19 22:00 05/20/19 08:23 Sodium Chloride Flush Syringe 10 Ml IV Not Given BID FROY Sodium Chloride 10 ml 05/10/19 17:57 Sodium Chloride Flush Syringe 10 Ml IV PRN PRN LINE FLUSH Zolpidem Tartrate 5 mg 05/17/19 18:13 05/19/19 21:43 Ambien PO 5 mg QHS PRN Administration Sleep
[2019-05-20] MEDS: oxyCODONE /ACETAMINOPHEN 5-325MG TAB PO PRN (22:33)
[2019-05-20] MEDS: ZOLPIDEM 5 MG TAB PO PRN (22:33)
[2019-05-21] MEDS: hydrALAZINE 100 MG TAB PO SCH ×3 (03:58→13:48)
[2019-05-21] MEDS: carvediloL 25 MG TAB PO SCH ×2 (03:58→11:11)
[2019-05-21] MEDS: FUROSEMIDE 40 MG TAB PO SCH ×2 (03:59→05:59)
[2019-05-21] MEDS: guaiFENesin DM 200/20 MG ORAL LIQD 10 ML PO PRN (05:59)
[2019-05-21] MEDS: HEPARIN 5,000 UNIT/1 ML VIAL SUB-Q SCH ×2 (05:59→14:58)
[2019-05-21] MEDS: BUDESONIDE 0.5 MG/2 ML NEBU IH SCH (08:48)
[2019-05-21] MEDS: IPRATROPIUM/ALBUTEROL SULFATE 3 ML AMPUL.NEB IH SCH ×2 (08:48→13:56)
[2019-05-21] MEDS: PANTOPRAZOLE 40 MG TAB PO SCH (11:10)
[2019-05-21] MEDS: NICOTINE 14 MG/24 HR PATCH TD SCH (11:10)
[2019-05-21] MEDS: CINACALCET 30 MG TAB PO SCH (11:10)
[2019-05-21] MEDS: LACTULOSE 20 GM/30 ML ORAL LIQD PO SCH (11:10)
[2019-05-21] MEDS: FOLIC ACID/VIT B COMP W-C 1 MG (RENAL CAPS) PO SCH (11:10)
[2019-05-21] MEDS: LOSARTAN 50 MG TAB PO SCH (11:11)
[2019-05-21] MEDS: SODIUM BICARBONATE 650 MG TAB PO SCH ×2 (11:11→14:59)
[2019-05-21] MEDS: ASPIRIN EC 81 MG TAB PO SCH (11:11)
[2019-05-21] MEDS: NIFEdipine XL 60 MG TAB PO SCH (11:11)
[2019-05-21] MEDS: predniSONE 20 MG TAB PO SCH (11:11)
[2019-05-21] MEDS: LORATADINE/PSEUDOEPHEDRINE 10-240 MG TAB 24HR PO SCH (11:12)
[2019-05-21] MEDS: LACTOBACILLUS RHAMNOSUS GG 1 EACH CAP PO SCH (11:18)
--- NOTE | 2019-05-21 12:59 | Discharge Summary ---
Providers - Providers Date of Admission: 05/10/19 20:29 Date of discharge: 05/21/19 Attending physician: RICHARD BRIAN 05/10/19 18:02 Consult to Physician [CONS] Routine Comment: Consulting Provider: ZOIE LOVING Physician Instructions: Reason For Exam: esrd on pd 05/16/19 10:25 Consult to Case Management [CONS] Routine Services Needed at Discharge: Other Notified:: case management Additional Physician Instructions: dialysis unit placement, [facility] or [facility] 05/18/19 08:26 Consult to Physician [CONS] Routine Comment: Consulting Provider: ROSEANNA MUIR Physician Instructions: Reason For Exam: SOB/acute bronchitis Primary care physician: CATHERINE CAMP MD Hospitalization Hospital course: 63-year-old woman who was recently in the hospital for acute bronchitis. She was discharged and asked to return to the hospital for abnormal echocardiogram. She states that the cough and shortness of breath is improving. She actually feels better, denies chest pain, denies orthopnea, denies pleurisy. --Moderate to large pericardial effusion; Status post pericardiocentesis 05/13/2019 removed 1.2 L pericardial fluid, Symptoms improved Follow-up echocardiogram; small circumferential pericardial effusion, EF 50-55% --End-stage renal disease on peritoneal dialysis; Converted to hemodialysisn , HD per scheduled Nephrology cleared , outpatient HD chair secured Patient is not comfortable with the timing of senior project leader/team lead Once the different schedule at different time Case management processing --Acute bronchitis/?acute exacerbation of COPD/chronic tobacco use Mild Improvement in wheezing, cough and congestion On IV diuretics, nebulizers, IV steroids bronchodilators and steroids inhalation steroids Evaluation for home oxygen prior to discharge Pulmonary following --Hypertension; moderate control Continue current antihypertensives and when necessary medications --Ongoing tobacco use; smoking cessation counseling, Nicotine patch as needed --Preventive care counseling done spent 15 minutes --DVT prophylaxis; heparin, renal dose Monitor closely and adjust management as needed Disposition; outpatient HD chair is secured Evaluation for home oxygen, discharged a.m. if stable And cleared by pulmonary Plan of care reviewed with the patient and her nurse Disposition ; patient is stable for discharge. Case management processing HD chair scheduling Disposition: TO HOME OR SELFCARE Time spent for discharge: 35 min Core Measure Documentation - Palliative Care Palliative Care/ Comfort Measures: Not Applicable - Core Measures Any of the following diagnoses?: none Exam - Constitutional Vitals: Temp Pulse Resp BP Pulse Ox 98.9 F 87 18 173/75 94 05/21/19 08:23 05/21/19 12:37 05/21/19 08:50 05/21/19 12:37 05/21/19 12:37 General appearance: Present: no acute distress, well-nourished - EENT Eyes: Present: PERRL, EOM intact - Neck Neck: Present: supple, normal ROM - Respiratory Respiratory effort: normal Respiratory: negative: rales, rhonchi, wheezing - Cardiovascular Rhythm: regular Heart Sounds: Present: S1 & S2 - Extremities Extremities: no ischemia, No edema - Abdominal General gastrointestinal: Present: soft, non-tender, non-distended, normal bowel sounds - Integumentary Integumentary: Present: clear, warm - Musculoskeletal Musculoskeletal: strength equal bilaterally, generalized weakness - Psychiatric Psychiatric: appropriate mood/affect, cooperative - Neurologic Neurologic: moves all extremities Plan Activity: advance as tolerated Diet: renal Additional Instructions: f/u Renal and HD per schedule. f/u with cardiology and pulmonary per schedule Follow up with: JANINE MDCANIEL MD [Staff Physician] - 7 Days CATHERINE CAMP MD [Primary Care Provider] - 7 Days IVÁN GILLESPIE MD [Staff Physician] - 14 Days MARVA ROMAN MD [Staff Physician] - 7 Days Prescriptions: carvediloL [Coreg] 25 mg PO BID #60 Losartan [Cozaar] 50 mg PO QDAY #30 tablet guaiFENesin DM [Guaifenesin Dm Syrup] 10 ml PO Q4H PRN #1 bottle PRN Reason: Cough Furosemide [Lasix TAB] 80 mg PO 0600,1800 #30 tablet NIFEdipine [Nifedipine ER] 60 mg PO BID #60
[2019-05-21] MEDS ORDERED: SODIUM CHLORIDE 0.9% 100 ML IV PRN (13:44)
[2019-05-21 15:55] VITALS: BP 150/74
--- NOTE | 2019-05-21 15:56 | Progress Note ---
Assessment and Plan - Patient Problems (1) Anemia Current Visit: No Status: Acute Plan to address problem: Anemia : Hb: 9.6g/dl monitor CBC (2) Pericardial effusion Current Visit: No Status: Acute Plan to address problem: pericardial effusion hemorrhagic likely uremic Patient was non compliant with PD Will plan for aggressive HD. (3) ESRD on dialysis Current Visit: No Status: Chronic Plan to address problem: ESRD on hemodialysis social work to assist with placement at [facility] , patient currently has a 6:30 start time. HD today patient now states she is willing to go to [facility][1] dialysis (4) Hypertension Current Visit: No Status: Chronic Qualifiers: Hypertension type: essential hypertension Qualified Code(s): I10 - Essential (primary) hypertension Plan to address problem: Hypertension uncontrolled continue current medications Subjective Principal diagnosis: esrd Interval history: 63 year old with medical history signficnat for HTN , ESRD admitted with pericardial effusion presumed uremic pericarditis Patient seen today s/p pericardial window Patient tells me she will go to the dialysis unit appointment that was scheduled of the time available was 6:30 AM Patient was again dialysis again today given uremic pericarditis after extensive counseling regarding need for aggressive dialysis she refused when she was called by dialysis staff stating she's ready to go home Discussed possible need to remove PD catheter however she tells me previous repair order clerk was planning to start her on PD outpatient later. Objective - Vital Signs Vital signs: Vital Signs - 12hr 05/21/19 05/21/19 05/21/19 08:23 08:50 11:11 Temperature 98.9 F Pulse Rate 86 84 Pulse Rate [ 85 Anterior Bilateral Throughout] Respiratory 18 Rate Respiratory 18 Rate [Anterior Bilateral Throughout] Blood Pressure 128/65 147/68 Blood Pressure [Right] O2 Sat by Pulse 94 Oximetry 05/21/19 05/21/19 05/21/19 12:37 13:50 13:57 Temperature Pulse Rate 87 85 Pulse Rate [ 85 Anterior Bilateral Throughout] Respiratory Rate Respiratory 18 Rate [Anterior Bilateral Throughout] Blood Pressure 173/75 Blood Pressure 180/81 [Right] O2 Sat by Pulse 94 Oximetry 05/21/19 05/21/19 05/21/19 13:58 14:56 15:20 Temperature Pulse Rate 85 85 Pulse Rate [ Anterior Bilateral Throughout] Respiratory Rate Respiratory Rate [Anterior Bilateral Throughout] Blood Pressure 175/77 Blood Pressure 175/77 [Right] O2 Sat by Pulse 99 Oximetry - General Appearance General appearance: well-developed, well-nourished EENT: ATNC, PERRL Neck: no JVD Respiratory: Present: Clear to Ascultation Cardiology: regular, S1S2 Gastrointestinal: normal, normoactive bowel sounds Integumentary: no rash Neurologic: alert and oriented x3, CN 3-12 intact Psychiatric: mood/affect appropriate - Lab 05/20/19 04:33 05/20/19 04:33 Most recent lab results ABG pH 7.505 pH Units (7.350-7.450) H 05/19/19 17:31 ABG pCO2 36.2 mm Hg 05/19/19 17:31 ABG pO2 69.5 mm Hg (80.0-90.0) L 05/19/19 17:31 ABG HCO3 27.9 mmol/L (20.0-26.0) H 05/19/19 17:31 ABG O2 Saturation 97.1 % (95.0-99.0) 05/19/19 17:31 Calcium 7.2 mg/dL (8.4-10.2) L 05/20/19 04:33 Phosphorus 7.20 mg/dL (2.5-4.5) H 05/13/19 06:53 Magnesium 2.20 mg/dL (1.7-2.3) 05/13/19 06:53 - Imaging Chest x-ray: image reviewed (reviewed chest x-ray with global heart) Medications & Allergies - Medications Allergies/Adverse Reactions: Allergies No Known Allergies Allergy (Verified 08/21/18 15:07) Home Medications: Home Medications Medication Instructions Recorded Confirmed Last Taken Type Aspirin [Adult Low Dose Aspirin EC] 81 mg PO DAILY 11/24/16 05/10/19 05/08/19 History Cinacalcet HCl [Sensipar] 60 mg PO DAILY 08/21/18 05/10/19 05/08/19 History Dialyvite Chewable Probiotic 3,000 mg PO DAILY 08/21/18 05/10/19 05/08/19 History hydrALAZINE [Apresoline TAB] 100 mg PO TID 08/21/18 05/10/19 05/08/19 History Acetaminophen/Codeine [Tylenol 1 tab PO Q6H PRN #14 tab 05/10/19 05/10/19 Unknown Rx /Codeine # 3 tab] Albuterol INH(or & Nicu Only) 2 puff IH QID PRN #8.5 gram 05/10/19 05/10/19 Unknown Rx [ProAir HFA Inhaler] Cefdinir 300 mg PO BID #6 capsule 05/10/19 05/10/19 Unknown Rx Nicotine [Habitrol] 14 mg TD QDAY #30 patch 05/10/19 05/10/19 Unknown Rx Prednisone [predniSONE 10 mg 10 mg PO .TAPER #1 tab.ds.pk 05/10/19 05/10/19 Unknown Rx (6-Day Pack, 21 Tabs)] Furosemide [Lasix TAB] 80 mg PO 0600,1800 #30 tablet 05/21/19 Unknown Rx Losartan [Cozaar] 50 mg PO QDAY #30 tablet 05/21/19 Unknown Rx NIFEdipine [Nifedipine ER] 60 mg PO BID #60 05/21/19 Unknown Rx carvediloL [Coreg] 25 mg PO BID #60 05/21/19 Unknown Rx guaiFENesin DM [Guaifenesin Dm 10 ml PO Q4H PRN #1 bottle 05/21/19 Unknown Rx Syrup] Active Medications: Generic Name Dose Route Start Last Admin Trade Name Freq PRN Reason Stop Dose Admin Acetaminophen 650 mg 05/10/19 17:57 05/13/19 18:32 Tylenol PO 650 mg Q4H PRN Administration Pain MILD(1-3)/Fever >100.5/NOVAK Albumin Human 25 gm 05/14/19 13:28 Alburx 25% (Albumin) IV DARSHAN PRN Hypotension Albuterol/Ipratropium 1 ampul 05/12/19 08:00 05/21/19 13:56 Duoneb *Not For Prn Use* IH 1 ampul TIDRT FROY Administration Aspirin 81 mg 05/11/19 10:00 05/21/19 11:11 Halfprin Ec PO 81 mg DAILY FROY Administration Bisacodyl 10 mg 05/14/19 18:38 Dulcolax [place] QDAY PRN Constipation Budesonide 0.5 mg 05/10/19 20:00 05/21/19 08:48 Pulmicort IH 0.5 mg Q12HRT FROY Administration Carvedilol 25 mg 05/10/19 22:00 05/21/19 11:11 Coreg PO 25 mg BID@0800,1700 FROY Administration Cinacalcet 60 mg 05/10/19 21:00 05/21/19 11:10 Sensipar PO 60 mg QDAY FROY Administration Epoetin Tirso 10,000 unit 05/14/19 13:29 05/17/19 11:21 Procrit IV 10,000 unit DARSHAN PRN Administration hemodialysis Furosemide 80 mg 05/18/19 06:00 05/21/19 05:59 Lasix PO 80 mg 0600,1800 FROY Administration Guaifenesin 10 ml 05/17/19 18:13 05/21/19 05:59 Guaifenesin Dm Syrup PO 10 ml Q4H PRN Administration Cough Heparin Sodium (Porcine) 5,000 unit 05/10/19 22:00 05/21/19 14:58 Heparin SUB-Q Not Given Q8HR [facility] Hydralazine HCl 100 mg 05/10/19 20:00 05/21/19 13:48 Apresoline PO 100 mg TID FROY Administration Hydralazine HCl 10 mg 05/21/19 16:00 05/21/19 15:20 Apresoline IV 05/21/19 16:01 10 mg ONCE ONE Administration Sodium Chloride 100 mls @ 999 mls/hr 05/20/19 11:23 Nacl 0.9% IV DARSHAN PRN Hypotension Sodium Chloride 100 mls @ 999 mls/hr 05/21/19 13:44 Nacl 0.9% IV DARSHAN PRN Hypotension Lactobacillus Rhamnosus 1 each 05/13/19 12:00 05/21/19 11:18 Culturelle PO 1 each DAILY FROY Administration Lactulose 20 gm 05/14/19 14:00 05/21/19 11:10 Cephulac PO Not Given BID FROY Loratadine/Pseudoephedrine Sulfate 1 each 05/18/19 10:00 05/21/19 11:12 Claritin-D 24hr PO Not Given Q24HR [facility] Losartan Potassium 50 mg 05/18/19 13:00 05/21/19 11:11 Cozaar PO 50 mg QDAY FROY Administration Morphine Sulfate 2 mg 05/10/19 17:57 05/13/19 17:04 Morphine IV 2 mg Q4H PRN Administration Pain, Moderate (4-6) Multivit/Ca Carb/B Cmplx/FA/Prenat 1 cap 05/13/19 12:00 05/21/19 11:10 Renal Caps PO 1 cap QDAY FROY Administration Nicotine 14 mg 05/11/19 10:00 05/21/19 11:10 Habitrol TD 14 mg QDAY FROY Administration Nifedipine 60 mg 05/10/19 22:00 05/21/19 11:11 Procardia Xl PO 60 mg BID FROY Administration Ondansetron HCl 4 mg 05/10/19 17:57 Zofran IV Q8H PRN Nausea And Vomiting Oxycodone/Acetaminophen 1 tab 05/10/19 17:57 05/20/19 22:33 Percocet 5/325 PO 1 tab Q6H PRN Administration Pain, Moderate (4-6) Pantoprazole Sodium 40 mg 05/12/19 18:00 05/21/19 11:10 Protonix PO 40 mg QDAY FROY Administration Prednisone 40 mg 05/20/19 10:00 05/21/19 11:11 Deltasone PO 40 mg QDAY FROY Administration Sodium Bicarbonate 650 mg 05/11/19 20:00 05/21/19 14:59 Sodium Bicarbonate PO Not Given TID FROY Sodium Chloride 10 ml 05/10/19 22:00 05/21/19 11:13 Sodium Chloride Flush Syringe 10 Ml IV 10 ml BID FROY Administration Sodium Chloride 10 ml 05/10/19 17:57 Sodium Chloride Flush Syringe 10 Ml IV PRN PRN LINE FLUSH Zolpidem Tartrate 5 mg 05/17/19 18:13 05/20/19 22:33 Ambien PO 5 mg QHS PRN Administration Sleep
[2019-05-21] MEDS ORDERED: hydrALAZINE 20 MG/1 ML INJ IV ONE (16:00)
--- NOTE | 2019-05-21 17:22 | Progress Note ---
Assessment and Plan Pt alert and awake. Pt states she is breathing better. No complaints of chest pain, shortness of breath, or cough. History of smoking 1 pack for twenty years. Counseled to stop smoking. O2 saturation 99% room air. Pt is afebrile. No leukocytosis. No acute respiratory distress. Pt can go home from a pulmonary point of view. Recommend pulmonary follow-up as an outpatient in 1-2 weeks. - Patient Problems (1) Shortness of breath Status: Acute Plan to address problem: Pt improved, currently on room air O2 saturation 99% Recommend PFTs as an outpatient Continue bronchodilators (2) ESRD on dialysis Status: Chronic Plan to address problem: Management as per nephrology (3) Hypertension Status: Chronic Qualifiers: Hypertension type: essential hypertension Qualified Code(s): I10 - Essent ial (primary) hypertension Plan to address problem: Management as per primary care Subjective Date of service: 05/21/19 Principal diagnosis: esrd Interval history: Pt was seen and examined at bedside. Pt alert and awake. Pt states she is breathing better. No complaints of chest pain, shortness of breath, or cough. History of smoking 1 pack for twenty years. Counseled to stop smoking. O2 saturation 99% room air. Pt is afebrile. No leukocytosis. No acute respiratory distress. Pt can go home from a pulmonary point of view. Recommend pulmonary follow-up as an outpatient in 1-2 weeks. Objective Vital Signs - 12hr 05/21/19 05/21/19 05/21/19 08:23 08:50 11:11 Temperature 98.9 F Pulse Rate 86 84 Pulse Rate [ 85 Anterior Bilateral Throughout] Respiratory 18 Rate Respiratory 18 Rate [Anterior Bilateral Throughout] Blood Pressure 128/65 147/68 Blood Pressure [Right] O2 Sat by Pulse 94 Oximetry 05/21/19 05/21/19 05/21/19 12:37 13:50 13:57 Temperature Pulse Rate 87 85 Pulse Rate [ 85 Anterior Bilateral Throughout] Respiratory Rate Respiratory 18 Rate [Anterior Bilateral Throughout] Blood Pressure 173/75 Blood Pressure 180/81 [Right] O2 Sat by Pulse 94 Oximetry 05/21/19 05/21/19 05/21/19 13:58 14:56 15:20 Temperature Pulse Rate 85 85 Pulse Rate [ Anterior Bilateral Throughout] Respiratory Rate Respiratory Rate [Anterior Bilateral Throughout] Blood Pressure 175/77 Blood Pressure 175/77 [Right] O2 Sat by Pulse 99 Oximetry 05/21/19 15:54 Temperature Pulse Rate 89 Pulse Rate [ Anterior Bilateral Throughout] Respiratory Rate Respiratory Rate [Anterior Bilateral Throughout] Blood Pressure Blood Pressure 150/74 [Right] O2 Sat by Pulse Oximetry Constitutional: no acute distress, alert Eyes: non-icteric ENT: oropharynx moist Neck: supple, no lymphadenopathy Effort: normal Ascultation: Bilateral: diminished breath sounds, rhonchi, other (prolonged exp phase) Percussion: Bilateral: not dull Cardiovascular: regular rate and rhythm Gastrointestinal: normoactive bowel sounds, soft, non-distended Integumentary: normal Extremities: no cyanosis, no edema Neurologic: normal mental status, non-focal exam Psychiatric: mood appropriate CBC and BMP: 05/20/19 04:33 05/20/19 04:33 ABG, PT/INR, D-dimer: ABG ABG pH 7.505 pH Units (7.350-7.450) H 05/19/19 17:31 ABG pCO2 36.2 mm Hg 05/19/19 17:31 ABG pO2 69.5 mm Hg (80.0-90.0) L 05/19/19 17:31 ABG O2 Saturation 97.1 % (95.0-99.0) 05/19/19 17:31 PT/INR, D-dimer PT 13.9 Sec. (12.2-14.9) 05/12/19 16:16 PT 14.4 Sec. (12.2-14.9) 05/12/19 16:16 INR 1.06 (0.87-1.13) 05/12/19 16:16 INR 1.11 (0.87-1.13) 05/12/19 16:16 Abnormal lab findings: Abnormal Labs 05/11/19 05/11/19 05/12/19 04:28 04:28 16:16 WBC 3.6 L RBC 2.86 L Hgb 8.6 L Hct 26.7 L RDW 16.3 H Lymph % (Auto) Rankin % (Auto) Lymph # Seg Neutrophils % Seg Neuts % (Manual) 94.0 H Lymphocytes % (Manual) 6.0 L Nucleated RBC % Seg Neutrophils # Man Lymphocytes # (Manual) 0.2 L APTT 37.5 H ABG pH ABG pO2 ABG HCO3 ABG Base Excess ABG Hemoglobin Sodium 133 L Potassium 5.2 H Chloride 94.1 L Carbon Dioxide 18 L BUN 77 H Creatinine 10.6 H Glucose 167 H POC Glucose Calcium Phosphorus Fluid Glucose Fluid Total Protein 05/13/19 05/13/19 05/13/19 06:31 06:53 06:53 WBC 4.1 L RBC 2.72 L Hgb 8.0 L Hct 24.5 L RDW Lymph % (Auto) 7.4 L Rankin % (Auto) Lymph # 0.3 L Seg Neutrophils % 87.6 H Seg Neuts % (Manual) Lymphocytes % (Manual) Nucleated RBC % Seg Neutrophils # Man Lymphocytes # (Manual) APTT ABG pH ABG pO2 ABG HCO3 ABG Base Excess ABG Hemoglobin Sodium 130 L Potassium Chloride 91.0 L Carbon Dioxide 18 L BUN 77 H Creatinine 9.7 H Glucose 140 H POC Glucose 142 H Calcium 7.5 L Phosphorus 7.20 H Fluid Glucose Fluid Total Protein 05/13/19 05/14/19 05/14/19 11:30 04:01 04:01 WBC RBC 3.11 L Hgb 9.1 L Hct 28.1 L RDW Lymph % (Auto) Rankin % (Auto) Lymph # Seg Neutrophils % Seg Neuts % (Manual) 95.0 H Lymphocytes % (Manual) 1.0 L Nucleated RBC % Seg Neutrophils # Man Lymphocytes # (Manual) 0.1 L APTT ABG pH ABG pO2 ABG HCO3 ABG Base Excess ABG Hemoglobin Sodium 130 L Potassium Chloride 90.9 L Carbon Dioxide 20 L BUN 81 H Creatinine 9.7 H Glucose 190 H POC Glucose Calcium 7.5 L Phosphorus Fluid Glucose 149 H Fluid Total Protein 4.3 L 05/15/19 05/15/19 05/16/19 05:24 05:24 04:11 WBC RBC 2.97 L 2.95 L Hgb 8.8 L 8.7 L Hct 27.0 L 26.9 L RDW Lymph % (Auto) 4.3 L 4.1 L Rankin % (Auto) 8.5 H Lymph # 0.3 L 0.3 L Seg Neutrophils % 89.1 H 87.3 H Seg Neuts % (Manual) Lymphocytes % (Manual) Nucleated RBC % Seg Neutrophils # Man Lymphocytes # (Manual) APTT ABG pH ABG pO2 ABG HCO3 ABG Base Excess ABG Hemoglobin Sodium 136 L Potassium Chloride 93.8 L Carbon Dioxide BUN 50 H Creatinine 6.7 H Glucose 209 H POC Glucose Calcium 7.6 L Phosphorus Fluid Glucose Fluid Total Protein 05/16/19 05/17/19 05/17/19 04:11 03:47 03:47 WBC RBC 3.04 L Hgb 9.0 L Hct 28.0 L RDW Lymph % (Auto) 5.3 L Rankin % (Auto) Lymph # 0.3 L Seg Neutrophils % 87.2 H Seg Neuts % (Manual) Lymphocytes % (Manual) Nucleated RBC % Seg Neutrophils # Man Lymphocytes # (Manual) APTT ABG pH ABG pO2 ABG HCO3 ABG Base Excess ABG Hemoglobin Sodium Potassium Chloride 96.0 L 95.6 L Carbon Dioxide BUN 25 H Creatinine 4.5 H 3.8 H Glucose 190 H 161 H POC Glucose Calcium 7.7 L 7.7 L Phosphorus Fluid Glucose Fluid Total Protein 05/18/19 05/18/19 05/19/19 04:23 04:23 04:45 WBC RBC 3.09 L 3.11 L Hgb 9.1 L 9.4 L Hct 28.5 L 28.7 L RDW Lymph % (Auto) Rankin % (Auto) Lymph # Seg Neutrophils % Seg Neuts % (Manual) 87.0 H 86.0 H Lymphocytes % (Manual) 8.0 L 9.0 L Nucleated RBC % 6.0 H 10.0 H Seg Neutrophils # Man 0.0 L Lymphocytes # (Manual) 0.7 L 0.0 L APTT ABG pH ABG pO2 ABG HCO3 ABG Base Excess ABG Hemoglobin Sodium Potassium Chloride 95.2 L Carbon Dioxide BUN Creatinine 3.5 H Glucose 163 H POC Glucose Calcium 7.6 L Phosphorus Fluid Glucose Fluid Total Protein 05/19/19 05/19/19 05/20/19 04:45 17:31 04:33 WBC RBC 3.28 L Hgb 9.7 L Hct 30.2 L RDW 15.9 H Lymph % (Auto) Rankin % (Auto) Lymph # Seg Neutrophils % Seg Neuts % (Manual) 88.0 H Lymphocytes % (Manual) 7.0 L Nucleated RBC % 5.0 H Seg Neutrophils # Man Lymphocytes # (Manual) 0.4 L APTT ABG pH 7.505 H ABG pO2 69.5 L ABG HCO3 27.9 H ABG Base Excess 4.6 H ABG Hemoglobin 9.6 L Sodium 132 L Potassium Chloride 90.6 L Carbon Dioxide BUN 30 H Creatinine 4.9 H Glucose 185 H POC Glucose Calcium 7.3 L Phosphorus Fluid Glucose Fluid Total Protein 05/20/19 04:33 WBC RBC Hgb Hct RDW Lymph % (Auto) Rankin % (Auto) Lymph # Seg Neutrophils % Seg Neuts % (Manual) Lymphocytes % (Manual) Nucleated RBC % Seg Neutrophils # Man Lymphocytes # (Manual) APTT ABG pH ABG pO2 ABG HCO3 ABG Base Excess ABG Hemoglobin Sodium 132 L Potassium Chloride 88.8 L Carbon Dioxide BUN 41 H Creatinine 6.0 H Glucose 200 H POC Glucose Calcium 7.2 L Phosphorus Fluid Glucose Fluid Total Protein Allied health notes reviewed: nursing
== END 2019-05-21 15:57 | disposition home health service (06) | DRG 314 ==
LOC: 4A 17:43 → UNDOADMIN 17:43 → CC1 20:29 → 4A 05-11 17:34
PROVIDERS: ADMIT Internal Medicine; ATTEND Internal Medicine
PROC: 0W9D3ZZ Drainage of Pericardial Cavity, Percutaneous Approach (ICD-10-PCS; principal; 2019-05-13)
PROC: 5A1D70Z Performance of Urinary Filtration, Intermittent, Less than 6 Hours Per Day (ICD-10-PCS; 2019-05-15)
PROC: 5A1D70Z Performance of Urinary Filtration, Intermittent, Less than 6 Hours Per Day (ICD-10-PCS; 2019-05-16)
PROC: 5A1D70Z Performance of Urinary Filtration, Intermittent, Less than 6 Hours Per Day (ICD-10-PCS; 2019-05-17)
PROC: 4A033R1 Measurement of Arterial Saturation, Peripheral, Percutaneous Approach (ICD-10-PCS; 2019-05-18)
PROC: 5A1D70Z Performance of Urinary Filtration, Intermittent, Less than 6 Hours Per Day (ICD-10-PCS; 2019-05-20)
PROC: 5A1D70Z Performance of Urinary Filtration, Intermittent, Less than 6 Hours Per Day (ICD-10-PCS; 2019-05-21)
DX: I31.3 Pericardial effusion (noninflammatory) (principal); N18.6 End stage renal disease; I12.0 Hypertensive chronic kidney disease with stage 5 chronic kidney disease or end stage renal disease; E87.1 Hypo-osmolality and hyponatremia; E87.2 Acidosis; N25.81 Secondary hyperparathyroidism of renal origin; J44.1 Chronic obstructive pulmonary disease with (acute) exacerbation; J44.0 Chronic obstructive pulmonary disease with (acute) lower respiratory infection; F17.210 Nicotine dependence, cigarettes, uncomplicated; J20.9 Acute bronchitis, unspecified; E83.51 Hypocalcemia; R62.7 Adult failure to thrive; E87.5 Hyperkalemia; D63.1 Anemia in chronic kidney disease; Z71.6 Tobacco abuse counseling; Z79.82 Long term (current) use of aspirin; Z90.710 Acquired absence of both cervix and uterus; Z79.899 Other long term (current) drug therapy; Z99.2 Dependence on renal dialysis; Z91.15 Patient's noncompliance with renal dialysis; Z68.22 Body mass index [BMI] 22.0-22.9, adult
CPT/HCPCS: 33016; 36415; 36600; 71045; 80048; 80074; 82803; 82947; 82962; 83605; 83735; 84100; 84160; 85007; 85025; 85610; 85730; 87116; 88112; 88305; 88312; 88341; 88342; 89051; 93005; 93010; 93308; 93321; 93325; 94640; 99406; G0378; C1769; J0360; J0885; J1642; J1644; J1940; J2250; J2270; J2920; J2930; J3010; J7030; J7040; J7512